=== PATIENT | male | born 1935 | race Caucasian/White ===

== ENCOUNTER 2023-03-23 09:25 | Emergency (ER) | payer MEDICARE, SELFPAY ==
[2023-03-23 09:44] VITALS: BP 161/105; PULSE 83; RESP 18; TEMP 37.2; O2SAT 97; BMI 26.6
--- NOTE | 2023-03-23 09:56 | ED_ITS ---
HPI - Dental/Oral General Chief complaint: Dental/Oral Stated complaint: R SIDE OF FACE SWOLLEN Time Seen by Provider: 03/23/23 09:56 Source: patient Mode of arrival: walk-in History of Present Illness HPI Narrative: Presents to emergency department complaining of right lower tooth #30 pain with swelling To the right jaw. He states he started this week went to see his doctor if they started him on amoxicillin for 3 days prior to his appointment with the dentist. Patient states his appointment with the dentist does not want to April 01 in the meantime he developed swelling today.He denies any sore throat, difficulty swallowing.She was started on amoxicillin for 3 days by his primary care doctor prior to his appointment because he has valve problems. Related Data Previous Rx's Medication Instructions Recorded clindamycin HCl 300 mg capsule 300 mg PO Q6H 10 days #40 caps 03/23/23 Allergies Allergy/AdvReac Type Severity Reaction Status Date / Time No Known Drug Allergies Allergy Verified 03/23/23 09:47 Review of Systems ROS Status of ROS 10 or more systems reviewed and unremarkable except as noted in history and below Exam Narrative Exam Narrative: General: The patient is comfortable, alert and oriented x3, well appearing, non toxic in no apparent distress. Head: Atraumatic and normocephalic. Eyes: Normal conjunctiva ENT: The oropharynx is normal. No pharyngeal erythema, uvular edema, tonsillar exudates, asymmetry or trismus. Uvula is midline. Mouth is normal to inspection with the exception of a pain on percussion of the tooth #30 and evidence of dental caries w erosion of dentin. mild right jaw edema, no erythema. Floor of the mouth is soft. No tenderness in the submental or submandibular space. No tongue elevation or deviation. The patient has no evidence of periapical abscess, gingivitis or other acute pathology. Airway is patent. Neck: The neck demonstrates normal range of motion. No meningeals signs are present. No stridor. No masses or lymphandenopathy noted. Respiratory: No acute distress, lungs are clear to auscultation, no wheezing, rhonchi, or rales noted. No stridor or retractions are noted. Cardiovascular: Regular rate and rhythm Skin: The skin exam shows no evidence of rashes Neuro: Alert and oriented x4, normal speech Lymphatic: No cervical lymphadenopathy Constitutional Vital Signs, click to edit/add: Last Vital Signs Temp 98.5 F 03/23/23 10:29 Pulse 79 03/23/23 10:29 Resp 14 03/23/23 10:29 BP 158/98 H 03/23/23 10:29 Pulse Ox 95 03/23/23 10:29 O2 Del Method Room Air 03/23/23 10:29 Course Vital Signs Vital signs: Vital Signs Temperature 99.0 F 03/23/23 09:44 Pulse Rate 83 03/23/23 09:44 Respiratory Rate 18 03/23/23 09:44 Blood Pressure 161/105 H 03/23/23 09:44 Pulse Oximetry 97 03/23/23 09:44 Temperature 98.5 F 03/23/23 10:29 Pulse Rate 79 03/23/23 10:29 Respiratory Rate 14 03/23/23 10:29 Blood Pressure 158/98 H 03/23/23 10:29 Pulse Oximetry 95 03/23/23 10:29 Oxygen Delivery Method Room Air 03/23/23 10:29 MDM - Dental/Oral MDM Narrative Medical decision making narrative: Patient was started on clindamycin. He is advised to take Tylenol as needed for pain. Dental anesthesia was given. Patient is stable for outpatient dentist follow-up. At this time the patient is without objective evidence of an acute process requiring hospitalization or inpatient management. The patient has remained hemodynamically stable. No additional indication for emergent studies at this time. I answered all questions. Discussed discharge instructions including s tandard anticipatory guidance and what should prompt a return to the emergency department, including if they get worse are not getting better or develops any new or concerning symptoms. I've given them specific time frame in which to follow-up, and who to follow-up with. The patient demonstrates understanding. Patient is nontoxic and stable for discharge with outpatient follow-up. This note was created with the assistance of a speech recognition program. Although the intention is to generate documents that actually reflects the content of the visit, no guarantees can be provided that every mistake has been identified and corrected by editing. Discharge Plan Discharge Chief Complaint: Dental/Oral Clinical Impression: Dental abscess Patient Disposition: Home, Self-Care Time of Disposition Decision: 10:14 Condition: Good Mode of Transportation: Private Vehicle Prescriptions / Home Meds: New clindamycin HCl 300 mg capsule 300 mg PO Q6H 10 Days Qty: 40 0RF Instructions: Dental Abscess (ED) Stand Alone Forms: Portal Instructions Referrals: Onofre Pineda DO [Primary Care Provider] - 1 week Discharge Date/Time: 03/23/23 10:54
--- NOTE | 2023-03-23 10:14 | PC.NURSE ---
pt reports right lower jaw pain and swelling. pt states took 2 tylenol this morning without relief.
[2023-03-23 10:29] VITALS: BP 158/98; PULSE 79; RESP 14; TEMP 36.9; O2SAT 95
[2023-03-23] MEDS: BENZOCAINE 20% 30 ML SOLUTION MM (10:52)
[2023-03-23] MEDS: LIDOCAINE 2% JELLY 10 ML MM (10:53)
== END 2023-03-23 10:54 | disposition home or self-care (01) ==
PROVIDERS: Emergency Provider Emergency Medicine; PCP Internal Medicine
DX: K04.7 Periapical abscess without sinus (principal)
CPT/HCPCS: 99282

== ENCOUNTER 2023-05-01 13:46 | Outpatient (OUT) | payer MEDICARE, SELFPAY ==
--- NOTE | 2023-05-01 13:50 | XR_ITS ---
[address] [address] Patient Name: JERRY GOODE MRN: [id number] date: 1935 Sex: M Assigned Patient Location: [facility] Current Patient Location: [facility] Accession/Order Number: [id number] Exam Date: 05/01/2023 14:00 Report Date: 05/01/2023 16:57 At the request of: NON-STAFF PHYSICIAN Procedure: XR abdomen 1V EXAMINATION: XR abdomen 1V HISTORY: Renal Stones N20.0 COMPARISON: 03/29/2022 FINDINGS: KIDNEY/URETER - RIGHT: No visible renal or ureteral calcifications. KIDNEY/URETER - LEFT: No visible renal or ureteral calcifications. PELVIS: No visible ureteral calcifications. Any visible calcifications favor phleboliths. BOWEL: No abnormal dilation or deviation. BONES: No acute abnormality. Moderate degenerative changes with rotatory dextrocurvature OTHER: Negative. No abnormal gaseous collections. XR/XR abdomen 1V IMPRESSION: No definite urinary tract calculi Electronically authenticated by: ARTURO DOUGHERTY Date: 05/01/2023 16:57
== END 2023-05-01 13:47 | disposition home or self-care (01) ==
LOC: RAD 13:46
PROVIDERS: PCP Internal Medicine
DX: N20.0 Calculus of kidney (principal)
CPT/HCPCS: 74018

== ENCOUNTER 2024-01-17 07:03 | Outpatient (RCR) | payer MEDICARE, SELFPAY ==
--- NOTE | 2023-10-18 13:22 | CR1_ITS ---
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
--- NOTE | 2023-11-13 10:30 | CR1_ITS ---
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
--- NOTE | 2023-12-11 | CR1_ITS ---
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
--- NOTE | 2024-01-09 14:30 | CR1_ITS ---
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
--- NOTE | 2024-02-03 13:19 | CR1_ITS ---
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
== END 2024-02-19 14:57 | disposition home or self-care (01) ==
LOC: CR 07:03
PROVIDERS: PCP Internal Medicine
DX: Z95.5 Presence of coronary angioplasty implant and graft (principal)
CPT/HCPCS: 93798

== ENCOUNTER 2024-05-06 12:43 | Emergency (ER) | payer MEDICARE, SELFPAY ==
[2024-05-06] VITALS (18 sets, daily range): BP systolic 123–162; BP diastolic 75–97; PULSE 64–82; TEMP 36.4; O2SAT 94–98; BMI 26.6
--- NOTE | 2024-05-06 13:00 | XR_ITS ---
[place] [id number] Patient Name: JERRY GOODE MRN: [id number] date: 1935 Sex: M Assigned Patient Location: ER Current Patient Location: ED.MAIN Accession/Order Number: [id number] Exam Date: 05/06/2024 13:10 Report Date: 05/06/2024 13:36 At the request of: TIFFANI MALDONADO Procedure: XR chest 1V EXAM: CHEST 1 VIEW HISTORY: sob TECHNIQUE: Chest, one view. COMPARISON: None. FINDINGS: Lungs are clear. No focal consolidation, pleural effusion, or pneumothorax. Pulmonary vasculature is within normal limits. Coronary artery bypass grafting changes. Heart size within normal limits. XR/XR chest 1V IMPRESSION: 1. No acute cardiopulmonary disease. Electronically authenticated by: VINOD CAPPS Date: 05/06/2024 13:36
--- NOTE | 2024-05-06 13:00 | ECG_ITS ---
[facility] Test Date: 2024-05-06 Pat Name: JERRY GOODE Department: Room: - Gender: Male [employer] In[employer]: : 1935 Requested By: DEREK COONEY Order Number: [id number] Reading MD: DEREK COONEY Measurements Intervals [place] Rate: 85 P: 25 IA: 132 QRS: -71 QRSD: 96 T: 90 QT: 334 QTc: 376 Interpretive Statements 1100 Sinus rhythm 1474 with frequent supraventricular premature complexes 2630 Left anterior fascicular block 8102 Low QRS voltage in chest leads 9150 abnormal ECG Electronically Signed On 05-07-2024 6:46:06 EDT by DEREK COONEY
--- NOTE | 2024-05-06 13:01 | ED.GENADUL1 ---
HPI HPI - General Adult General Chief complaint: Shortness of Breath/Dyspnea Stated complaint: SHORTNESS OF BREATH/ GENERAL WEAKNESS Time Seen by Provider: 05/06/24 12:44 Source: patient Mode of arrival: walk-in Limitations: no limitations History of Present Illness HPI narrative: Patient presents to ED complaining of shortness of breath. He states he has shortness of breath on and off but this is was much worse this morning. He denies any chronic lung issues such as COPD or emphysema. He does have an extensive cardiac history with 2 open heart surgeries and a stent that was placed within the last 6 months per family. He denies any chest pain. No nausea or vomiting. He just reports shortness of breath and feeling generally ill. He also reports a mild sore throat. He denies history of A-fib but he states he is on a blood thinner but he is not sure which one. He denies cough or sick contacts. Related Data Home Medications ?Medication ?Instructions ?Recorded ?Confirmed aspirin 81 mg capsule 81 mg PO DAILY 05/06/24 05/06/24 atorvastatin 80 mg tablet (Lipitor) 80 mg PO QPM 05/06/24 05/06/24 carvedilol 6.25 mg tablet (Coreg) 6.25 mg PO Q12H 05/06/24 05/06/24 clopidogrel 75 mg tablet (Plavix) 75 mg PO DAILY 05/06/24 05/06/24 escitalopram oxalate 20 mg tablet 20 mg PO DAILY 05/06/24 05/06/24 ezetimibe 10 mg tablet 10 mg PO DAILY 05/06/24 05/06/24 finasteride 5 mg tablet (Proscar) 5 mg PO DAILY 05/06/24 05/06/24 losartan 50 mg tablet (Cozaar) 50 mg PO DAILY 05/06/24 05/06/24 multivitamin (Daily Multi-Vitamin 1 tab PO DAILY 05/06/24 05/06/24 tablet) pantoprazole 40 mg tablet,delayed 40 mg PO QAM 05/06/24 05/06/24 release tramadol 50 mg tablet mg 05/06/24 Allergies Allergy/AdvReac Type Severity Reaction Status Date / Time No Known Drug Allergies Allergy Verified 03/23/23 09:47 Opioid HPI Opioid Management Most Recent Opioid Data: No Data to Display Review of Systems ROS Status of ROS 10 or more systems reviewed and unremarkable except as noted in history and below PFSH PFSH Social History Little interest or pleasure in doing things: not at all Feeling down, depressed, or hopeless: not at all Exam Narrative Exam Narrative: Time Seen: [] Vital Signs: [Per nurse's notes.] General: [Alert] Skin: [Warm, dry, no rash.] Head: [Normocephalic, atraumatic.] Neck: [Supple, trachea midline.] Eye: [Pupils are equal, round and reactive to light, extraocular movements are intact, normal conjunctiva.] Ears, nose, mouth and throat: oral mucosa moist. Cardiovascular: [Regular rate and rhythm, no murmur.] Respiratory: Diminished breath sounds bilateral bases mild crackles, respirations are non-labored, breath sounds are equal.] Chest wall: [No tenderness, no deformity.] Gastrointestinal: [Soft, nontender, non distended, normal bowel sounds.] MSK: 5 out of 5 muscle strength x 4 extremities no calf pain Very mild trace edema bilateral lower extremities Lymphatics: [No lymphadenopathy.] Psychiatric: [Cooperative, appropriate mood & affect.] Neurological: [Alert and oriented to person, place, time, and situation, no focal neurological deficit observed.] Constitutional Vital Signs, click to edit/add: Last Vital Signs Temp 97.6 F 05/06/24 12:48 Pulse 72 05/06/24 15:10 Resp 18 05/06/24 15:10 BP 162/97 H 05/06/24 15:35 Pulse Ox 98 05/06/24 15:50 O2 Del Method Room Air 05/06/24 12:48 Course Vital Signs Vital signs: Vital Signs Temperature 97.6 F 05/06/24 12:48 Pulse Rate 64 05/06/24 12:48 Respiratory Rate 18 05/06/24 12:48 Blood Pressure 140/94 H 05/06/24 12:48 Pulse Oximetry 97 05/06/24 12:48 Oxygen Delivery Method Room Air 05/06/24 12:48 Temperature 97.6 F 05/06/24 12:48 Pulse Rate 72 05/06/24 15:10 Respiratory Rate 18 05/06/24 15:10 Blood Pressure 162/97 H 05/06/24 15:35 Pulse Oximetry 98 05/06/24 15:50 Oxygen Delivery Method Room Air 05/06/24 12:48 Medical Decision Making MDM Narrative Medical decision making narrative: Patient's labs including troponin x [address] angio shows no PE or pneumonia. Patient states he is feeling better. We did talk for a long time about his alcohol use. He states that he drinks too much and he does get a little shaky when he stops drinking. I offered him resources for alcohol detox but he states he does not need that. I instructed family to bring him back if he is exhibiting severe withdrawal signs. Currently he is not. Patient is to follow-up with family doctor return to ER for worsening symptoms. Patient and family are comfortable care plan for home. Differential Diagnosis Differential Diagnosis: Pneumonia, CHF, IA, arrhythmia, COVID Medical Records Medical records reviewed: Yes I reviewed the patient's medical records Lab Data Lab results reviewed: Yes I reviewed the patient's lab results Labs: Lab Results 05/06/24 05/06/24 05/06/24 Range/Units 12:57 12:58 15:10 WBC 9.6 (4.0-11.0) 10^3/uL RBC 4.33 L (4.70-6.10) 10^6/uL Hgb 14.9 (14.0-18.0) g/dL Hct 41.7 L (42.0-54.0) % MCV 96.3 H (80.0-94.0) fL MCH 34.4 H (25.9-34.0) pg MCHC 35.7 H (29.9-35.2) g/dL RDW 13.2 (11.0-15.0) % Plt Count 247 (150-450) 10^3/uL MPV 10.3 (9.5-13.5) fL Neut % (Auto) 75.2 H (43.0-75.0) % Lymph % (Auto) 16.3 L (20.5-60.0) % [place] % (Auto) 7.4 (1.7-12.0) % Eos % (Auto) 0.6 L (0.9-7.0) % Baso % (Auto) 0.4 (0.2-2.0) % Neut # (Auto) 7.2 H (1.4-6.5) 10^3/uL Lymph # (Auto) 1.6 (1.2-3.8) 10^3/uL [place] # (Auto) 0.7 (0.3-0.8) 10^3/uL Eos # (Auto) 0.1 (0.0-0.7) 10^3/uL Baso # (Auto) 0.0 (0.0-0.1) 10^3/uL Abs Immat Gran (auto) 0.01 (0.00-0.03) 10^3/uL Imm/Tot Granulo (auto) 0.1 (0.0-0.5) % PT 11.7 H (9.0-11.6) sec INR 1.12 Sodium 137 (136-145) mmol/L Potassium 3.7 (3.5-5.1) mmol/L Chloride 102 (98-107) mmol/L Carbon Dioxide 26.3 (21.0-32.0) mmol/L Anion Gap 12.4 BUN 16.0 (7.0-18.0) mg/dL Creatinine 1.12 (0.70-1.30) mg/dL Est GFR ( Amer) >60 (>=60) Est GFR (Non-Af Amer) >60 (>=60) BUN/Creatinine Ratio 14.3 Glucose 182 H (74-106) mg/dL Calcium 8.5 (8.5-10.1) mg/dL Total Bilirubin 1.1 H (0.2-1.0) mg/dL AST 44 H (15-37) U/L ALT 43 (16-63) U/L Alkaline Phosphatase 86 (46-116) U/L Troponin I High Sens 11.5 9.8 (4.0-76.1) pg/mL NT-Pro-B Natriuret Pep 229.0 (<=1800.0) pg/mL Total Protein 7.8 (6.4-8.2) g/dL Albumin 3.3 L (3.4-5.0) g/dL Globulin 4.5 g/dL Albumin/Globulin Ratio 0.7 Influenza Type A Ag Negative Influenza Type B Ag Negative SARS-CoV-2 Ag (CV2AG) Negative (NEGATIVE) Imaging Data Chest x-ray: Radiologist's impression: ITS Impressions Chest X-Ray 05/06/24 13:00 IMPRESSION: 1. No acute cardiopulmonary disease. Electronically authenticated by: VINOD Escobedo: 05/06/2024 13:36 Chest CTA 05/06/24 14:00 IMPRESSION:No evidence of pulmonary embolus or acute intrathoracic abnormality. Electronically authenticated by: INDERJIT QUINTERO Date: 05/06/2024 14:45 ECG Data Attestation: I personally reviewed and interpreted this ECG as follows: Interpretation: EKG INTERPRETATION Time: []1253 Rate: []85 Rhythm: _ []Normal sinus rhythm with frequent PVCs ST segments: _ []No acute ST elevation or depression T waves: _ [] Ectopy: _ [] P wave/TX interval: _ [] QRS interval: _ [] QT interval: _ [] Comparison: _ [] Comparison EKG date: [] Performed by: [self] Discharge Plan Discharge Chief Complaint: Shortness of Breath/Dyspnea Clinical Impression: SOB (shortness of breath) Patient Disposition: Home, Self-Care Time of Disposition Decision: 15:40 Condition: Good Mode of Transportation: Private Vehicle Prescriptions / Home Meds: No Action carvedilol [Coreg] 6.25 mg tablet 6.25 mg PO Q12H Rx Instructions: must administer with a meal/food pantoprazole 40 mg tablet,delayed release (DR/EC) 40 mg PO QAM tramadol 50 mg tablet losartan [Cozaar] 50 mg tablet 50 mg PO DAILY aspirin 81 mg capsule 81 mg PO DAILY finasteride [Proscar] 5 mg tablet 5 mg PO DAILY escitalopram oxalate 20 mg tablet 20 mg PO DAILY clopidogrel [Plavix] 75 mg tablet 75 mg PO DAILY atorvastatin [Lipitor] 80 mg tablet 80 mg PO QPM multivitamin [Daily Multi-Vitamin] Tablet 1 tab PO DAILY ezetimibe 10 mg tablet 10 mg PO DAILY Print Language: Liberian Instructions: Shortness of Breath (ED) Referrals: Onofre Pineda DO [Primary Care Provider] - 1 week Discharge Date/Time: 05/06/24 16:03
[2024-05-06 13:09] LABS: Basophils Percent Auto 0.4 % (0.2-2.0); Eosinophils Absolute Auto 0.1 10^3/uL (0.0-0.7); Eosinophils Percent Auto 0.6 % (0.9-7.0); Hematocrit 41.7 % (42.0-54.0); Hemoglobin 14.9 g/dL (14.0-18.0); Immature Granulocytes Abs Auto 0.01 10^3/uL (0.00-0.03); Immature Granulocytes Pct Auto 0.1 % (0.0-0.5); Lymphocytes Absolute Auto 1.6 10^3/uL (1.2-3.8); Lymphocytes Percent Auto 16.3 % (20.5-60.0); Mean Corpuscular HGB Conc 35.7 g/dL (29.9-35.2); Mean Corpuscular Hemoglobin 34.4 pg (25.9-34.0); Mean Corpuscular Volume 96.3 fL (80.0-94.0); Mean Platelet Volume 10.3 fL (9.5-13.5); Monocytes Absolute Auto 0.7 10^3/uL (0.3-0.8); Monocytes Percent Auto 7.4 % (1.7-12.0); Neutrophils Absolute Auto 7.2 10^3/uL (1.4-6.5); Neutrophils Percent Auto 75.2 % (43.0-75.0); Platelet Count 247 10^3/uL (150-450); Red Blood Count 4.33 10^6/uL (4.70-6.10); Red Cell Distribution Width 13.2 % (11.0-15.0); White Blood Count 9.6 10^3/uL (4.0-11.0)
[2024-05-06 13:22] LABS: Influenza Virus A Antigen Negative; Influenza Virus B Antigen Negative; Internal Control Within Normal Limits; SARS-CoV-2 Ag NEGATIVE (NEGATIVE)
[2024-05-06 13:24] LABS: INR 1.12; Prothrombin Time 11.7 sec (9.0-11.6)
[2024-05-06 13:33] LABS: Alanine Aminotransferase 43 U/L (16-63); Albumin Globulin Ratio 0.7; Albumin Level 3.3 g/dL (3.4-5.0); Alkaline Phosphatase 86 U/L (46-116); Anion Gap 12.4; Aspartate Amino Transferase 44 U/L (15-37); BUN Creatinine Ratio 14.3; Bilirubin Total 1.1 mg/dL (0.2-1.0); Calcium 8.5 mg/dL (8.5-10.1); Carbon Dioxide 26.3 mmol/L (21.0-32.0); Chloride 102 mmol/L (98-107); Estimated GFR (African America >60 (>=60); Estimated GFR (Non-African Ame >60 (>=60); Globulin 4.5 g/dL; Glucose 182 mg/dL (74-106); Potassium 3.7 mmol/L (3.5-5.1); Sodium 137 mmol/L (136-145); Total Protein 7.8 g/dL (6.4-8.2); Troponin I High Sensitivity 11.5 pg/mL (4.0-76.1)
--- NOTE | 2024-05-06 14:00 | CT_ITS ---
[address] [address] Patient Name: JERRY GOODE MRN: [id number] date: 1935 Sex: M Assigned Patient Location: ER Current Patient Location: Accession/Order Number: [id number] Exam Date: 05/06/2024 14:15 Report Date: 05/06/2024 14:45 At the request of: TIFFANI MALDONADO Procedure: CT angio chest EXAM: CT angio chest HISTORY: r/o PE COMPARISON: None. TECHNIQUE: CT chest with intravenous contrast was performed with timing for the evaluation for pulmonary arteries. Multiplanar reformats were performed. MIP (maximum intensity projection) images or 3D post processing was performed. Dose reduction techniques were achieved by using automated exposure control and/or adjustment of mA and/or kV according to patient size and/or use of iterative reconstruction technique. FINDINGS: Lungs: No consolidation, pneumothorax, or effusion. Airways: Normal. Mediastinum: No adenopathy. Aorta: No aneurysm. Cardiac: Normal size. No pericardial effusion. Status post CABG. Pulmonary vasculature: Diagnostic opacification of pulmonary arteries without evidence of pulmonary embolus. Normal morphology. Bones: No acute bony abnormality. Axilla: No adenopathy. Thyroid gland: No abnormality demonstrated on provided imaging. Soft tissues: Unremarkable. Upper abdomen: Unremarkable. Additional findings: None. CT/CT angio chest IMPRESSION:No evidence of pulmonary embolus or acute intrathoracic abnormality. Electronically authenticated by: INDERJIT QUINTERO Date: 05/06/2024 14:45
[2024-05-06 15:36] LABS: Troponin I High Sensitivity 9.8 pg/mL (4.0-76.1)
== END 2024-05-06 16:03 | disposition home or self-care (01) ==
PROVIDERS: Emergency Provider Emergency Medicine; PCP Internal Medicine
DX: R06.02 Shortness of breath (principal); Z95.5 Presence of coronary angioplasty implant and graft
CPT/HCPCS: 36415; 71045; 71275; 80053; 83880; 84484; 85025; 85610; 87804; 87811; 93005; 99285; Q9967

== ENCOUNTER 2024-10-16 14:58 | Outpatient (OUT) | payer MEDICARE, SELFPAY ==
--- OUTSIDE RECORDS SUMMARY | 2024-10-16 15:06 | XMS_ITS | CCD ---
Author Organization [facility] Care Team Providers Care Soda Room Operator Name Role Phone Onofre Cooney DO Primary Care Provider [phone] ONOFRE COONYE Primary Care Physician [phone] Onofre Cooney DO Primary Care Provider [phone] EROS, DR ADHIKARI Admitting Unavailable BALL, DR ADHIKARI Attending Unavailable BALL, DR ADHIKARI Consulting Unavailable BALL, DR ADHIKARI Primary Care Unavailable RICK, DR SANTIAGO Admitting Unavailable RICK, DR SANTIAGO Attending Unavailable RICK, DR SANTIAGO Consulting Unavailable BALL, DR ADHIKARI Primary Care Unavailable ROMEL, DR VINCENT Prasad Consulting Unavailable BALL, DR ADHIKARI Admitting Unavailable BALL, DR ADHIKARI Attending Unavailable BALL, DR ADHIKARI Consulting Unavailable BALL, DR ADHIKARI Primary Care Unavailable LADONNA, DR ARTURO Varma Consulting Unavailable MARTÍNEZ, BUSTER Consulting Unavailable FRANK, DR GIOVANI Prasad Attending Unavailable FRANK, DR GIOVANI Prasad Consulting Unavailable FRANK, DR GIOVANI Prasad Admitting Unavailable BALL, DR ADHIKARI Primary Care Unavailable SAID, ADITI Consulting Unavailable BALL, DR ADHIKARI Primary Care Unavailable REED, SAKSHI Consulting Unavailable BARRINGTON, RODNEY Attending Unavailable BARRINGTON, RODNEY Admitting Unavailable BARRINGTON, RODNEY Consulting Unavailable NILL, DR ESPOSITO Attending Unavailable NILL, DR ESPOSITO Consulting Unavailable NILL, DR ESPOSITO Admitting Unavailable BALL, DR ADHIKARI Primary Care Unavailable Eros, Onofre Unavailable Pamela RICK Attending Unavailable RICK, Pamela Prasad Attending Unavailable RICK, Pamela R Attending Unavailable RICK, Pamela Prasad Attending Unavailable RICK, Pamela Prasad Attending Unavailable BALL, ONOFRE Referring Unavailable RICK, Pamela Prasad Attending Unavailable Xiao, Cate T Referring Unavailable Xiao, Cate T Attending Unavailable Xiao, Cate T Admitting Unavailable Xiao, Cate T Referring Unavailable Xiao, Cate T Attending Unavailable Xiao, Cate T Admitting Unavailable Onofre Cooney DO Primary Care Provider [phone] VINCENT VILLASENOR Admitting Unavailable VINCENT VILLASENOR Attending Unavailable ONOFRE COONEY Primary Care Unavailable JERMAINE ESTRADA Referring Unavailable BALL, ONOFRE Primary Care Unavailable BRUVINCENT DENT Referring Unavailable BALL, ONOFRE Primary Care Unavailable VINCENT VILLASENOR Attending Unavailable VINCENT VILLASENOR Referring Unavailable BALL, ONOFRE Primary Care Unavailable VINCENT VILLASENOR Attending Unavailable VINCENT VILLASENOR Attending Unavailable BALL, ONOFRE Primary Care Unavailable VINCENT VILLASENOR Referring Unavailable CHLOE GUTHRIE Referring Unavailable BALL, ONOFRE Primary Care Unavailable VINCENT VILLASENOR Referring Unavailable ELLSINORE, ONOFRE Primary Care Unavailable VINCENT VILLASENOR Attending Unavailable TALRUPAL CURRIEAMMED Admitting Unavailable TALDENIZ CURRIEED Attending Unavailable ELLSINORE, ONOFRE Primary Care Unavailable Allergies Allergy Classification Reported Allergen(s) Allergy Type Date of Onset Reaction(s) Facility (6 sources) Ciprofloxacin; Translations: [ciprofloxacin] Drug Allergy 09-19-19 10 Eruption of skin (disorder) [facility] (6 sources) Codeine; Translations: [codeine] Drug Allergy 07-27-20 04 Vomiting [facility] (6 sources) diphenhydrAMINE; Translations: [diphenhydramine] Drug Allergy 08-29-19 17 Eruption of skin (disorder) [facility] (20 sources) Lisinopril; Translations: [lisinopril] Drug Allergy 04-17-20 13 Unknown (qualifier value) [facility] (20 sources) Simvastatin; Translations: [simvastatin] Drug Allergy 05-07-20 24 Unknown (qualifier value) [facility] (1 source) Amino Acids Drug Allergy [facility] (1 source) Ciprofloxacin Drug Allergy [facility] (1 source) Codeine Drug Allergy [facility] (1 source) diphenhydrAMINE Drug Allergy [facility] (1 source) Simvastatin Drug Allergy [facility] (3 sources) patient allergy list reviewed by nurse or physicia Propensity to adverse reactions 01-18-20 18 Comment:Done ItsGoinOn Other Medications Current Medications Medication Drug Class(es) Dates Sig (Normalized) Sig (Original) acetaminophen 325 mg oral tablet (1 source) Start: 09-05-2023 acetaminophen (TYLENOL) tablet 650 mg amoxicillin 875 mg oral tablet (8 sources) Penicillin-class Antibacterial Start: 03-22-2023 take 1 tablet by mouth every twelve hours Amoxicillin 875 MG 1 tablet Orally Twice a day for 3 days Feb, Active aspirin 81 mg oral capsule (20 sources) Platelet Aggregation Inhibitor, Nonsteroidal Anti-inflammatory Drug Start: 10-17-2022 take 1 capsule by mouth once daily aspirin 81 mg oral capsule 81 mg = 1 cap(s), Oral, Daily, Blood Thinner Start Date: 10/17/22 Status: Ordered Start: 03-07-2020 take 1 tablet by edgardo th once daily aspirin 81 mg oral tablet 1 tab, Oral, Daily, Refills(s) 0, Blood Thinner Start Date: 03/07/20 Status: Ordered Start: 09-13-2017 take 81 mg by mouth once daily Aspirin Active 81 MG PO Daily September 13, 2017 1:00am take 1 tablet by edgardo th every twenty-four hours Aspirin 81 81 MG 1 tablet Orally Once a day Active atorvastatin 80 mg oral tablet (20 sources) HMG-CoA Reductase Inhibitor Start: 09-13-2017 take 80 mg by mouth once daily at bedtime Atorvastatin Active 80 MG PO Daily at bedtime September 13, 2017 1:00am carvedilol 12.5 mg oral tablet (20 sources) alpha-Adrenergic Arash, beta-Adrenergic Arash Start: 03-07-2020 take 6.25 mg by mouth twice daily Coreg 12.5 mg Tab 6.25 mg = 0.5 tab(s), Oral, BID, Refills(s) 0, High blood pressure Start Date: 03/07/20 Status: Ordered Start: 09-13-2017 End: 10-29-2023 take 12.5 mg by mouth twice daily Carvedilol Active 12.5 MG PO Twice daily October 29, 2023 1:08pm take 4 tablets by mo uth twice daily, then take 0.5 tablet by mouth in the morning, then take 0.5 tablet by mouth in the evening carvedilol (COREG) 3.125 MG tablet Take 4 tablets by mouth 2 times daily 1/2 tablet AM 1/2 tablet PM 0 Active take 1 tablet by edgardo th twice daily carvedilol (COREG) 3.125 MG tablet Take 3.125 mg by mouth 2 times daily 0 Active clopidogrel 75 mg oral tablet (20 sources) [id number] Platelet Inhibitor Start: 09-13-2017 take 1 tablet by mouth once daily Clopidogrel (Plavix) 75 mg Tablet Active 75 MG PO Daily September 13, 2017 1:00am ezetimibe 10 mg oral tablet (6 sources) Dietary Cholesterol Absorption Inhibitor Start: 10-30-2023 take 1 tablet by mouth once daily Ezetimibe (Zetia) 10 mg tablet Active 10 MG PO Daily October 30, 2023 1:00am Start: 07-06-2021 take 1 tablet by edgardo th once daily ezetimibe 10 mg Tab 10 mg = 1 tab(s), Oral, Daily, Refills(s) 0, High cholesterol Start Date: 10/17/22 Status: Ordered finasteride 5 mg oral tablet (20 sources) 5-alpha Reductase Inhibitor Start: 09-13-2017 take 5 mg by mouth once daily Finasteride Active 5 MG PO Daily September 13, 2017 1:00am Lactobacillus (4 sources) LACTOBACILLUS PO Take by mouth 0 Active losartan potassium 50 mg oral tablet (14 sources) Angiotensin 2 Receptor Arash Start: 09-13-2017 End: 10-29-2023 take 50 mg by mouth once daily Losartan Active 50 MG PO Daily October 30, 2023 1:00am methylPREDNISolone 4 mg oral tablet (17 sources) Corticosteroid Start: 09-02-2022 methylPREDNISolone 4 MG as directed Orally Aug, Active 24 hr mirabegron 50 mg extended release oral tablet (4 sources) beta3-Adrenergic Agonist Start: 06-27-2022 take 1 tablet by mouth once daily Myrbetriq 50 mg oral tablet, extended release 50 mg = 1 tab(s), Oral, Daily, # 30 tab(s), Refills(s) 11, 165, cm, 06/27/22 15:46:00 EDT, Height/Length Dosing, 73, kg, 06/27/22 15:46:00 EDT, Weight Dosing Start Date: 06/27/22 Status: Ordered Multi Vitamin+ (5 sources) Start: 03-07-2020 take 1 tablet by mouth once daily Multi Vitamin+ 1 tab, Oral, Daily, Refill(s) 0, Prophylaxis Start Date: 03/07/20 Status: Ordered Multiple Vitamin (MULTI VITAMIN DAILY PO) (1 source) Start: 03-07-2020 Multiple Vitamin (MULTI VITAMIN DAILY PO) Take by mouth 0 03/07/2020 Active pantoprazole 40 mg delayed release oral tablet (20 sources) Proton Pump Inhibitor Start: 10-29-2023 take 40 mg by mouth once daily Pantoprazole Active 40 MG PO Daily October 29, 2023 1:00am Start: 10-30-2021 Pantoprazole [address] Tab 80 mg = 2 tab(s), Oral, Daily, Refills(s) 0, Control of stomach acid Start Date: 10/30/21 Status: Ordered Start: 10-30-2021 take 1 tablet by edgardo th once daily Pantoprazole [address] Tab 40 mg = 1 tab(s), Oral, Daily, Refills(s) 0 Start Date: 10/30/21 Status: Ordered Start: 09-13-2017 End: 10-29-2023 take 1 tablet by mouth twice daily at bedtime Pantoprazole (Protonix) 20 mg Tablet,Delayed Release (Dr/Ec) Discontinued 20 MG PO Twice daily morning & bedtime September 13, 2017 1:00am October 29, 2023 1:10pm take 1 tablet by edgardo th once daily pantoprazole (PROTONIX) 20 MG tablet Take 20 mg by mouth daily 0 Active 5 ml sodium chloride 9 mg/ml injection (7 sources) Start: 09-05-2023 0.9 % sodium c hloride infusion Start: 09-05-2023 sodium chlorid e flush 0.9 % injection 5-40 mL traMADol hydrochloride 50 mg oral tablet (20 sources) Opioid Agonist Start: 08-12-2023 take 1 tablet by mouth twice daily as needed for pain traMADol HCl 50 MG 1 tablet Orally Twice daily as needed for pain for 30 days Jul, Active Start: 06-24-2023 take 1 tablet by edgardo th twice daily as needed for pain traMADol HCl 50 MG 1 tablet Orally Twice daily as needed for pain for 30 days p/u 06/24, start 06/26May, Active Start: 05-27-2023 take 1 tablet by edgardo th twice daily as needed for pain traMADol HCl 50 MG 1 tablet Orally Twice daily as needed for pain for 30 days start 05/27May, Active Start: 04-23-2023 take 1 tablet by edgardo th twice daily as needed for pain traMADol HCl 50 MG 1 tablet Orally Twice daily as needed for pain for 30 days p/u 04/23, start 04/24Mar, Active Start: 03-24-2023 take 1 tablet by edgardo th twice daily as needed for pain traMADol HCl 50 MG 1 tablet Orally Twice daily as needed for pain for 30 days start 03/25Feb, Active Start: 10-25-2022 take 1 tablet by edgardo th every four hours as needed for pain Ultram 50 mg Tab See Instructions, 1 tabs po q4hr PRN pain Duration 7 days, # 12 tab(s), Refills(s) 2, Pharmacy: [facility]/pharmacy #[id number], 165, cm, 10/18/22 7:33:00 EST, Height/Length Dosing, 78.5, kg, 10/18/22 7:33:00 EST, Weight Dosing Start Date: 10/25/22 Status: Ordered Start: 10-04-2022 take 1 tablet by edgardo th twice daily as needed for pain traMADol HCl 50 MG 1 tablet Orally Twice daily as needed for pain for 30 days started 02/23Feb, Active Start: 03-07-2020 take 1 tablet by edgardo th every six hours Ultram 50 mg Tab 50 mg = 1 tab(s), Oral, q6hr, Refills(s) 0, Pain Start Date: 03/07/20 Status: Ordered Start: 09-13-2017 End: 05-07-2024 take 50 mg by mouth every twelve hours Tramadol Discontinued 50 MG PO Every 12 hours September 13, 2017 1:00am May 07, 2024 10:54am take 1 tablet by edgardo th every six hours as needed for pain traMADol (ULTRAM) 50 MG tablet Take 50 mg by mouth every 6 hours as needed for Pain. 0 Active 24 hr venlafaxine 75 mg extended release oral capsule (20 sources) Serotonin and Norepinephrine Reuptake Inhibitor Start: 06-19-2024 take 75 mg by mouth once daily in the morning Venlafaxine Active 75 MG PO Every morning June 19, 2024 12:00am Start: 10-29-2023 End: 05-07-2024 take 150 mg by mouth once daily Venlafaxine Discontinu ed 150 MG PO Daily October 29, 2023 1:00am May 07, 2024 10:47am Start: 03-07-2020 take 1 capsule by [facility] once daily Effexor XR 150 mg Cap-ER 150 mg = 1 cap(s), Oral, Daily, # 30 cap(s), Refills(s) 0, Anxiety Start Date: 03/07/20 Status: Ordered Start: 09-13-2017 End: 10-29-2023 take 75 mg by mouth once daily Venlafaxine Discontinue d 75 MG PO Daily September 13, 2017 1:00am October 29, 2023 1:10pm take 1 capsule by [facility] every twenty-four hours Venlafaxine HCl ER 150 MG 1 capsule with food Orally Once a day Active take 1 tablet by edgardo three times daily venlafaxine (EFFEXOR) 75 MG tablet Take 75 mg by mouth 3 times daily 0 Active Completed/Discontinued Medications Medication Drug Class(es) Dates Sig (Normalized) Sig (Original) escitalopram 20 mg oral tablet (20 sources) Serotonin Reuptake Inhibitor Start: 10-29-2023 End: 06-19-2024 take 20 mg by mouth once daily Escitalopram Oxalate Discontinued 20 MG PO Daily October 29, 2023 1:00am June 19, 2024 11:50am Start: 03-30-2022 take 1 tablet by [facility] at bedtime escitalopram 10 mg Tab 10 mg = 1 tab(s), Oral, Bedtime, Refills(s) 0, Anxiety Start Date: 03/30/22 Status: Ordered take 1 tablet by [facility] every twenty-four hours Escitalopram Oxalate 20 MG 1 tablet Orally Once a day Active fluticasone propionate 0.05 mg/actuat metered dose nasal spray (20 sources) Corticosteroid Start: 10-29-2023 End: 06-19-2024 Fluticasone Propionate Discontinued 1 SPRAY INTRANASAL Daily October 29, 2023 1:00am June 19, 2024 11:12am Start: 05-06-2020 take 2 spray(s) nasa l route once daily fluticasone (FLONASE) 50 MCG/ACT nasal spray USE 2 SPRAYS IN EACH NOSTRIL EVERY DAY 0 05/06/2020 Active take 1 spray(s) nasa l route once daily Fluticasone Propionate 50 MCG/ACT 1 spray in each nostril Nasally Once a day Active take 1 spray(s) nasa l route once daily Fluticasone Propionate 50 MCG/ACT 1 spray in each nostril Nasally Once a day Active 24 hr isosorbide mononitrate 30 mg extended release oral tablet (2 sources) Nitrate Vasodilator Start: 09-13-2017 End: 10-29-2023 take 30 mg by mouth once daily in the morning Isosorbide Mononitrate Discontinued 30 MG PO Every morning September 13, 2017 1:00am October 29, 2023 1:09pm lactobacillus acidophilus [id number] unt oral capsule (2 sources) Start: 09-13-2017 End: 10-29-2023 take 1 tablet by mouth once daily Lactobacillus Acidophilus (Acidophilus) Capsule Discontinued 1 TAB PO Daily September 13, 2017 1:00am October 29, 2023 1:09pm nitroglycerin 0.4 mg sublingual tablet (7 sources) Nitrate Vasodilator Start: 09-13-2017 End: 10-29-2023 Nitroglycerin Discontinued 0.4 MG SUBLINGUAL every 5 to 15 minutes September 13, 2017 1:00am October 29, 2023 1:09pm omeprazole 40 mg delayed release oral capsule (20 sources) Proton Pump Inhibitor Start: 10-29-2023 End: 06-19-2024 take 40 mg by mouth once daily Omeprazole Discontinued 40 MG PO Daily October 29, 2023 1:00am June 19, 2024 11:12am take 1 capsule by mouth once brigida ly Omeprazole 40 MG 1 capsule 30 minutes before morning meal Orally Once a day Active Pediatric Slgjraei-Wrvr-Mlh (Multi-Vitamins With Iron) Tablet,Chewable (2 sources) Start: 09-13-2017 End: 10-29-2023 take 1 tablet by mouth once daily Pediatric Wxgjxiye-Xcbh-Vdn (Multi-Vitamins With Iron) Tablet,Chewable Discontinued 1 TAB PO Daily September 13, 2017 1:00am October 29, 2023 1:10pm sucralfate 1000 mg oral tablet (7 sources) Aluminum Complex Start: 09-13-2017 End: 10-29-2023 take 1 tablet by mouth once daily Sucralfate Discontinued 1 TAB PO Daily September 13, 2017 1:00am October 29, 2023 1:10pm sucralfate (HEATH FATE) 1 GM tablet Take 1 tablet by mouth as needed 0 Active technetium sestamibi (CARDIOLITE) injection 30 millicurie (2 sources) Start: 09-01-2019 End: 09-01-2019 technetium sestamibi (CARDIOLITE) injection 30 millicurie Start: 08-31-2019 End: 08-31-2019 technetium sestamibi (CARDIO LITE) injection 30 millicurie Problems Active Problems Problem Classification Problem Date Documented Date Episodic/Chronic Abdominal pain (9 sources) Lower abdominal pain, unspecified; Translations: [Right upper quadrant pain] Onset: 10-05-2014 Episodic Acute myocardial infarction (5 sources) Acute myocardial infarction 03-07-2020 Chronic Anxiety disorders (20 sources) Generalized anxiety disorder; Translations: [Generalized anxiety disorder] 10-29-2023 Chronic Calculus of urinary tract (20 sources) History of calculus of kidney; Translations: [Urinary bladder stone] Onset: 01-15-2022 03-07-2020 Episodic Chronic kidney disease (3 sources) Chronic kidney disease stage 3; Translations: [Chronic kidney disease, stage 3 (moderate)] Onset: 08-31-2014 Chronic Chronic obstructive pulmonary disease and bronchiectasis (11 sources) Chronic bronchitis; Translations: [Simple chronic bronchitis] Onset: 08-12-2017 09-13-2020 Chronic Complication of device; implant or graft (4 sources) Arteriosclerosis of coronary artery bypass graft; Translations: [Atherosclerosis of coronary artery bypass graft(s) without angina pectoris] Onset: 11-11-2019 Chronic Coronary atherosclerosis and other heart disease (20 sources) 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; Translations: [Angina pectoris] Onset: 08-14-2017 Chronic Deficiency and other anemia (2 sources) Anemia, unspecified; Translations: [ANEMIA UNSPECIFIED] Onset: 07-18-2022 Episodic Deficiency and other anemia (20 sources) Anemia; Translations: [Anemia, unspecified] 10-29-2023 Episodic Diseases of white blood cells (3 sources) Leukocytosis; Translations: [Leukocytosis, unspecified] Onset: 08-31-2014 Chronic Disorders of lipid metabolism (20 sources) Familial hypercholesterolemia; Translations: [Hyperlipidemia] Onset: 08-26-1957 10-30-2021 Chronic Disorders of teeth and jaw (1 source) Dental caries, unspecified Episodic Esophageal disorders (20 sources) Esophageal reflux finding; Translations: [Gastro-esophageal reflux disease with esophagitis] Onset: 09-03-2022 03-07-2020 Chronic Essential hypertension (20 sources) Essential hypertension; Translations: [Hypertensive disorder] Onset: 07-01-2014 Chronic Genitourinary symptoms and ill-defined conditions (20 sources) Nocturia; Translations: [Poor stream of urine] Onset: 09-29-2014 03-07-2020 Episodic Heart valve disorders (5 sources) Irregular heart beat 03-07-2020 Episodic Hyperplasia of prostate (20 sources) Benign prostatic hyperplasia; Translations: [Benign prostatic hypertrophy without outflow obstruction] Onset: 12-11-2021 10-30-2021 Chronic Hypertension with complications and secondary hypertension (3 sources) Benign hypertensive renal disease; Translations: [Hypertensive chronic kidney disease, benign, with chronic kidney disease stage I through stage IV, or unspecified] Onset: 09-20-2017 Chronic Immunizations and screening for infectious disease (6 sources) Contact with and (suspected) exposure to other viral communicable diseases; Translations: [Vaccination given] Episodic Malaise and fatigue (4 sources) Malaise and fatigue; Translations: [Other malaise and fatigue] Onset: 08-27-2014 Episodic Melanomas of skin (5 sources) Malignant melanoma 03-07-2020 Chronic Mood disorders (20 sources) Depressive disorder; Translations: [Major depressive disorder] Onset: 07-01-2014 09-13-2020 Chronic Nausea and vomiting (3 sources) Nausea; Translations: [Nausea] Episodic Open wounds of extremities (3 sources) Laceration without foreign body of left little finger without damage to nail, subsequent encounter; Translations: [Laceration without foreign body of left little finger without damage to nail, subsequent encounter] Episodic Osteoarthritis (20 sources) Arthritis; Translations: [Osteoarthritis] Onset: 02-23-2019 03-07-2020 Chronic Other aftercare (1 source) [facility] (current) use of aspirin; Translations: [[facility] CURRENT USE OF ASPIRIN] Onset: 09-03-2022 Episodic Other aftercare (1 source) Other intermediate card tender (current) drug therapy; Translations: [OTH [facility] CURRENT DRUG THERAPY] Onset: 09-03-2022 Episodic Other aftercare (3 sources) High risk drug monitoring status; Translations: [[facility] (current) use of opiate analgesic] Episodic Other aftercare (3 sources) Long-term current use of drug therapy; Translations: [Other shelter (current) drug therapy] Episodic Other aftercare (2 sources) Drug therapy finding; Translations: [intermediate manager (current) use of opiate analgesic] 05-05-2024 Episodic Other circulatory disease (2 sources) History of angioplasty; Translations: [Peripheral vascular angioplasty status with implants and grafts] Onset: 11-11-2019 11-11-2019 Chronic Other circulatory disease (2 sources) Peripheral vascular angioplasty status with implants and grafts; Translations: [Peripheral vascular angioplasty status with implants and grafts] Onset: 11-11-2019 Chronic Other connective tissue disease (4 sources) Other specified soft tissue disorders; Translations: [OTHER SPEC SOFT TISSUE DISORDERS] Onset: 09-02-2022 Episodic Other connective tissue disease (19 sources) Dupuytren's contracture; Translations: [Palmar fascial fibromatosis [Dupuytren]] 10-29-2023 Episodic Other connective tissue disease (1 source) Palmar fascial fibromatosis [Dupuytren] Episodic Other connective tissue disease (1 source) Ganglion of hand; Translations: [Ganglion, unspecified hand] Onset: 10-25-2022 Episodic Other connective tissue disease (1 source) Ganglion, right hand Episodic Other diseases of bladder and urethra (2 sources) Detrusor overactivity; Translations: [Overactive bladder] Onset: 06-27-2022 Chronic Other diseases of bladder and urethra (4 sources) Overactive bladder 06-27-2022 Chronic Other injuries and conditions due to external causes (3 sources) History of fall; Translations: [History of falling] Episodic Other liver diseases (2 sources) Elevated liver enzymes level; Translations: [Abnormal levels of other serum enzymes] 05-07-2024 Episodic Other liver diseases (2 sources) Abnormal levels of other serum enzymes; Translations: [Other nonspecific abnormal serum enzyme levels] 05-07-2024 Episodic Other lower respiratory disease (8 sources) Dyspnea; Translations: [Shortness of breath] Episodic Other lower respiratory disease (1 source) Shortness of breath; Translations: [Shortness of breath] Onset: 08-12-2023 Episodic Other nutritional; endocrine; and metabolic disorders (3 sources) Morbid obesity; Translations: [Morbid (severe) obesity due to excess calories] Onset: 09-19-2015 Chronic Other nutritional; endocrine; and metabolic disorders (3 sources) Obese class II; Translations: [Body mass index (BMI) 39.0-39.9, adult] Onset: 09-19-2015 Chronic Other screening for suspected conditions (not mental disorders or infectious disease) (4 sources) Cardiovascular stress test abnormal; Translations: [Abnormal result of other cardiovascular function study] Onset: 11-11-2019 11-11-2019 Episodic Other skin disorders (1 source) Sebaceous cyst of skin; Translations: [Sebaceous cyst] Onset: 12-20-2021 Episodic Other skin disorders (5 sources) Epidermoid cyst of skin of neck 09-20-2020 Episodic Other skin disorders (5 sources) Infection of sebaceous cyst 10-31-2021 Episodic Other skin disorders (1 source) Follicular cyst of the skin and subcutaneous tissue, unspecified; Translations: [FOLLICULAR CYST SKIN SUBQ TISS UNS] Onset: 09-03-2022 Episodic Other skin disorders (20 sources) Sebaceous cyst; Translations: [Sebaceous cyst] Onset: 12-06-2021 Episodic Other upper respiratory infections (19 sources) Chronic maxillary sinusitis; Translations: [Chronic maxillary sinusitis] 10-29-2023 Chronic Other upper respiratory infections (12 sources) Acute pharyngitis; Translations: [Acute pharyngitis due to other specified organisms] Onset: 11-04-2017 Episodic Prolapse of female genital organs (5 sources) 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 Residual codes; unclassified (20 sources) Obstructive sleep apnea syndrome; Translations: [Obstructive sleep apnea (adult) (pediatric)] 09-13-2020 Chronic Residual codes; unclassified (6 sources) Obstructive sleep apnea (adult) (pediatric); Translations: [Obstructive sleep apnea (adult)(pediatric)] Onset: 12-11-2021 Chronic Residual codes; unclassified (5 sources) Other amnesia; Translations: [OTHER AMNESIA] Onset: 07-13-2022 Episodic Residual codes; unclassified (18 sources) Memory impairment; Translations: [Other amnesia] 10-29-2023 Episodic Residual codes; unclassified (3 sources) Requires influenza virus vaccination; Translations: [Need for prophylactic vaccination and inoculation, Influenza] Episodic Residual codes; unclassified (3 sources) Amnesia; Translations: [Other amnesia] Episodic Spondylosis; intervertebral disc disorders; other back problems (20 sources) Cervical spondylosis; Translations: [Spondylosis without myelopathy or radiculopathy, cervical region] Chronic Substance-related disorders (8 sources) Nicotine dependence; Translations: [Tobacco user] 09-13-2020 Chronic Unclassified (5 sources) Patient encounter status 09-20-2020 Unclassified (5 sources) Sebaceous cyst of skin 10-30-2021 Unclassified (2 sources) CONTACT W/AND (SUSP) EXPOS COVID-19; Translations: [CONTACT W/AND (SUSP) EXPOS COVID-19] Onset: 05-17-2022 Unclassified (1 source) 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; Translations: [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] Onset: 12-11-2021 Viral infection (1 source) COVID-19; Translations: [COVID-19] Onset: 05-17-2022 Past or Other Problems Problem Classification Problem Date Documented Da te Episodic/Chronic Acute bronchitis (3 sources) Acute bronchitis; Translations: [Acute bronchitis, unspecified] Onset: 08-20-2014 Episodic Bacterial infection; unspecified site (3 sources) Bacterial infectious disease; Translations: [Bacterial infection, unspecified, in conditions classified elsewhere and of unspecified site] Onset: 04-01-2019 Episodic Conditions associated with dizziness or vertigo (3 sources) Dizziness and giddiness; Translations: [Dizziness and giddiness] Onset: 08-31-2014 Episodic Coronary atherosclerosis and other heart disease (1 source) Presence of aortocoronary bypass graft; Translations: [PRESENCE AORTOCORONARY BYPASS GRAFT] Onset: 12-11-2021 Episodic Esophageal disorders (4 sources) Esophageal disorders; Translations: [Gastro-esophageal reflux disease with esophagitis, without bleeding] Mycoses (6 sources) Tinea pedis; Translations: [Tinea pedis] Onset: 01-31-2015 Resolved: 07-03-2021 Episodic Nonspecific chest pain (6 sources) Chest pain; Translations: [Chest pain, unspecified] Onset: 10-05-2014 Episodic Other aftercare (1 source) 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; Translations: [SUPERVISOR BLASTING ANTITHROMBOT/ANTIPL ATLETS] Onset: 01-16-2022 Episodic Other diseases of kidney and ureters (1 source) Other obstructive and reflux uropathy; Translations: [Other obstructive and reflux uropathy] Onset: 03-19-2023 Episodic Other gastrointestinal disorders (6 sources) Flatulence, eructation and gas pain; Translations: [Flatulence, eructation, and gas pain] Onset: 10-18-2014 Episodic Other nutritional; endocrine; and metabolic disorders (11 sources) Body mass index 25-29 - overweight; Translations: [Body mass index 29.0-29.9, adult] Onset: 09-19-2015 10-31-2021 Episodic Other nutritional; endocrine; and metabolic disorders (3 sources) Overweight; Translations: [Overweight] Onset: 04-23-2022 Resolved: 06-15-2022 Episodic Other skin disorders (3 sources) Sebaceous cyst; Translations: [Sebaceous cyst] Onset: 04-01-2019 Episodic Other skin disorders (3 sources) Swelling of head; Translations: [Localized swelling, mass and lump, head] Onset: 11-04-2017 Episodic Otitis media and related conditions (3 sources) Eustachian tube disorder; Translations: [Other specified disorders of Eustachian tube, unspecified ear] Onset: 04-16-2013 Episodic Screening and history of mental health and substance abuse codes (4 sources) Personal history of nicotine dependence; Translations: [History of tobacco use] Onset: 09-20-2017 Episodic Skin and subcutaneous tissue infections (5 sources) Infection of skin and/or subcutaneous tissue; Translations: [Local infection of the skin and subcutaneous tissue, unspecified] Onset: 10-18-2014 Episodic Unclassified (5 sources) Transfusion of red blood cells 03-07-2020 Unclassified (1 source) CONTACT W/AND (SUSP) EXPOS COVID-19; Translations: [CONTACT W/AND (SUSP) EXPOS COVID-19] Onset: 05-16-2022 Urinary tract infections (1 source) Urinary tract infection, site not specified; Translations: [UTI SITE NOT SPECIFIED] Onset: 01-16-2022 Episodic Results Test Name Value Interpretation Reference Range Facil ity Basophils Auto (Bld) [#/Vol] on 05-06-2024 Basophils (Bld) [#/Vol] 0.0 10 3/uL 0.0-0.1 [facility] Basophils/100 WBC Auto (Bld) on 05-06-2024 Basophils/100 WBC (Bld) 0.4 % 0.2-2.0 [facility] Eosinophils/100 WBC Auto (Bl d)on 05-06-2024 Eosinophils/100 WBC (Bld) 0.6 % Low 0.9-7.0 [facility] Erythrocyte distribution wid th Auto (RBC) [Ratio]on 05-06-2024 Erythrocyte distribution width (RBC) [Ratio] 13.2 % 11.0-15.0 [facility] Estimated glomerular filtrat ion rate (GFR) non- Americanon 05-06-2024 GFR/1.73 sq M.predicted among non-blacks MDRD (S/P/Bld) [Vol rate/Area] mL/min/{1.73_m2} >=60 [facility] Globulin Calc (S) [Mass/Vol] on 05-06-2024 Globulin (S) [Mass/Vol] 4.5 g/dL [facility] Hematocrit Auto (Bld) [Volum e fraction]on 05-06-2024 Hematocrit (Bld) [Volume fraction] 41.7 % Low 42.0-54.0 [facility] Hemoglobin [Mass/volume] in Bloodon 05-06-2024 Hemoglobin (Bld) [Mass/Vol] 14.9 g/dL 14.0-18.0 [facility] INR in Platelet poor plasma by Coagulation assayon 05-06-2024 INR Coag (PPP) [Relative time] 1.12 {INR} [facility] Comment on above: DESIRED INR:2.0-3.0 CONDITIONS NOT LISTED BELOW2.5-3.5 FOR PROSTHETIC HEART VALVE REPLACEMENT2.5-3.5 RECURRENT THROMBOSIS Laboratory - Chemistry and C hemistry - challengeon 05-06-2024 Albumin [Mass/Vol] 3.3 g/dL Low 3.4-5.0 [facility] ALP [Catalytic activity/Vol] 86 U/L 46-116 [facility] ALT [Catalytic activity/Vol] 43 U/L 16-63 [facility] AST [Catalytic activity/Vol] 44 U/L High 15-37 [facility] Bilirubin [Mass/Vol] 1.1 mg/dL High 0.2-1.0 [facility] Calcium [Mass/Vol] 8.5 mg/dL 8.5-10.1 [facility] Chloride [Moles/Vol] 102 mmol/L 98-107 [facility] CO2 [Moles/Vol] 26.3 mmol/L 21.0-32.0 [facility] Creatinine [Mass/Vol] 1.12 mg/dL 0.70-1.30 [facility] GFR/1.73 sq M.predicted MDRD (S/P/Bld) [Vol rate/Area] mL/min/{1.73_m2} >=60 [facility] Glucose [Mass/Vol] 182 mg/dL High 74-106 [facility] Natriuretic peptide B (Bld) [Mass/Vol] 229.0 pg/mL <=1800.0 [facility] Potassium [Moles/Vol] 3.7 mmol/L 3.5-5.1 [facility] Protein [Mass/Vol] 7.8 g/dL 6.4-8.2 [facility] Sodium [Moles/Vol] 137 mmol/L 136-145 [facility] Urea nitrogen [Mass/Vol] 16.0 mg/dL 7.0-18.0 [facility] Urea nitrogen/Creatinin e [Mass ratio] 14.3 mg/mg [facility] Laboratory - Hematology and Cell countson 05-06-2024 Immature granulocytes/100 WBC (Bld) 0.1 % 0.0-0.5 [facility] Laboratory - Microbiology an d Antimicrobial susceptibilityon 05-06-2024 SARS-CoV-2 (COVID-19) RNA JERRI+probe Ql (Unsp spec) Negative NEGATIVE [facility] Comment on above: This test has not be en FDA cleared or approved, but has beenauthorized by the FDA under an Emergency Use Authorization(EUA) for use by authorized laboratories certified underCLIA that meet the requirements to perform moderate or highcomplexity testing. This test has been authorized only forthe detection of proteins from SARS-CoV-2, not for any otherviruses or pathogens. The emergency use of this test isauthorized for the duration of the declaration thatcircumstances exist justifying the authorization ofemergency use of in vitro diagnostic tests for detectionand/or diagnosis of Covid-19 under section 564(b)(1) of theAct, 21 U.S.C. 360bbb-3(b)(1), unless the declaration isterminated or authorization is revoked sooner. Leukocytes [#/volume] correc mary for nucleated erythrocytes in Blood by Automated counon 05-06-2024 WBC corrected for nucl RBC Auto (Bld) [#/Vol] 9.6 10 3/uL 4.0-11.0 [facility] Lymphocytes Auto (Bld) [#/Vo l]on 05-06-2024 Lymphocytes (Bld) [#/Vol] 1.6 10 3/uL 1.2-3.8 [facility] Lymphocytes/100 WBC Auto (Bl d)on 05-06-2024 Lymphocytes/100 WBC (Bld) 16.3 % Low 20.5-60.0 [facility] MCH Auto (RBC) [Entitic mass ]on 05-06-2024 MCH (RBC) [Entitic mass] 34.4 pg High 25.9-34.0 [facility] MCHC Auto (RBC) [Mass/Vol]on 05-06-2024 MCHC (RBC) [Mass/Vol] 35.7 g/dL High 29.9-35.2 [facility] MCV Auto (RBC) [Entitic vol] on 05-06-2024 MCV (RBC) [Entitic vol] 96.3 fL High 80.0-94.0 [facility] Monocytes Auto (Bld) [#/Vol] on 05-06-2024 Monocytes (Bld) [#/Vol] 0.7 10 3/uL 0.3-0.8 [facility] Monocytes/100 WBC Auto (Bld) on 05-06-2024 Monocytes/100 WBC (Bld) 7.4 % 1.7-12.0 [facility] Neutrophils Auto (Bld) [#/Vo l]on 05-06-2024 Neutrophils (Bld) [#/Vol] 7.2 10 3/uL High 1.4-6.5 [facility] Neutrophils/100 WBC Auto (Bl d)on 05-06-2024 Neutrophils/100 WBC (Bld) 75.2 % High 43.0-75.0 [facility] No Panel Informationon 05-06 Troponin I High Sensitivity 9.8 pg/mL 4.0-76.1 [facility] Comment on above: CUT-OFF POINTS HAVE BEEN ESTABLISHED BASED ON THE FOURTHUNIVERSAL DEFINITION OF MYOCARDIAL INFARCTION. THE UPPERREFERENCE LIMIT (URL) OF TROPONIN, DEFINED THE 99THPERCENTILE OF cTnI DISTRIBUTION IN A REFERENCE POPULATION,HAS BEEN CONFIRMED THE DECISION THRESHOLD FOR MIDIAGNOSIS.99TH PERCENTILE = 76.2 PG/MLNOTE: HIGH-SENSITIVITY TROPONIN ASSAY IS NOT INTENDED TO BEUSED IN ISOLATION BUT SHOULD BE INTERPRETED IN CONJUNCTIONWITH OTHER DIAGNOSTIC AND CLINICAL INFORMATION. Bedside Influenza Type A Antigen Negative [facility] Comment on above: Negative for Flu A p rotein antigen. Infection due to Flu Acannot be ruled out. Flu A antigen in the sample may bebelow the detection limit of the test. Bedside Influenza Type B Antigen Negative [facility] Comment on above: Negative for Flu B p rotein antigen. Infection due to Flu Bcannot be ruled out. Flu B antigen in the sample may bebelow the detection limit of the test. Eosinophils # (Auto) 0.1 10 3/uL 0.0-0.7 [facility] Immature Granulocyte # (Auto) 0.01 10 3/uL 0.00-0.03 [facility] Platelet mean volume Auto (B ld) [Entitic vol]on 05-06-2024 Platelet mean volume (Bld) [Entitic vol] 10.3 fL 9.5-13.5 [facility] Platelets Auto (Bld) [#/Vol] on 05-06-2024 Platelets (Bld) [#/Vol] 247 10 3/uL 150-450 [facility] Prothrombin time (PT)on 04-26 PT Coag (PPP) [Time] 11.7 s High 9.0-11.6 [facility] RBC Auto (Bld) [#/Vol]on RBC (Bld) [#/Vol] 4.33 10 6/uL Low 4.70-6.10 [facility] Serum or plasma albumin/glob ulin mass ratioon 05-06-2024 Albumin/Globulin [Mass ratio] 0.7 {ratio} [facility] Serum or plasma anion gap de terminationon 05-06-2024 Anion gap [Moles/Vol] 12.4 mmol/L [facility] Lipid Profileon 08-28-2023 Cholesterol [Mass/Vol] 131 mg/dL Normal <200 [facility] Comment on above: Result Comment: Cholesterol Guidelines: <200 Desirable 200-240 Borderline >240 Undesirable Performed By: #### L IPR #### [employer] [address] [place] [id number] Aerodynamics Teacher: Luis Alfredo Kurtz MD Cholesterol in HDL [Mass/Vol] 36 mg/dL Low >40 [facility] Comment on above: Result Comment: HDL Guidelines: <40 Undesirable 40-59 Borderline >59 Desirable Performed By: #### L IPR #### [employer] [address] [place] [address] Aerodynamics Teacher: Luis Alfredo Kurtz MD Cholesterol in LDL [Mass/Vol] 60 mg/dL Normal 0-130 [facility] Comment on above: Result Comment: LDL Guidelines: <100 Desirable 100-129 Near to/above Desirable 130-159 Borderline >159 Undesirable Direct (measured) LDL and calculated LDL are not interchangeable tests. Performed By: #### L IPR #### [employer] [address] [place] [address] Aerodynamics Teacher: Luis Alfredo Kurtz MD Cholesterol.total/ Cholesterol in HDL [Mass ratio] 3.6 {ratio} Normal <5 [facility] Comment on above: Performed By: #### L IPR #### [employer] [address] [place] [address] [id number] Aerodynamics Teacher: Luis Alfredo Kurtz MD Triglyceride [Mass/Vol] 176 mg/dL High <150 [facility] Comment on above: Result Comment: Triglyceride Guidelines: <150 Desirable 150-199 Borderline 200-499 High >499 Very high Based on AHA Guidelines for fasting triglyceride, May 2012. Performed By: #### L IPR #### [facility] [address] [place], [place] [id number] Aerodynamics Teacher: Luis Alfredo Kurtz MD Basic Metabolic Profon 08-27 Anion gap [Moles/Vol] 9 mmol/L Normal 9-17 [facility] Comment on above: Performed By: #### C BC, BMP #### [facility] [address] [place], [place] [id number] Aerodynamics Teacher: Arturo iCd MD BUN/CRE Ratio 20 Normal 9-20 [facility] Comment on above: Performed By: #### C BC, BMP #### [facility] [address] [place], [place] [id number] Aerodynamics Teacher: Arturo Cid MD Calcium [Mass/Vol] 9.1 mg/dL Normal 8.6-10.4 [facility] Comment on above: Performed By: #### C BC, BMP #### [facility] [address] [place], [place] [phone] Aerodynamics Teacher: Arturo Cid MD Chloride [Moles/Vol] 102 mmol/L Normal 98-107 [facility] Comment on above: Performed By: #### C BC, BMP #### [facility] [address] [place], [place] [phone] Aerodynamics Teacher: Arturo Cid MD CO2 [Moles/Vol] 26 mmol/L Normal 20-31 [facility] Comment on above: Performed By: #### C BC, BMP #### [facility] [address] [place], [place] [phone] Aerodynamics Teacher: Arturo Cid MD Creatinine [Mass/Vol] 1.1 mg/dL Normal 0.7-1.2 [facility] Comment on above: Performed By: #### C BC, BMP #### [facility] [address] [place], [place] [phone] Aerodynamics Teacher: Arturo Cid MD GFR/1.73 sq M.predicted among non-blacks MDRD (S/P/Bld) [Vol rate/Area] mL/min/{1.73_m2} Normal >60 [facility] Comment on above: Result Comment: These results are not intended for use in patients <18 years of age. eGFR results are calculated without a race factor using the 2020 CKD-EPI equation. Careful clinical correlation is recommended, particularly when comparing to results calculated using previous equations. The CKD-EPI equation is less accurate in patients with extremes of muscle mass, extra-renal metabolism of creatine, excessive creatine ingestion, or following therapy that affects renal tubular secretion. Performed By: #### C ANI, BMP #### [facility] [address] [place] [address] [place] [address] Aerodynamics Teacher: Arturo Cid MD Glucose [Mass/Vol] 99 mg/dL Normal 70-99 [facility] Comment on above: Performed By: #### C ANI, BMP #### [facility] [address] [place] [address] [place] [address] Aerodynamics Teacher: Arturo Cid MD Potassium [Moles/Vol] 4.2 mmol/L Normal 3.7-5.3 [facility] Comment on above: Performed By: #### C ANI, BMP #### [address] [place], [place] [phone] Aerodynamics Teacher: Arturo Cid MD Sodium [Moles/Vol] 137 mmol/L Normal 135-144 [facility] Comment on above: Performed By: #### C ANI, BMP #### [facility] [address] [place] [address] [place] [address] Aerodynamics Teacher: Arturo Cid MD Urea nitrogen [Mass/Vol] 22 mg/dL Normal 8-23 [facility] Comment on above: Performed By: #### C ANI, BMP #### [facility] [address] [place] [address] [place] [address] Aerodynamics Teacher: Arturo Cid MD CBCon 08-27-2023 Erythrocyte distribution width (RBC) [Ratio] 13.2 % Normal 11.8-14.4 [facility] Comment on above: Performed By: #### C BC, BMP #### [address] [place], [place] [id number] Aerodynamics Teacher: Arturo Cid MD Hematocrit (Bld) [Volume fraction] 40.9 % Normal 40.7-50.3 [facility] Comment on above: Performed By: #### C BC, BMP #### [address] [place], [place] [id number] Aerodynamics Teacher: Arturo Cid MD Hemoglobin (Bld) [Mass/Vol] 13.8 g/dL Normal 13.0-17.0 [facility] Comment on above: Performed By: #### C ANI, BMP #### [address] [place], [place] [phone] Aerodynamics Teacher: Arturo Cid MD MCH (RBC) [Entitic mass] 33.7 pg High 25.2-33.5 [facility] Comment on above: Performed By: #### C ANI, BMP #### [address] [place], [place] [phone] Aerodynamics Teacher: Arturo Cid MD MCHC (RBC) [Mass/Vol] 33.7 g/dL Normal 28.4-34.8 [facility] Comment on above: Performed By: #### C BC, BMP #### [address] [place], [place] [phone] Aerodynamics Teacher: Arturo Cid MD MCV (RBC) [Entitic vol] 99.8 fL Normal 82.6-102.9 [facility] Comment on above: Performed By: #### C ANI, BMP #### [address] [place] [address] Aerodynamics Teacher: Arturo Cid MD NRBC Automated 0.0 per 100 WBC Normal 0.0 [facility] Comment on above: Performed By: #### C BC, BMP #### [facility] [address] [place] [address] [address] [place], [place] [phone] Aerodynamics Teacher: Arturo Cid MD Platelet mean volume (Bld) [Entitic vol] 11.8 fL Normal 8.1-13.5 [facility] Comment on above: Performed By: #### C BC, BMP #### [address] [place], [place] [phone] Aerodynamics Teacher: Arturo Cid MD Platelets (Bld) [#/Vol] 242 10*3/uL Normal 138-453 [facility] Comment on above: Performed By: #### C BC, BMP #### [address] [place], [place] [phone] Aerodynamics Teacher: Arturo Cid MD RBC (Bld) [#/Vol] 4.10 10*6/uL Low 4.21-5.77 [facility] Comment on above: Performed By: #### C BC, BMP #### [address] [place], [place] [phone] Aerodynamics Teacher: Arturo Cid MD WBC (Bld) [#/Vol] 13.0 10*3/uL High 3.5-11.3 [facility] Comment on above: Performed By: #### C BC, BMP #### [address] [place], [place] [phone] Aerodynamics Teacher: Arturo Cid MD Cult,Urineon 03-20-2023 Cult,Urine Specimen Description .CLEAN CATCH URINE Culture NO SIGNIFICANT GROWTH Report Status FINAL 03/20/2023 Normal [facility] Comment on above: Performed By: #### U RC #### [address] [id number] Aerodynamics Teacher: Luis Alfredo Kurtz MD [address] [place], [place] 8[address]83 Aerodynamics Teacher: Arturo Cid MD Urinalysis w/ Microon 2022 Bacteria 1+ Abnormal NONE [facility] Comment on above: Performed By: #### U AMIC #### [facility] [address] [place], [place] [phone] Aerodynamics Teacher: Arturo Cid MD Bilirubin, SemiQt,Ur Negative Normal NEG [facility] Comment on above: Performed By: #### U AMIC #### [facility] [address] [place], [place] [phone] Aerodynamics Teacher: Arturo Cid MD Blood, Urine Negative Normal NEG [facility] Comment on above: Performed By: #### U AMIC #### [facility] [address] [place], [place] [phone] Aerodynamics Teacher: Arturo Cid MD Clarity (U) Clear Normal CLEAR [facility] Comment on above: Performed By: #### U AMIC #### [facility] [address] [place], [place] [phone] Aerodynamics Teacher: Arturo Cid MD Color (U) Yellow Normal YEL [facility] Comment on above: Performed By: #### U AMIC #### [facility] [address] [place], [place] [phone] Aerodynamics Teacher: Arturo Cid MD Epithelial cells LM Ql (Urine sed) 0 TO 2 Normal 0-5 [facility] Comment on above: Performed By: #### U AMIC #### [facility] [address] [place], [place] [phone] Aerodynamics Teacher: Arturo Cid MD Glucose Ql (U) Negative Normal NEG [facility] Comment on above: Performed By: #### U AMIC #### [facility] [address] [place] [address] Aerodynamics Teacher: Arturo Cid MD Ketones Ql (U) Negative Normal NEG [facility] Comment on above: Performed By: #### U AMIC #### [facility] [address] [place], [place] [phone] Aerodynamics Teacher: Arturo Cid MD Leukocyte esterase Test strip Ql (U) Negative Normal NEG [facility] Comment on above: Performed By: #### U AMIC #### [facility] [address] [place], [place] 2379183 Aerodynamics Teacher: Arturo Cid MD Mucus Strands 2+ Abnormal NONE [facility] Comment on above: Performed By: #### U AMIC #### [facility] [address] [place], [place] 8958383 Aerodynamics Teacher: Arturo Cid MD Nitrite,Ur Negative Normal NEG [facility] Comment on above: Performed By: #### U AMIC #### [facility] [address] [place], [place] [phone] Aerodynamics Teacher: Arturo Cid MD PH,Ur 5.5 Normal 5.0-9.0 [facility] Comment on above: Performed By: #### U AMIC #### [facility] [address] [place] [address] [place] [place], [place] [phone] Aerodynamics Teacher: Arturo Cid MD Protein Ql (U) Negative Normal NEG [facility] Comment on above: Performed By: #### U AMIC #### [facility] [address] [place], [place] 5047583 Aerodynamics Teacher: Arturo Cid MD Spec. [place],Ur >1.030 High 1.010-1.020 [facility] Comment on above: Performed By: #### U AMIC #### [facility] [address] [place], [place] 8019283 Aerodynamics Teacher: Arturo Cid MD Urine RBC's 0 TO 2 Normal 0-2 [facility] Comment on above: Performed By: #### U AMIC #### [facility] [address] [place], [place] 442[address]83 Aerodynamics Teacher: Arturo Cid MD Urine WBC's 2 TO 5 Normal 0-5 [facility] Comment on above: Performed By: #### U AMIC #### [facility] [address] [place] [address] Aerodynamics Teacher: Arturo Cid MD Urobilinogen,Ur Normal Normal 0.0-1.0 [facility] Comment on above: Performed By: #### U AMIC #### [facility] [address] [place] [address] Aerodynamics Teacher: Arturo Cid MD Living Will/POAon 03-11-2023 Living Will/POA [id number]:12 7 [facility] Auth for Release of Medical Recordson 03-08-2023 Auth for Release of Medical Records [id number]#1.00CD:12 7 [facility] Living Will/POAon 03-08-2023 Living Will/POA [id number]:12 7 [facility] IntraOperative Documentson 0 11-07-2022 IntraOperative Documents [id number]:1 27 [facility] Coding Summary.on 11-05-2022 Coding Summary. CD:[id number] Gh0bW w+PGhlYWQ+UT6HRXExM57wtYU rsS2eI6SZBTlMHkjgKCOENJjU PpOhivRmOI4xyGPoGUBf IC8+TP9nVCGvSbzudRMcc1P9u RY2F76vfq4sIPqhrYS3GCHqHu Btbbmrg4rtrPy2LHjhJmwdHmV t TQIywX26ETE9fO10Jw97aRJur WVqz6dmbUa3PlTbEFTwUSF7wR diWRvss9NdUCBxR44sbWYvq1W 6 ZDJksCzpkKMkZhFvaFM9fF0jJ Rfwtoylu1aauprdXmr9wh64nO Wik7J5zSP1G7EoahD9OZUxbAH g YtivwRBVuY1mjnxrd7piwixsC mBeWSBjSYc1JBz0GEQxeWsjWh AfLH06FVS9EZSvftHdU3IgPGE s qMtkPbE3z3H5Rd8QY8BRJuulY 1VNTUFSWTwvdGQ+XG79vk88T3 SnAtkhAxj0WSTpFST6zPG2xA7 n MDQjDZndp4H8uKC5F9VmjfWey p6qf6pxQXSlNJjzL63crMIfz3 P2MHIuhZX4HBGbfUrlEpTetT3 3 Oyc+ICWedYpsv7RlAlbkq4cbw 0qhlWb1OtpeNQFzvxQeySvnNG F6m3CcMt6mLPBmwAA6nGR0vA4 i XhKmQjJ2ODiiA152OkBveCJvL nlaB43oM1FweAA+HUQuYhp4KQ EeuNgaWG7vK6RxRSStvgudaWL m nJvqLN9gKWOirlmtLNSwuS5eZ FAnA1n9OhPlOnY8XLefH2RhHY KjzdikNh86dW0nCzNnZjA3YVs u Q2KoawJ0SVDwbHBtXXxeCLK2R 42xe5C4OKWtIWYqNCS9aZB1rL 1hbGlnbjogbGVmdDsgdmVydGl j NOiiIBgpT398EXYhaRkuEuAxM GluZyBEYXRlOiAgMDMvMTMvMj AyMzwvdGQ+EMUnNRR8dKkeCLU n mGOhSWflSa7qsQovyGseVH9hJ MOjljngDWHjyS4sUXBxlOZlvZ jzOQ3zMAAmegpvx940MgRiNBK 0 NROihHJaZ8PkoG7cMcMlBCZiW XNpB1LukQZxYDnaY917KNznZi D9HHZyhhNvC1IzEBPkhNbrIgG 0 d9P7Cg7Vi8SnrfkjV2XerRDuI eLjWjelKJa6M6CaBmdrkKQ+PC 89PFZqNP61BCu6UAI1bIuqQJb i BNTdS3RamU7fZdArMGNtXQKvU yc+PHRhYmxlIHdpZHRoPScxMD MiVnChqUdnFI1uHm6dEYYgBFE v bTfkpCBqDdJzs3kjAVNiWTnbI N1qbCmyK3KftUK4YCQye0e3Pu 88L90jG0OnrDT+LYZkdIS9lSG 0 dN5oDpWcKpC0BDvpK278MzRhq IGzTtbhk9vcv6dyiEl0UrJ1FA VjmyZfmNsmFRE9l1WxRf40L47 s IHdpZHRoPSIxNSUiIHZhbGlnb q2ggK0wGz1+QCDamHG2hDM6mJ 0kBgWhDfW8TWzmA155EzOfuGN v Ktnng0fpy7xivEw0ZfFuEDPxu wJkgBkeKXG6b4EhAb01K5AmeX pfl2FjBfy4rr10tEGkf6C2oBU 9 J8FfGQIscbrjiVTopNruXX5cK ZUjldhuQHPvyS7rLVUdH0h5Vi UnGdY7MVhuC8CfqmV3DXZctLJ g BLYrgZXHtZ0odbfsi3pcxmtiP yLnCFDbNRo1AIz1SHRfqNcvTb QfLIE3BkC8HDH4wLHapR5asUx n omknmS0ySba+ISK4hFIyiMCSL R8xIlkyaSG+EEMgDIK4uQbsQT yxYBEztF3eJOLpF9s4WoBnGcP 1 SJvoD5FvlrU8IAFbjFDzTITpd CSVrE5snbzlr6zxqqalEjDuVJ GfMPb4IHo8NZZciOqfVmArLKP 0 DjB7BRM5nAKqxJ3itWdofnwqy G9wOyc+HwybhZpoKFA4CEt3Y6 AcZyw1XXAhdZxuSR6enLJaUNy u Lp2iqTdybUghXO8pSHNvgxeqd 939LlTjg9kaTMFcxYEnNKfrBX P7L42bm3X6ORNlIZVqRAP0kHA 4 tM8ueLozzrnijTPawYbsjzPtk HqfILbtBYimG452WJFugUhuWa ZoIAt5Y5TjMfs6YAIkzDwuJO2 n mPFoPBcoQv8adIawpZovOX4pG EXoflcoa536NcVda5fiAKUsqX UjHQaxLCM6M65nf7F4UADoUHE w GQA2bBP3lW3plMpeokmslUXkl ZlumkUtoXunKMwsONouU355UE ElzRbuEfEciCx6K1EnUnh7INJ z yNhbVQ3seBYjTDbsDc2djBfpq EhaMV0cILOkipisq725NcZkb1 klNTXsxBBmFAmwRWP6Z04cr8O 6 UZClCDHtDQS1iRC5lE8voYwyk jogbGVmdDsgdmVydGljYWwtYW adU757UETcsShkYnMuxVxotwT g ROogVUe2A6SrJkaaeJK+PC90Y WYxLH64jWOweBOaz7doqVb3Oi CcNYEfSCX0bFehPRfje0IrHIV t H94qiHAwe7O7ASCncTwgpKWeQ jYpkVP4zU4iFRinsugmd6bnzz yvVxnda9yasn62lZ75S08sRZh p PWRqXZPrZZNeWRFroOelaz4ld G9wIi8+YNFmqQC1hCM5aO8cET AuJgQ4WHydM578ByEibWNzZys j x5bab3yrzFq2YjA4PIEllyKgi MiyKHT8p3DwHk16I40lTFzhQE FxWIGuJCVvNKVycCpatx1clR5 w Ii8+IHUyhPG0zDH1wV8cDtDwV iK6TVvrR338BcUjmGHzCzaeS7 7uW4YjaYR+YRQkSke3XBPhxCn s NJ5elZWuMSsrUj6sPQK0WtHaN lPcCSftI7TvYBAznwbxlkpgzU N9CDAxPTUuxD97Sf5xbBghJHL w uVAQyU7lyzmna2mpixzjAfDkO CJrUJf4VQq4QWFahWauUrRqAI X5LgM5OOG0bIUxyT5ueFmnixy g vK5lA6DvIFXxklhxGj54cZ1fA vLjDsQ5SUbxWhk+Z7KERl6OLE ONXVTQSVC6L2AnHwc3RAWshLm s QP1ctLCsYIfjEw3nkDsacKkgO R1bTTWslfcwPVBebR1wDNKfzY HevEvbUY2mNZBuebvtk134OqO x OFS2GOBcpPZdJ2QsqX2aUpXxR RGmXRJxR5PyzPAyOSpkB655BY tlMpI1UEEmwuRkL8QmCHCazCa u DdE4r7M8Hr0hMA1cTR1lCHR7U A94GH88vVFwl7R6rGF3K7IyMS UbeujvrkxxzUS9ONEgTUYhvR8 7 nFAmUAtkNz9kb7F8q261RPIuR PRxrL72Zc1baVzaGPNhzIVFwF 3gdkjry0jyktpaRnNgIXQbLHd 0 BDc2WGPtwGmnFcTwPMD9ClT1B SA6fNXtbM7gzIixveuhmX6oUl c+MIJxSWPucqG8W3XiXvd3MYA z eBfhTX1rlPIuWAxrMp8rzWrgx GogWX1cJHGwpqviDXQrfV6pMS YupDLgnAprTT6mQHQbjzjvq15 0 UvKjYJU9IVPnuEIsU7BzrK4oD vTjRWNiDAFrR4IcoXEcKBdvL6 80VReoInP0OHQvukKsU5YxZOI s qXtiYhM1j6F2Jj2TYDafVZ55V R04qZBae4J1xAQ9M8VzANStac zfauncaTE0LQFmXTCeaA12bGE k AGgkDe4ik0G0a644FBEhAPBiv Y25Wd6jrXtuYLMxkRJGoO8dgm yrb8splrnuRuDoXXVkDPz3RHi 0 YQQszIdjLgJoYTV4EeN9XIG4l PZzjC0uuOduzndcfI5rCid+QW 2asDjmyH7hgH2HFB8bHHHlzWW T vYTpGON6TQ42OJ07C2AbZevfb GFibGU+PHRhYmxlIHdpZHRoPS xsVYFiEzCnxHnmBX3cOh6pAWI y ELVslQejoWPxVoUcd8inQTTbI DeqXX8bhNnzZ1WplJY3MRAdn5 o0Ol37J41qE4PawHL+PGNvbCB 3 yFF8qH3aEeSyJhX6EJsmE921V jRwgRVcDghvu2nvx1pmzPs6Iv JgLVYfzyLhgKjaVPM7v3ZwEx5 8 P54zJWkwBTQmFXRoCMJfTZEmw Mmgso9aqF5mOx4+UVFqaAM1dG F1sN2xReOqMyD6DVaeY929MtQ v pGNwZezrT89lG5GgwSG+PHRyP fo0TYPhpIfmBS0cdZDjBMfwJq 8bLPW0UzCjHbJuGUqbW0MiNSU p xvrtyifsyNW8DULxCRRqjY92X i6caXtfYz9qRHIxOER6IOHqnK WrZ1OqnE5lWiNyKDVvPFNrA4G l oAEiTMgfO791GOzyIlP6VJHms hCwZ2InSVJfvPjhMiM3p3C5Jo 1PaTsvmANdYD6bHkBkZKq9T2N k Pde9XAGbdXklAS4hpNRdSDwtX x8xjAxktQyoIW7fTXHucnyyx4 12EeQot8myUCOeoCTwDPgeEGM 7 Y59ex5C5IDOuXTAjFGT7hWT2r I4pjQyecdpjxJKcqBbmmeIsaS fdXXoaYMrpP240RNJawNjgViL J Txn2P2UyAim6CGNbpWmhSI9qb ZCjCAilAb3qmQqbwKjpFG3iDV Chxkijs648OfGuy4kvFMAycLW g RHrgIQL0Q07dc9K8CEKxRZYfJ SP5bIK3vS2lfUvedamkuEKrcS oeacLaaIwoMWvfXAxgB899DHI v hZktZo0YMeb3Q5TyYko7UUNiq ZdeKT5hvHKcLRgqAa8etXvjzD apPD1cEGGlcikjo787QnYbo2x k NVUfhDJzMCvwLAV6O90jk4I7B MAvCNFxCSZ3jVS4dR3qgVhsvi ogbGVmdDsgdmVydGljYWwtYWx p R681ZENczIjqIsZpyEHpQxpzy GQ+LU08sk70L0BfCvveBth0TT OsMSJ3cES7mJ5sURFrDSqus6A 5 bGU9 (more content not included)... Normal [facility] Main OR Intraoperative Recor don 11-02-2022 Main OR Intraoperative Record IntraOp Document Type FT Summary Primary Physician: Cate Xiao DO Finalized Date/Time: 11/02/22 13:35:58 Pt. Name: HARDIK GOODE /Sex: 1935 Male Med Rec #: [id number] Physician: Cate Xiao DO Financial #: [id number] Pt. Type: A Room/Bed: [facility] Admit/Disch: 10/29/22 10:48:46 - 10/29/22 16:10:00 Institution: Case Times FT Entry 1 Patient Times In Room 10/29/22 13:33:00 Out Room 10/29/22 14:07:00 Procedure Times Start 10/29/22 13:49:00 Stop 10/29/22 14:03:00 Anesthesia Times Start 10/29/22 13:33:00 Stop 10/29/22 14:07:00 Last Modified By: Tam LOWRY, Simona Soto 10/29/22 14:07:33 General Comments: 11/02/22 chart opened for charge review per Madeline Winslow RN. [place] Case Attendance FT Entry 1 Entry 2 Entry 3 Case Attendee Dejuan Eduardo DO, DO, Michael T Crosby RN, Simona Soto Role Performed Anesthesiologist of Surgeon - Primary Foundation Coordinator - Primary Record Time In 10/29/22 13:33:00 10/29/22 13:45:00 10/29/22 13:33:00 Time Out 10/29/22 14:07:00 10/29/22 13:55:00 10/29/22 14:07:00 Procedure HAND CYST/LESION HAND CYST/LESION HAND CYST/LESION REMOVAL(Right) REMOVAL(Right) REMOVAL(Right) Comments Last Modified By: Simona Turcios RN, RN, Simona Turcios RN, Simona Soto 10/29/22 14:19:07 10/29/22 14:19:07 10/29/22 14:19:07 Entry 4 Entry 5 Case Attendee Bryce Bonilla CST, Benjamin Role Performed Scrub - Primary COUNSELING DEPARTMENT CHAIR/SA Time In 10/29/22 13:33:00 10/29/22 13:33:00 Time Out 10/29/22 14:07:00 10/29/22 14:07:00 Procedure HAND CYST/LESION HAND CYST/LESION REMOVAL(Right) REMOVAL(Right) Comments DEEPTHI LI [facility] 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, 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 IN AT 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 Last Modified By: Simona Turcios RN, RN, Amy J 10/29/22 14:19:07 10/29/22 14:19:07 Perioperative Protocols FT Pre-Care Text: Implements protective measures prior to operative or invasive procedure, confirms identity before the operative or invasive procedure, verifies operative procedure, surgical site, and laterality Entry 1 Procedure(s) HAND CYST/LESION Patient Identity Birthday, ID Band Check REMOVAL(Right) Verified (select at least 2): Consents / H and P Anesthesia Consent, Operative Site Present Verified HandP, Surgery/Procedure Marking Verified Consent Surgical Site Yes Laterality Verified Yes Verified Procedure Verified Yes Correct Patient Yes Position Verified Availability Equipment, Medication Prep Dry Yes Verified (If Applicable) PreOp Antibiotic No Time Out Alesha Dejuan LÓPEZ, Given Participants Cate Xiao DO, Wilhelm CST, Tam Adhikari RN, Irene Montilla Kendall R Time Out Complete 10/29/22 13:46:00 Outcomes Met? Yes Last Modified By: Simona Turcios RN 10/29/22 13:51:35 Post-Care Text: The patient is free from signs and symptoms of injury caused by extraneous objects Allergy Information FT Pre-Care Text: Verifies allergies Entry 1 Allergies Reviewed? Yes Allergies Reviewed Self/Patient With Outcomes Met? Yes Last Modified By: Simona Turcios RN 10/29/22 13:41:13 Post-Care Text: The patient received appropriate medication(s) safely administered during the perioperative period Surgical Procedures FT Entry 1 Procedure Description Procedure HAND CYST/LESION REMOVAL Modifiers Right Surgeon Description RIGHT LITTLE FINGER EXCISION OF MASS Primary Procedure Yes Primary Surgeon Cate Xiao DO Start 10/29/22 13:49:00 Stop 10/29/22 14:03:00 Anesthesia Type General Surgical Service Orthopedics Wound Class 1 - Clean Last Modified By: Simona Turcios RN 10/29/22 14:19:21 General Case Data FT Pre-Care Text: Classifies surgical wound, implements aseptic technique, initiates traffic control Entry 1 Case Information OR OR 4 FT Case Level Level 2 Wound Class 1 - Clean Specialty Orthopedics ASA Class 3 Preop Diagnosis RIGHT LITTLE FINGER MASS Postop Same As Preop Yes Postop Diagnosis RIGHT LITTLE FINGER MASS Outcomes Met? Yes Last Modified By: Simona Turcios RN 10/29/22 14:19:27 Post-Care Text: The patient is free from signs and symptoms of infection Skin Assessment (Pre Procedure) FT Pre-Care Text: Implements protective measures to prevent skin/ tissue injury due to thermal or mechanical sources Evaluates for signs and symptoms of physical injury to skin and tissue Entry 1 Skin Integrity Intact, [place], Warm, and Skin Abnormality No Dry Outcomes Met? Yes Last Modified By: Simona Turcios RN 10/29/22 13:52:12 Post-Care Text: The patient is free from signs and symptoms of injury caused by extraneous objects Patient Positioning FT Pre-Care Text: Identifies physical alterations that require additional precautions for procedure-specific positioning, verifies presence of prosthetics or corrective devices, positions the patient, evaluates the patient for signs and symptoms of injury as a result of positioning Entry 1 Procedure HAND CYST/LESION Body Position Supine (more content not included)... Normal [facility] Operative Reporton Operative Report SURGERY DATE: 2022 [facility] CASE MANAGER: Onofre Lara CST PREOPERATIVE DIAGNOSIS: Right little finger volar soft tissue mass P1 based off the tendon sheath POSTOPERATIVE DIAGNOSIS: Right little finger volar soft tissue mass P1 based off the tendon sheath with probable ganglion cyst OPERATION: Right little finger excision of ganglion cyst of the tendon sheath ANESTHESIA: General ANESTHESIOLOGIST: Dejuan Eduardo II, D.OCristian ESTIMATED BLOOD LOSS: Zero SPECIMEN: Ganglion capsule TOURNIQUET TIME: See nurse's record HISTORY AND INDICATIONS: Hardik is an 87-year-old male with a progressive enlarging painful mass to the volar P1 area to his right little finger. It has gotten larger over the last six months to the point where he is having restriction of motion impeding his flexion as well as pain. The pros, cons, risks, benefits, reasonable expectations of above procedure were discussed. Consent form signed and charted. The site is marked preoperatively. All questions were answered preoperatively. PROCEDURE: The patient is taken to the Operating Room and placed in supine position. Anesthesia provided. A well-padded tourniquet was placed on the right upper brachium. The arm was prepped and draped in sterile fashion. A time-out procedure occurred consistent with the consent form, History and Physical, preoperative marked site. Landmarks were identified. The arm was exsanguinated. Tourniquet was inflated to 250 mmHg. Once the time-out was confirmed, longitudinal incision was made of approximately 3 1/4 inch over the P1. Gelatinous contents were present consistent with a ganglion cyst with benign characteristics. The digital nerves were protected on their respective direction. This came off the volar flexor tendon sheath. This was dissected free and the capsule was sent as specimen. After complete removal, irrigation was performed in a copious fashion followed by closure of the wound with 3-0 suture in horizontal mattress fashion. 5 cc of 0.25% plain Marcaine was injected. Bacitracin, Adaptic, well-padded sterile soft dressing was applied. Tourniquet was deflated. He was awaken from anesthesia and transferred to the Recovery Room in stable and satisfactory condition. CASE: Clean and elective COUNTS: Sponge and needle count correct SPECIMEN: Ganglion capsule CONDITION: The patient's condition satisfactory Cate Xiao D.O. Dictated: 10/29/2022 [id number] Transcribed: 10/30/2022 cc:Onofre Cooney D.O. [facility] Comment on above: Result Comment: Elec tronically Signed By: Cate Xiao DO\.br\Date and Time Signed: 10/31/22 14:41 EST Consent for Anesthesiaon Consent for Anesthesia [id number]#1.00CD:1 27 [facility] Discharge Instructionson Discharge Instructions [id number]#1.00CD:1 27 [facility] IntraOperative Documentson 0 10-30-2022 IntraOperative Documents [id number]#1.00CD:1 27 [facility] Preoperative Documentson Preoperative Documents [id number]#1.00CD:1 27 [facility] Preoperative Documents [id number]#1.00CD:1 27 [facility] Consent for Treatmenton Consent for Treatment [id number]#1.00CD:12 7 [facility] H&P Updateon 10-29-2022 H&P Update [id number]#1.00CD:1 27 [facility] Main OR PACU I Recordon Main OR PACU I Record PACU Phase I Document Type FT Summary Primary Physician: Cate Xiao DO Finalized Date/Time: 10/29/22 14:51:34 Pt. Name: HARDIK GOODE/Sex: 1935 Male Med Rec #: [id number] Physician: Cate Xiao DO Financial #: [id number] Pt. Type: A Room/Bed: [place] [address] Admit/Disch: 10/29/22 10:48:46 - Institution: Case Times PACU I FT Pre-Care Text: Identifies barriers to communication and implements measures to provide psychological support Develops individualized plan of care, and ensures continuity of care Maintains patient's dignity and privacy, and maintains patient confidentiality Identifies and reports philosophical, cultural, and spiritual beliefs and values Identifies individual values and wishes concerning care Implements aseptic technique, and administers prescribed antibiotic therapy and immunizing agents as ordered Evaluates postoperative tissue perfusion Implements thermoregulation measures, and monitors body temperature Evaluates postoperative respiratory status Evaluates postoperative cardiac status Evaluates postoperative neurological status Assesses pain control, collaborated in initiating patient-controlled analgesia and implements alternative methods of pain control Verifies allergies, administers prescribed medications and solutions, evaluates response to medications Entry 1 In PACU I 10/29/22 14:08:00 Discharge from PACU 10/29/22 14:38:00 I Outcomes Met? Yes Last Modified By: aKcie Werner RN 10/29/22 14:51:17 Post-Care Text: The patient demonstrates knowledge of the expected response to the operative or invasive procedure The patient's care is consistent with the individualized perioperative plan of care The patient's right to privacy is maintained The patient's value system, lifestyle, ethnicity, and culture are considered, respected, and incorporated into the perioperative plan of care The patient participates in decisions affecting his or her perioperative plan of care The patient is free from signs and symptoms of infection The patient has wound/tissue perfusion consistent with or improved from baseline levels established preoperatively The patient is at or returning to normothermia at the conclusion of the immediate postoperative period The patient's respiratory function is consistent with or improved from baseline levels established preoperatively The patient's cardiovascular status is consistent with or improved from baseline levels established preoperatively The patient's cardiovascular status is consistent with or improved from baseline levels established preoperatively The patient demonstrates and/or reports adequate pain control throughout the perioperative period The patient received appropriate medication(s), safely administered during the perioperative period Acuity Level PACU I FT Entry 1 Start Time 10/29/22 14:08:00 Stop Time 10/29/22 14:38:00 Acuity Level Acuity Level I Last Modified By: Kacie Werner RN 10/29/22 14:51:29 Finalized By: Kacie Werner RN Document Signatures Signed By: Kacie Werner RN 10/29/22 14:51 Normal [facility] Main OR PACU II Recordon Main OR PACU II Record PACU Phase II Document Type FT Summary Primary Physician: Cate Xiao DO Finalized Date/Time: 10/29/22 16:17:39 Pt. Name: HARDIK GOODE/Sex: 1935 Male Med Rec #: [id number] Physician: Cate Xiao DO Financial #: [id number] Pt. Type: A Room/Bed: [facility]/ Admit/Disch: 10/29/22 10:48:46 - Institution: Case Times PACU II FT Pre-Care Text: Identifies barriers to communication and implements measures to provide psychological support and determines knowledge level Develops individualized plan of care, and ensures continuity of care Maintains patient's dignity and privacy, and maintains patient confidentiality Identifies and reports philosophical, cultural, and spiritual beliefs and values Identifies individual values and wishes concerning care administers prescribed antibiotic therapy and immunizing agents as ordered, Evaluates postoperative tissue perfusion Implements thermoregulation measures, and monitors body temperature Evaluates postoperative respiratory status Evaluates postoperative cardiac status Evaluates postoperative neurological status Assesses pain control, collaborated in initiating patient-controlled analgesia and implements alternative methods of pain control Verifies allergies, administers prescribed medications and solutions, evaluates response to medications Entry 1 In PACU II 10/29/22 14:40:00 Discharge from PACU 10/29/22 16:10:00 II Outcomes Met? Yes Last Modified By: Shauna Porter RN 10/29/22 16:17:30 Post-Care Text: The patient demonstrates knowledge of the expected response to the operative or invasive procedure The patient's care is consistent with the individualized perioperative plan of care The patient's right to privacy is maintained The patient's value system, lifestyle, ethnicity, and culture are considered, respected, and incorporated into the perioperative plan of care The patient participates in decisions affecting his or her perioperative plan of care. The patient is free from signs and symptoms of infection The patient has wound/tissue perfusion consistent with or improved from baseline levels established preoperatively The patient is at or returning to normothermia at the conclusion of the immediate postoperative period The patient's respiratory function is consistent with or improved from baseline levels established preoperatively The patient's cardiovascular status is consistent with or improved from baseline levels established preoperatively The patient's neurological status is consistent with or improved from baseline levels established preoperatively The patient demonstrates and/or reports adequate pain control throughout the perioperative period The patient received appropriate medication(s), safely administered during the perioperative period Finalized By: Shauna Porter RN Document Signatures Signed By: Shauna Porter RN 10/29/22 16:17 Normal [facility] Main OR Preoperative Recordo n 10-29-2022 Main OR Preoperative Record PreOp Document Type FT Summary Primary Physician: Cate Xiao DO Finalized Date/Time: 10/29/22 13:47:46 Pt. Name: HARDIK GOODE/Sex: 1935 Male Med Rec #: [id number] Physician: Cate Xiao DO Financial #: [id number] Pt. Type: A Room/Bed: [facility]/ Admit/Disch: 10/29/22 10:48:46 - Institution: Case Times PreOp FT Pre-Care Text: Verifies consent for planned procedure, identifies individual values and wishes concerning care, includes family members in perioperative teaching Entry 1 Patient Times. In Pre Surgery 10/29/22 11:00:00 Out Pre Surgery 10/29/22 13:31:00 Outcomes Met? Yes Last Modified By: Simona Turcios RN 10/29/22 13:47:44 Post-Care Text: The patient participates in decisions affecting his or her perioperative plan of care Finalized By: Simona Turcios RN Document Signatures Signed By: Simona Turcios RN 10/29/22 13:47 Normal [facility] Monitor Recordon 10-29-2022 Monitor Record [id number]#1.00CD:1 27 Normal [facility] Monitor Record [id number]#1.00CD:1 27 Normal [facility] Progress Note-Physicianon Progress Note-Physician Patient: HARDIK GOODE MRN: [id number] Age: 87 years Sex: Male : 1935 Associated Diagnoses: None Author: Dejuan Eduardo DO Postoperative Information Post Operative Note: Post Anesthesia Care Unit, [employer]: [phone]. Anesthetic utilized: General. Physical Examination Vital Signs (last 24 hrs) Last Charted Temp Axillary 36.7 DegC (OCT 29 14:08) Resp Rate 11 br/min (OCT 29 14:35) SBP 116 mmHg (OCT 29 14:43) DBP 63 mmHg (OCT 29 14:43) SpO2 95 % (OCT 29 14:44) Pain assessment: Pain Assessment 10/29/2022 14:35 EST Numeric Pain Scale 0 = No pain 10/29/2022 14:20 EST Numeric Pain Scale 0 = No pain 10/29/2022 14:15 EST Numeric Pain Scale 0 = No pain 10/29/2022 11:08 EST Preliminary Pain Scale 0 . General: No acute distress. HENT: dentition at preop baseline.. Respiratory: Respirations are non-labored. Cardiovascular: stable hemodynamics. Neurologic: interactive. Assessment Anesthetic outcome No anesthetic complications noted. Adequate pain relief. adequate hydration. PONV controlled. Plan Transfer/ Discharge: Patient can be discharged from PACU when criteria met. Condition good. Normal [facility] Comment on above: Result Comment: Elec tronically Signed By: Dejuan Eduardo DO\.br\Date and Time Signed: 10/29/22 14:55 EST Progress Note-Physician Patient: HARDIK GOODE Age: 87 years Sex: Male : 1935 Associated Diagnoses: None Author: Dejuan Eduardo DO Preoperative Information Patient and/or family denies any personal or family hx of difficulty/ problems with anesthesia. NPO guidelines met. [place] - interview with hearing aids in. 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 Daughter Alec at bedside. CAD/CABG/PCI. Denies any cardiac changes. Clearence by Dr. Cooney 10/24/22. FAZAL with noncompliance to CPAP. GERD - WELL CONTROLLED. HTN/HLD. DENIES: ANGINA, SOA, EDEMA, URI, OXYGEN, CVA. Re-eval prior to induction: Inital eval reviewed: No significant interval change. Anesthesia results Review of Systems Constitutional: Negative except as documented in history of present illness. Cardiovascular: cardiovascular risk assessment performed.. Respiratory: breathing feels at baseline. Immunologic: denies current respiratory illness. Neurologic: A&O. Health Status Allergies: Allergic Reactions (Selected) Severity Not Documented Ciprofloxacin- Eruption. DiphenhydrAMINE- Eruption. Lisinopril- Cough and unknown. Simvastatin- Unknown. Nonallergic Reactions (Selected) Severity Not Documented Codeine- Vomiting., Allergies (5) Active Reaction ciprofloxacin Eruption codeine Vomiting diphenhydrAMINE Eruption lisinopril Unknown simvastatin Unknown Current medications: (Selected) Inpatient Medications Ordered Lactated Ringers IV [place] 1000 mL 1,000 mL: 1,000 mL, IV, 150 mL/hr, Routine, Start date 10/29/22 10:45:00 EST, 6.7 hour(s), Total volume (mL): 1,000, 78.5 kg, 1.9, m2 Lactated Ringers IV [place] 1000 mL 1,000 mL: 1,000 mL, IV, 80 mL/hr, Routine, Start date 10/29/22 14:30:00 EST, 12.5 hour(s), Total volume (mL): 1,000, 78.5 kg, 1.9, m2 [place] 5/325 Tab: 1 tab(s), Tab, Oral, q4hr PRN Pain 4-7 for 5 day(s), Stop date 11/03/22 14:29:00 EST, Routine, Start date 10/29/22 14:30:00 EST morphine 2 mg/mL Inj: 2 mg = 1 mL, Injection, IV Push, q4hr PRN Pain 8-10 for 5 day(s), Stop date 11/03/22 14:29:00 EST, Routine, Start date 10/29/22 14:30:00 EST, 10/29/22 14:30:00 EST Prescriptions Prescribed Myrbetriq 50 mg oral tablet, extended release: 50 mg = 1 tab(s), Oral, Daily, # 30 tab(s), Refills(s) 11, 165, cm, 06/27/22 15:46:00 EDT, Height/Length Dosing, 73, kg, 06/27/22 15:46:00 EDT, Weight Dosing Ultram 50 mg Tab: See Instructions, 1 tabs po q4hr PRN pain Duration 7 days, # 12 tab(s), Refills(s) 2, Pharmacy: [facility]/pharmacy #[id number], 165, cm, 10/18/22 7:33:00 EST, Height/Length Dosing, 78.5, kg, 10/18/22 7:33:00 EST, Weight Dosing Documented Medications Documented Coreg 12.5 mg Tab: 6.25 mg = 0.5 tab(s), Oral, BID, Refills(s) 0, High blood pressure Multi Vitamin+: 1 tab, Oral, Daily, Refill(s) 0, Prophylaxis Pantoprazole [address] Tab: 80 mg = 2 tab(s), Oral, Daily, Refills(s) 0, Control of stomach acid Plavix 75 mg Tab: 75 mg = 1 tab(s), Oral, Daily, Refills(s) 0, Blood Thinner Ultram 50 mg Tab: 50 mg = 1 tab(s), Oral, q12hr, Refills(s) 0, Pain aspirin 81 mg oral capsule: 81 mg = 1 cap(s), Oral, Daily, Blood Thinner atorvastatin 80 mg Tab: 80 mg = 1 tab(s), Oral, Bedtime, Refills(s) 0, High cholesterol escitalopram 10 mg Tab: 10 mg = 1 tab(s), Oral, Bedtime, Refills(s) 0, Anxiety ezetimibe 10 mg Tab: 10 mg = 1 tab(s), Oral, Daily, Refills(s) 0, High cholesterol finasteride 5 mg Tab: 5 mg = 1 tab(s), Oral, Daily, Refills(s) 0, Bladder problems losartan 50 mg Tab: 50 mg = 1 tab(s), Oral, Daily, Refills(s) 0, High blood pressure, Medications (4) Active Scheduled: (0) Continuous: (2) Lactated Ringers 1,000 mL 1,000 mL, IV, 150 mL/hr Lactated Ringers 1,000 mL 1,000 mL, IV, 80 mL/hr PRN: (2) acetaminophen-HYDROcodone 325 mg-5 mg Tab [F] 1 tab(s), Oral, q4hr morphine 2 mg/mL preservative-free SOLN [F] 2 mg 1 mL, IV Push, q4hr Problem list: All Problems BPH (benign prostatic hyperplasia) / SNOMED CT 642683073 / Confirmed BMI 27.0-27.9,adult / SNOMED CT 1566495105 / Confirmed Chronic bronchitis / SNOMED CT 744091098 / Confirmed Depression / SNOMED CT 15134105 / Confirmed Epidermal cyst of neck / SNOMED CT 7842332638 / Confirmed Hyperlipidemia type II / SNOMED CT 8172052015 / Confirmed GERD with esophagitis / SNOMED CT 844861289 / Confirmed Infected sebaceous cyst of skin / SNOMED CT 2600558498 / Confirmed Kidney stone / SNOMED CT 887191415 / Confirmed Nicotine dependence / SNOMED CT 58426325 / Confirmed Nocturia / SNOMED CT 957022054 / Confirmed Obstructive sleep apnea / SNOMED CT 398984441 / Confirmed Osteoarthritis / SNOMED CT 5943255105 / Confirmed OAB (overactive bladder) / SNOMED CT 9798879704 / Confirmed Antiplatelet or antithrombotic long-term use / SNOMED CT 148850531 / Confirmed Weak urinary stream / SNOMED CT 517618404 / Confirmed Sebaceous cyst / SNOMED CT 3694166161 / Confirmed Urgency of urination / SNOMED CT 875579445 / Confirmed Resolved: Acute myocardial infarction / (more content not included)... Normal [facility] Comment on above: Result Comment: Elec tronically Signed By: Dejuan Eduardo DO\Cristianbr\Date and Time Signed: 10/29/22 14:54 EST Outside Recordson 10-26-2022 Outside Records [id number]#[id number]:1 27 [facility] Consent for Procedure/Surger yon 10-25-2022 Consent for Procedure/Surgery [id number]#1.00CD:1 27 [facility] Immunization Recordson 10-25 Immunization Records [id number]#1.00CD:1 27 [facility] Inpatient Patient Summaryon 10-25-2022 Inpatient Patient Summary [facility] [address] [id number] [facility] Clinical Discharge Instructions PERSON INFORMATION Name: HARDIK GOODE PHYSICIANS Admitting Physician: Cate Xiao DO Attending Physician: Cate Xiao DO PCP: ONOFRE COONEY DO Discharge Diagnosis: Ganglion cyst of flexor tendon sheath of finger Comment: PATIENT EDUCATION INFORMATION Instructions: Medication Leaflets: Follow up: With: Address: When: Cate Xiao [address] [id number] [facility] () Comments: Keep scheduled appointment Type Location Start [facility] Surgery [facility] Surgical Services 10/29/2022 1:45 PM 10/29/2022 2:15 PM Confirmed URO Office Visit [facility] 01/14/2023 10:30 AM 01/14/2023 10:45 AM Confirmed URO Office Visit [facility] 04/01/2023 11:30 AM 04/01/2023 11:45 AM Confirmed MEDICATION LIST Medications to Continue Taking That Have Changed Other Medications START: aspirin (aspirin 81 mg oral capsule) 1 Capsules By Mouth every day. START: atorvastatin (atorvastatin 80 mg Tab) 1 Tablets By Mouth at bedtime. START: carvedilol (Coreg 12.5 mg Tab) 0.5 Tablets By Mouth 2 times a day. START: escitalopram (escitalopram 10 mg Tab) 1 Tablets By Mouth at bedtime. START: pantoprazole (Pantoprazole [address] Tab) 2 Tablets By Mouth every day. START: tramadol (Ultram 50 mg Tab) 1 Tablets By Mouth every 12 hours. Medications to Continue with No Changes Other Medications clopidogrel (Plavix 75 mg Tab) 1 Tablets By Mouth every day. ezetimibe (ezetimibe 10 mg Tab) 1 Tablets By Mouth every day. finasteride (finasteride 5 mg Tab) 1 Tablets By Mouth every day., BPH losartan (losartan 50 mg Tab) 1 Tablets By Mouth every day. mirabegron (Myrbetriq 50 mg oral tablet, extended release) 1 Tablets By Mouth every day. Refills: 11. multivitamin (Multi Vitamin+) 1 tab By Mouth every day. Comment: Normal [facility] Outpatient Surgery Discharge Instructionon 10-25-2022 Outpatient Surgery Discharge Instruction [address] [place] [address] Patient Discharge Instructions PERSON INFORMATION Name: HARDIK GOODE Date of : 1935 Current Date: 10/25/2022 17:17:27 PHYSICIANS Admitting Physician: Cate Xiao DO Discharge Diagnosis: Ganglion cyst of flexor tendon sheath of finger HARDIK GOODE has been given the following list of follow-up instructions, prescriptions, and patient education materials: PATIENT FOLLOW-UP INFORMATION Diet: Regular, Drink liquids and eat a light meal Discharge Activity: Ambulate as tolerated, Arrange for a responsible adult supervision for 24 hours, Expect mild pain, Expect minimal amount of drainage and/or bleeding, Do not lift more than 5 lbs Discharge Restrictions: No driving for 24 hrs, Do not operate machinery or tools, Do not make important decisions for 24 hours, Do not drink alcoholic beverages for 24 hours Call Your Doctor For: Persistent or heavy bleeding, Temperature above 101.5 degrees, Redness, swelling, or pus at operative site, Severe pain at the operative site, Persistent vomiting Wound Care Instructions: Keep incision dry, Remove dressing as instructed Remove Your Dressing In 2 Days Additional Instructions: OK to start Plavix blood thinner the day after surgery IF UNABLE TO CONTACT YOUR PHYSICIAN AND YOU FEEL IT IS AN EMERGENCY, GO TO THE NEAREST EMERGENCY ROOM OR CALL 911 RUPA Christian CARL P, have received the attached patient education materials/instructions and have verbalized understanding: May we do a follow up call? Yes No I was present when discharge instructions were given Patient Signature ___ Date Clinican/Nurse Signature Date Follow up: With: Address: When: Cate Xiao [address] [place], [place] [id number] [facility] (1) Comments: Keep scheduled appointment Type Location Start [facility] Surgery [facility] Surgical Services 10/29/2022 1:45 PM 10/29/2022 2:15 PM Confirmed URO Office Visit [facility] 01/14/2023 10:30 AM 01/14/2023 10:45 AM Confirmed URO Office Visit [facility] 04/01/2023 11:30 AM 04/01/2023 11:45 AM Confirmed Pharmacy Information: You may receive a survey from [employer] asking you to rate your care experience. Your feedback is important and will help us understand what we do well and how we can improve the quality of care we provide to you, your loved ones and our community. It?s an honor to serve you. Thank you for choosing [facility] HERE ARE THE MEDICATION CHANGES THAT OCCURRED DURING YOUR HOSPITAL STAY Medications to Continue Taking That Have Changed Other Medications START: aspirin (aspirin 81 mg oral capsule) 1 Capsules By Mouth every day. START: atorvastatin (atorvastatin 80 mg Tab) 1 Tablets By Mouth at bedtime. START: carvedilol (Coreg 12.5 mg Tab) 0.5 Tablets By Mouth 2 times a day. START: escitalopram (escitalopram 10 mg Tab) 1 Tablets By Mouth at bedtime. START: pantoprazole (Pantoprazole [address] Tab) 2 Tablets By Mouth every day. START: tramadol (Ultram 50 mg Tab) 1 Tablets By Mouth every 12 hours. Medications to Continue with No Changes Other Medications clopidogrel (Plavix 75 mg Tab) 1 Tablets By Mouth every day. ezetimibe (ezetimibe 10 mg Tab) 1 Tablets By Mouth every day. finasteride (finasteride 5 mg Tab) 1 Tablets By Mouth every day., BPH losartan (losartan 50 mg Tab) 1 Tablets By Mouth every day. mirabegron (Myrbetriq 50 mg oral tablet, extended release) 1 Tablets By Mouth every day. Refills: 11. multivitamin (Multi Vitamin+) 1 tab By Mouth every day. PATIENT EDUCATION INFORMATION Instructions: Medication Leaflets: [facility] Outside Recordson 10-25-2022 Outside Records [id number]#[id number]:1 27 [facility] Patient Education - Texton 0 10-25-2022 Patient Education - Text [facility] Coding Summary.on 10-23-2022 Coding Summary. CD:[id number] Gh0bW w+PGhlYWQ+CW3ZPFBdW86boXH ybA8JI6cYXB7SZAIIUAYZKD0V OB9lhYC4ANcmJ2YnioDb DjvvvSUzHJ18FOm2BKH0jUalF QodqN7huSGdP2q2KeBkFU56qJ 95BCfqZMXfTuN5KjHsuxtylMZ y H1weKzDlqJHpPtj+PHRhYmxlI HdpZHRoPScxMDAlJyBzdHlsZT 4fVu2xWQHkDDQvaMzumPHoNtS j k8bkHIZgEMgaKW1mjYbuS9Avw HV2YOQpo7h6Wo56pLO+PHRkIH N8uNkcCYvts356KsSqf5xfQPW 3 dLTzCZqdUQF4B36kz5X3FXKzV VQgJEG2fWS6sX6foSpwyvvvW9 JseXTgFcW4RZM1mZTosT2ymSt n bbikzB0eRes+W11SWX2SQSPTZ U8TMyt4M6YxQpsfnGJ+PC90YW ArCS98dFAwkGNns5nfaYs8GpM w FTUtIMS1cRasJAbmn2ZaHIZdF 42fiSHpt1W3TYEauErwaXGmSc KctHS2rP7vJCqrecmbc8rrhkg n Sagkb1wofg59eR42Q45jJQibF STpHUC7WDLlZDOjjHmywv6qtV 9wIi8+IRucj6mkp2frmJf5BaP w VTPlhxOxoLgzFUI2h0OlLf35S 9MktObfu1QqBgs3bf21qNAtx6 W7nUJ0PXgkAMRbxZ2gHGmgQzD 6 UAIcTpRliU53cMSgLAptWo6yz GinpXfrAY2tQPWaurggNQXsiA 1xGIAzaNCgmZdjIW2sGQMxmgm m g549LdKtJPM1GKOihFQlR3Iow J9eDyUdTUAfWZVyK4ZwvEOkML inX158YMdjUuC4ZFAecmJyF6F s DHZidIecBiA0f3Z9Cc5Ci0Vfl lehILQ8NFhrOJDsAzN6BuLmCm M7S0QdVai8JLZkgYioXD3qF4A h SUUppwfxzazluYB9BFOcXUSfg P15eFOsKBnkFk0cs1R5z625FA AvWLPmdP21Ei2ihZleOYHiqZQ U xI1wpycbq0dfuauvQvYlPEIoW Qd4MNb9QLQcxNjsNqGrYRS2Wc A5ZQQ6pUIiqM8idOogzplnoA0 w Oyc+Y20byU5jZRT1GOM3wqvvR NPrjyJvLC06IW72X8TfKyunvD FibGU+IQPgzbUahPvkXB2gLiZ j f5wml8HwXVqaW7WnOHTaYTxlF fk3FWDdUQS8tYU9pR7sCNWtLR qln7X0mRE5L9RiriAvdu0jx8i s SGZaGQrkV68jsSHsf0W7CZMyv GB6HEBzvTarKmCafY15Fxg+PG QenBofn8XbTxhct7oto1njuOk 9 DlYcNYPtjzIigZexMPN6f1YxN u61S15yKDglGGLsDLNkZDHzDU VrfXuxvm4knT1kBf9+PGNvbCB 3 zVP3qZ5sRBCfXxL7YEcgL664B dGbpEZmFdxvi8ylr3ccaJh8Xu FlXHYabmYofZeiYIH1j8VuPx0 8 M78qVZlcQFTcUTXkSOCvNQHvh Selss5gjL2tYh4+YK1tf0fnhm 51pS18jFX+VSLrWBJ0oTnhJUc w BGCnzJ4hKNraXeB9SUYoXqSqf E16fZPkFShvQe0ukLyygAazVP 6oDKQhxuowj631UmXtv7irBFT w dTKcTTekMUX8Y28ye7Z5QVJaG FMzBTR3nMM2yM3xaPuponzdlE SkyDeucmHuiKlhSVuzNStfO31 6 IHRvcDsnPlBhdGllbnQgTmFtZ Cw4X6ZtAef7XFJolGvzGL3lkC ZzYCclEh7cwWvxhAdhIX1sYIN p jidbg972NaAvn4ggOVWlrXLzQ OqeBPG8E67ho8Q7MMStMSJwSM I0sWP8wJ4vqMelfpgzkRMlpZe g tpAuyUflEOuoDUvvG992ZIKmn UltHoYiaiOsRRJjaND6XD32AZ 39xUUxl0F7qRS7C0GgVLQcmxg t gmgbgKT3UBUkDHGsnL00Bx2il HukPx5dQHFpIHF6GWNtkHDkO6 UuaH1fMpTjTEXiKWBpB5AjlRN t UAkyO864EShlHoQ4FWCvszTdG 7VcGSOleRuxHdT6t5Y0Pq3DG5 Z3QY30JI67fDEcy4B6xIW3S8Z h RSOhcegcmanewMC6AKRhANIli I45Dq7ubGoaLb5yCZQgEFC3UT KlsHNgC2NcvL9wNlVoGALkZSN w E2SjzLArBNdiM529TUkgVuZ8K FCzxeXnT8RhGGAuzTfaKtJ4k2 W8Dj8MPCw9QI41TV12iVIkb6M 5 wVA1D1DcEUHqmpyudbvwdUH6W GRjNKJjiI89Jm6mlYxmJl3wVI UsDDY6ZKWduTLvM5VowE7vZtM j FDZuYJJvE3ZfrQKeUGyvK568M UicNdN1GOJdqmJoL9QuMQLikK zwJbK0c1E5My4RVXSdKZ57JOQ 5 rCE9FP21UM68E6EzSkztiQCww +PHRhYmxlIHdpZHRoPScxMD CxHaXbqVqmQG7kKz0bEPGaWMY v dCermKItIiExy5ixPSAcJWspG G9esEzoN5UctZI6MDXmq3q1Ap 96A47aR5JmxIP+EOQvkFM6bJS 0 gX8jLzEzUvP9XKleB755OjQrn SMpJgfmp7ppg6zniYn0LvO0UH HsrrStxJbxVYL5h7JjJd99H41 s IHdpZHRoPSIxNSUiIHZhbGlnb a8coU2qFi1+EQOsrUN7yDQ0qY 8kIsNjKxB0TYjlS994QfSuaQA v Gxoxv9pwr9axaXb9VfXrPVVzq vIpwWspWPH5s2IaKl02P2CweZ cqv6MyAiy8ad35kOKkj1G7gHR 9 N2VeMEWqwufxjUZzhRldYR3hB DTyxvxnNKQbaK7sCRSqE7i6Mk QmYfR7IMllX7ZjvuU1DQLeqOV g VKifMWJ3Y36uh8U2WJOpMQBrG IK7wGQ8sF3rgNovtkbaaDHoyP ravwIozIkgBZczMQgxP585HXJ v rJydSUHgjN8mEHOvvPMwtYxnL T8jFXMoyxahXqCLFTGMHJarQ0 EUEMECDC90WJ97fWFzz7W9uKO 9 U0EfHZXphuikmwqdiJQ9CLAgA KZukJ99tYPoBNfxMa8bk7I4z1 93DWIeJCIliQ12Sh1shUzgXFX w oURPrL2oyyrlt5tylybvRlOxM KSrZCk0OWz8VHKlhZodJkGyNE H3MxX9UMF3sMKctZ0ymSeomue g oS4gMie+MDgvMDQvMTkzNzwvd GQ+KEPdDRG9yGahYWxtELVobP 5lNVQjQ9c6LqQjPaS9SMcvX1X h HTSquhwvLa27xG0qPyAoPiB4E RxhQ5EwdnG3ZYPomUSeTNkwME A8T37at2B1OQMdOYQnGVY6mVA 4 xW6crXlaxdeynMBojCkglmShz LnwEXogDYedK904XMEieDeuBm w7UXxqCCIiXQ01IV18cUXhd1V 5 zRR9L6ZuVQYwyslqtpjpgVE3O VToKQTsoB72xDZnDGmqOr9bs7 Z8f551UELiTYBinA55Wm2idAb g OFLwkJEMlJ8qmjmws2qzqdyeZ sEyCQCdAQy5FJc8ISXihKibIj RuQZC0XwN1GNR8gFVnbS0laFb n jalnaI0qMst+TWFsZTwvdGQ+P HFjJLN5pAcbCJupZALxdU3yJG FqJ0c8EhEeMzW5IOmjZ2YiIAK p cvcsNl40cR3kLsLlSbX3MHkdI 2ZhzcH2KACgrNWhMNdhIEB5I3 4ol1W5XGOkPSBmAWW9qFT5iF2 h bGlnbjogbGVmdDsgdmVydGljY XqzBUvdE092VEJybPmpBt31rT NkfRgbkkO6Q3BgCetbrQJ+PC9 0 YEVyIP96zPWvcQLif6qpuRu4C rKhRDFuLKY8kSofAYwik0ZkTW TvR96smHZjd0E2ZUOvtQzeyNX l NoVlbGY0aH7gVLcmlwasu3szu ffoUnocy8oqzb92bW18Q24pGP dpZHRoPSIzMCUiIHZhbGlnbj0 i wD3fIh2+XRRysHE9kUU8xB6lA yVcYbB8VGdyD595XoUkpNMeIj uip9fpe1ezuYg3HrCrIBSwguR s hTwhVFT2v7LaYx45C18qZSbtZ UNoKYGbWJLfAJFylKwdvr8yzJ 9wIi8+XA1qt2ubik58hB15mLZ + SHIxIGO5sNaxZOwnGJRdhE7aM OgkXlA0NZZlXpOdyC67hCSbNL ixBa3cvQmekRsxUV0iIAWxxiu m v722AeUmy7nfHENhzJMpIMqsC YH4G50vc1O0MQVlOLJuWLV7eU D8gS2hoFoiawxrqXYpfWycezV y fVlyQPwjDJclP621WXTxsZcfC oIseFKcC4ekemRXXP9qEzcghO Q+NZSeKKH5yFuvZMfpOYDsqF2 n RBXyS6o8IcNrWxL4LUimX1Pgz aX0WMWjrIBjFEIqwLNUlO6ehl emx2kauyczBhQzUAXpVIb7JUy 0 LJAzxFlhDuGzTKI8QcL4HLD0p WLtsH2ijTzeopiylT5kOph+Rk lOOjwvdGQ+NDLiWMX0tSgxLXj w GSZgmH4xVQTvZ3g7GkGcEoU7R NtgJ6JbneD1YRCwbTOmFWKfqX WXkR4impnii0czokpcQvXsRDZ w ZKk9PFo9SJCijAvsPyZoUQW9Y fN5XFT3nALlwI3zoBgblgepfR 9wOyc+TVJOOjwvdGQ+PHRkIHN 0 kBhyEZzpKDChxJ6rMGNwB3c9G kTlIuR1ADqxR3IlynL3FNNnuR AzSDHjfBLNuX0btmran7osccu g PeBvWHUnYSm1GCm3RTSuaVjiS hFmZUX3IsY8LIP5wXJegK8nsS ozlzuymY9zLmn+CBR8FNP3MA9 0 ZZ41E9BrCayjlUHbaDU+PHRhY mxlIHdpZHRoPScxMDAlJyBzdH niVT4pHs6kLOVoGLJdqJvjxTG l OiBj (more content not included)... Normal [facility] BUNOrdered By: SYSTEM SYSTEM on 10-17-2022 Urea nitrogen [Mass/Vol] 23 mg/dL High 5-21 [facility] Remisol Comment on above: Performed By: #### 2 596924, 9396028, 1050401, 2877808, 0803911 ####[facility] [address] [place] [address] CBC w/IndicesOrdered By: Rosalva Short on 10-17-2022 Erythrocyte distribution width (RBC) [Ratio] 13.0 % Normal 10.9-14.2 FT HemeAutoSS Comment on above: Performed By: #### 2 731911, 4913331, 3077177, 5280228, 9714870 ####[facility] [address] [place] [address] Hematocrit (Bld) [Volume fraction] 39.7 % Normal 37.7-49.0 FT [facility]eAutoSS Comment on above: Performed By: #### 2 382820, 8952237, 3610225, 1908769, 9552845 ####[facility] [address] [place] [address] Hemoglobin (Bld) [Mass/Vol] 13.3 g/dL Low 13.5-17.5 [facility]eAutoSS Comment on above: Performed By: #### 2 200416, 8230649, 8716785, 5426246, 3711068 ####[address] [place] [address] MCH (RBC) [Entitic mass] 33.3 pg Normal 27.0-34.0 FT [facility]eAutoSS Comment on above: Performed By: #### 2 918675, 7946011, 8897357, 3177867, 4960002 ####[facility] [address] [place] [address] MCHC (RBC) [Mass/Vol] 33.4 g/dL Normal 31.4-36.0 FT [facility]eAutoSS Comment on above: Performed By: #### 2 163466, 0000963, 7117150, 8448455, 2142539 ####[facility] [address] [place] [address] MCV (RBC) [Entitic vol] 99.6 fL Normal 80.0-100.0 [facility] HemeAutoSS Comment on above: Performed By: #### 2 315648, 7290132, 4443010, 5530269, 0706607 ####[address] [address] Platelet mean volume (Bld) [Entitic vol] 9.4 fL Normal 6.4-10.8 FT HemeAutoSS Comment on above: Performed By: #### 2 712196, 3903218, 3012587, 3179609, 7790293 ####[address] [address] Platelets (Bld) [#/Vol] 226.0 E9/L Normal 150.0-500.0 FT [facility]eAutoSS Comment on above: Performed By: #### 2 856760, 0932896, 9575666, 2331838, 7010243 ####[address] [address] RBC (Bld) [#/Vol] 4.0 E12/L Low 4.3-5.9 FT [facility]eAutoSS Comment on above: Performed By: #### 2 064187, 3090356, 0061640, 2573821, 1858688 ####[address] [address] WBC corrected for nucl RBC Auto (Bld) [#/Vol] 8.8 E9/L Normal 4.0-11.0 FT [facility]eAutoSS Comment on above: Performed By: #### 2 932225, 3415765, 7403358, 9710588, 4582495 ####[address] [address] Consent for Treatmenton 09-27 Consent for Treatment [id number]#[id number]:12 7 Normal [facility] CreatinineOrdered By: SYSTEM SYSTEM on 10-17-2022 Creatinine [Mass/Vol] 1.2 mg/dL Normal 0.5-1.3 [facility] Remisol Comment on above: Performed By: #### 2 987489, 3980731, 9891502, 0765118, 8706231 ####[facility] [address] [place] [address] GlucoseOrdered By: SYSTEM SY STEM on 10-17-2022 Glucose [Mass/Vol] 116 mg/dL Normal 55-199 [facility] Remisol Comment on above: Performed By: #### 2 141057, 8316117, 7020367, 3005977, 7255835 ####[address] [address] LytesOrdered By: SYSTEM SYST EM on 10-17-2022 Anion gap [Moles/Vol] 12 mmol/L Normal 6-16 [facility] Remisol Comment on above: Performed By: #### 2 963932, 9658554, 3292871, 7931322, 4581616 ####[address] [address] Chloride [Moles/Vol] 102 mmol/L Normal 101-111 [facility] Remisol Comment on above: Performed By: #### 2 512690, 1038496, 1848693, 2871295, 0158041 ####[address] [address] CO2 [Moles/Vol] 23 mmol/L Normal 21-31 [facility] Remisol Comment on above: Performed By: #### 2 330855, 7090965, 6036227, 8649701, 3324837 ####[address] [place] [address] Potassium [Moles/Vol] 4.3 mmol/L Normal 3.5-5.3 [facility] Remisol Comment on above: Performed By: #### 2 716857, 7331744, 2295000, 8082786, 8320333 ####[address] [address] Sodium [Moles/Vol] 133 mmol/L Low 135-145 [facility] Remisol Comment on above: Performed By: #### 2 699017, 0490183, 1986711, 0803439, 3864523 ####[facility] [address] [place] [address] Physician Orderon 10-17-2022 Physician Order [id number]#[id number]:1 27 Normal [facility] XR Chest 2 Viewson 3 XR Chest 2 Views Exam Date/Time: 10/17/2022 14:12 EST Reason for Exam: PRE OP Report IMPRESSION: NO RADIOGRAPHIC EVIDENCE OF ACTIVE DISEASE IN THE CHEST. CLINICAL INFORMATION: PRE OP COMPARISON: None available. FINDINGS: Joint space narrowing right acromioclavicular joint with hyperostosis. Median sternotomy. Cardiopericardial silhouette normal. Vasculature normal. Lungs clear. Ordering Provider: Jericho Coats FINAL REPORT Dictated: 10/17/2022 2:32 pm Onofre Fortune MD Signed (Electronic Signature): 10/17/2022 2:32 pm Signed by: Onofre Fortune MD Transcribed by: VIKTOR Technologist: JOSI Kamara [facility] Patient Educationon 10-01-19 Patient Education Urology Kidney Stones Kidney stones are rock-like masses that form inside of the kidneys. Kidneys are organs that make pee (urine). A kidney stone may move into other parts of the urinary tract, including: ? The tubes that connect the kidneys to the bladder (ureters). ? The bladder. ? The tube that carries urine out of the body (urethra). Kidney stones can cause very bad pain and can block the flow of pee. The stone usually leaves your body (passes) through your pee. You may need to have a doctor take out the stone. What are the causes? Kidney stones may be caused by: ? A condition in which certain glands make too much parathyroid hormone (primary hyperparathyroidism). ? A buildup of a type of crystals in the bladder made of a chemical called uric acid. The body makes uric acid when you eat certain foods. ? Narrowing (stricture) of one or both of the ureters. ? A kidney blockage that you were born with. ? Past surgery on the kidney or the ureters, such as gastric bypass surgery. What increases the risk? You are more likely to develop this condition if: ? You have had a kidney stone in the past. ? You have a family history of kidney stones. ? You do not drink enough water. ? You eat a diet that is high in protein, salt (sodium), or sugar. ? You are overweight or very overweight (obese). What are the signs or symptoms? Symptoms of a kidney stone may include: ? Pain in the side of the belly, right below the ribs (flank pain). Pain usually spreads (radiates) to the groin. ? Needing to pee often or right away (urgently). ? Pain when going pee (urinating). ? Blood in your pee (hematuria). ? Feeling like you may vomit (nauseous). ? Vomiting. ? Fever and chills. How is this treated? Treatment depends on the size, location, and makeup of the kidney stones. The stones will often pass out of the body through peeing. You may need to: ? Drink more fluid to help pass the stone. In some cases, you may be given fluids through an IV tube put into one of your veins at the hospital. ? Take medicine for pain. ? Make changes in your diet to help keep kidney stones from coming back. Sometimes, medical procedures are needed to remove a kidney stone. This may involve: ? A procedure to break up kidney stones using a beam of light (laser) or shock waves. ? Surgery to remove the kidney stones. Follow these instructions at home: Medicines ? Take tcso-mke-vjcsaeh and prescription medicines only as told by your doctor. ? Ask your doctor if the medicine prescribed to you requires you to avoid driving or using heavy machinery. Eating and drinking ? Drink enough fluid to keep your pee pale yellow. You may be told to drink at least 8?10 glasses of water each day. This will help you pass the stone. ? If told by your doctor, change your diet. This may include: ? Limiting how much salt you eat. ? Eating more fruits and vegetables. ? Limiting how much meat, poultry, fish, and eggs you eat. ? Follow instructions from your doctor about eating or drinking restrictions. General instructions ? Collect pee samples as told by your doctor. You may need to collect a pee sample: ? 24 hours after a stone comes out. ? 8?12 weeks after a stone comes out, and every 6?12 months after that. ? Strain your pee every time you pee (urinate), for as long as told. Use the strainer that your doctor recommends. ? Do not throw out the stone. Keep it so that it can be tested by your doctor. ? Keep all follow-up visits as told by your doctor. This is important. You may need follow-up tests. How is this prevented? To prevent another kidney stone: ? Drink enough fluid to keep your pee pale yellow. This is the best way to prevent kidney stones. ? Eat healthy foods. ? Avoid certain foods as told by your doctor. You may be told to eat less protein. ? Stay at a healthy weight. Where to find more information ? [employer] (NKF): www.kidney.org ? [facility] ([facility]): www.urologyhealth.org Contact a doctor if: ? You have pain that gets worse or does not get better with medicine. Get help right away if: ? You have a fever or chills. ? You get very bad pain. ? You get new pain in your belly (abdomen). ? You pass out (faint). ? You cannot pee. Summary ? Kidney stones are rock-like masses that form inside of the kidneys. ? Kidney stones can cause very bad pain and can block the flow of pee. ? The stones will often pass out of the body through peeing. ? Drink enough fluid to keep your pee pale yellow. This information is not intended to replace advice given to you by your health care provider. Make sure you discuss any questions you have with your health care provider. Document Released: 01/28/2009 Document Revised: 12/29/2019 Document Reviewed: 12/29/2019 [employer] Patient Education ? 2019 [employer] Normal [facility] Urology Office/Clinic Noteon 10-01-2022 Urology Office/Clinic Note HPI Staff 3m to starting Myrbetriq 50mg therapy. DX: BPH, Kidney Stone, Bladder Stone, Nocturia & Overactive Bladder. *Also taking Finasteride 5mg QD therapy. Has not noticed any changes since staring Myrbetriq therapy. Still waking up a couple times through the night. Frequency during the day depends on activity. Occasional Urgency. Denies leaking. But did have some leaking prior to getting to the restroom a few days ago. History of Present Illness I have reviewed and verified the staff HPI to be accurate for this encounter. Review of Systems ROS - Provider Constitutional: denies weight loss, denies hot flashes. Eyes: denies eye problems. Gastrointestinal: denies nausea, denies vomiting. Cardiovascular: denies chest pain or angina. Integumentary: no dryness Musculoskeletal: denies musculoskeletal symptoms. ENMT: denies otolaryngeal symptoms. Respiratory: no shortness of breath. Heme/Lymph: denies easy bleeding tendency, denies easy bruising tendency. Psychiatric: no confusion, no anxiety. Genitourinary: denies dysuria, denies hematuria, denies discharge, denies urinary frequency, denies urinary hesitancy, denies nocturia, denies incontinence, denies genital sores, denies decreased libido, and denies erectile dysfunction. Physical Exam General Appearance: alert, no distress, well nourished, well developed male. Genitourinary: normal scrotum, normal testes, normal urethra, normal epididymis, normal vas deferens/spermatic cord. Flank Pain: none. Bladder: nonpalpable. Assessment/Plan 1. OAB (overactive bladder) (N32.81: Overactive bladder) Myrbetriq 50mg qd. Pt does not notice a change in his urination since starting Myrbetriq. Pt states it takes a while for him to feel like his bladder is empty. Discussed raising pt's dose to 100mg qd. Will send a new script of Myrbetriq 50mg 2 tabs once a day. If pt has difficulty voiding he will take 2 tabs one day and the next day 1 tab and alternate back and forth between 1 tab and 2 tabs daily. 2. BPH (benign prostatic hyperplasia) (N40.0: Benign prostatic hyperplasia without lower urinary tract symptoms) UA today is clear/neg for any blood or infection Finasteride 5mg qd therapy Overall pt states that he has occasional urgency and frequency. 3. Nocturia (R35.1: Nocturia) moderate Pt denies drinking large amounts of fluid at night. 4. Bladder stone (N21.0: Calculus in bladder) 3 mm bladder calculus suggesting recently passed stone found on CT scan 5. Kidney stone (N20.0: Calculus of kidney) Current KUB 03/28/21 shows no visible urinary tract calculi. CT AP wo con 01/14/22 shows mild left sided hydro and hydroureter with left perinephric fat stranding Follow-up With When Contact Information PRABHJOT CARMEN, Pamela Prasad, URL In 3 months 12/29/2022 EDT [facility] [address], [place] [address] [phone] Additional Instructions: Patient Education Kidney Stones, [id number] I, Ana Garcia, personally scribed for Dr. Rick on 10/01/2022 15:52:51. . Documentation recorded by the scribe, Ana Garcia, accurately reflects the services(s) I performed and decisions made by me. Problem List/Past Medical History Ongoing Antiplatelet or antithrombotic long-term use Bladder stone BMI 27.0-27.9,adult BPH (benign prostatic hyperplasia) Chronic bronchitis Depression Epidermal cyst of neck GERD with esophagitis Hyperlipidemia type II Infected sebaceous cyst of skin Kidney stone Nicotine dependence Nocturia OAB (overactive bladder) Obstructive sleep apnea Osteoarthritis Sebaceous cyst Urgency of urination Weak urinary stream Historical Acute myocardial infarction Angina Arthritis BPH - benign prostatic hyperplasia Esophageal reflux History of nephrolithiasis Hyperlipidemia Hypertension Irregular heart beat Malignant melanoma Rectocele SOB - Shortness of breath Transfusion of red blood cells Procedure/Surgical History Excision of sebaceous cyst (12/06/2021), Excision of cyst (10/06/2020), Colonoscopy (2014), EGD - Esophagogastroduodenoscop y (2014), Appendectomy, 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 Medications aspirin 81 mg oral tablet, 1 tab, Oral, Daily atorvastatin 80 mg Tab, 80 mg= 1 tab(s), Oral, Daily Coreg 12.5 mg Tab, 12.5 mg= 1 tab(s), Oral, BID escitalopram 10 mg Tab finasteride 5 mg Tab, 5 mg= 1 tab(s), Oral, Daily losartan 50 mg Tab, 50 mg= 1 tab(s), Oral, Daily Multi Vitamin+, 1 tab, Oral, Daily Myrbetriq 50 mg oral tablet, extended release, 50 mg= 1 tab(s), Oral, Daily, 11 refills Pantoprazole [address] Tab, 40 mg= 1 tab(s), Oral, Daily Plavix 75 mg Tab, 75 mg= 1 tab(s), Oral, Daily Ultram 50 mg Tab, 50 mg= 1 tab(s), Oral, q6hr Allergies ciprofloxacin (Eruption) codeine (Vo (more content not included)... Normal [facility] Comment on above: Result Comment: Elec tronically Signed By: Pamela RICK MD\.br\Date and Time Signed: 10/01/22 15:54 EST\.br\Electronically Co-Signed By: Ana Garcia MA\.br\Date and Time Co-Signed: 10/01/22 15:53 EST XR HAND RT MIN 3Von 09-02-19 23 XR HAND RT MIN 3V EXAM: XR HAND RT MIN 3V HISTORY: C/O: a pain COMPARISON: None radiographs from 12-02-2015 TECHNIQUE: PA lateral and oblique radiographs of the hand labeled right FINDINGS: No acute fracture or dislocation. Soft tissue swelling at the fifth (small) finger proximally. No periosteal reaction. No erosion. Surgical clips over the distal radius. Calcification adjacent to the distal radius. New osseous body noted at the ulnar aspect of the wrist. Radiocarpal and ulnar carpal joint space loss. Radial ulnar joint space narrowing. First carpometacarpal joint space loss and osseous productive change. Increased osseous bodies about the wrist dorsally. IMPRESSION: 1. Soft tissue swelling of the fifth digit without associated osseous abnormality. 2. Progressive degenerative changes at the wrist with increase in articular bodies. Radiocarpal and first carpometacarpal joint space loss. Electronically authenticated by: NIA BENÍTEZ Date: 2022-09-02 16:13 Normal [facility] MRI BRAIN WO CONon 2 MRI BRAIN WO CON MRI BRAIN WITHOUT CONTRAST. INDICATION: Amnesia COMPARISON: None available. TECHNIQUE: MR imaging of the brain using the following unenhanced sequences: Axial diffusion, axial FLAIR, axial T2 weighted, coronal and sagittal T1, coronal gradient-echo T2. FINDINGS: EXTRA-AXIAL SPACE:Age appropriate ventricles. No extra-axial collection. CEREBRUM: There are mild T2/FLAIR hyperintense signal changes in the periventricular and deep white matter, which is nonspecific but likely reflective of chronic microvascular ischemic disease. No areas of restricted diffusion. No acute infarct, hemorrhage or mass. CEREBELLUM: No signal abnormality. No areas of restricted diffusion. No acute infarct, hemorrhage or mass. BRAINSTEM: There are T2/FLAIR hyperintense signal changes, which is nonspecific but likely reflective of chronic microvascular ischemic disease. No areas of restricted diffusion. No acute infarct, hemorrhage or mass. EXTRACRANIAL STRUCTURES:There is mucosal thickening of the right maxillary sinus with fluid in the right maxillary sinus. Mastoid air cells are clear. Globes and orbits are normal. Normal pituitary gland. Normal calvarium. IMPRESSION: 1. No acute intracranial abnormality. No acute infarct, hemorrhage or discrete intraparenchymal mass. 2. Mild chronic microvascular ischemic changes. 3. Right paranasal sinus disease. Electronically authenticated by: BUSTER MARTÍNEZ Date: 2022-07-14 15:46 Normal [facility] CBC AUTO DIFFon 07-13-2022 BASO # 0.0 103/ul Normal 0.0-0.1 [facility] Comment on above: Performed By: #### C BC #### [facility] [address] [address] [address] Feroz Cade Basophils/100 WBC (Bld) 0.3 % Normal 0.2-2.0 [facility] Comment on above: Performed By: #### C BC #### [facility] [address] [address] [address] Feroz Cade EO # 0.0 103/ul Normal 0.0-0.7 [facility] Comment on above: Performed By: #### C BC #### [facility] [address] [address] [address] eFroz Cade Eosinophils/100 WBC (Bld) 0.6 % Critically low 0.9-7.0 [facility] Comment on above: Performed By: #### C BC #### [facility] [address] [address] [address] Feroz Cade Erythrocyte distribution width (RBC) [Ratio] 12.5 % Normal 11.0-15.0 [facility] Comment on above: Performed By: #### C BC #### [facility] [address] [place] [address] Dr. Feroz Cade Hematocrit (Bld) [Volume fraction] 39.1 % Critically low 42.0-54.0 [facility] Comment on above: Performed By: #### C BC #### [facility] [address] [place] [address] Dr. Feroz Cade Hemoglobin (Bld) [Mass/Vol] 13.8 g/dL Critically low 14.0-18.0 [facility] Comment on above: Performed By: #### C BC #### [facility] [address] [place] [address] Dr. Feroz Cade IG # 0.01 10e3/ul Normal 0.00-0.03 [facility] Comment on above: Performed By: #### C BC #### [facility] [address] [place] [address] Dr. Feroz Cade IG % 0.1 % Normal 0.0-0.5 [facility] Comment on above: Performed By: #### C BC #### [facility] [address] [place] [address] Dr. Feroz Cade LYMPH # 1.2 103/ul Normal 1.2-3.8 [facility] Comment on above: Performed By: #### C BC #### [facility] [address] [place] [address] Dr. Feroz Cade Lymphocytes/100 WBC (Bld) 17.0 % Critically low 20.5-60.0 [facility] Comment on above: Performed By: #### C BC #### [facility] [address] [place] [address] Dr. Feroz Cade MANUAL DIFF REQ NO Normal [facility] Comment on above: Performed By: #### C BC #### [facility] [address] [place] [address] Dr. Feroz Cade MCH (RBC) [Entitic mass] 33.9 pg Normal 25.9-34.0 [facility] Comment on above: Performed By: #### C BC #### [facility] [address] [address] [address] Feroz Cade MCHC (RBC) [Mass/Vol] 35.3 g/dL Critically high 29.9-35.2 [facility] Comment on above: Performed By: #### C BC #### [facility] [address] [address] [address] Feroz Cade MCV (RBC) [Entitic vol] 96.1 fL Critically high 80.0-94.0 [facility] Comment on above: Performed By: #### C BC #### [facility] [address] [place] [address] Dr. Feroz Cade MONO # 0.6 103/ul Normal 0.3-0.8 [facility] Comment on above: Performed By: #### C BC #### [facility] [address] [place] [address] Dr. Feroz Cade Monocytes/100 WBC (Bld) 8.0 % Normal 1.7-12.0 [facility] Comment on above: Performed By: #### C BC #### [facility] [address] [place] [address] Dr. Feroz Cade NEUT # 5.4 103/ul Normal 1.4-6.5 [facility] Comment on above: Performed By: #### C BC #### [facility] [address] [place] [address] Dr. Feroz Cade Neutrophils/100 WBC (Bld) 74.0 % Normal 43.0-75.0 [facility] Comment on above: Performed By: #### C BC #### [facility] [address] [place] [address] Dr. Feroz Cade Platelet mean volume (Bld) [Entitic vol] 10.7 fL Normal 9.5-13.5 [facility] Comment on above: Performed By: #### C BC #### [facility] [address] [place] [address] Dr. Feroz Cade PLT 231 103/ul Normal 150-450 [facility] Comment on above: Performed By: #### C BC #### [facility] [address] [place] [address] Dr. Feroz Cade RBC 4.07 106/ul Critically low 4.70-6.10 [facility] Comment on above: Performed By: #### C BC #### [facility] [address] [place] [address] Dr. Feroz Cade WBC 7.3 103/ul Normal 4.0-11.0 [facility] Comment on above: Performed By: #### C BC #### [facility] [address] [place] [address] Dr. Feroz Cade PROF 14(COMP METB)on 022 Albumin [Mass/Vol] 3.6 g/dL Normal 3.4-5.0 [facility] Comment on above: Performed By: #### C MP #### [facility] [address] [place] [address] Dr. Feroz Cade Albumin/Globulin [Mass ratio] 0.8 {ratio} Normal [facility] Comment on above: Performed By: #### C MP #### [facility] [address] [place] [address] Dr. Feroz Cade ALP [Catalytic activity/Vol] 67 U/L Normal 46-116 [facility] Comment on above: Performed By: #### C MP #### [facility] [address] [place] [address] Dr. Feroz Cade ALT [Catalytic activity/Vol] 21 U/L Normal 16-63 [facility] Comment on above: Performed By: #### C MP #### [facility] [address] [place] [address] Dr. Feroz Cade Anion gap [Moles/Vol] 13.6 mmol/L Normal [facility] Comment on above: Performed By: #### C MP #### [facility] [address] [place] [address] Dr. Feroz Cade AST [Catalytic activity/Vol] 27 U/L Normal 15-37 [facility] Comment on above: Performed By: #### C MP #### [facility] [address] [place] [address] Dr. Feroz Cade Bilirubin [Mass/Vol] 0.6 mg/dL Normal 0.2-1.0 [facility] Comment on above: Performed By: #### C MP #### [facility] [address] [address] [address] Feroz Cade Calcium [Mass/Vol] 8.7 mg/dL Normal 8.5-10.1 [facility] Comment on above: Performed By: #### C MP #### [facility] [address] [address] [address] Feroz Cade Chloride [Moles/Vol] 104 mmol/L Normal 98-107 [facility] Comment on above: Performed By: #### C MP #### [facility] [address] [address] [address] Feroz Cade CO2 [Moles/Vol] 22.9 mmol/L Normal 21.0-32.0 [facility] Comment on above: Performed By: #### C MP #### [facility] [address] [place] [address] Dr. Feroz Cade Creatinine [Mass/Vol] 1.11 mg/dL Normal 0.70-1.30 [facility] Comment on above: Performed By: #### C MP #### [facility] [address] [place] [address] Dr. Feroz Cade EGFR-AF MICRONESIAN >60 Normal >=60 [facility] Comment on above: Performed By: #### C MP #### [facility] [address] [address] [address] Feroz Cade EGFR-NON AF MICRONESIAN >60 Normal >=60 [facility] Comment on above: Performed By: #### C MP #### [facility] [address] [address] [address] Feroz Cade Globulin (S) [Mass/Vol] 4.3 g/dL Normal [facility] Comment on above: Performed By: #### C MP #### [facility] [address] [address] [address] Feroz Cade Glucose [Mass/Vol] 112 mg/dL Critically high 74-106 [facility] Comment on above: Performed By: #### C MP #### [facility] [address] [address] [address] Feroz Cade Potassium [Moles/Vol] 4.5 mmol/L Normal 3.5-5.1 [facility] Comment on above: Performed By: #### C MP #### [facility] [address] [address] [address] Feroz Cade Protein [Mass/Vol] 7.9 g/dL Normal 6.4-8.2 [facility] Comment on above: Performed By: #### C MP #### [facility] [address] [address] [address] Feroz Cade Sodium [Moles/Vol] 136 mmol/L Normal 136-145 [facility] Comment on above: Performed By: #### C MP #### [facility] [address] [address] [address] Feroz Cade Urea nitrogen [Mass/Vol] 22.0 mg/dL Critically high 7.0-18.0 [facility] Comment on above: Performed By: #### C MP #### [facility] [address] [address] [address] Feroz Cade Urea nitrogen/Creatinin e [Mass ratio] 19.8 mg/mg Normal [facility] Comment on above: Performed By: #### C MP #### [facility] [address] [address] [address] Feroz Cade TSHon 07-13-2022 TSH 2.720 uIU/mL Normal 0.358-3.740 [facility] Comment on above: Performed By: #### T SH #### [facility] [address] [address] [address] Feroz Cade VITAMIN B12on 07-13-2022 Cobalamin (Vitamin B12) [Mass/Vol] 834.0 pg/mL Normal 193.0-986.0 [facility] Comment on above: Performed By: #### V ITB12 #### [facility] [address] [place] [address] Dr. Feroz Cade XR FOREIGN BODY EYEon 2021 XR FOREIGN BODY EYE EXAMINATION: XR FOREIGN BODY EYE HISTORY: Foreign body in eye COMPARISON: No relevant comparison available. FINDINGS: ORBITS: Negative for a metallic foreign body. OTHER: Complete opacification of the left maxillary sinus. Suspected opacification frontal sinuses IMPRESSION: No metallic foreign body in the orbits Electronically authenticated by: ARTURO DOUGHERTY Date: 2022-07-13 13:07 Normal [facility] Ambulatory Visit Summaryon 1 08-27-2021 Ambulatory Visit Summary HARDIK GOODE :1935 Visit Date:06/27/2022 Ambulatory Visit Instructions Your Diagnosis BPH (benign prostatic hyperplasia) Kidney stone Bladder stone Nocturia OAB (overactive bladder) Tests Performed Urnls Dip Stick Auto w/o Microscopy POC 42860 Your Care Team Attending Physician - Pamela RICK MD Primary Care Physician - ONOFRE COONEY DO This Is Your Medications List mirabegron (Myrbetriq 50 mg oral tablet, extended release) Contact prescribing physician if questions or concerns aspirin (aspirin 81 mg oral tablet) atorvastatin (atorvastatin 80 mg Tab) carvedilol (Coreg 12.5 mg Tab) clopidogrel (Plavix 75 mg Tab) escitalopram (escitalopram 10 mg Tab) finasteride (finasteride 5 mg Tab) losartan (losartan 50 mg Tab) multivitamin (Multi Vitamin+) pantoprazole (Pantoprazole [address] Tab) tramadol (Ultram 50 mg Tab) Procedures Performed Excision of sebaceous cyst (12/06/2021), Excision of cyst (10/06/2020), Colonoscopy (2014), EGD - Esophagogastroduodenoscop y (2014), Appendectomy, 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 Discharge Vitals Heart Rate (Peripheral) 71 Blood Pressure 124/91 Height 165 cm Height 65 in Weight 73.0 kg Weight 160.6 lb BMI 26.81 What to do next Scheduled Follow-Up Appointments Saturday 2:15 PM EST With: PRABHJOT CARMEN, Pamela Prasad Where: [facility] Normal [address] [place] [address] [place] [address]- \.br\ You Need to Schedule the Following Appointments\.br \ Follow Up with PRABHJOT CARMEN, JOZEF Isaac When: Within 3 months\.br\ Comments:\.br\ Myrbetriq f/u\.br\ Where:\.br\ [facility] [address]\.br\ [place] [address]-\.br\ Medications\.br\ What How Much When Instructions\.br \ New mirabegron (Myrbetriq 50 mg oral tablet, extended release) 1 Tablets By Mouth Every day Refills: 11 Pickup at [facility]/pharmacy #[id number]\.br\ Unchanged aspirin (aspirin 81 mg oral tablet) 1 tab By Mouth Every day Contact prescribing physician if questions or concerns \.br\ Unchanged atorvastatin (atorvastatin 80 mg Tab) 1 Tablets By Mouth Every day Contact prescribing physician if questions or concerns \.br\ Unchanged carvedilol (Coreg 12.5 mg Tab) 1 Tablets By Mouth 2 times a day Contact prescribing physician if questions or concerns \.br\ Unchanged clopidogrel (Plavix 75 mg Tab) 1 Tablets By Mouth Every day Contact prescribing physician if questions or concerns \.br\ Unchanged escitalopram (escitalopram 10 mg Tab) Contact prescribing physician if questions or concerns \.br\ Unchanged finasteride (finasteride 5 mg Tab) 1 Tablets By Mouth Every day Contact prescribing physician if questions or concerns \.br\ Unchanged losartan (losartan 50 mg Tab) 1 Tablets By Mouth Every day Contact prescribing physician if questions or concerns \.br\ Unchanged multivitamin (Multi Vitamin+) 1 tab By Mouth Every day Contact prescribing physician if questions or concerns \.br\ Unchanged pantoprazole (Pantoprazole [address] Tab) 1 Tablets By Mouth Every day Contact prescribing physician if questions or concerns \.br\ Unchanged tramadol (Ultram 50 mg Tab) 1 Tablets By Mouth Every 6 hours Contact prescribing physician if questions or concerns \.br\ Pharmacy Information\.br\ [facility]/pharmacy #[id number]: [address], [place] [id number] [phone]\.br\ Test Results\.br\ Urnls Dip Stick Auto w/o Microscopy POC 62841 (06/27/2022)\.br \ Bilirubin Urine Dipstick - Negative\.br\ Blood Urine Dipstick - Negative\.br\ Glucose Urine Dipstick - Negative\.br\ Leukocytes Urine Dipstick - Negative\.br\ Nitrite Urine Dipstick - Negative\.br\ Protein Urine Dipstick - Negative\.br\ Specific [place] Urine Dipstick - 1.025\.br\ Urine Appearance Urine Dipstick - Clear\.br\ Urine Color Urine Dipstick - Yellow\.br\ Urobilinogen Urine Dipstick - Normal 0.2-1 EU/dl\.br\ pH Urine Dipstick - 5.5\.br\ Allergies\.br\ ciprofloxacin (Eruption)\.br\ codeine (Vomiting)\.br\ diphenhydrAMINE (Eruption)\.br\ lisinopril (Unknown)\.br\ simvastatin (Unknown)\.br\ Problems\.br\ Ongoing - Any problem that you are currently receiving treatment for.\.br\ Antiplatelet or antithrombotic long-term use\.br\ Bladder stone\.br\ BMI 27.0-27.9,adult\ .br\ BPH (benign prostatic hyperplasia)\.br \ Chronic bronchitis\.br\ Depression\.br\ Epidermal cyst of neck\.br\ GERD with esophagitis\.br\ Hyperlipidemia type II\.br\ Infected sebaceous cyst of skin\.br\ Kidney stone\.br\ Nicotine dependence\.br\ Nocturia\.br\ OAB (overactive bladder)\.br\ Obstructive sleep apnea\.br\ Osteoarthritis\. br\ Sebaceous cyst\.br\ Urgency of urination\.br\ Weak urinary stream\.br\ Historical - Any problem that you are no longer receiving treatment for.\.br\ Acute myocardial infarction\.br\ Angina\.br\ Arthritis\.br\ BPH - benign prostatic hyperplasia\.br\ Esophageal reflux\.br\ History of nephrolithiasis\ .br\ Hyperlipidemia\. br\ Hypertension\.br \ Irregular heart beat\.br\ Malignant melanoma\.br\ Rectocele\.br\ SOB - Shortness of breath\.br\ Transfusion of red blood cells\.br\ Education Materials\.br\ Overactive Bladder, Adult\.br\ \.br\ Overactive bladder refers to a condition in which a person has a sudden need to pass urine. The person may leak urine if he or she cannot get to the bathroom fast enough (urinary incontinence). A person with this condition may also wake up several times in the night to go to the bathroom.\.br\ Overactive bladder is associated with poor nerve signals between your bladder and your brain. Your bladder may get the signal to empty before it is full. You may also have very sensitive muscles that make your bladder squeeze too soon. These symptoms might interfere with daily work or social activities.\.br\ What are the causes?\.br\ This condition may be associated with or caused by:\.br\ ? \.br\ Urinary tract infection.\.br\ ? \.br\ Infection of nearby tissues, such as the prostate.\.br\ ? \.br\ Prostate enlargement.\.br \ ? \.br\ Surgery on the uterus or urethra.\.br\ ? \.br\ Bladder stones, inflammation, or tumors.\.br\ ? \.br\ Drinking too much caffeine or alcohol.\.br\ ? \.br\ Certain medicines, especially medicines that get rid of extra fluid in the body (diuretics).\.br \ ? \.br\ Muscle or nerve weakness, especially from:\.br\ ? \.br\ A spinal cord injury.\.br\ ? \.br\ Stroke.\.br\ ? \.br\ Multiple sclerosis.\.br\ ? \.br\ Parkinson's disease.\.br\ ? \.br\ Diabetes.\.br\ ? \.br\ Constipation.\.b r\ What increases the risk?\.br\ You may be at greater risk for overactive bladder if you:\.br\ ? \.br\ Are an older adult.\.br\ ? \.br\ Smoke.\.br\ ? \.br\ Are going through menopause.\.br\ ? \.br\ Have prostate problems.\.br\ ? \.br\ Have a neurological disease, such as stroke, dementia, Parkinson's disease, or multiple sclerosis (MS).\.br\ ? \.br\ Eat or drink things that irritate the bladder. These include alcohol, spicy food, and caffeine.\.br\ ? \.br\ Are overweight or obese.\.br\ What are the signs or symptoms?\.br\ Symptoms of this condition include:\.br\ ? \.br\ Sudden, strong urge to urinate.\.br\ ? \.br\ Leaking urine.\.br\ ? \.br\ Urinating 8 or more times a day.\.br\ ? \.br\ Waking up to urinate 2 or more times a night.\.br\ How is this diagnosed?\.br\ Your health care provider may suspect overactive bladder based on your symptoms. He or she will diagnose this condition by:\.br\ ? \.br\ A physical exam and medical history.\.br\ ? \.br\ Blood or urine tests. You might need bladder or urine tests to help determine what is causing your overactive bladder.\.br\ You might also need to see a health care provider who specializes in urinary tract problems (urologist).\.br \ How is this treated?\.br\ Treatment for overactive bladder depends on the cause of your condition and whether it is mild or severe. You can also make lifestyle changes at home. Options include:\.br\ ? \.br\ Bladder training. This may include:\.br\ ? \.br\ Learning to control the urge to urinate by following a schedule that directs you to urinate at regular intervals (timed voiding).\.br\ ? \.br\ Doing Kegel exercises to strengthen your pelvic floor muscles, which support your bladder. Toning these muscles can help you control urination, even if your bladder muscles are overactive.\.br\ ? \.br\ Special devices. This may include:\.br\ ? \.br\ Biofeedback, which uses sensors to help you become aware of your body's signals.\.br\ ? \.br\ Electrical stimulation, which uses electrodes placed inside the body (implanted) or outside the body. These electrodes send gentle pulses of electricity to strengthen the nerves or muscles that control the bladder.\.br\ ? \.br\ Women may us [facility] Patient Educationon 06-27-20 Patient Education Obstetrics and Gynec ology Overactive Bladder, Adult Overactive bladder refers to a condition in which a person has a sudden need to pass urine. The person may leak urine if he or she cannot get to the bathroom fast enough (urinary incontinence). A person with this condition may also wake up several times in the night to go to the bathroom. Overactive bladder is associated with poor nerve signals between your bladder and your brain. Your bladder may get the signal to empty before it is full. You may also have very sensitive muscles that make your bladder squeeze too soon. These symptoms might interfere with daily work or social activities. What are the causes? This condition may be associated with or caused by: ? Urinary tract infection. ? Infection of nearby tissues, such as the prostate. ? Prostate enlargement. ? Surgery on the uterus or urethra. ? Bladder stones, inflammation, or tumors. ? Drinking too much caffeine or alcohol. ? Certain medicines, especially medicines that get rid of extra fluid in the body (diuretics). ? Muscle or nerve weakness, especially from: ? A spinal cord injury. ? Stroke. ? Multiple sclerosis. ? Parkinson's disease. ? Diabetes. ? Constipation. What increases the risk? You may be at greater risk for overactive bladder if you: ? Are an older adult. ? Smoke. ? Are going through menopause. ? Have prostate problems. ? Have a neurological disease, such as stroke, dementia, Parkinson's disease, or multiple sclerosis (MS). ? Eat or drink things that irritate the bladder. These include alcohol, spicy food, and caffeine. ? Are overweight or obese. What are the signs or symptoms? Symptoms of this condition include: ? Sudden, strong urge to urinate. ? Leaking urine. ? Urinating 8 or more times a day. ? Waking up to urinate 2 or more times a night. How is this diagnosed? Your health care provider may suspect overactive bladder based on your symptoms. He or she will diagnose this condition by: ? A physical exam and medical history. ? Blood or urine tests. You might need bladder or urine tests to help determine what is causing your overactive bladder. You might also need to see a health care provider who specializes in urinary tract problems (urologist). How is this treated? Treatment for overactive bladder depends on the cause of your condition and whether it is mild or severe. You can also make lifestyle changes at home. Options include: ? Bladder training. This may include: ? Learning to control the urge to urinate by following a schedule that directs you to urinate at regular intervals (timed voiding). ? Doing Kegel exercises to strengthen your pelvic floor muscles, which support your bladder. Toning these muscles can help you control urination, even if your bladder muscles are overactive. ? Special devices. This may include: ? Biofeedback, which uses sensors to help you become aware of your body's signals. ? Electrical stimulation, which uses electrodes placed inside the body (implanted) or outside the body. These electrodes send gentle pulses of electricity to strengthen the nerves or muscles that control the bladder. ? Women may use a plastic device that fits into the vagina and supports the bladder (pessary). ? Medicines. ? Antibiotics to treat bladder infection. ? Antispasmodics to stop the bladder from releasing urine at the wrong time. ? Tricyclic antidepressants to relax bladder muscles. ? Injections of botulinum toxin type A directly into the bladder tissue to relax bladder muscles. ? Lifestyle changes. This may include: ? Weight loss. Talk to your health care provider about weight loss methods that would work best for you. ? Diet changes. This may include reducing how much alcohol and caffeine you consume, or drinking fluids at different times of the day. ? Not smoking. Do not use any products that contain nicotine or tobacco, such as cigarettes and e-cigarettes. If you need help quitting, ask your health care provider. ? Surgery. ? A device may be implanted to help manage the nerve signals that control urination. ? An electrode may be implanted to stimulate electrical signals in the bladder. ? A procedure may be done to change the shape of the bladder. This is done only in very severe cases. Follow these instructions at home: Lifestyle ? Make any diet or lifestyle changes that are recommended by your health care provider. These may include: ? Drinking less fluid or drinking fluids at different times of the day. ? Cutting down on caffeine or alcohol. ? Doing Kegel exercises. ? Losing weight if needed. ? Eating a healthy and balanced diet to prevent constipation. This may include: ? Eating foods that are high in fiber, such as fresh fruits and vegetables, whole grains, and beans. ? Limiting foods that are high in fat and processed sugars, such as fried and sweet foods. General instructions ? Take ove (more content not included)... Normal [facility] Urology Office/Clinic Noteon 06-27-2022 Urology Office/Clinic Note Chief Complaint Office visit HPI Staff Office visit. Pt is here today due to overactive bladder. Previous DX: bladder stone, BPH, kidney stone, nocturia, urgency of urination, weak urinary stream. Pt is currently taking Finasteride 5mg qd. Dysuria: denies pain or burning Incomplete bladder emptying: sometimes Hematuria: denies visible blood Frequency: denies Urgency: yes Nocturia: moderate intermittent 3x a night Stream: denies hesitancy, strong stream but it varies Leaking: yes Post void dripping: denies Wearing pads/ Depends: denies Urge incontinence: yes Stress incontinence: denies Incontinence without Sensory Awareness: denies Abdominal pain: denies Flank pain: denies Sexual complaints: denies History of Present Illness Tests Reviewed: Reviewed UA. I have reviewed and verified the staff HPI to be accurate for this encounter. I have reviewed the previous health record information and history for this patient from Dr. Rick There have been no associated fever, chills, flank pain, or blood in the urine. Denies any urinary infections since last encounter. Review of Systems PHQ Score Initial Depression Screen Score: 0 ROS - Provider Constitutional: denies weight loss, denies hot flashes. Eyes: denies eye problems. Gastrointestinal: denies nausea, denies vomiting. Cardiovascular: denies chest pain or angina. Integumentary: no dryness Musculoskeletal: denies musculoskeletal symptoms. ENMT: denies otolaryngeal symptoms. Respiratory: no shortness of breath. Heme/Lymph: denies easy bleeding tendency, denies easy bruising tendency. Psychiatric: no confusion, no anxiety. Genitourinary: denies dysuria, denies hematuria, denies discharge, denies urinary frequency, denies urinary hesitancy, denies nocturia, denies incontinence, denies genital sores, denies decreased libido, and denies erectile dysfunction. Physical Exam Vitals & Measurements HR: 71(Peripheral) BP: 124/91 HT: 65 in HT: 165 cm WT: 73.0 kg WT: 160.6 lb BMI: 26.81 General Appearance: alert, no distress, well nourished, well developed male. Genitourinary: normal scrotum, normal testes, normal urethra, normal epididymis, normal vas deferens/spermatic cord. Flank Pain: none. Bladder: nonpalpable. Assessment/Plan 1. BPH (benign prostatic hyperplasia) (N40.0: Benign prostatic hyperplasia without lower urinary tract symptoms) - UA today is clear/neg for any blood or infections - Currently taking Finasteride 5mg qd therapy 2. Kidney stone (N20.0: Calculus of kidney) - Current KUB 03/28/21 shows no visible urinary tract calculi. CT AP wo con 01/14/22 shows mild left sided hydro and hydroureter with left perinephric fat stranding - pt has a f/u appt 04/01/23 with repeat KUB 3. Bladder stone (N21.0: Calculus in bladder) - 3 mm bladder calculus suggesting recently passed stone found on CT scan 4. Nocturia (R35.1: Nocturia) - moderate intermittent 3x a night 5. OAB (overactive bladder) (N32.81: Overactive bladder) - pt stated sometimes he feels like he does not empty his bladder - no delay to start stream - discussed starting a bladder control medication therapy. - will be started on Myrbetriq 50mg qd. Discussed the medication side effects, and the patient will monitor closely for these, as well as for symptom improvement. If severe side effects occur the medication should be stopped and the office notified. - he is aware that it does take a few months to notice improvement with this therapy. - will f/u in 3 months pt agrees with this plan. Follow-up With When Contact Information PRABHJOT CARMEN, JOZEF Isaac Within 3 months [facility] [address], [place] [address]- Additional Instructions: Myrbetriq f/u Patient Education Overactive Bladder, Adult I, Bonnie Valdez, personally scribed for Dr. Rick on 06/27/2022 16:04:26. . Documentation recorded by the scribeBonnie, accurately reflects the services(s) I performed and decisions made by me. Authenticated by Dr. Rick on 06/27/2022 16:07:25. Problem List/Past Medical History Ongoing Antiplatelet or antithrombotic long-term use Bladder stone BMI 27.0-27.9,adult BPH (benign prostatic hyperplasia) Chronic bronchitis Depression Epidermal cyst of neck GERD with esophagitis Hyperlipidemia type II Infected sebaceous cyst of skin Kidney stone Nicotine dependence Nocturia OAB (overactive bladder) Obstructive sleep apnea Osteoarthritis Sebaceous cyst Urgency of urination Weak urinary stream Historical Acute myocardial infarction Angina Arthritis BPH - benign prostatic hyperplasia Esophageal reflux History of nephrolithiasis Hyperlipidemia Hypertension Irregular heart beat Malignant melanoma Rectocele SOB - Shortness of breath Transfusion of red blood cells Procedure/Surgical History Excision of sebaceous cyst (12/06/2021), (more content not included)... Normal [facility] Comment on above: Result Comment: Elec tronically Signed By: Pamela RICK MD\.br\Date and Time Signed: 06/27/22 16:07 EDT\.br\Electronically Co-Signed By: Bonnie Valdez\.br\Date and Time Co-Signed: 06/27/22 16:04 EDT Covid-19 PCR ([facility])on 04-27 SARS-CoV-2 (COVID-19) RNA JERRI+probe Ql (Unsp spec) Detected Critically abnormal NOT DETECTED [facility] Comment on above: Result Comment: This test is not yet approved or cleared by the [place] FDA. When there are no FDA-approved or cleared tests available, and other criteria are met, FDA can make tests available under an emergency access mechanism called an Emergency Use Authorization (EUA). The EUA for this test is supported by the [employer] of Health and Human Service's (HHS's) declaration that circumstances exist to justify the emergency use of in vitro diagnostics for the detection and/or diagnosis of the virus that causes COVID-19. This EUA will remain in effect (meaning this test can be used) for the duration of the COVID-19 declaration justifying emergency of IVDs, unless it is terminated or revoked by FDA (after which the test may no longer be used). Performed By: #### C VDTB #### [facility] [address] [address] [address] Feroz Cade RAD - MISCon 04-04-2022 RAD - MISC [id number]#1.00CD:12 7 Normal [facility] Screenson 04-03-2022 Screens [id number]:12 7 Normal [facility] RAD - MISCon 04-02-2022 [facility] [id number]:12 7 [facility] Ambulatory Visit Summaryon 0 03-30-2022 Ambulatory Visit Summary HARDIK GOODE :1935 Visit Date:03/30/2022 Ambulatory Visit Instructions Your Diagnosis BPH (benign prostatic hyperplasia) Kidney stone Bladder stone Nocturia Tests Performed Urnls Dip Stick Auto w/o Microscopy POC 52795 XR Abdomen 1 View -- Results Pending -- Please visit your patient portal for your results or contact your primary care physician. Your Care Team Attending Physician - PRABHJOT CARMEN, Pamela Prasad Primary Care Physician - ONOFRE COONEY DO This Is Your Medications List Contact prescribing physician if questions or concerns aspirin (aspirin 81 mg oral tablet) atorvastatin (atorvastatin 80 mg Tab) carvedilol (Coreg 12.5 mg Tab) clopidogrel (Plavix 75 mg Tab) escitalopram (escitalopram 10 mg Tab) finasteride (finasteride 5 mg Tab) losartan (losartan 50 mg Tab) multivitamin (Multi Vitamin+) pantoprazole (Pantoprazole [address] Tab) tramadol (Ultram 50 mg Tab) Procedures Performed Excision of sebaceous cyst (12/06/2021), Excision of cyst (10/06/2020), Colonoscopy (2014), EGD - Esophagogastroduodenoscop y (2014), Appendectomy, 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 Discharge Vitals Heart Rate (Peripheral) 75 Respiratory Rate 16 Blood Pressure 135/84 Height 165 cm Height 165.0 cm Weight 73 kg Weight 73.0 kg BMI 26.81 What to do next Scheduled Follow-Up Appointments Saturday 11:30 AM EDT With: Pamela RICK MD Where: [facility] Patient Educationon 03-30-20 22 Patient Education Urology Benign Prostatic Hyperplasia Benign prostatic hyperplasia (BPH) is an enlarged prostate gland that is caused by the normal aging process and not by cancer. The prostate is a walnut-sized gland that is involved in the production of semen. It is located in front of the rectum and below the bladder. The bladder stores urine and the urethra is the tube that carries the urine out of the body. The prostate may get bigger as a man gets older. An enlarged prostate can press on the urethra. This can make it harder to pass urine. The build-up of urine in the bladder can cause infection. Back pressure and infection may progress to bladder damage and kidney (renal) failure. What are the causes? This condition is part of a normal aging process. However, not all men develop problems from this condition. If the prostate enlarges away from the urethra, urine flow will not be blocked. If it enlarges toward the urethra and compresses it, there will be problems passing urine. What increases the risk? This condition is more likely to develop in men over the age of 50 years. What are the signs or symptoms? Symptoms of this condition include: ? Getting up often during the night to urinate. ? Needing to urinate frequently during the day. ? Difficulty starting urine flow. ? Decrease in size and strength of your urine stream. ? Leaking (dribbling) after urinating. ? Inability to pass urine. This needs immediate treatment. ? Inability to completely empty your bladder. ? Pain when you pass urine. This is more common if there is also an infection. ? Urinary tract infection (UTI). How is this diagnosed? This condition is diagnosed based on your medical history, a physical exam, and your symptoms. Tests will also be done, such as: ? A post-void bladder scan. This measures any amount of urine that may remain in your bladder after you finish urinating. ? A digital rectal exam. In a rectal exam, your health care provider checks your prostate by putting a lubricated, gloved finger into your rectum to feel the back of your prostate gland. This exam detects the size of your gland and any abnormal lumps or growths. ? An exam of your urine (urinalysis). ? A prostate specific antigen (PSA) screening. This is a blood test used to screen for prostate cancer. ? An ultrasound. This test uses sound waves to electronically produce a picture of your prostate gland. Your health care provider may refer you to a specialist in kidney and prostate diseases (urologist). How is this treated? Once symptoms begin, your health care provider will monitor your condition (active surveillance or watchful waiting). Treatment for this condition will depend on the severity of your condition. Treatment may include: ? Observation and yearly exams. This may be the only treatment needed if your condition and symptoms are mild. ? Medicines to relieve your symptoms, including: ? Medicines to shrink the prostate. ? Medicines to relax the muscle of the prostate. ? Surgery in severe cases. Surgery may include: ? Prostatectomy. In this procedure, the prostate tissue is removed completely through an open incision or with a laparoscope or robotics. ? Transurethral resection of the prostate (TURP). In this procedure, a tool is inserted through the opening at the tip of the penis (urethra). It is used to cut away tissue of the inner core of the prostate. The pieces are removed through the same opening of the penis. This removes the blockage. ? Transurethral incision (TUIP). In this procedure, small cuts are made in the prostate. This lessens the prostate's pressure on the urethra. ? Transurethral microwave thermotherapy (TUMT). This procedure uses microwaves to create heat. The heat destroys and removes a small amount of prostate tissue. ? Transurethral needle ablation (TUNA). This procedure uses radio frequencies to destroy and remove a small amount of prostate tissue. ? Interstitial laser coagulation (ILC). This procedure uses a laser to destroy and remove a small amount of prostate tissue. ? Transurethral electrovaporization (TUVP). This procedure uses electrodes to destroy and remove a small amount of prostate tissue. ? Prostatic urethral lift. This procedure inserts an implant to push the lobes of the prostate away from the urethra. Follow these instructions at home: ? Take [id number] and prescription medicines only as told by your health care provider. ? Monitor your symptoms for any changes. Contact your health care provider with any changes. ? Avoid drinking large amounts of liquid before going to bed or out in public. ? Avoid or reduce how much caffeine or alcohol you drink. ? Give yourself time when you urinate. ? Keep all follow-up visits as told by your health care provider. This is important. Contact a health care provider if: ? You have unexplained back pain. ? Your symptoms do not get better with treatment. ? You d (more content not included)... Normal [facility] Urology Office/Clinic Noteon 03-30-2022 Urology Office/Clinic Note Chief Complaint 1 year with KUB HPI Staff Pt is here for 1 year f/u with KUB. Previous dx of BPH with urinary obstruction, urgency of urination, weak stream, nocturia and kidney stone. Current KUB done 03/29/22 shows no visible urinary tract calculi. Pt states that he has passed a couple of stones since he was here last. Pt continues taking Finasteride 5mg qd. Dysuria: no Incomplete bladder emptying: no Hematuria: no Frequency: per IPSS about half of the time Urgency: no Nocturia: 2x Stream: weak about half of the time, no straining Leaking: no Post void dripping: no Wearing pads/ Depends: no Urge incontinence: no Stress incontinence: no Incontinence without Sensory Awareness: no Abdominal pain: no Flank pain: no Sexual complaints: no History of Present Illness Tests reviewed: reviewed UA, CT scan and KUB. I have reviewed the previous health record information and history for this patient from Dr. Rick. I have reviewed and verified the staff HPI to be accurate for this encounter. There have been no associated fever, chills, flank pain, or blood in the urine. Denies any urinary infections since last encounter. Review of Systems PHQ Score Initial Depression Screen Score: 0 ROS - Provider Constitutional: denies weight loss, denies hot flashes. Eyes: denies eye problems. Gastrointestinal: denies nausea, denies vomiting. Cardiovascular: denies chest pain or angina. Integumentary: no dryness Musculoskeletal: denies musculoskeletal symptoms. ENMT: denies otopharyngeal symptoms. Respiratory: no shortness of breath. Heme/Lymph: denies easy bleeding tendency, denies easy bruising tendency. Psychiatric: no confusion, no anxiety. Genitourinary: denies dysuria, denies hematuria, denies discharge, denies urinary frequency, denies urinary hesitancy, denies nocturia, denies incontinence, denies genital sores, denies decreased libido, and denies erectile dysfunction. Physical Exam Vitals & Measurements HR: 75(Peripheral) RR: 16 BP: 135/84 HT: 165 cm HT: 165.0 cm WT: 73 kg WT: 73.0 kg BMI: 26.81 General Appearance: alert, no distress, well nourished, well developed male. Genitourinary: normal scrotum, normal testes, normal urethra, normal epididymis, normal vas deferens/spermatic cord. Flank Pain: none. Bladder: nonpalpable. Assessment/Plan 1. BPH (benign prostatic hyperplasia) (N40.0: Benign prostatic hyperplasia without lower urinary tract symptoms) IPSS today; 8. Pt continues Finasteride 5mg qd therapy. [facility] Intermittent weak stream, denies straining w/ urination. UA clear today. All questions/concerns were discussed. Pt. to call the office if he encounters any issues prior. Pt. acknowledges understanding. 2. Kidney stone (N20.0: Calculus of kidney) Current KUB 03/28/21 shows no visible urinary tract calculi. CT AP wo con 01/14/22 shows mild left sided hydro and hydroureter with left perinephric fat stranding. Pt states that he has passed a couple of stones since previous encounter. Recommended pt. to increase fluid intake to ten to twelve 16oz bottles a day; preferably water, clear pop, and sugar free lemonade. 3. Bladder stone (N21.0: Calculus in bladder) 3 mm bladder calculus suggesting recently passed stone found on CT scan. 4. Nocturia (R35.1: Nocturia) Ongoing, 2x/night. Follow-up With When Contact Information PRABHJOT CARMEN, Pamela Prasad, JOZEF In [address] [place] [address]- Additional Instructions: w/ KUB Patient Education Benign Prostatic Hyperplasia Kelli Christian, personally scribed for Dr. Rick on 03/30/2022 11:09:07. . Documentation recorded by the scribe, Kelli Decker, accurately reflects the services(s) I performed and decisions made by me. Authenticated by Dr. Rick on 03/30/2022 11:12:09. Problem List/Past Medical History Ongoing Antiplatelet or antithrombotic long-term use Bladder stone BMI 27.0-27.9,adult BPH (benign prostatic hyperplasia) Chronic bronchitis Depression Epidermal cyst of neck GERD with esophagitis Hyperlipidemia type II Infected sebaceous cyst of skin Kidney stone Nicotine dependence Nocturia Obstructive sleep apnea Osteoarthritis Sebaceous cyst Urgency of urination Weak urinary stream Historical Acute myocardial infarction Angina Arthritis BPH - benign prostatic hyperplasia Esophageal reflux History of nephrolithiasis Hyperlipidemia Hypertension Irregular heart beat Malignant melanoma Rectocele SOB - Shortness of breath Transfusion of red blood cells Procedure/Surgical History Excision of sebaceous cyst (12/06/2021), Excision of cyst (10/06/2020), Colonoscopy (2014), EGD - Esophagogastroduodenoscop y (2014), Appendectomy, 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 Normal [facility] Comment on above: Result Comment: Elec tronically Signed By: Pamela RICK MD\.br\Date and Time Signed: 03/30/22 11:12 EDT\.br\Electronically Co-Signed By: Kelli Decker.br\Date and Time Co-Signed: 03/30/22 11:10 EDT XR KUB 1 VIEWon 03-30-2022 XR KUB 1 VIEW EXAMINATION: XR KUB 1 VIEW HISTORY: Kidney stone COMPARISON: XR KUB 03/28/2021, CT abdomen pelvis 01/14/2022 FINDINGS: KIDNEY/URETER - RIGHT: No convincing renal stones. A calcification projecting over kidney is much larger than would be expected to develop since 01/14/2022, and likely corresponds to calcification within the anterior costochondral cartilage seen on the recent CT study. KIDNEY/URETER - LEFT: No visible renal or ureteral calcifications. PELVIS: No visible ureteral or bladder calcifications. BOWEL: No abnormal dilation or deviation. Large amount of bowel content. BONES: Levoscoliosis of lumbar spine. No appreciable acute abnormality. OTHER: Negative. No abnormal gaseous collections. IMPRESSION: 1. No visible urinary tract calculi. Electronically authenticated by: VINCENT URENA Date: 2022-03-30 07:54 Normal [facility] CBC AUTO DIFFon 01-15-2022 BASO # 0.0 103/ul Normal 0.0-0.1 [facility] Comment on above: Performed By: #### C BC ####[facility] [address] [place] [address]DrCristian Feroz Cade Basophils/100 WBC (Bld) 0.3 % Normal 0.2-2.0 [facility] Comment on above: Performed By: #### C BC ####[facility] [address] [place] [address]Dr. Feroz Cade EO # 0.2 103/ul Normal 0.0-0.7 [facility] Comment on above: Performed By: #### C BC ####[facility] [address] [place], [place] [address]Dr. Feroz Cade Eosinophils/100 WBC (Bld) 1.3 % Normal 0.9-7.0 [facility] Comment on above: Performed By: #### C BC ####[facility] [address] [place], [place] [address]Dr. Feroz Cade Erythrocyte distribution width (RBC) [Ratio] 12.5 % Normal 11.0-15.0 [facility] Comment on above: Performed By: #### C BC ####[facility] [address] [place], [place] [address]Dr. Tyrakirk Cade Hematocrit (Bld) [Volume fraction] 42.5 % Normal 42.0-54.0 [facility] Comment on above: Performed By: #### C BC ####[facility] [address] [place], [place] [address]Dr. Feroz Cade Hemoglobin (Bld) [Mass/Vol] 14.4 g/dL Normal 14.0-18.0 [facility] Comment on above: Performed By: #### C BC ####[facility] [address] [place], [place] [address]Dr. Tyrakirk Cade IG # 0.03 10e3/ul Normal 0.00-0.03 [facility] Comment on above: Performed By: #### C BC ####[facility] [address] [place], [place] [address]Dr. Tyrakirk Cade IG % 0.3 % Normal 0.0-0.5 [facility] Comment on above: Performed By: #### C BC ####[facility] [address] [place], [place] [address]Dr. Feroz Cade LYMPH # 1.6 103/ul Normal 1.2-3.8 [facility] Comment on above: Performed By: #### C BC ####[facility] [address] [place] [address]DrCristian Tyrakirk Cade Lymphocytes/100 WBC (Bld) 13.1 % Critically low 20.5-60.0 [facility] Comment on above: Performed By: #### C BC ####[facility] [address] [place] [address]DrCristian Cade MANUAL DIFF REQ NO Normal [facility] Comment on above: Performed By: #### C BC ####[facility] [address] [place] [address]Dr. Feroz Cade MCH (RBC) [Entitic mass] 33.4 pg Normal 25.9-34.0 [facility] Comment on above: Performed By: #### C BC ####[facility] [address] [place] [address]Dr. Feroz Cade MCHC (RBC) [Mass/Vol] 33.9 g/dL Normal 29.9-35.2 [facility] Comment on above: Performed By: #### C BC ####[facility] [address] [place] [address]DrCristian Cade MCV (RBC) [Entitic vol] 98.6 fL Critically high 80.0-94.0 [facility] Comment on above: Performed By: #### C BC ####[facility] [address] [place] [address]DrCristian Cade MONO # 0.9 103/ul Critically high 0.3-0.8 [facility] Comment on above: Performed By: #### C BC ####[facility] [address] [place] [address]DrCristian Cade Monocytes/100 WBC (Bld) 7.5 % Normal 1.7-12.0 [facility] Comment on above: Performed By: #### C BC ####[facility] [address] [place] [address]DrCristian Cade NEUT # 9.3 103/ul Critically high 1.4-6.5 [facility] Comment on above: Performed By: #### C BC ####[facility] [address] [place], [place] [address]Ux. Feroz Cade Neutrophils/100 WBC (Bld) 77.5 % Critically high 43.0-75.0 [facility] Comment on above: Performed By: #### C BC ####[facility] [address] [place], [place] [address]Zo. Feroz Cade Platelet mean volume (Bld) [Entitic vol] 10.7 fL Normal 9.5-13.5 [facility] Comment on above: Performed By: #### C BC ####[facility] [address] [place] [address]Dr. Feroz Cade PLT 217 103/ul Normal 150-450 [facility] Comment on above: Performed By: #### C BC ####[facility] [address] [place] [address]Dr. Feroz Cade RBC 4.31 106/ul Critically low 4.70-6.10 [facility] Comment on above: Performed By: #### C BC ####[facility] [address] [place], [place] [address]Ez. Feroz aCde WBC 12.0 103/ul Critically high 4.0-11.0 [facility] Comment on above: Performed By: #### C BC ####[facility] [address] [place], [place] [address]Bw. F[address] Cade CT ABD/PELVIS WO CONon 01-15 CT ABD/PELVIS WO CON EXAM: CT ABD/PELVIS WO CON 01/14/2022 10:47 PM EDT OH001 CLINICAL STATEMENT: CALCULUS OF KIDNEY COMPARISON: 02/10/2021 TECHNIQUE: Helically acquired images were obtained of the abdomen and pelvis without IV contrast. No oral contrast was administered. AEC is utilized. 2-D reconstructed images are provided. FINDINGS: There is mild left-sided hydronephrosis and hydroureter with left perinephric fat stranding. 3 mm bladder calculus suggesting recently passed stone. There are no radiopaque renal or ureteric calculi. The gallbladder is unremarkable. The remaining upper abdominal solid organs are unremarkable. There is no bowel obstruction or free air. There is no ascites. There is no evidence of aortic aneurysm. Atherosclerotic aortoiliac calcifications. There is no retroperitoneal adenopathy. There is no appendicitis. Persistent irregular bladder mucosal thickening most evident in the right trigone. Small 1.4 cm Right-sided bladder diverticulum. Descending colon and sigmoid diverticulosis without acute diverticulitis. Copious amount of fecal material in the rectosigmoid. There are no pelvic masses or loculated fluid collections. The lung bases are clear. There are no destructive bone lesions identified. IMPRESSION: Mild left-sided hydronephrosis and hydroureter with left perinephric fat stranding. 3 mm bladder calculus suggesting recently passed stone. Persistent irregular bladder mucosal thickening most evident in the right trigone. Small 1.4 cm Right-sided bladder diverticulum. Descending colon and sigmoid diverticulosis without acute diverticulitis. Copious amount of fecal material in the rectosigmoid. FOLLOW-UP: Follow-up as clinically indicated. Electronically authenticated by: ADITI BROOKE Date: 2022-01-15 00:06 Normal [facility] ER URINE PROFILEon 2 Bilirubin Ql (U) Negative Normal NEGATIVE [facility] Comment on above: Performed By: #### U MICRO, ERUR ####[facility] [address] [place], [place] [address]Dr. Feroz Cade Clarity (U) CLEAR Normal CLEAR [facility] Comment on above: Performed By: #### U MICRO, ERUR ####[facility] [address] [place] [address]Dr. Feroz Cade Color (U) LT. YELLOW Normal YELLOW [facility] Comment on above: Performed By: #### U MICRO, ERUR ####[facility] [address] [place] [address]Dr. Feroz WILDERAHD A micrscopic examina tion will be performed if indicated. Normal [facility] Comment on above: Performed By: #### U MICRO, ERUR ####[facility] [address] [place] [address]Dr. Feroz Cade Glucose Ql (U) Negative Normal NEGATIVE [facility] Comment on above: Performed By: #### U MICRO, ERUR ####[facility] [address] [place] [address]Dr. Feroz Cade Hemoglobin Ql (U) MODERATE Abnormal NEGATIVE [facility] Comment on above: Performed By: #### U MICRO, ERUR ####[facility] [address] [place] [address]Dr. Tyrakirk Cade Ketones Ql (U) Negative Normal NEGATIVE [facility] Comment on above: Performed By: #### U MICRO, ERUR ####[facility] [address] [place], [place] [address]Dr. Feroz Cade LEUKOCYTES Negative Normal NEGATIVE [facility] Comment on above: Performed By: #### U MICRO, ERUR ####[facility] [address] [place], [place] [address]Dr. Feroz Cade Nitrite Ql (U) Negative Normal NEGATIVE [facility] Comment on above: Performed By: #### U MICRO, ERUR ####[facility] [address] [place], [place] [address]Dr. Feroz Cade pH (U) 5.0 [pH] Normal 5-9 [facility] Comment on above: Performed By: #### U MICRO, ERUR ####[facility] [address] [place], [place] [address]Dr. Feroz Cade SPEC GRAVITY 1.015 Normal 1.005-<=1.025 [facility] Comment on above: Performed By: #### U MICRO, ERUR ####[facility] [address] [place], [place] [address]Dr. Feroz Cade UA PROTEIN Negative Normal NEGATIVE/ TRACE [facility] Comment on above: Performed By: #### U MICRO, ERUR ####[facility] [address] [place], [place] [address]Dr. Feroz Cade UR MICRO IND INDICATED Normal [facility] Comment on above: Performed By: #### U MICRO, ERUR ####[facility] [address] [place], [place] [address]Dr. Feroz Cade Urobilinogen Qn (U) 0.2 {Indu'U}/dL Normal 0.2 - 1.0 [facility] Comment on above: Performed By: #### U MICRO, ERUR ####[facility] [address] [place] [address]Dr. Feroz Cade MAGNESIUMon 01-15-2022 Magnesium [Mass/Vol] 2.2 mg/dL Normal 1.8-2.4 [facility] Comment on above: Performed By: #### M G #### [facility] [address] [place] [address] [address] Feroz Cade PROF 14(COMP METB)on 022 Albumin [Mass/Vol] 3.8 g/dL Normal 3.4-5.0 [facility] Comment on above: Performed By: #### C MP #### [facility] [address] [place] [address] [address] Feroz Cade Albumin/Globulin [Mass ratio] 0.9 {ratio} Normal [facility] Comment on above: Performed By: #### C MP #### [facility] [address] [place] [address] [address] Feroz Cade ALP [Catalytic activity/Vol] 71 U/L Normal 46-116 [facility] Comment on above: Performed By: #### C MP #### [facility] [address] [place] [address] Dr. Feroz Cade ALT [Catalytic activity/Vol] 29 U/L Normal 16-63 [facility] Comment on above: Performed By: #### C MP #### [facility] [address] [place] [address] [address] Feroz Cade Anion gap [Moles/Vol] 14.8 mmol/L Normal [facility] Comment on above: Performed By: #### C MP #### [facility] [address] [place] [address] Dr. Feroz Cade AST [Catalytic activity/Vol] 29 U/L Normal 15-37 [facility] Comment on above: Performed By: #### C MP #### [facility] [address] [place] [address] Dr. Feroz Cade Bilirubin [Mass/Vol] 0.5 mg/dL Normal 0.2-1.0 [facility] Comment on above: Performed By: #### C MP #### [facility] [address] [place] [address] Dr. Feroz Cade Calcium [Mass/Vol] 9.0 mg/dL Normal 8.5-10.1 [facility] Comment on above: Performed By: #### C MP #### [facility] [address] [place] [address] Dr. Feroz Cade Chloride [Moles/Vol] 107 mmol/L Normal 98-107 [facility] Comment on above: Performed By: #### C MP #### [facility] [address] [place] [address] Dr. Feroz Cade CO2 [Moles/Vol] 23.1 mmol/L Normal 21.0-32.0 [facility] Comment on above: Performed By: #### C MP #### [facility] [address] [place] [address] Dr. Feroz Cade Creatinine [Mass/Vol] 1.27 mg/dL Normal 0.70-1.30 [facility] Comment on above: Performed By: #### C MP #### [facility] [address] [place] [address] Dr. Feroz Cade EGFR-AF MICRONESIAN >60 Normal >=60 [facility] Comment on above: Performed By: #### C MP #### [facility] [address] [place] [address] Dr. Feroz Cade EGFR-NON AF MICRONESIAN 54 mL/min/1.73m2 Critically low >=60 [facility] Comment on above: Performed By: #### C MP #### [facility] [address] [place] [address] Dr. Feroz Cade Globulin (S) [Mass/Vol] 4.1 g/dL Normal [facility] Comment on above: Performed By: #### C MP #### [facility] [address] [place] [address] Dr. Feroz Cade Glucose [Mass/Vol] 125 mg/dL Critically high 74-106 [facility] Comment on above: Performed By: #### C MP #### [facility] [address] [address] [address] Feroz Cade Potassium [Moles/Vol] 3.9 mmol/L Normal 3.5-5.1 [facility] Comment on above: Performed By: #### C MP #### [facility] [address] [place] [address] [address] Feroz Cade Protein [Mass/Vol] 7.9 g/dL Normal 6.4-8.2 [facility] Comment on above: Performed By: #### C MP #### [facility] [address] [place] [address] [address] Feroz Cade Sodium [Moles/Vol] 141 mmol/L Normal 136-145 [facility] Comment on above: Performed By: #### C MP #### [facility] [address] [place] [address] [address] Feroz Cade Urea nitrogen [Mass/Vol] 23.0 mg/dL Critically high 7.0-18.0 [facility] Comment on above: Performed By: #### C MP #### [facility] [address] [address] [address] Feroz Cade Urea nitrogen/Creatinin e [Mass ratio] 18.1 mg/mg Normal [facility] Comment on above: Performed By: #### C MP #### [facility] [address] [address] [address] Feroz Cade TROPONIN, HIGH SENSITIVITYon 01-15-2022 HSTROP 9.8 pg/mL Normal 4.0-76.1 [facility] Comment on above: Result Comment: CUT- OFF POINTS HAVE BEEN ESTABLISHED BASED ON THE FOURTH UNIVERSAL DEFINITIONS OF MYOCARDIAL INFARCTION. THE UPPER REFERENCE LIMIT (URL) OF TROPONIN, DEFINED THE 99TH PERCENTILE OF cTnI DISTRIBUTION IN A REFERENCE POPULATION, HAS BEEN CONFIRMED THE DECISION THRESHOLD FOR SC DIAGNOSIS. Performed By: #### H STROPN #### [facility] [address] [address] [address] Feroz Cade URINE MICROSCOPIC ONLYon BACTERIA TRACE Abnormal NONE SEEN [facility] Comment on above: Performed By: #### U MICRO, ERUR ####[facility] [address] [place] [address]Dr. Feroz Cade Bacteria identified Cx Nom (U) NOT INDICATED Normal [facility] Comment on above: Performed By: #### U MICRO, ERUR ####[facility] [address] [place] [address]Dr. Feroz Cade CAST NONE SEEN Normal NONE SEEN [facility] Comment on above: Performed By: #### U MICRO, ERUR ####[facility] [address] [place] [address]Dr. Feroz Cade Crystals LM Nom (Urine sed) NONE SEEN Normal NONE SEEN [facility] Comment on above: Performed By: #### U MICRO, ERUR ####[facility] [address] [place] [address]Dr. Feroz Cade Epithelial cells LM Ql (Urine sed) FEW Abnormal NONE SEEN /RARE [facility] Comment on above: Performed By: #### U MICRO, ERUR ####[facility] [address] [place] [address]Dr. Feroz Cade MUCOUS SMALL Abnormal NONE SEEN [facility] Comment on above: Performed By: #### U MICRO, ERUR ####[facility] [address] [place] [address]Dr. Feroz Cade RBC 50-75 Abnormal 0-2 [facility] Comment on above: Performed By: #### U MICRO, ERUR ####[facility] [address] [place] [address]Dr. Feroz Cade WBC 0-2 Abnormal NONE SEEN [facility] Comment on above: Performed By: #### U MICRO, ERUR ####[facility] [address] [place] [address]Dr. 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 Procedure Date Date: 08/31/2019 Start: 08:11 AM Study Location: [facility] Indications:Coronary artery disease. History / Tech. Comments: CAD, HTN PMHX: CABG, HTN, CAD Patient Status: Outpatient Height: 65 inches Weight: 164 pounds BSA: 1.82 m^2 BMI: 27.29 kg/m^2 BP: 148/96 mmHg CONCLUSIONS Summary Global left ventricular systolic function appears mildly reduced with an estimated ejection fraction of 50%. The left ventricular cavity size is within normal limits and the left ventricular wall thickness is mildly increased. The inferoseptal wall is abnormal in its motion which is not unusual status post open heart surgery. No significant valvular abnormalities. Evidence of mild (grade I) diastolic dysfunction is seen. The aortic root is mildly dilated when corrected for body surface area. No prior studies were available for comparison. Signature - - - - FINDINGS Left Atrium Left atrium is normal in size. Left Ventricle Global left ventricular systolic function appears mildly reduced with an estimated ejection fraction of 50%. The left ventricular cavity size is within normal limits and the left ventricular wall thickness is mildly increased. The inferoseptal wall is abnormal in its motion which is not unusual status post open heart surgery. Right Atrium Right atrium is normal in size. Right Ventricle Right ventricular dilatation with normal systolic function. Mitral Valve Normal mitral valve structure with no mitral regurgitation. Aortic Valve Aortic valve leaflets are mildly thickened. No aortic stenosis. Trivial aortic insufficiency. Tricuspid Valve Normal tricuspid valve structure with trivial tricuspid regurgitation. Pulmonic Valve Normal pulmonic valve structure with mild pulmonic regurgitation. Pericardial Effusion No significant pericardial effusion is seen. Miscellaneous Evidence of mild (grade I) diastolic dysfunction is seen. The aortic root is mildly dilated when corrected for body surface area. M-mode / 2D Measurements & Calculations: LVIDd:4.35 cm(3.7 - 5.6 cm) Diastolic Volume:82.29 ml LVIDs:3.41 cm(2.2 - 4.0 cm) Systolic Volume:39.68 ml IVSd:1.19 cm(0.6 - 1.1 cm) Aortic Root:4.02 cm(2.0 - 3.7 cm) LVPWd:1.16 cm(0.6 - 1.1 cm) LA Dimension: 4.02 cm(1.9 - 4.0 cm) Fractional Shortenin.61 % LA volume/Index: 32 ml /18m^2 Calculated LVEF (%): 51.78 % AV Cusp Separation: 1.28 cm Mitral: Aortic Valve Area (P1/2-Time): 1.69 cm^2 Peak Velocity: 0.93 m/s Peak E-Wave: 0.37 m/s Mean Velocity: 0.66 m/s Peak A-Wave: 0.65 m/s Peak Gradient: 3.45 mmHg E/A Ratio: 0.58 Mean Gradient: 1.89 mmHg Peak Gradient: 0.55 mmHg Acceleration Time: 71.83 msec P1/2t: 130.43 msec AV VTI: 17.39 cm Tricuspid: Pulmonic: Estimated RVSP: 14.55 mmHg Peak TR Velocity: 1.70 m/s Peak TR Gradient: 11.74327 mmHg Estimated RA Pressure: 3 mmHg Estimated PASP: 14.55 mmHg Diastology / Tissue Doppler Lateral Wall E' velocity:0.10 m/s Lateral Wall E/E':3.66 [facility] [employer] Work Phone: Caden, Mhpn Incoming C ardio Results From Cpacs/Ge - 08/31/2019 3:38 PM EST [facility] Transthoracic Echocardiography Report (TTE) Patient Name RUPA EDWARDS Date of Study 08/31/2019 P Date of 1935 Gender Male Age 84 year(s) Race Room Number Height: 65 inch, 165.1 cm Corporate ID [id number] Weight: 164 pounds, 74.4 kg # Patient Acct [id number] BSA: 1.82 m^2 BMI: 27.29 # kg/m^2 MR # [id number] 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 Procedure Date Date: 08/31/2019 Start: 08:11 AM Study Location: [facility] Indications:Coronary artery disease. History / Tech. Comments: CAD, HTN PMHX: CABG, HTN, CAD Patient Status: Outpatient Height: 65 inches Weight: 164 pounds BSA: 1.82 m^2 BMI: 27.29 kg/m^2 BP: 148/96 mmHg CONCLUSIONS Summary Global left ventricular systolic function appears mildly reduced with an estimated ejection fraction of 50%. The left ventricular cavity size is within normal limits and the left ventricular wall thickness is mildly increased. The inferoseptal wall is abnormal in its motion which is not unusual status post open heart surgery. No significant valvular abnormalities. Evidence of mild (grade I) diastolic dysfunction is seen. The aortic root is mildly dilated when corrected for body surface area. No prior studies were available for comparison. Signature - - - - FINDINGS Left Atrium Left atrium is normal in size. Left Ventricle Global left ventricular systolic function appears mildly reduced with an estimated ejection fraction of 50%. The left ventricular cavity size is within normal limits and the left ventricular wall thickness is mildly increased. The inferoseptal wall is abnormal in its motion which is not unusual status post open heart surgery. Right Atrium Right atrium is normal in size. Right Ventricle Right ventricular dilatation with normal systolic function. Mitral Valve Normal mitral valve structure with no mitral regurgitation. Aortic Valve Aortic valve leaflets are mildly thickened. No aortic stenosis. Trivial aortic insufficiency. Tricuspid Valve Normal tricuspid valve structure with trivial tricuspid regurgitation. Pulmonic Valve Normal pulmonic valve structure with mild pulmonic regurgitation. Pericardial Effusion No significant pericardial effusion is seen. Miscellaneous Evidence of mild (grade I) diastolic dysfunction is seen. The aortic root is mildly dilated when corrected for body surface area. M-mode / 2D Measurements & Calculations: LVIDd:4.35 cm(3.7 - 5.6 cm) Diastolic Volume:82.29 ml LVIDs:3.41 cm(2.2 - 4.0 cm) Systolic Volume:39.68 ml IVSd:1.19 cm(0.6 - 1.1 cm) Aortic Root:4.02 cm(2.0 - 3.7 cm) LVPWd:1.16 cm(0.6 - 1.1 cm) LA Dimension: 4.02 cm(1.9 - 4.0 cm) Fractional Shortenin.61 % LA volume/Index: 32 ml /18m^2 Calculated LVEF (%): 51.78 % AV Cusp Separation: 1.28 cm Mitral: Aortic Valve Area (P1/2-Time): 1.69 cm^2 Peak Velocity: 0.93 m/s Peak E-Wave: 0.37 m/s Mean Velocity: 0.66 m/s Peak A-Wave: 0.65 m/s Peak Gradient: 3.45 mmHg E/A Ratio: 0.58 Mean Gradient: 1.89 mmHg Peak Gradient: 0.55 mmHg Acceleration Time: 71.83 msec P1/2t: 130.43 msec AV VTI: 17.39 cm Tricuspid: Pulmonic: Estimated RVSP: 14.55 mmHg Peak TR Velocity: 1.70 m/s Peak TR Gradient: 11.82898 mmHg Estimated RA Pressure: 3 mmHg Estimated PASP: 14.55 mmHg Diastology / Tissue Doppler Lateral Wall E' velocity:0.10 m/s Lateral Wall E/E':3.66 [employer] Work Phone: Vital Signs Date Time Vital Sign Value Performing Clinician Facility 06-19-2024 11:14-0400 Body mass index (BMI) [Ratio] 28.2 kg/m2 [facility] 06-19-2024 11:14-0400 Diastolic blood pressure 96 mm[Hg] [facility] 06-19-2024 11:14-0400 Heart rate 52 /min [facility] 06-19-2024 11:14-0400 SaO2% (BldA) [Mass fraction] 97 % [facility] 06-19-2024 11:14-0400 Systolic blood pressure 148 mm[Hg] [facility] 06-19-2024 11:01-0400 Body height 165.1 cm [facility] 06-19-2024 11:01-0400 Body weight 76.88 kg [facility] 05-07-2024 10:10-0400 Body height 165.1 cm [facility] 05-07-2024 10:10-0400 Body mass index (BMI) [Ratio] 28.5 kg/m2 [facility] 05-07-2024 10:10-0400 Body weight 77.67 kg [facility] 05-07-2024 10:10-0400 Diastolic blood pressure 82 mm[Hg] [facility] 05-07-2024 10:10-0400 Heart rate 81 /min [facility] 05-07-2024 10:10-0400 Respiratory rate 12 /min [facility] 05-07-2024 10:10-0400 Systolic blood pressure 138 mm[Hg] [facility] 09-05-2023 12:04-0500 Diastolic blood pressure 60 mm[Hg] Vincent Villasenor MD Work Phone: [facility] 09-05-2023 12:04-0500 Heart rate 72 /min Vincent Villasenor MD Work Phone: [facility] 09-05-2023 12:04-0500 Respiratory rate 20 /min Vincent Villasenor MD Work Phone: [facility] 09-05-2023 12:04-0500 SaO2% (BldA) [Mass fraction] 96 % Vincent Villasenor MD Work Phone: [employer] 09-05-2023 12:04-0500 Systolic blood pressure 115 mm[Hg] Vincent Villasenor MD Work Phone: [employer] 09-05-2023 10:08-0500 Body temperature 97.11 [degF] Vincent Villasenor MD Work Phone: [employer] 06-10-2023 14:30-0400 Body height 165.1 cm Onofre Ball Other [employer] Other 06-10-2023 14:30-0400 Body mass index (BMI) [Ratio] 27.25 kg/m2 Onofre Ball Other [employer] Other 06-10-2023 14:30-0400 Body weight 74.3 kg Onofre Ball Other [employer] Other 06-10-2023 14:30-0400 Diastolic blood pressure 90 mm[Hg] Onofre Ball Other [employer] Other 06-10-2023 14:30-0400 Respiratory rate 12 /min Onofre Ball Other [employer] Other 06-10-2023 14:30-0400 Systolic blood pressure 146 mm[Hg] Onofre Ball Other [employer] Other 10-29-2022 15:56-0500 Heart rate 75 /min Cate Dameon [facility] 10-29-2022 15:56-0500 SaO2% (BldA) [Mass fraction] 97 % Cate Xiao [facility] 10-29-2022 15:56-0500 Diastolic blood pressure 89 mm[Hg] Cate Xiao [facility] 10-29-2022 15:56-0500 Mean blood pressure 106 mm[Hg] Cate Dameon [facility] 10-29-2022 15:56-0500 Systolic blood pressure 140 mm[Hg] Cate Xiao [facility] 10-29-2022 15:55-0500 Respiratory rate 18 /min Cate Dameon [facility] 10-29-2022 14:44-0500 Heart rate 65 /min Cate Dameon [facility] 10-29-2022 14:44-0500 SaO2% (BldA) [Mass fraction] 95 % Cate Dameon [facility] 10-29-2022 14:44-0500 Respiratory rate 16 /min Cate Dameon [facility] 10-29-2022 14:43-0500 Diastolic blood pressure 63 mm[Hg] Cate Xiao [facility] 10-29-2022 14:43-0500 Mean blood pressure 81 mm[Hg] Cate Xiao [facility] 10-29-2022 14:43-0500 Systolic blood pressure 116 mm[Hg] Cate Xiao [facility] 10-29-2022 14:35-0500 Blood Pressure Location Cate Dameon [facility] 10-29-2022 14:35-0500 Diastolic blood pressure 66 mm[Hg] Cate Xiao [facility] 10-29-2022 14:35-0500 Heart rate 71 /min Cate Xiao [facility] 10-29-2022 14:35-0500 Mean blood pressure 79 mm[Hg] Cate Xiao [facility] 10-29-2022 14:35-0500 Respiratory rate 11 /min Cate Xiao [facility] 10-29-2022 14:35-0500 SaO2% (BldA) [Mass fraction] 94 % Cate Dameon [facility] 10-29-2022 14:35-0500 Systolic blood pressure 105 mm[Hg] Cate Dameon [facility] 10-29-2022 14:20-0500 Blood Pressure Location Cate Xiao [facility] 10-29-2022 14:20-0500 Mean blood pressure 71 mm[Hg] Cate Dameon [facility] 10-29-2022 14:20-0500 Respiratory rate 13 /min Cate Xiao [facility] 10-29-2022 14:15-0500 Blood Pressure Location Cate Xiao [facility] 10-29-2022 14:15-0500 Mean blood pressure 64 mm[Hg] Cate Dameon [facility] 10-29-2022 14:15-0500 Respiratory rate 15 /min Cate Dameon [facility] 10-29-2022 14:08-0500 Body temperature 98.06 [degF] Cate Xiao [facility] 10-29-2022 14:05-0500 FIO2 100 % Cate Xiao [facility] 10-29-2022 14:05-0500 Respiratory rate 17 /min Cate Xiao [facility] 10-29-2022 13:55-0500 FIO2 100 % Cate Xiao [facility] 10-29-2022 11:10-0500 Mean blood pressure 109 mm[Hg] Cate Xiao [facility] 10-29-2022 11:08-0500 Body temperature 97.7 [degF] Cate Xiao [facility] 10-24-2022 15:30-0500 Body height 165.1 cm Onofre Ball Other [employer] Other 10-24-2022 15:30-0500 Body mass index (BMI) [Ratio] 28.45 kg/m2 Onofre Ball Other [employer] Other 10-24-2022 15:30-0500 Body weight 77.57 kg Onofre Ball Other [employer] Other 10-24-2022 15:30-0500 Diastolic blood pressure 78 mm[Hg] Onofre Ball Other [employer] Other 10-24-2022 15:30-0500 Respiratory rate 12 /min Onofre Ball Other [employer] Other 10-24-2022 15:30-0500 Systolic blood pressure 118 mm[Hg] Onofre Ball Other [employer] Other 10-17-2022 13:17-0500 Body temperature 97.7 [degF] Cate Xiao [facility] 10-17-2022 13:16-0500 Diastolic blood pressure 69 mm[Hg] Cate Xiao [facility] 10-17-2022 13:16-0500 Heart rate 84 /min Cate Xiao [facility] 10-17-2022 13:16-0500 Mean blood pressure 85 mm[Hg] Cate Xiao [facility] 10-17-2022 13:16-0500 Systolic blood pressure 118 mm[Hg] Cate Xiao [facility] 10-17-2022 13:16-0500 Blood Pressure Location Cate Dameon [facility] 10-17-2022 13:16-0500 Body temperature 97.7 [degF] Cate Xiao [facility] 10-17-2022 13:15-0500 Heart rate 76 /min Cate Xiao [facility] 10-17-2022 13:15-0500 SaO2% (BldA) [Mass fraction] 97 % Cate Xiao [facility] 10-17-2022 13:15-0500 Diastolic blood pressure 77 mm[Hg] Cate Xiao [facility] 10-17-2022 13:15-0500 Mean blood pressure 96 mm[Hg] Cate Xiao [facility] 10-17-2022 13:15-0500 Systolic blood pressure 132 mm[Hg] Cate Xiao [facility] 10-17-2022 13:15-0500 Blood Pressure Location Cate Xiao [facility] 10-17-2022 13:14-0500 Respiratory rate 16 /min Cate Xiao [facility] 09-06-2022 12:30-0500 Body height 165.1 cm Onofre [employer] Other [facility] [employer] Other 09-06-2022 12:30-0500 Body mass index (BMI) [Ratio] 27.75 kg/m2 Onofre Ball Other [facility] [employer] Other 09-06-2022 12:30-0500 Body weight 75.66 kg Onofre Ball Other [facility] [employer] Other 09-06-2022 12:30-0500 Diastolic blood pressure 70 mm[Hg] Onofre Ball Other [place] [employer] Other 09-06-2022 12:30-0500 Respiratory rate 12 /min Onofre Cooney Other [facility] [employer] Other 09-06-2022 12:30-0500 Systolic blood pressure 122 mm[Hg] Onofre Cooney Other [facility] [employer] Other 06-27-2022 15:42-0400 Blood Pressure Location Pamela RICK [facility] 06-27-2022 15:42-0400 Diastolic blood pressure 91 mm[Hg] Pamela RICK [facility] 06-27-2022 15:42-0400 Heart rate 71 /min Pamela RICK [facility] 06-27-2022 15:42-0400 Systolic blood pressure 124 mm[Hg] Pamela RICK [facility] Encounters Encounter Date Encounter Type Care Provider Facility Start: 06-19-2024 End: 06-19-2024 ambulatory [facility] Work Phone: Start: 06-19-2024 End: 06-19-2024 Patient encounter procedure [facility] Physician [facility] Work Phone: Start: 06-18-2024 Non-patient / Non-visit [facility] Physician [facility] Work Phone: Start: 06-16-2024 Patient encounter procedure [facility] Start: 05-07-2024 End: 05-07-2024 ambulatory [facility] Work Phone: Start: 05-07-2024 End: 05-07-2024 Patient encounter procedure [facility] Physician [facility] Work Phone: Start: 05-07-2024 Non-patient / Non-visit [facility] Physician [facility] Work Phone: Start: 05-06-2024 Non-patient / Non-visit [facility]ician [facility] [employer] Work Phone: Start: 09-18-2023 Telephone encounter Onofre Bustamante [facility] Start: 09-18-2023 End: 09-18-2023 ambulatory HAMILTON PA [facility] [employer] Other Start: 09-05-2023 Telephone encounter [facility] Start: 09-05-2023 End: 09-05-2023 ambulatory [facility] Start: 09-05-2023 End: 09-05-2023 Subsequent hospital visit by physician Vincent Villasenor MD [facility] Phone: [facility] Comment on above: Abnormal cardiovascu lar stress test Start: 08-27-2023 End: 08-28-2023 ambulatory CHLOE [facility] Start: 08-13-2023 End: 08-16-2023 ambulatory VINCENT [facility] Start: 08-12-2023 Telephone encounter Onofre Bustamante [facility] Start: 08-12-2023 End: 08-15-2023 ambulatory VINCENT DVS [employer] [facility] [employer] Other Start: 06-20-2023 End: 06-20-2023 ambulatory Onofre Cooney Other [place] [employer] Other Start: 06-20-2023 Telephone encounter [facility] Start: 06-10-2023 End: 06-10-2023 ambulatory Onofre Cooney Other [place] [employer] Other Start: 06-10-2023 Patient encounter procedure [facility] Start: 04-19-2023 End: 04-19-2023 ambulatory Onofre Cooney Other [place] [employer] Other Start: 04-19-2023 Telephone encounter Onofre Ball [facility] Start: 03-24-2023 End: 03-24-2023 ambulatory Onofre Ball Other [employer] Other Start: 03-24-2023 Telephone encounter Onofre Ball [facility] Start: 03-22-2023 End: 03-22-2023 ambulatory Onofre Ball Other [employer] Other Start: 03-22-2023 Telephone encounter Onofre Ball [facility] Start: 03-19-2023 End: 03-20-2023 ambulatory [facility] Start: 02-23-2023 End: 02-23-2023 ambulatory Onofre Ball Other [employer] Other Start: 02-23-2023 Telephone encounter Onofre Ball [facility] Start: 01-22-2023 End: 01-22-2023 ambulatory Onofre Ball Other [employer] Other Start: 01-22-2023 Telephone encounter Onofre Ball [facility] Start: 01-14-2023 End: 01-15-2023 ambulatory Pamela R PRABHJOT [facility] Start: 12-23-2022 End: 12-23-2022 ambulatory Onofre Ball Other [employer] Other Start: 12-23-2022 Telephone encounter Onofre Ball [facility] Start: 11-21-2022 End: 11-21-2022 ambulatory Onofre Ball Other [employer] Other Start: 11-21-2022 Telephone encounter Onofre Ball [facility] Start: 11-20-2022 End: 11-20-2022 ambulatory Onofre Ball Other [employer] Other Start: 11-20-2022 Telephone encounter Onofre Ball [facility] Start: 10-31-2022 End: 10-31-2022 ambulatory Onofre Ball Other [employer] Other Start: 10-31-2022 Telephone encounter Onofre Cooney [facility] Start: 10-29-2022 End: 10-29-2022 ambulatory Cate Xiao Facility:[facility] Start: 10-29-2022 End: 10-29-2022 Admission to same day surgery center Cate Xiao [facility] Start: 10-24-2022 End: 10-24-2022 ambulatory Onofre Cooney Other [employer] Other Start: 10-24-2022 Encounter for other preprocedural examination Onofre Cooney [facility] Start: 10-24-2022 Office outpatient vi sit 25 minutes Onofre Cooney [facility] Start: 10-17-2022 End: 10-18-2022 ambulatory Cate Xiao Facility:[facility] Start: 10-17-2022 End: 10-17-2022 Patient encounter procedure Cate Xiao [facility] Start: 10-01-2022 End: 10-02-2022 ambulatory Pamela RICK [facility] Start: 10-01-2022 End: 10-01-2022 Patient encounter procedure Pamela RICK [facility] Start: 09-06-2022 End: 09-06-2022 ambulatory Onofre Cooney Other [employer] Other Start: 09-06-2022 Office outpatient vi sit 15 minutes Onofre Cooney [facility] Start: 09-03-2022 End: 09-03-2022 Subsequent hospital visit by physician 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; Essential hypertension; Mixed hyperlipidemia Start: 09-03-2022 End: 09-03-2022 ambulatory Onofre Cooney Other [employer] Other Start: 09-03-2022 Telephone encounter Onofre Cooney [facility] Start: 09-02-2022 End: 09-02-[address] ONOFRE COONEY Facility:[facility] Start: 07-13-2022 End: 07-14-[address] ONOFRE COONEY Facility:[facility] Start: 06-27-2022 End: 06-28-2022 ambulatory Pamela RICK Facility:[facility] [place] Start: 06-27-2022 End: 06-27-2022 Patient encounter procedure Pamela RICK [facility] Start: 05-16-2022 End: 05-16-[address] ONOFRE COONEY Facility:[facility] Start: 04-23-2022 Adult health examination Benny Cooney Other [employer] Other Start: 03-30-2022 ambulatory Pamela RICK Facility : [facility] Start: 03-30-2022 End: 03-31-2022 ambulatory Pamela RICK Facility:[facility] Start: 2022 End: 03-30-[address] PAMLEA RICK Facility:[facility] Start: 03-12-2022 ambulatory ONOFRE COONEY Facility: [facility] Start: 01-15-2022 End: 01-15-[address] GIOVANI MARIE Facility:[facility] Start: 12-20-2021 End: 12-20-2021 Patient encounter procedure Cate PATTON General Surgery Nill/Said Gabe Start: 12-06-2021 End: 12-06-[address] CATE PATTON Facility:[facility] Start: 09-01-2019 End: 09-01-2019 Subsequent hospital visit by physician [facility] Room [facility] Stress Lab Comment on above: Arrived Start: 08-31-2019 End: 08-31-2019 Subsequent hospital visit by physician [facility] Room [facility] Echocardiography Comment on above: Essential hypertensi on; 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; SOB (shortness of breath) Procedures Date Procedure Procedure Detail Performing Clinician Start: 10-29-2022 Excision of mass Cate Xiao Start: 12-06-2021 Excision of sebaceous cyst Cate PATTON Comment on above: mid upper back Start: 03-27-2021 End: 06-15-2022 Depression screening Onofre Cooney Other Start: 10-06-2020 Excision of cyst Cate PATTON Start: 08-31-2019 Echo tthrc r-t 2d w/wom-mode compl spec&colr d Vincent Villasenor MD Work Phone: Start: 08-26-2014 Colonoscopy Cate PATTON Start: 08-26-2014 Esophagogastroduodenoscopy Cate PATTON Appendectomy Cate PATTON Catheterization of right heart Cate PATTON Coronary artery bypass grafts x 5 Cate PATTON Excision of spermatocele Kai hanate PATTON Placement of stent i n cardiac conduit Cate PATTON Repair of right inguinal hernia Cate PATTON Repair of right inguinal hernia Cate Xiao Plan of Treatment Date Care Activity Detail Author Start: 11-30-2030 DTaP/Tdap/Td vaccine (2 - Tdap) DTaP/Tdap/Td vaccine (2 - Tdap) [facility] Start: 11-30-2030 DTaP/Tdap/Td vaccine (5 - Tdap) DTaP/Tdap/Td vaccine (5 - Tdap) [facility] Start: 08-27-2024 Lipid panel Lipids [facility] Start: 06-04-2024 End: 06-04-2024 Patient encounter procedure 06/04/2024 2:00 PM EDT Office Visit [facility] Part of [address] [place] [address] Dejuan Maya MD [address] [facility], [address] [place], [place] [id number] F/U PVR KUB [facility] Comment on above: F/U PVR KUB Start: 09-25-2023 End: 09-25-2023 Patient encounter procedure 09/25/2023 1:30 PM EST Office Visit [facility] [address] [place] [id number] Chloe Guthrie PA-C [address] [place] [address] 2-3 week [facility] Comment on above: 2-3 week Start: 08-12-2023 End: 08-12-2023 Patient encounter procedure 08/12/2023 Office Visit Cardiology Vincent Villasenor MD [address] [place] [id number] [facility] Start: 07-22-2023 Annual Wellness Visi t (Medicare) Annual Wellness Visit (Medicare) [facility] Start: 04-26-2023 COVID-19 Vaccine ( season) COVID-19 Vaccine ( season) [facility] Start: 04-01-2023 ambulatory Ambulatory Facility:[facility] Start: 03-26-2023 Influenza vaccination Flu vaccine (# 1) [facility] Start: 07-28-2021 COVID-19 Vaccine (4 - Booster for Pfizer series) COVID-19 Vaccine (4 - Booster for Pfizer series) [facility] Start: 11-11-2019 End: 11-11-2019 Patient encounter procedure 11/11/2019 Office Visit Cardiology Vincent Villasenor MD [address] [place] [id number] [facility] Start: 09-01-2019 End: 09-01-2019 Patient encounter procedure 09/01/2019 Appointment [facility] Start: 08-12-2019 Annual Wellness Visi t (AWV) Annual Wellness Visit (AWV) [facility] [employer] Start: 04-26-2019 Influenza vaccination [facility] (# 1[facility] Start: 07-12-2018 Pneumococcal 65+ yea rs Vaccine (2 - PCV) Pneumococcal 65+ years Vaccine (2 - PCV) [facility] Start: 2002 Pneumococcal 65+ yea rs Vaccine (1 of 1 - PPSV23) Pneumococcal 65+ years Vaccine (1 of 1 - PPSV23) [employer] Phone: Start: 1997 Respiratory Syncytia l Virus (RSV) or age 60 yrs+ (1 - 1-dose 60+ series) Respiratory Syncytial Virus (RSV) or age 60 yrs+ (1 - 1-dose 60+ series) [facility] Start: 1987 Shingles Vaccine (1 of 2) Card gles Vaccine (1 of 2) [facility] Start: 1949 Depression Screen Depression Screen [facility] Start: 1948 DTaP/Tdap/Td vaccine (1 - Tdap) DTaP/Tdap/Td vaccine (1 - Tdap) [facility] [employer] Phone: Start: 1947 Lipid panel Lipids [facility] [place] Start: 1947 Lipid screen Lipid screen [facility] Work Phone: Start: 1937 Creatinine monitoring Creatinine mon itoring RV [employer] Phone: Start: 1937 Potassium [facility] [employer] [employer] Phone: End: 08-30-2023 [facility] Comment on above: One Time for 1 Occur rences starting 08/30/2023 until 08/30/2023 End: 01-11-2024 Intermittent pulse oximetry Pulse Oximetry Spot Check Respiratory Care Routine One Time for 1 Occurrences starting 09/05/2023 until 09/05/2023 [facility] [employer] Comment on above: One Time for 1 Occur rences starting 09/05/2023 until 09/05/2023 L hrt cath w/njx l ventriculography img s&i LEFT HEART CATH Abnormal stress test [facility] MD [employer] [facility] Oxygen therapy [Mini mum Data Set] Initiate Oxygen Therapy Protocol Respiratory Care Routine As Needed until discontinued starting 09/05/2023 [facility] Comment on above: As Needed until disc ontinued starting 09/05/2023 Oxygen therapy [Mini mum Data Set] Initiate Oxygen Therapy Protocol Respiratory Care Routine As Needed until discontinued starting 09/05/2023 [facility] [employer] Comment on above: As Needed until disc ontinued starting 09/05/2023 Immunizations Immunization Date Immunization Notes Care Provider Fidencio whipple 05-07-2024 influenza, high dose seasonal, preservative-free [facility] 06-12-2022 influenza virus vaccine, unspecified formulation Pamela RICK [facility] 06-26-2021 influenza virus vaccine, unspecified formulation Cate PATTON [facility] 06-14-2021 influenza virus vaccine, split virus (incl. purified surface antigen) Onofre Cooney Other [employer] Other 06-14-2021 influenza virus vaccine, unspecified formulation Pamela RICK [facility] 06-02-2021 SARS-CoV-2 (COVID-19 ) mRNA BNT-162b2 vax Pamela RICK [facility] Comment on above: Result Comment: 2021: [id number] 11-30-2020 diphtheria, tetanus toxoids and acellular pertussis vaccine, unspecified formulation Onofre Cooney Other [facility] 10-05-2020 COVID-19, mRNA, LNP- S, PF, 30 mcg/0.3 mL dose; Translations: [Pfizer-BioNTech COVID-19 Vaccine] Cate PATTON [facility] Comment on above: Reason for Medicatio n: Other (see comment) 09-14-2020 COVID-19, mRNA, LNP- S, PF, 30 mcg/0.3 mL dose; Translations: [Pfizer-BioNTech COVID-19 Vaccine] Cate PATTON [facility] Comment on above: Reason for Medicatio n: Other (see comment) 05-06-2020 influenza virus vaccine, split virus (incl. purified surface antigen) Onofre Cooney Other [employer] Other 05-06-2020 influenza virus vaccine, unspecified formulation [facility] 05-27-2019 influenza virus vaccine, split virus (incl. purified surface antigen) Onofre Cooney Other [employer] Other 05-27-2019 influenza virus vaccine, unspecified formulation [facility] 05-30-2018 influenza virus vaccine, split virus (incl. purified surface antigen) Onofre Cooney Other [employer] Other 05-30-2018 influenza virus vaccine, unspecified formulation Pamela RICK [facility] 07-12-2017 influenza virus vaccine, unspecified formulation Pamela RICK [facility] 07-12-2017 pneumococcal polysaccharide vaccine, 23 valent Pamela RICK [facility] 06-22-2017 influenza virus vaccine, unspecified formulation Pamela RICK [facility] 06-12-2017 influenza virus vaccine, split virus (incl. purified surface antigen) Onofre Cooney Other [facility] [employer] Other 06-12-2017 influenza virus vaccine, unspecified formulation [facility] 06-27-2015 influenza virus vaccine, unspecified formulation Pamela RICK [facility] 06-29-2014 influenza virus vaccine, split virus (incl. purified surface antigen) Onofre Cooney Other [facility] [employer] Other 06-29-2014 influenza virus vaccine, unspecified formulation [facility] 06-22-2013 tetanus and diphther ia toxoids, adsorbed, preservative free, for adult use (5 Lf of tetanus toxoid and 2 Lf of diphtheria toxoid) Onofre Cooney Other [facility] 05-08-2012 tetanus and diphther ia toxoids, adsorbed, preservative free, for adult use (5 Lf of tetanus toxoid and 2 Lf of diphtheria toxoid) Onofre Cooney Other [facility] 04-06-2010 diphtheria, tetanus toxoids and acellular pertussis vaccine, unspecified formulation Onofre Cooney Other [facility] 04-11-2006 pneumococcal polysaccharide vaccine, 23 valent Onofre Cooney Other [facility] Payers Date Payer Category Payer Medicare [id number] 1957 Medicare [id number] 1957 Private Health Insurance [id number] 1937 Unknown [id number] 2.16.84 0.1.158606.3.579.2.593 1937 Unknown [id number] 2.16.84 0.1.724182.3.579.2.593 1937 Unknown [id number] 2.16.84 0.1.238089.3.579.2.593 1937 Unknown [id number] 2.16.84 0.1.366817.3.579.2.593 1937 Unknown [id number] 2.16.84 0.1.295544.3.579.2.593 1937 Unknown [id number] 2.16.84 0.1.267658.3.579.2.593 1937 Unknown [id number] 2.16. 840.1.077306.3.579.2.356 1937 Unknown [id number] 2.16.8 40.1.359217.3.579.2.727 1937 Unknown [id number] 2.16.8 40.1.569357.3.579.2.727 1937 Unknown [id number] 2.16.8 40.1.404248.3.579.2.727 1937 Unknown [id number] 2.16.8 40.1.553549.3.579.2.727 1937 Unknown [id number] 2.16.8 40.1.825424.3.579.2.727 1937 Unknown [id number] 2.16.8 40.1.168753.3.579.2.727 1937 Unknown [id number] 2.16.8 40.1.368686.3.579.2.727 1937 Unknown [id number] 2.16.8 40.1.040657.3.579.2.727 1937 Unknown [id number] 2.16.8 40.1.014271.3.579.2.727 1937 Unknown [id number] 2.16.8 40.1.470565.3.579.2.727 1937 Unknown [id number] 2.16.8 40.1.353344.3.579.2.173 1937 Unknown [id number] 2.16.8 40.1.370756.3.579.2.173 1937 Unknown [id number] 2.16.8 40.1.141450.3.579.2.173 1937 Unknown [id number] 2.16.8 40.1.352085.3.579.2.173 1937 Unknown [id number] 2.16.8 40.1.180481.3.579.2.173 1937 Unknown [id number] 2.16.8 40.1.660206.3.579.2.173 1937 Unknown [id number] 2.16.8 40.1.125836.3.579.2.173 1937 Unknown [id number] 2.16. 840.1.307909.3.579.2.175 Medicare Medicare [id number] Self-pay Self Pay [id number] Unknown Social History Date Type Detail Facility Start: 08-12-2019 End: 08-27-2023 Tobacco smoking status [facility] Former smoker [employer] Phone: Start: 08-26-1966 End: 08-26-2006 History of tobacco use Current smoker [employer] End: 08-26-2006 History of tobacco use Cigar Smoker [employer] Start: 08-12-2019 End: 09-05-2023 Cigarettes smoked current (pack per day) - Reported [employer] Phone: History of tobacco use Chews Tobacco [employer] Start: 08-12-2019 End: 09-05-2023 Alcohol intake Ex-drinker (finding) [employer] Phone: Start: 1935 Sex Assigned At Not on file M [employer] Phone: Start: 08-12-2019 End: 09-05-2023 Sex Assigned At Male General Surgery [facility] Tobacco smoking status Never [facility] Start: 08-26-1966 End: 08-26-2006 History of tobacco use Cigarette Smoker [employer] Phone: Start: 08-08-2022 End: 08-27-2023 Tobacco use and exposure Former smokeless tobacco user [employer] Phone: Start: 1935 Sex Assigned At Male F [facility] Medical Equipment Procedure Code Equipment Code Equipment Origin al Text Equipment Identifier Dates CL CLOSURE DEVIC E EXOSEAL 6F FDA Start: 09-13-2017 CL STENT XIENCE ALP 2.5 X 23 FDA Start: 09-13-2017 CL CLOSURE DEVIC E EXOSEAL 6F FDA Start: 09-13-2017 CL STENT XIENCE ALP 2.5 X 23 FDA Start: 09-13-2017 Functional Status Date Assessment Result Facility 10-17-2022 Functional Status No [facility] 06-27-2022 Functional Status N/A [facility] Clinical Notes 08-31-2019 to 09-05-2023 Kacie Tierney RN - 09/05/2023 11:25 AM Kacie Rodriguez RN - 09/05/2023 10:53 AM ESTDischarge Instructions Note Date & Type Note Facility 09-05-2023 History of Presen t illness Narrative Ambulates to and from restroom, gait steady. Dressing loosened to left wrist. After care instructions reviewed with patient and daughter, voice understanding. Call placed to [facility]. Information left regarding patient an need to schedule for PCI. General Manager from office will schedule tomorrow and contact patient with appointment information. documented in this encounter [facility] 09-05-2023 Hospital Discharg e instructions Kacie Tierney RN - 09/05/2023 8:21 AM EST Discharge Instructions for Cardiac Catheterization A cardiac catheterization is a diagnostic test used to evaluate the health of the heart and its blood vessels. The test is done with a thin catheter carefully threaded into your heart from a leg or arm artery. Most likely, you will be allowed to go home the same day as the procedure. Steps to Take at Home: Pain- apply ice to site 15-20 minutes every hour for the first 2 days. Showering is okay 24 hours after procedure. No soaking in a pool, hot tub, bath tub, or standing water for one week. Bleeding (outward or under the skin-hematoma)- apply firm pressure for 10-15 minutes or until the bleeding stops, then call your doctor. If unable to get bleeding stopped, call 911. Kidney damage- Call if you urinate less than normal, have swelling or feel puffy, and/or gain 2 or more pounds over night in the first week. If procedure was in ARM: You were instructed to keep wrist straight and still for two hours after the procedure. The arm and hand may now be used for normal daily activities except, avoid using the heal of hand while getting up and down from furniture for the first few days. Keep affected arm elevated, hand higher than elbow, while pressure dressing in place to decrease swelling. 1) Gauze and Elastoplast Remove in 4 hours as follows: TIME_4:15pm Remove 1 piece of tape at a time, waiting 15 -20 minutes between layers to monitor for bleeding. If dressing sticks, place wrist under cool running water to help loosen gauze from site then pat site dry. If hand feels numb, tingly, and/or cold- loosen first 1-2 layers of tape if dressing still in place. If no relief noticed, remove pressure dressing as per above instructions. Seek medical help if no relief or if dressing already off. Wash area with soap and water daily while leaving it open to air, no bandaids or ointment. Diet Drink plenty of fluids after the test to flush the x-ray dye from your system. Return to your normal diet. No alcoholic beverages for 24 hours after the procedure. Physical Activity The sedative will make you sleepy. Rest until the effects have worn off. Nausea and vomiting from the sedative is normal and usually does not last long. Ask your doctor when you will be able to return to work. Do not drive, operate machinery, do anything that requires attention to detail, or sign important papers for at least 24 hours or until your doctor says it is safe. Avoid heavy lifting, physically demanding activities, and sexual activity for 2-3 days. Lift nothing over 10 pounds (a gallon of milk is 8 pounds). Do not sit for long periods of time. Try to change positions frequently. Medications Resume taking your normal medicines as advised. Use acetaminophen (Tylenol) for pain relief. (Avoid anti-inflammatory drugs such as- ibuprofen (Advil, Motrin), naproxen sodium (Aleve), Excedrin for a few days) If you had to stop taking these medications before the procedure, ask your doctor when you can resume taking them: Anti-inflammatory drugs Blood thinners, such as warfarin (Coumadin) If you are taking medicines, follow these general guidelines: Take your medicine as directed. Do not change the amount or the schedule. Do not stop taking them without talking to your doctor. Do not share them. Know the side effects and report any to your doctor. Some drugs can be dangerous when mixed. Talk to a doctor or pharmacist if you are taking more than one drug. This includes jpoq-uqo-dphmqyr medicine and herb or dietary supplements. Plan ahead for refills so you don't run out. Follow-up The test results are available right after the procedure. At that point, the doctor will discuss the findings and suggest appropriate treatment options. In some cases, the results can indicate an immediate need for surgery. Schedule a follow-up appointment as directed by your doctor. Call Your Doctor If Any of the Following Occurs Signs of infection- including fever and chills Redness, swelling, increasing pain, feels warm to touch, red streak forming from site, or any discharge from the procedure site. Call 911 If Any of the Following Occurs Drooping facial muscles Changes in vision or speech Difficulty walking or using your limbs Change in sensation, including numbness, feeling cold, or change in color Extreme sweating, nausea or vomiting Dizziness or lightheadedness Chest pain Rapid, irregular heartbeat Palpitations Cough, shortness of breath, or difficulty breathing Weakness or fainting If you think you have an emergency, CALL 911 documented in this encounter [facility] 08-12-2023 Evaluation note Encounter Date Diagnosis Assessment Notes Jul, Lumbar spondylosis (ICD-10 - M47.816) [employer] Other 10-26-2023 Evaluation note* Encounter Date Diagnosis Assessment Notes Treatment Notes Treatment Clinical Notes May, Lumbar spondylosis (ICD-10 - M47.816) [employer] Other 10-16-2023 Evaluation note* Encounter Date Diagnosis Assessment Notes Treatment Notes Treatment Clinical Notes May, Medicare annual wellness visit, subsequent (ICD-10 - Z00.00) Personalized health advice was given to the beneficiary including a written plan for screenings discussed and provided. Advanced care planning reviewed and/or information given as requested. Additional counseling was provided here today in regards to, [ ]. The above visit was performed by [ ], under direct supervision of [ ]. Document reviewed and amended by provider signed below. 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 They are instructed to continue exercise and AHA diet plan. Continue secondary prevention measures. May, Elevated cholesterol (ICD-10 - E78.00) Instructed on diet and exercise with continued statin therapy.Discussed the beneficial effects of lowering cholesterol in reducing the risk for cerebrovascular and cardiovascular disease. May, Lumbar spondylosis (ICD-10 - M47.816) The patient is instructed to avoid bending, twisting or lifting. They are to use intermittent heat and ice as needed. They may schedule a massage or gentle manipulation. They may safely use Tylenol as needed. May, Primary hypertension (ICD-10 - I10) This patient is instructed to consume a healthy, low-fat, low-salt diet. They are also encouraged to continue exercise to achieve/maintain a normal BMI. May, Mild episode of recurrent major depressive disorder (ICD-10 - F33.0) Symptoms mild. Recently lost his to a chronic illness. 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) [employer] Other 08-25-2023 Evaluation note* Encounter Date Diagnosis Assessment Notes Treatment Notes Treatment Clinical Notes Mar, Lumbar spondylosis (ICD-10 - M47.816) [facility] Other 07-30-2023 Evaluation note* Encounter Date Diagnosis Assessment Notes Treatment Notes Treatment Clinical Notes Feb, Lumbar spondylosis (ICD-10 - M47.816) [employer] Other 07-28-2023 Evaluation note* Encounter Date Diagnosis Assessment Notes Treatment Notes Treatment Clinical Notes Feb, Tooth decay (ICD-10 - K02.9) [employer] Other 07-01-2023 Evaluation note* Encounter Date Diagnosis Assessment Notes Treatment Notes Treatment Clinical Notes Feb, Lumbar spondylosis (ICD-10 - M47.816) [employer] Other 05-30-2023 Evaluation note* Encounter Date Diagnosis Assessment Notes Treatment Notes Treatment Clinical Notes December, Lumbar spondylosis (ICD-10 - M47.816) [employer] Other 04-30-2023 Evaluation note* Encounter Date Diagnosis Assessment Notes Treatment Notes Treatment Clinical Notes Nov, Lumbar spondylosis (ICD-10 - M47.816) [facility] [employer] Other 2023 Evaluation note* Encounter Date Diagnosis Assessment Notes Treatment Notes Treatment Clinical Notes Oct, Lumbar spondylosis (ICD-10 - M47.816) [facility] [employer] Other 03-28-2023 Evaluation note* Encounter Date Diagnosis Assessment Notes Treatment Notes Treatment Clinical Notes Oct, Lumbar spondylosis (ICD-10 - M47.816) [facility] [employer] Other 03-06-2023 Hospital Discharge instructions Patient Education 10/29/2022 14:48:10 Post Op Patient Instructions - (CUSTOM) Follow Up Care 09/28/2022 11:58:11 With:Cate Xiao Address: [address] [place] [address] [facility] (1) When:11/13/2022 08:00:00 Comments:Keep scheduled appointmentCall for any problems. [facility]03-06-2023 Evaluation + Plan noteExtracted from: Title:ROSIO POSTOP Author:Dejuan Eduardo DO Date: 10/29/22 Plan Transfer/ Discharge: Patient can be discharged from PACU when criteria met. Condition good. Extracted from: Title:ROSIO PREOP Author:Dejuan Eduardo DO Date: Plan [employer] Society of Anesthesiologists (ASA) physical status classification: Class III. Anesthetic Preoperative Plan Anesthesia: General. . Anesthetic plan, risks, benefits, and alternatives discussed with the patient and/or family. Patient verbalized understanding. Anesthesia risks, benefits, alternatives discussed with patient and/or family/guardians. Risks discussed including but not limited to risks of nerve damage, injury, bleeding requiring transfusion, postop pulmonary complications, nausea, vomiting, sore throat, dental/oral injury, increase/decrease in HR or blood pressure, hoarseness, muscle or joint pain, heart complications discussed. Pt aware and desires to proceed. Future Appointments Appointment Date:01/14/2023 10:30:00 AM Scheduled Provider:Pamela RICK MD Location:[facility] Appointment Type:URO Office Visit Appointment Date:04/01/2023 11:30:00 AM Scheduled Provider:Pamela RICK MD Location:[facility] Appointment Type:URO Office Visit [facility]03-02-2023 Note [id number]:[email or web address] 10-24-2022 Evaluation note* Encounter Date Diagnosis Assessment Notes Treatment Notes Treatment Clinical Notes Oct, Preop exam for internal medicine (ICD-10 - Z01.818) Patient evaluated for upcoming surgery. He has been instructed to hold his Plavix and ASA 5-7 days prior to the procedure. 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 Hold ASA and Plavix for 5-7 days and resume following surgery. Oct, Hypertension (ICD-10 - I10) Stable, continue medication uninterrupted Oct, Hyperlipemia (ICD-10 - E78.5) Stable, continue medication uninterrupted Oct, Ganglion, right hand (ICD-10 - M67.441) Excision planned by Orthopedics. [facility] Other 02-06-2023 Hospital Discharge instructions Patient Education 10/01/2022 08:48:46 Kidney Stones, Lzne-tp-Lpnu Kidney Stones Kidney stones are rock-like masses that form inside of the kidneys. Kidneys are organs that make pee (urine). A kidney stone may move into other parts of the urinary tract, including: The tubes that connect the kidneys to the bladder (ureters). The bladder. The tube that carries urine out of the body (urethra). Kidney stones can cause very bad pain and can block the flow of pee. The stone usually leaves your body (passes) through your pee. You may need to have a doctor take out the stone. What are the causes? Kidney stones may be caused by: A condition in which certain glands make too much parathyroid hormone (primary hyperparathyroidism). A buildup of a type of crystals in the bladder made of a chemical called uric acid. The body makes uric acid when you eat certain foods. Narrowing (stricture) of one or both of the ureters. A kidney blockage that you were born with. Past surgery on the kidney or the ureters, such as gastric bypass surgery. What increases the risk? You are more likely to develop this condition if: You have had a kidney stone in the past. You have a family history of kidney stones. You do not drink enough water. You eat a diet that is high in protein, salt (sodium), or sugar. You are overweight or very overweight (obese). What are the signs or symptoms? Symptoms of a kidney stone may include: Pain in the side of the belly, right below the ribs (flank pain). Pain usually spreads (radiates) to the groin. Needing to pee often or right away (urgently). Pain when going pee (urinating). Blood in your pee (hematuria). Feeling like you may vomit (nauseous). Vomiting. Fever and chills. How is this treated? Treatment depends on the size, location, and makeup of the kidney stones. The stones will often pass out of the body through peeing. You may need to: Drink more fluid to help pass the stone. In some cases, you may be given fluids through an IV tube put into one of your veins at the hospital. Take medicine for pain. Make changes in your diet to help keep kidney stones from coming back. Sometimes, medical procedures are needed to remove a kidney stone. This may involve: A procedure to break up kidney stones using a beam of light (laser) or shock waves. Surgery to remove the kidney stones. Follow these instructions at home: Medicines Take wsqd-dxz-xtbcvfk and prescription medicines only as told by your doctor. Ask your doctor if the medicine prescribed to you requires you to avoid driving or using heavy machinery. Eating and drinking Drink enough fluid to keep your pee pale yellow. You may be told to drink at least 8 10 glasses of water each day. This will help you pass the stone. If told by your doctor, change your diet. This may include: ?Limiting how much salt you eat. ?Eating more fruits and vegetables. ?Limiting how much meat, poultry, fish, and eggs you eat. Follow instructions from your doctor about eating or drinking restrictions. General instructions Collect pee samples as told by your doctor. You may need to collect a pee sample: ?24 hours after a stone comes out. ?8 12 weeks after a stone comes out, and every 6 12 months after that. Strain your pee every time you pee (urinate), for as long as told. Use the strainer that your doctor recommends. Do not throw out the stone. Keep it so that it can be tested by your doctor. Keep all follow-up visits as told by your doctor. This is important. You may need follow-up tests. How is this prevented? To prevent another kidney stone: Drink enough fluid to keep your pee pale yellow. This is the best way to prevent kidney stones. Eat healthy foods. Avoid certain foods as told by your doctor. You may be told to eat less protein. Stay at a healthy weight. Where to find more information National Kidney Foundation (NKF): www.kidney.org [employer] (UCF): www.urologyhealth.org Contact a doctor if: You have pain that gets worse or does not get better with medicine. Get help right away if: You have a fever or chills. You get very bad pain. You get new pain in your belly (abdomen). You pass out (faint). You cannot pee. Summary Kidney stones are rock-like masses that form inside of the kidneys. Kidney stones can cause very bad pain and can block the flow of pee. The stones will often pass out of the body through peeing. Drink enough fluid to keep your pee pale yellow. This information is not intended to replace advice given to you by your health care provider. Make sure you discuss any questions you have with your health care provider. Document Released: 01/28/2009 Document Revised: 12/29/2019 Document Reviewed: 12/29/2019 [employer] Patient Education 2019 [employer]. Follow Up Care 06/27/2022 16:06:47 With:PRABHJOT CARMEN, Pamela Prasad, URL Address: [facility] [address] [place] [address]- [phone] When:12/29/2022 [facility] 01-12-2023 Evaluation note* Encounter Date Diagnosis Assessment Notes Treatment Notes Treatment Clinical Notes Aug, Swelling of right little finger (ICD-10 - M79.89) Since asymptomatic w/o s/s infection or trauma, would treat conservatively. Swelling located in proximal portion of the right 5th finger. Referral if develops pain, increased swelling or locking w/ flexion of the finger. Aug, Dupuytren contracture (ICD-10 - M72.0) Reassured, instructed to stretch daily by placing palm on hard surface. Notify office w/ increased contracture or pain [employer] Other 01-09-2023 History of Present illness Narrative* Linda Villegas - 09/03/2022 3:00 PM EST Explained policies and procedure of an echocardiogram/Doppler study. documented in this [facility] Phone: [phone] 394-864211-02-2022 Hospital Discharge instructions Patient Education 06/27/2022 16:03:15 Overactive Bladder, Adult Overactive Bladder, Adult Overactive bladder refers to a condition in which a person has a sudden need to pass urine. The person may leak urine if he or she cannot get to the bathroom fast enough (urinary incontinence). A person with this condition may also wake up several times in the night to go to the bathroom. Overactive bladder is associated with poor nerve signals between your bladder and your brain. Your bladder may get the signal to empty before it is full. You may also have very sensitive muscles thatmake your bladder squeeze too soon. These symptoms might interfere with daily work or social activities. What are the causes? This condition may be associated with or caused by: Urinary tract infection. Infection of nearby tissues, such as the prostate. Prostate enlargement. Surgery on the uterus or urethra. Bladder stones, inflammation, or tumors. Drinking too much caffeine or alcohol. Certain medicines, especially medicines that get rid of extra fluid in the body (diuretics). Muscle or nerve weakness, especially from: ?A spinal cord injury. ?Stroke. ?Multiple sclerosis. ?Parkinson's disease. Diabetes. Constipation. What increases the risk? You may be at greater risk for overactive bladder if you: Are an older adult. Smoke. Are going through menopause. Have prostate problems. Have a neurological disease, such as stroke, dementia, Parkinson's disease, or multiple sclerosis (MS). Eat or drink things that irritate the bladder. These include alcohol, spicy food, and caffeine. Are overweight or obese. What are the signs or symptoms? Symptoms of this condition include: Sudden, strong urge to urinate. Leaking urine. Urinating 8 or more times a day. Waking up to urinate 2 or more times a night. How is this diagnosed? Your health care provider may suspect overactive bladder based on your symptoms. He or she will diagnose this condition by: A physical exam and medical history. Blood or urine tests. You might need bladder or urine tests to help determine what is causing your overactive bladder. You might also need to see a health care provider who specializes in urinary tract problems (urologist). How is this treated? Treatment for overactive bladder depends on the cause of your condition and whether it is mild or severe. You can also make lifestyle changes at home. Options include: Bladder training. This may include: ?Learning to control the urge to urinate by following a schedule that directs you to urinate at regular intervals (timed voiding). ?Doing Kegel exercises to strengthen your pelvic floor muscles, which support your bladder. Toning these muscles can help you control urination, even if your bladder muscles are overactive. Special devices. This may include: ?Biofeedback, which uses sensors to help you become aware of your body's signals. ?Electrical stimulation, which uses electrodes placed inside the body (implanted) or outside the body. These electrodes send gentle pulses of electricity to strengthen the nerves or muscles that control the bladder. ?Women may use a plastic device that fits into the vagina and supports the bladder (pessary). Medicines. ?Antibiotics to treat bladder infection. ?Antispasmodics to stop the bladder from releasing urine at the wrong time. ?Tricyclic antidepressants to relax bladder muscles. ?Injections of botulinum toxin type A directly into the bladder tissue to relax bladder muscles. Lifestyle changes. This may include: ?Weight loss. Talk to your health care provider about weight loss methods that would work best for you. ?Diet changes. This may include reducing how much alcohol and caffeine you consume, or drinking fluids at different times of the day. ?Not smoking. Do not use any products that contain nicotine or tobacco, such as cigarettes and e-cigarettes. If you need help quitting, ask your health care provider. Surgery. ?A device may be implanted to help manage the nerve signals that control urination. ?An electrode may be implanted to stimulate electrical signals in the bladder. ?A procedure may be done to change the shape of the bladder. This is done only in very severe cases. Follow these instructions at home: Lifestyle Make any diet or lifestyle changes that are recommended by your health care provider. These may include: ?Drinking less fluid or drinking fluids at different times of the day. ?Cutting down on caffeine or alcohol. ?Doing Kegel exercises. ?Losing weight if needed. ?Eating a healthy and balanced diet to prevent constipation. This may include: ?Eating foods that are high in fiber, such as fresh fruits and vegetables, whole grains, and beans. ?Limiting foods that are high in fat and processed sugars, such as fried and sweet foods. General instructions Take oglv-qjw-nerifco and prescription medicines only as told by your health care provider. If you were prescribed an antibiotic medicine, take it as told by your health care provider. Do notstop taking the antibiotic even if you start to feel better. Use any implants or pessary as told by your health care provider. If needed, wear pads to absorb urine leakage. Keep a journal or log to track how much and when you drink and when you feel the need to urinate. This will help your health care provider monitor your condition. Keep all follow-up visits as told by your health care provider. This is important. Contact a health care provider if: You have a fever. Your symptoms do not get better with treatment. Your pain and discomfort get worse. You have more frequent urges to urinate. Get help right away if: You are not able to control your bladder. Summary Overactive bladder refers to a condition in which a person has a sudden need to pass urine. Several conditions may lead to an overactive bladder. Treatment for overactive bladder depends on the cause and severity of your condition. Follow your health care provider's instructions about lifestyle changes, doing Kegel exercises, keeping a journal, and taking medicines. This information is not intended to replace advice given to you by your health care provider. Make sure you discuss any questions you have with your health care provider. Document Released: 06/08/2010 Document Revised: 12/03/2019 Document Reviewed: 08/28/2018 [employer] Patient Education 2020 [employer]. Follow Up Care 06/04/2022 14:57:23 With:PRABHJOT CARMEN, Pamela Prasad, URL Address: [facility] [address], [place] [address]- When:3 months Comments:Myrbetriq f/u [facility] Brenda 04-13-2022 NoteOPERATIVE NOTE PREOPERATIVE DIAGNOSIS: Previously infected sebaceous cyst of the upper mid back. POSTOPERATIVE DIAGNOSIS: Previously infected sebaceous cyst of the upper mid back. PROCEDURE: Excisional biopsy of sebaceous cyst upper mid back. SURGEON: Cate Patton M.D. ANESTHESIA: Local with 0.5% Marcaine plain. ESTIMATED BLOOD LOSS: Less than 3 mL. INDICATIONS AND CONSENT: Patient is an 86-year-old male with long history of sebaceous cyst. Recently had an infected sebaceous cyst in the upper mid back that did have some spontaneous drainage, was treated with antibiotics. Now presents for excisional biopsy, now that the infection has resolved. Indications, risks, benefits, alternatives of proceeding were explained extensively to the patient, including risks of bleeding, infection, scarring, pain, recurrence and need for further surgery. All of his questions were answered. Informed consent was obtained. PROCEDURE: Patient brought to the procedure room, placed in the left lateral decubitus position. The area was prepped and draped in the usual sterile fashion. He was anesthetized with 0.5% Marcaine plain. The area as well as the scarred portion were excised in elliptical fashion down to subcutaneous fat. Total length of the incision was 1.5 cm. The scarred sebaceous cyst was excised and sent off to Pathology. The deep subcutaneous tissue was re-approximated with interrupted 3-0 Vicryl sutures. The skin was then closed with 4-0 nylon mattress and simple sutures. There was good hemostasis. A large Band-Aid was applied. Patient tolerated procedure well. Was discharged home in good condition, is to follow up in 10-14 days for wound check and suture removal, is to call sooner with any problems or questions. CC: Family doctor [facility] Signed and Approved by: DR CATE PATTON . 12/07/2021 13:24:00[facility]01-06-2020 History of Present illness Narrative* Helene Rasheed - 08/31/2019 8:30 AM EST Explained policies and procedures of an echocardiogram/doppler study. documented in this [facility] [employer] Work Phone: evaluation + Plan note Future Appointments Appointment Date:03/12/2022 10:45:00 AM Scheduled Provider:Pamela RICK MD [facility] App[facility] Type:URO Office Visit [facility] Evaluation + Plan note Future Appointments Appointment Date:10/01/2022 02:15:00 PM Scheduled Provider:Pamela RICK MD Location:[facility] Appointment Type:URO Office Visit Appointment Date:04/01/2023 11:30:00 AM Scheduled Provider:Pamela RICK MD Location:[facility] Appointment Type:URO Office Visit [facility] Evaluation + Plan note Future Appointments Appointment Date:10/17/2022 01:30:00 PM Scheduled Provider: Location:[facility] Appointment Type:Surgical PAT FT Appointment Date:10/29/2022 03:00:00 PM Scheduled Provider: Location:[facility] Appointment Type:Surgery FT Appointment Date:01/14/2023 10:30:00 AM Scheduled Provider:Pamela RICK MD [facility] Appointment Type:URO Office Visit Appointment Date:04/01/2023 11:30:00 AM Scheduled Provider:Pamela RICK MD [facility] Appointment Type:URO Office Visit [facility] evaluation + Plan note Future Appointments Appointment Date:10/29/2022 03:00:00 PM Scheduled Provider: Location:[facility] Appointment Type:Surgery FT Appointment Date:01/14/2023 10:30:00 AM Scheduled Provider:Pamela RICK MD [facility] Appointment Type:URO Office Visit Appointment Date:04/01/2023 11:30:00 AM Scheduled Provider:Pamela RICK MD [facility] Appoint[facility] Type:URO Office Visit [facility] note* Diagnosis Essential hypertension Unspecified essential hypertension 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 SOB (shortness of breath) Shortness of breath documented in this encounter [facility] Work Phone: evaluation note* Diagnosis SOB (shortness of breath) Shortness of breath 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 Essential hypertension Unspecified essential hypertension Mixed hyperlipidemia documented in this encounter [employer] Phone: evaluation noteNo [employer] Other Evaluation note* Diagnosis Abnormal cardiovascular stress test- Primary Other nonspecific abnormal cardiovascular system function study documented in this encounter [employer] note* Diagnosis Onset Date Resolution Status ASHD (arteriosclerotic heart disease) acute Elevated liver enzymes acute GERD (gastroesophageal reflux disease) acute Hypercholesterolemia acute Hypertension acute Lumbar spondylosis acute Major depression acute FAZAL (obstructive sleep apnea) acute [facility] Work Phone: Evaluation note* Diagnosis Onset Date Resolution Status ASHD (arteriosclerotic heart disease) acute Elevated liver enzymes acute GERD (gastroesophageal reflux disease) acute Hypercholesterolemia acute Hypertension acute Lumbar spondylosis acute Major depression acute FAZAL (obstructive sleep apnea) acute ASHD (arteriosclerotic heart disease) acute GERD (gastroesophageal reflux disease) acute Hypercholesterolemia acute Hypertension acute Lumbar spondylosis acute Major depression acute Medicare annual wellness visit, subsequent acute FAZAL (obstructive sleep apnea) acute [facility] Work Phone: [employer] general Narrative - Reported* Type Description Date Medical History Nephrolithiasis Medical History Hyperlipemia Medical History Hypertension Medical History Major depressive disorder Medical History Memory impairment Medical History GERD (gastroesophageal reflux di sease) Medical History Obstructive sleep apnea Medical History Arteriosclerotic heart disease ( ASHD) Medical History Anemia Medical History SHAUN (generalized anxiety disorde r) Medical History Gross hematuria Medical History Sebaceous cyst Medical History Benign prostatic hyperplasia Medical History Primary osteoarthritis of right shoulder Medical History Primary osteoarthritis of left s [place] Medical History Lumbar spondylosis Medical History Cervical spondylosis Medical History Chronic maxillary sinusitis Medical History Primary osteoarthritis of both h ips Surgical History appendectomy Surgical History right inguinal hernia Surgical History cystocelectomy/spermacelectomy Surgical History CABG x5 Surgical History PTCA/stent LAD Hospitalization History see surgical history [employer] Other [employer] general Narrative - Reported* Type Description Date Medical History Nephrolithiasis Medical History Hyperlipemia Medical History Hypertension Medical History Major depressive disorder Medical History Memory impairment Medical History GERD (gastroesophageal reflux di sease) Medical History Obstructive sleep apnea Medical History Arteriosclerotic heart disease ( ASHD) Medical History Anemia Medical History SHAUN (generalized anxiety disorde r) Medical History Gross hematuria Medical History Sebaceous cyst Medical History Benign prostatic hyperplasia Medical History Primary osteoarthritis of right shoulder Medical History Primary osteoarthritis of left s [place] Medical History Lumbar spondylosis Medical History Cervical spondylosis Medical History Chronic maxillary sinusitis Medical History Primary osteoarthritis of both h ips Surgical History appendectomy Surgical History right inguinal hernia Surgical History cystocelectomy/spermacelectomy Surgical History CABG x5 Surgical History PTCA/stent LAD Surgical History Excision ganglion cyst right 5t h finger 10/2022 Hospitalization History see surgical history [employer] Other [employer] general Narrative - Reported* Type Description Date Medical History Nephrolithiasis Medical History Hyperlipemia Medical History Hypertension Medical History Major depressive disorder Medical History Memory impairment Medical History GERD (gastroesophageal reflux di sease) Medical History Obstructive sleep apnea Medical History Arteriosclerotic heart disease ( ASHD) Medical History Anemia Medical History SHAUN (generalized anxiety disorde r) Medical History Gross hematuria Medical History Sebaceous cyst Medical History Benign prostatic hyperplasia Medical History Primary osteoarthritis of right shoulder Medical History Primary osteoarthritis of left s [place] Medical History Lumbar spondylosis Medical History Cervical spondylosis Medical History Chronic maxillary sinusitis Medical History Primary osteoarthritis of both h ips Surgical History appendectomy Surgical History right inguinal hernia Surgical History cystocelectomy/spermacelectomy Surgical History CABG x5 Surgical History PTCA/stent LAD Surgical History Excision ganglion cyst right 5t h finger 10/2022 Surgical History LHC w/ 90% stenosis or diagonal br LAD 08/2022 Hospitalization History see surgical history [employer] Other history general Narrative - Reported* Type Description Date Medical History Nephrolithiasis Medical History Hyperlipemia Medical History Hypertension Medical History Major depressive disorder Medical History Memory impairment Medical History GERD (gastroesophageal reflux di sease) Medical History Obstructive sleep apnea Medical History Arteriosclerotic heart disease ( ASHD) Medical History Anemia Medical History SHAUN (generalized anxiety disorde r) Medical History Gross hematuria Medical History Sebaceous cyst Medical History Benign prostatic hyperplasia Medical History Primary osteoarthritis of right shoulder Medical History Primary osteoarthritis of left s [place] Medical History Lumbar spondylosis Medical History Cervical spondylosis Medical History Chronic maxillary sinusitis Medical History Primary osteoarthritis of both h ips Surgical History appendectomy Surgical History right inguinal hernia Surgical History cystocelectomy/spermacelectomy Surgical History CABG x5 Surgical History PTCA/stent LAD Surgical History Excision ganglion cyst right 5t h finger 10/2022 Surgical History LHC w/ 90% stenosis or diagonal br LAD 08/2022 Surgical History PCI/stent OM 08/2023 Hospitalization History see surgical history [employer] Other Hospital course Narrative No data available for this section [facility] Discharge instructions No data available for this section [facility] note No data available for this section [facility] Reason for Referral Status Reason Specialty Diagnoses / Procedures Referre d By Contact Referred To Contact Closed Cardiology Diagnoses Essential hypertension 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 Essential hypertension Mixed hyperlipidemia Procedures Echo 2D w doppler w color complete Vincent Villasenor MD [address] [place] [id number] Referral ID Status Reason Start Date Expiration Date Visits Re quested Visits Authorized [id number] Closed 08/22/2022 08/22/2023 1 1 Advance Directives Documents on File Type Date Recorded Patient Assistant Operator Expl anation Advance Directives and Living Will Power of Pe Electrical Engineer Latest Code Status on File Code Status Date Activated Date Inactivated Comments Full Code 09/05/2023 10:09 AM Code Status History Code Status Date Activated Date Inactivated Comments Full Code 09/05/2023 8:39 AM 09/05/2023 10:09 AM Advance Directive Response Recorded Date/ Time Advance Directives No September 10, 2017 12:08pm Summary Purpose Family History No Family History Records FoundNo Family History Records FoundNo Family History Records FoundNo Family History Records FoundNo Family History Records Found Chief Complaint and Reason for Visit Chief Complaint Dizziness/low bp/fat ique Reason for Visit ASHD (arteriosclerot ic heart disease) Elevated liver enzymes GERD (gastroesophageal reflux disease) Hypercholesterolemia Hypertension Lumbar spondylosis Major depression FAZAL (obstructive sleep apnea) Chief Complaint Dizziness/low bp/fat ique CC Adult Risk Stratification Wellness-HIGH RISK Reason for Visit ASHD (arteriosclerot ic heart disease) Elevated liver enzymes GERD (gastroesophageal reflux disease) Hypercholesterolemia Hypertension Lumbar spondylosis Major depression FAZAL (obstructive sleep apnea) ASHD (arteriosclerotic heart disease) GERD (gastroesophageal reflux disease) Hypercholesterolemia Hypertension Lumbar spondylosis Major depression Medicare annual wellness visit, subsequent FAZAL (obstructive sleep apnea) Additional Source Comments Reason for Visit (unrecogniz ed section and content) Status Reason Specialty Diagnoses / Procedures Referre d By Contact Referred To Contact Closed Cardiology Diagnoses Essential hypertension 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 Essential hypertension Mixed hyperlipidemia Procedures Echo 2D w doppler w color complete Vincent Villasenor MD [address] [place], [place] [id number] Referral ID Status Reason Start Date Expiration Date Visits Re quested Visits Authorized [id number] Closed 08/22/2022 08/22/2023 1 1 Specialty Diagnoses / Procedures Referred By Leslie carreon Referred To Contact Diagnoses Abnormal cardiovascular stress test Abnormal cardiovascular stress test [R94.39] Procedures TN CATH PLMT L HRT & ARTS W/NJX & ANGIO IMG S&I TN CATH PLMT L HRT & ARTS W/NJX & ANGIO IMG S&I TN CATH PLMT L HRT/ARTS/GRFTS WNJX & ANGIO IMG S&I Left heart cath / coronary angiography Vincent Villasenor MD [address] [place] [id number] [facility] [address] [place] [address] Referral ID Status Reason Start Date Expiration Date Visits Re quested Visits Authorized [id number] 1 1 Patient Care team informatio n (unrecognized section and content) Soda Room Operator Relationship Specialty Start Date End Date Onofre Cooney DO PCP - General Internal Medicine 08/12/19 Soda Room Operator Relationship Specialty Start Date End Date Onofre Cooney DO PCP - General Internal Medicine 08/12/19 Team Status: Active Member Role Status Dates Onofre Cooney DO Primary Care Provider Active Team Status: Active Member Role Status Dates Onofre Cooney DO Primary Care Provider Active Start: May 06, 2024 Adrianne Barrett DO Attending Provider Active Sta rt: May 06, 2024 Team Status: Inactive Member Role Status Dates Onofre Cooney DO Primary Care Provide r, Attending Provider Active Start: May 07, 2024 End: May 07, 2024 Team Status: Active Member Role Status Dates Onofre Cooney DO Primary Care Provide r, Attending Provider Active Start: May 07, 2024 Team Status: Active Member Role Status Dates Onofre Cooney DO Primary Care Provide r, Attending Provider Active Start: June 18, 2024 Team Status: Inactive Member Role Status Dates Onofre Cooney DO Primary Care Provide r, Attending Provider Active Start: June 19, 2024 End: June 19, 2024 (unrecognized sect ion and content) No Status Records FoundNo Status Records FoundNo Status Records FoundNo Status Records FoundNo Status Records Found INFORMATION SOURCE (unrecogn ized section and content) DATE CREATED AUTHOR 10/10/2022 [facility] DATE CREATED AUTHOR AUTHOR'S ORGANIZ ATION 12/15/2022 [facility] DATE CREATED AUTHOR AUTHOR'S ORGANIZ ATION 03/11/2023 [facility] DATE CREATED AUTHOR AUTHOR'S ORGANIZ ATION 09/06/2023 [facility] DATE CREATED AUTHOR AUTHOR'S ORGANIZ ATION 05/31/2024 [facility] Scheduled Active and Recently Administ ered Medications (unrecognized section and content) Medication Order 09/03/2023 09/04/2023 09/05/2023 diphenhydrAMINE (BENADRYL) capsule 50 mg 50 mg, Oral, ONCE, 1 dose, On Estefany 09/05/23 at 0900, One hour prior to procedure if allergic to dye., Pre-Procedure(Cath) 1011 (Not Given - Pr ovider: Kacie Tierney RN - Reason: Order parameters not met) sodium chloride flush 0.9 % injection 5-40 mL 5-40 mL, IntraVENous, EVERY 12 HOURS SCHEDULED (2 times per day), First dose on Estefany 09/05/23 at 0900, Until Discontinued, For Line Patency: Peripheral IV = 5 mL; Midline or Central Line = 10 mL/lumen. If following IV push medication, administer flush at same rate as the IV push. Flush volume is determined by type of infusion therapy being given. For non-viscous solutions use: Peripheral IV = 5 mL Midline or Central Line = 10 mL/lumen For viscous solutions (i.e. blood components, parenteral nutrition, contrast media, or after obtaining blood sample) use: Peripheral IV = 10 mL Midline or Central Line = 20 mL/lumen, Pre-Procedure(Cath) 0900 (Due)2099 (Due) sodium chloride flush 0.9 % injection 5-40 mL 5-40 mL, IntraVENous, EVERY 12 HOURS SCHEDULED (2 times per day), First dose on Estefany 09/05/23 at 1030, Until Discontinued, For Line Patency: Peripheral IV = 5 mL; Midline or Central Line = 10 mL/lumen. If following IV push medication, administer flush at same rate as the IV push. Flush volume is determined by type of infusion therapy being given. For non-viscous solutions use: Peripheral IV = 5 mL Midline or Central Line = 10 mL/lumen For viscous solutions (i.e. blood components, parenteral nutrition, contrast media, or after obtaining blood sample) use: Peripheral IV = 10 mL Midline or Central Line = 20 mL/lumen, Recovery(Cath) 1012 (Not Given - Pr ovider: Kacie Tierney RN - Reason: IV Fluid Infusing)2099 (Due) Continuous Medication Order 09/03/2023 09/04/2023 09/05/2023 0.9 % sodium chloride infusion IntraVENous, CONTINUOUS, Starting on Estefany 09/05/23 at 1030, -Rate of IV fluid administration during recovery will be based on the patient's LVEDP obtained during the procedure using the following formula: 1. LVEDP <13 = 5cc/kg/hr 2. LVEDP 13-18 = 3cc/kg/hr 3. LVEDP >18 = 1.5cc/kg/hr If no LVEDP obtained, ask endless track vehicle mechanic for fluid rate and volume to be given in recovery. -Fluids will be infused over a minimum of 2 hours. Rate shall not exceed 500 cc/hr. Ask endless track vehicle mechanic for fluid volume total to be infused. -If GFR is less than 30, fluids will be infused over a minimum of 3 hours. -In case of reduced EF, CHF, etc., consult endless track vehicle mechanic for rate and volume to be administered., Recovery(Cath) 1030 (Due) PRN Medication Order 09/03/2023 09/04/2023 09/05/2023 0.9 % sodium chloride infusion IntraVENous, at 5-250 mL/hr, PRN, if patient receiving piggyback infusions and maintenance fluids are not ordered OR KVO fluids to protect IV site / prevent frequent line interruptions/ long duration, Starting on Estefany 09/05/23 at 0839, For piggyback infusion, administer at same rate as piggyback for a total of 25 mL. Enter 25 mL into dose field and piggyback rate into rate field of order. If piggyback is infusing at a rate less than 100 mL/hr, enter 25 mL into dose field and 100 mL/hr into rate field of order. For KVO fluids, enter rate of 20 mL/hr or less into rate field of order., Pre-Procedure(Cath) 0.9 % sodium chloride infusion IntraVENous, at 5-250 mL/hr, PRN, if patient receiving piggyback infusions and maintenance fluids are not ordered OR KVO fluids to protect IV site / prevent frequent line interruptions/ long duration, Starting on Estefany 09/05/23 at 1009, For piggyback infusion, administer at same rate as piggyback for a total of 25 mL. Enter 25 mL into dose field and piggyback rate into rate field of order. If piggyback is infusing at a rate less than 100 mL/hr, enter 25 mL into dose field and 100 mL/hr into rate field of order. For KVO fluids, enter rate of 20 mL/hr or less into rate field of order., Recovery(Cath) 0.9 % sodium chloride infusion (COMPLETED) IntraVENous, CONTINUOUS PRN, Starting on Estefany 09/05/23 at 0939, Intra-op 0939 (New Bag - Prov ider: Kerrie Lezama RN) acetaminophen (TYLENOL) tablet 650 mg 650 mg, Oral, EVERY 4 HOURS PRN, Starting on Estefany 09/05/23 at 1009, Until Discontinued, Pain Mild (1-3), Fever, Fever >100.5 F (38 C), Maximum dose of acetaminophen is 4000 mg from all sources in 24 hours., Recovery(Cath) fentaNYL (SUBLIMAZE) injection (CANCELED) PRN, Starting on Estefany 09/05/23 at 0929, Until Estefany 09/05/23 at 1005, Intra-procedure(Cath) 0929 (Given - Provid er: Kerrie Lezama RN) heparin (porcine) injection (CANCELED) PRN, Starting on Estefany 09/05/23 at 0947, Until Estefany 09/05/23 at 1005, Intra-procedure(Cath) 0947 (Given - Provid er: Kerrie Lezama RN) iopamidol (ISOVUE-370) 76 % injection (CANCELED) PRN, Starting on Estefany 09/05/23 at 1004, Until Estefany 09/05/23 at 1005, Intra-procedure(Cath) 1004 (Given - Provid er: Vincent Villasenor MD) lidocaine 1 % injection (CANCELED) PRN, Starting on Estefany 09/05/23 at 0932, Until Estefany 09/05/23 at 1005, Intra-procedure(Cath) 0932 (Given - Provid er: Vincent Villasenor MD) midazolam (VERSED) injection (CANCELED) PRN, Starting on Estefany 09/05/23 at 0930, Until Estefany 09/05/23 at 1005, Intra-procedure(Cath) 0930 (Given - Provid er: Kerrie Lezama RN) nitroGLYCERIN (NITROSTAT) SL tablet 0.4 mg 0.4 mg, SubLINGual, EVERY 5 MIN PRN, 3 doses, Starting on Estefany 09/05/23 at 0839, Until Discontinued, Chest pain, Place 1 tablet under tongue upon chest pain, wait 5 minutes and may repeat up to 3 doses in 15 minutes. Do not crush or break., Pre-Procedure(Cath) nitroGLYCERIN injection (CANCELED) PRN, Starting on Estefany 09/05/23 at 0932, Until Estefany 09/05/23 at 1005, Intra-procedure(Cath) 0932 (Given - Provid er: Vincent Villasenor MD) sodium chloride flush 0.9 % injection 5-40 mL 5-40 mL, IntraVENous, PRN, Starting on Estefany 09/05/23 at 0839, Until Discontinued, Line Care, After every IV line use, For Line Patency: Peripheral IV = 5 mL; Midline or Central Line = 10 mL/lumen. If following IV push medication, administer flush at same rate as the IV push. Flush volume is determined by type of infusion therapy being given. For non-viscous solutions use: Peripheral IV = 5 mL Midline or Central Line = 10 mL/lumen For viscous solutions (i.e. blood components, parenteral nutrition, contrast media, or after obtaining blood sample) use: Peripheral IV = 10 mL Midline or Central Line = 20 mL/lumen, Pre-Procedure(Cath) sodium chloride flush 0.9 % injection 5-40 mL 5-40 mL, IntraVENous, PRN, Starting on Estefany 09/05/23 at 1009, Until Discontinued, Line Care, After every IV line use, For Line Patency: Peripheral IV = 5 mL; Midline or Central Line = 10 mL/lumen. If following IV push medication, administer flush at same rate as the IV push. Flush volume is determined by type of infusion therapy being given. For non-viscous solutions use: Peripheral IV = 5 mL Midline or Central Line = 10 mL/lumen For viscous solutions (i.e. blood components, parenteral nutrition, contrast media, or after obtaining blood sample) use: Peripheral IV = 10 mL Midline or Central Line = 20 mL/lumen, Recovery(Cath) verapamil (ISOPTIN) injection (CANCELED) PRN, Starting on Estefany 09/05/23 at 0933, Until Estefany 09/05/23 at 1005, Intra-procedure(Cath) 0933 (Given - Provid er: Vincent Villasenor MD) Goals (unrecognized section and content) Goals may be documented in a n alternate section FOR RECORDS PERTAINING TO PATIENTS WHO ARE OR HAVE BEEN ENROLLED IN A CHEMICAL DEPENDENCY/SUBSTANCEABUSE PROGRAM, SOME INFORMATION MAY BE OMITTED. This clinical summary was aggregated from multiple sources. Caution should be exercised in using it in the provision of clinical care. This summary normalizes information from multiple sources, and as a consequence, information in this document may materially change the coding, format and clinical context of patient data. In addition, data may be omitted in some cases. CLINICAL DECISIONS SHOULD BE BASED ON THE PRIMARY CLINICAL RECORDS. [employer] provides no warranty or guarantee of the accuracy or completeness of information in this document.
[2024-10-16 15:42] LABS: Basophils Percent Auto 0.4 % (0.2-2.0); Eosinophils Absolute Auto 0.1 10^3/uL (0.0-0.7); Eosinophils Percent Auto 1.8 % (0.9-7.0); Hematocrit 38.9 % (42.0-54.0); Hemoglobin 13.5 g/dL (14.0-18.0); Immature Granulocytes Abs Auto 0.02 10^3/uL (0.00-0.03); Immature Granulocytes Pct Auto 0.3 % (0.0-0.5); Lymphocytes Absolute Auto 1.5 10^3/uL (1.2-3.8); Lymphocytes Percent Auto 19.3 % (20.5-60.0); Mean Corpuscular HGB Conc 34.7 g/dL (29.9-35.2); Mean Corpuscular Hemoglobin 35.2 pg (25.9-34.0); Mean Corpuscular Volume 101.6 fL (80.0-94.0); Mean Platelet Volume 10.8 fL (9.5-13.5); Monocytes Absolute Auto 0.8 10^3/uL (0.3-0.8); Monocytes Percent Auto 10.7 % (1.7-12.0); Neutrophils Absolute Auto 5.2 10^3/uL (1.4-6.5); Neutrophils Percent Auto 67.5 % (43.0-75.0); Platelet Count 214 10^3/uL (150-450); Red Blood Count 3.83 10^6/uL (4.70-6.10); Red Cell Distribution Width 12.5 % (11.0-15.0); White Blood Count 7.6 10^3/uL (4.0-11.0)
[2024-10-16 16:07] LABS: Alanine Aminotransferase 29 U/L (16-63); Albumin Globulin Ratio 0.9; Albumin Level 3.5 g/dL (3.4-5.0); Alkaline Phosphatase 61 U/L (46-116); Anion Gap 10.5; Aspartate Amino Transferase 30 U/L (15-37); BUN Creatinine Ratio 17.3; Bilirubin Total 0.6 mg/dL (0.2-1.0); Calcium 9.2 mg/dL (8.5-10.1); Carbon Dioxide 28.9 mmol/L (21.0-32.0); Chloride 106 mmol/L (98-107); Estimated GFR (African America >60 (>=60 mL/min/1.73m^2); Estimated GFR (Non-African Ame 54 (>=60 mL/min/1.73m^2); Globulin 4.1 g/dL; Glucose 104 mg/dL (74-106); Magnesium 1.7 mg/dL (1.8-2.4); Potassium 4.4 mmol/L (3.5-5.1); Sodium 141 mmol/L (136-145); Thyroid Stimulating Hormone 3.359 uIU/mL (0.358-3.740); Total Protein 7.6 g/dL (6.4-8.2)
== END 2024-10-16 14:59 | disposition home or self-care (01) ==
LOC: LAB 15:00
PROVIDERS: PCP Internal Medicine; Visit Provider Internal Medicine
DX: R74.8 Abnormal levels of other serum enzymes (principal); E11.65 Type 2 diabetes mellitus with hyperglycemia; I10 Essential (primary) hypertension; D64.9 Anemia, unspecified; R53.83 Other fatigue; E55.9 Vitamin D deficiency, unspecified; I25.10 Atherosclerotic heart disease of native coronary artery without angina pectoris
CPT/HCPCS: 36415; 80053; 82306; 83735; 84443; 85025

== ENCOUNTER 2024-12-24 11:38 | Outpatient (OUT) | payer MEDICARE, SELFPAY ==
[2024-12-24 12:11] LABS: Basophils Percent Auto 0.4 % (0.2-2.0); Eosinophils Absolute Auto 0.1 10^3/uL (0.0-0.7); Eosinophils Percent Auto 1.6 % (0.9-7.0); Hematocrit 38.4 % (42.0-54.0); Hemoglobin 13.6 g/dL (14.0-18.0); Immature Granulocytes Abs Auto 0.02 10^3/uL (0.00-0.03); Immature Granulocytes Pct Auto 0.3 % (0.0-0.5); Lymphocytes Absolute Auto 1.3 10^3/uL (1.2-3.8); Lymphocytes Percent Auto 19.1 % (20.5-60.0); Mean Corpuscular HGB Conc 35.4 g/dL (29.9-35.2); Mean Corpuscular Hemoglobin 36.4 pg (25.9-34.0); Mean Corpuscular Volume 102.7 fL (80.0-94.0); Mean Platelet Volume 10.4 fL (9.5-13.5); Monocytes Absolute Auto 0.8 10^3/uL (0.3-0.8); Monocytes Percent Auto 11.3 % (1.7-12.0); Neutrophils Absolute Auto 4.6 10^3/uL (1.4-6.5); Neutrophils Percent Auto 67.3 % (43.0-75.0); Platelet Count 223 10^3/uL (150-450); Red Blood Count 3.74 10^6/uL (4.70-6.10); Red Cell Distribution Width 12.1 % (11.0-15.0); White Blood Count 6.9 10^3/uL (4.0-11.0)
[2024-12-24 13:21] LABS: Percent Iron Saturation 41.7 %
[2024-12-25 10:11] LABS: Vitamin B12 498 pg/mL (232-1245)
== END 2024-12-24 11:39 | disposition home or self-care (01) ==
LOC: LAB 11:41
PROVIDERS: PCP Internal Medicine; Visit Provider Internal Medicine
DX: D64.9 Anemia, unspecified (principal)
CPT/HCPCS: 36415; 82607; 82728; 82746; 83540; 83550; 85025; 85045

== ENCOUNTER 2025-02-03 14:17 | Outpatient (OUT) | payer MEDICARE, SELFPAY ==
[2025-02-03 15:03] LABS: Alanine Aminotransferase 34 U/L (16-63); Albumin Globulin Ratio 0.8; Albumin Level 3.3 g/dL (3.4-5.0); Alkaline Phosphatase 68 U/L (46-116); Anion Gap 13.5; Aspartate Amino Transferase 34 U/L (15-37); BUN Creatinine Ratio 14.6; Bilirubin Total 0.4 mg/dL (0.2-1.0); Calcium 9.1 mg/dL (8.5-10.1); Carbon Dioxide 26.8 mmol/L (21.0-32.0); Chloride 104 mmol/L (98-107); Estimated GFR (African America >60 (>=60 mL/min/1.73m^2); Estimated GFR (Non-African Ame 56 (>=60 mL/min/1.73m^2); Globulin 4.2 g/dL; Glucose 106 mg/dL (74-106); Potassium 4.3 mmol/L (3.5-5.1); Sodium 140 mmol/L (136-145); Total Protein 7.5 g/dL (6.4-8.2)
[2025-02-03 15:10] LABS: Basophils Percent Auto 0.1 % (0.2-2.0); Eosinophils Absolute Auto 0.2 10^3/uL (0.0-0.7); Eosinophils Percent Auto 2.8 % (0.9-7.0); Hematocrit 39.3 % (42.0-54.0); Hemoglobin 13.7 g/dL (14.0-18.0); Immature Granulocytes Abs Auto 0.01 10^3/uL (0.00-0.03); Immature Granulocytes Pct Auto 0.1 % (0.0-0.5); Lymphocytes Absolute Auto 1.2 10^3/uL (1.2-3.8); Lymphocytes Percent Auto 17.7 % (20.5-60.0); Mean Corpuscular HGB Conc 34.9 g/dL (29.9-35.2); Mean Corpuscular Hemoglobin 35.6 pg (25.9-34.0); Mean Corpuscular Volume 102.1 fL (80.0-94.0); Mean Platelet Volume 10.5 fL (9.5-13.5); Monocytes Absolute Auto 0.7 10^3/uL (0.3-0.8); Monocytes Percent Auto 10.2 % (1.7-12.0); Neutrophils Absolute Auto 4.7 10^3/uL (1.4-6.5); Neutrophils Percent Auto 69.1 % (43.0-75.0); Platelet Count 237 10^3/uL (150-450); Red Blood Count 3.85 10^6/uL (4.70-6.10); Red Cell Distribution Width 11.9 % (11.0-15.0); White Blood Count 6.8 10^3/uL (4.0-11.0)
[2025-02-04 06:08] LABS: Vitamin B12 605 pg/mL (232-1245)
[2025-02-08 07:10] LABS: Methylmalonic Acid, Serum 123 nmol/L (0-378)
== END 2025-02-03 14:18 | disposition home or self-care (01) ==
LOC: LAB 14:21
PROVIDERS: PCP Internal Medicine; Visit Provider Internal Medicine
DX: D64.9 Anemia, unspecified (principal)
CPT/HCPCS: 36415; 80053; 82607; 83921; 85025

== ENCOUNTER 2025-03-18 08:46 | Emergency (ER) | payer MEDICARE, SELFPAY ==
--- OUTSIDE RECORDS SUMMARY | 2024-03-25 09:00 | XMS_ITS | Encounter Summary ---
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 This section includes the names of all active insurance providers for the patient. Insurance Provider Type of Coverage Plan Name Start of Policy Coverage End of Policy Coverage Group Number Member ID Insurance Provider's Telephone Number Policy Callahan's Name Patient's Relationship to Policy Callahan AARP MED SUPP MEDIGAP PLAN F PLAN F May 26, 2007 PLAN F [id number] [phone] SBERJESSICA COLLIER RL PATIENT MEDICARE (WNR) MEDICARE (M) PART B Mar 26, 2002 PART B [id number] [phone] SBERNACA RL PATIENT MEDICARE (WNR) MEDICARE (M) PART A Mar 26, 2002 PART A [id number] JESSICA GOODE RL PATIENT Selected Encounter This section includes the information on record at [place] for the Encounter. Date/Time Encounter Type Encounter Description Reason Provider Source Mar 25, 2024 01:00 PM OFFICE O/P EST MOD 30 MIN [facility] - IND ICD-10-CM F33.0 Major depressive disorder, recurrent, mild CORE,SIXTO Bhagat Caleb Encounter Template Text not used by [place] Assessments - Encounter Diagnoses This section includes the primary and secondary diagnoses documented for the Encounter. Date/Time Primary/Secondary Diagnosis Diagnosis Name Provider Source Apr 04, 2024 08:25 PM PRIMARY Major depressive disorder, recurrent, mild CORE,SIXTO Olayinka [facility] CARP[facility] Apr 04, 2024 08:25 PM SECONDARY Anxiety disorder, unspecified EYAD,SIXTO Olayinka [facility] Apr 04, 2024 08:25 PM SECONDARY Mild cognitive impairment of uncertain or unknown etiology EYAD,SIXTO ISLAS [facility] Plan of Treatment: Future Appointments (+ 6 months) and Future Tests (+/- 45 days) The Plan of Treatment section includes future care activities for the patient from all [place] [facility]. This section includes future appointments and future orders which are active, pending or scheduled. Future Appointments This section includes appointments that were scheduled to occur 6 months from the date of the Encounter, up to a maximum of 20 appointments. The data comes from all [place] treatment facilities. Appointment Date/Time Appointment Type Appointme nt Facility Name May 26, 2024 01:30 PM AMBULATORY - PSYCHIATRY [facility] Jun 22, 2024 01:00 PM AMBULATORY - NONE [facility] Jun 29, 2024 01:00 PM AMBULATORY - NONE JOSS Jenkins [facility] Jul 08, 2024 02:00 PM AMBULATORY - PSYCHIATRY [facility] Social History: Smoking Status (Most current) and Tobacco Use (All prior to encounter date) This section includes the most current, and the historical, smoking and tobacco- related health factors from the [place] facility where the Encounter took place. Current Smoking Status This section includes the most current smoking, or tobacco-related health factor, from the [place] facility where the Encounter took place. Date/Time Current Smoking Status Comment Rubi ity December 31, 2023 11:30 AM [place]-TOBACCO FORMER USER [facility] Tobacco Use History This section includes a history of the smoking, or tobacco-related health factors, that were collected on or before the date of the Encounter. The data comes from the [place] facility where the Encounter took place. Date/Time Smoking Status/Tobacco Use Comment F acility December 31, 2023 11:30 AM VA-TOBACCO QUIT 15 YRS OR MORE [facility] Sep 26, 2022 01:30 PM VA-TOBACCO FORMER USER [facility] Sep 26, 2022 01:30 PM VA-TOBACCO QUIT 15 YRS OR MORE [facility] Jun 21, 2021 01:30 PM VA-TOBACCO FORMER USER [facility] Jun 21, 2021 01:30 PM VA-TOBACCO QUIT 15 YRS OR MORE [facility] Aug 17, 2019 12:47 PM VA-TOBACCO FORMER USER [facility] Aug 17, 2019 12:47 PM VA-TOBACCO QUIT 5 TO < 15 YRS [facility] Feb 21, 2018 02:14 PM VA-TOBACCO FORMER USER [facility] Feb 21, 2018 02:14 PM VA-TOBACCO QUIT 5 TO < 15 YRS [facility] Nov 10, 2015 09:24 AM QUIT TOBACCO >7 YEARS AGO [facility] Aug 02, 2014 09:27 AM QUIT TOBACCO >12 MO & <7 YRS AGO [facility] Aug 05, 2013 08:15 AM QUIT TOBACCO >12 MO & <7 YRS AGO [facility] Feb 22, 2012 11:12 AM QUIT TOBACCO >12 MO & <7 YRS AGO [facility] January 23, 2011 08:02 AM QUIT TOBACCO >12 MO & <7 YRS AGO [facility] Jul 04, 2009 10:53 AM QUIT TOBACCO >12 MO & <7 YRS AGO [facility] Apr 29, 2008 11:42 AM QUIT TOBACCO >12 MO & <7 YRS AGO [facility] Jun 17, 2007 01:45 PM QUIT TOBACCO IN THE LAST 12 BLANKA HS [facility] Jul 31, 2006 10:58 AM CURRENT TOBACCO USER [facility] Jul 31, 2006 10:58 AM TOBACCO OFFERRED PT MEDS (PROVID ER) [facility] Jul 31, 2006 10:58 AM TOBACCO OFFERRED STOP SMOKING CL INIC [facility] Nov 28, 2005 12:53 PM TOBACCO CURRENT USER [facility] Encounter Notes: All associated encounter notes This section contains the clinical notes associated to the Encounter. Date/Time Encounter Note(s) Provider Source Mar 25, 2024 01:03 PM PRIMARY CARE NURSI NG NOTE: LOCAL TITLE: OUTPATIENT NURSING INTAKE NOTE (T) STANDARD TITLE: PRIMARY CARE NURSING NOTE DATE OF NOTE: MAR 25, 2024@13:03 ENTRY DATE: MAR 25, 2024@13:03:33 AUTHOR: VINCENT WILEY EXP COSIGNER: URGENCY: STATUS: COMPLETED Hemoglobin A1C Results: Collection DT Specimen Test Name Result Units Ref Range 12/23/2023 13:08 BLOOD HEMOGLOBIN A1C 5.4 % 3.6 - 5.7 Comment: Values obtained from A1C measurements can vary. For typical A1C Comment: assays, a reported value of 7.0 could actually be between 6.72 and Comment: 7.28 if measured by a reference method. A reported value of 9.0 Comment: could actually be between 8.73 and 9.27. Ref: Comment: http://www.ngsp.org/CAPdata.asp 06/14/2023 13:20 BLOOD HEMOGLOBIN A1C 5.5 % 3.6 - 5.7 Comment: Values obtained from A1C measurements can vary. For typical A1C Comment: assays, a reported value of 7.0 could actually be between 6.72 and Comment: 7.28 if measured by a reference method. A reported value of 9.0 Comment: could actually be between 8.73 and 9.27. Ref: Comment: http://www.ngsp.org/CAPdata.asp 09/07/2022 09:43 BLOOD HEMOGLOBIN A1C 5.6 % 3.6 - 5.7 Review Allergies Allergies reviewed and updated per protocol. ALLERGIES/ADVERSE REACTIONS Type: DRUG Date/Time Reactant Severity Reaction 11/18/2009 10:58 BACTRIM ABDOMINAL PAIN 11/15/2006 14:03 FLUVASTATIN UNKNOWN 11/15/2006 14:02 SIMVASTATIN UNKNOWN MEDICATION LIST REVIEW REPORT Patient states no change in documented OTC/Herbals at this visit. 1. Has the patient been feeling sad or distressed? No 2. Has the patient been having personal or family problems? No 3. Has the patient been experiencing worry and/or stress? No 4. Has the patient been having problems with drugs and/or alcohol? No 5. [place] Crisis Line pocket card was provided to patient. No/patient declined [facility] not documented this visit. /madhu/ VINCENT WILEY LICENSED PRACTICAL NURSE Signed: 03/25/2024 13:04 VINCENT WILEY [facility] Mar 25, 2024 12:58 PM PSYCHIATRY NOTE: LOCAL TITLE: CB PSYCHIATRY NOTE (T) STANDARD TITLE: PSYCHIATRY NOTE DATE OF NOTE: MAR 25, 2024@12:58 ENTRY DATE: MAR 25, 2024@12:59 AUTHOR: SIXTO CASTANO COSIGNER: URGENCY: STATUS: COMPLETED PSYCHIATRIC PROGRESS NOTE Time in: 1300 pm Time out: 1330 pm Total time: 30 minutes Therapy time: 16 minutes CC: medication follow up HPI: is a 88 year old male 10% [place] impaired hearing. He is currently being followed for depression and anxiety. 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 He reports he goes to the [place] due to having a lot of friends there. No issues sleeping. Sadness comes and goes sine passed , We were 70 years. His motivation has been fair. 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 Denies nightmares occasionally of . He is getting 6 to 8 hours of sleep a night. He denies irritability and snappiness with others . He verbalizes his family is a huge support for him . He denies suicidal and homicidal thoughts or plans. SUBSTANCE USE HX: Nicotine : denies Alcohol : drinks one to twice daily Cannabis : denies Cocaine : denied ALLERGIES: ALLERGIES/ADVERSE REACTIONS Type: DRUG Date/Time Reactant Severity Reaction 11/18/2009 10:58 BACTRIM ABDOMINAL PAIN 11/15/2006 14:03 FLUVASTATIN UNKNOWN 11/15/2006 14:02 SIMVASTATIN UNKNOWN Active Outpatient Medications (including Supplies): Active Outpatient Medications Status ===== 1) ATORVASTATIN CALCIUM 80MG TAB TAKE ONE TABLET BY ACTIVE MOUTH AT BEDTIME 2) CARVEDILOL 12.5MG TAB TAKE ONE-HALF TABLET BY MOUTH ACTIVE TWICE A DAY 3) CLOPIDOGREL BISULFATE 75MG TAB TAKE ONE TABLET BY ACTIVE (S) MOUTH EVERY DAY INDICATION(S): DRUG ELUTING STENT: DURATION INDEFINITE 4) ESCITALOPRAM OXALATE 20MG TAB TAKE ONE TABLET BY ACTIVE (S) MOUTH AT BEDTIME 5) EZETIMIBE 10MG TAB TAKE ONE TABLET BY MOUTH EVERY DAY ACTIVE 6) FINASTERIDE 5MG TAB TAKE ONE TABLET BY MOUTH EVERY ACTIVE DAY (DO NOT CRUSH) 7) LOSARTAN 50MG TAB TAKE ONE TABLET BY MOUTH EVERY DAY ACTIVE 8) PANTOPRAZOLE NA 20MG EC TAB TAKE ONE TABLET BY MOUTH ACTIVE TWICE A DAY A HALF HOUR BEFORE BREAKFAST AND SUPPER FOR STOMACH Active Non-VA Medications Status ===== 1) Non-VA ACETAMINOPHEN TAB 500 MG - 2 TABS MOUTH THREE ACTIVE TIMES A DAY 2) Non-VA ACIDOPHILUS CAP,ORAL MOUTH ACTIVE 3) Non-VA ASPIRIN 81MG EC TAB 81MG MOUTH EVERY DAY WITH ACTIVE BREAKFAST 4) Non-VA CALCIUM CARBONATE TAB,CHEWABLE BY MOUTH TWICE ACTIVE A DAY WITH MEALS 5) Non-VA MULTIVITAMINS B COMPLEX TAB MOUTH EVERY DAY ACTIVE 13 Total Medications LABS: [facility] - Chem & Hematology (max 6 months) ---- Collection DT Specimen Test Name Result Units Ref Range 12/23/2023 13:08 PLASMA GGT 20.0 U/L 0 - 72 12/23/2023 13:08 URINE URINE PH 5.5 5.0 - 8.0 URINE COLOR Light-Yellow Ref: [none] URINE CLARITY Clear Ref: Clear SPECIFIC GRAVITY 1.021 1.016 - 1.022 URINE PROTEIN 10 mg/dL Ref: Negative URINE GLUCOSE Negative mg/dL Ref: Negative URINE KETONES Negative mg/dL Ref: <=9 URINE BILIRUBIN Negative mg/dL Ref: <=0.4 UROBILINOGEN Negative mg/dL Ref: <=1 URINE BLOOD Negative mg/dL Ref: <=0.05 ESTERASE(WBC) Negative Anabel/uL Ref: Negative NITRITE, URINE Negative Ref: Negative RBC/HPF 1 /HPF Ref: <=4 WBC/HPF 1 /HPF Ref: <=4 SQ.EPTH 1 /HPF Ref: <=4 URINE MUCUS Present H Ref: Negative 12/23/2023 13:08 BLOOD HEMOGLOBIN A1C 5.4 % 3.6 - 5.7 WBC COUNT 8.6 K/cmm 3.6 - 11.0 RBC COUNT 3.89 L M/cmm 4.47 - 5.83 HGB 13.2 L g/dL 13.6 - 17.4 HCT 38.5 L % 40.0 - 51.0 MCV 99.1 H fL 80.0 - 96.0 MCH 33.9 H pg 27.0 - 31.0 MCHC 34.2 g/dL 31.5 - 36.5 RDW 13.6 % 11.2 - 15.8 PLT 237 K/cmm 150 - 400 MPV 9.4 fL 7.4 - 11.4 NEUTROPHIL % 74.9 % 54.0 - 78.0 LYMPHS % 14.9 L % 21.0 - 51.0 MONOCYTES % 9.4 H % 4.0 - 8.0 EOSINOPHIL % 0.6 % 0.0 - 3.0 BASOPHIL % 0.2 % 0.0 - 3.0 NEUTRO# 6.5 K/cmm 1.9 - 8.6 LY # 1.3 K/cmm 0.8 - 5.0 MONO # 0.8 K/cmm 0.1 - 0.9 EOSINO# 0.0 K/cmm 0.0 - 0.3 BASO # 0.0 K/cmm 0.0 - 0.3 NRBC 0.1 /100 WBC None Established - None Established Comment: Values obtained from A1C measurements can vary. For typical A1C Comment: assays, a reported value of 7.0 could actually be between 6.72 and Comment: 7.28 if measured by a reference method. A reported value of 9.0 Comment: could actually be between 8.73 and 9.27. Ref: Comment: http://www.ngsp.org/CAPdata.asp 12/23/2023 13:08 PLASMA GLUCOSE 98 mg/dL 74 - 106 SODIUM 140 mmol/L 136 - 148 POTASSIUM 4.3 mmol/L 3.5 - 5.1 CHLORIDE 107 mmol/L 98 - 107 CO2 25 mmol/L 21 - 32 BUN 23 mg/dL 9 - 23 CREATININE 1.2 mg/dL 0.70 - 1.30 CALCIUM 9.0 mg/dL 8.7 - 10.4 EGFR (CALCULATED) 59 mL/min. ANION GAP 12.3 mmol/L 10 - 20 AST/SGOT 36 H U/L 0 - 33.9 ALT/SGPT 29 U/L 10 - 45 ALKPHOS 69 U/L 46 - 116 BILIRUBIN, TOTAL 0.6 mg/dL 0.3 - 1.2 PROTEIN, TOTAL 7.5 g/dL 6.4 - 8.5 ALBUMIN 3.6 g/dL 3.2 - 4.8 CHOLESTEROL 147 mg/dL 135 - 200 LDL CHOLESTEROL 88.0 mg/dL 0 - 110 HDL CHOLESTEROL 38 L mg/dL 40 - 60 TRIGLYCERIDE 126 mg/dL 0 - 149 TSH 2.807 uIU/mL 0.55 - 4.78 Comment: TRIGLYCERIDE REF RANGE: NORMAL <150 mg/dL BORDERLINE HIGH: 150-199 Comment: TRIGLYCERIDE mg/dL HIGH: 200-499 mg/dL VERY HIGH: >=500 mg/dL Comment: CREATININE eGFR was calculated using the CKD-EPI 2020 equation. 12/23/2023 13:08 SERUM PSA 3.40 ng/mL 0.00 - 4.00 12/23/2023 13:08 URINE MICALBU 1.8 mg/dL 0 - 10 CREAT UR 141.20 mg/dL MALB/CREAT 12.7 mg/g 0.0 - 19.9 [place] - Cytopathology (max 6 months) No data available EM - Electron Microscopy (max 6 months) ------ No data available MARÍA - Microbiology (max 6 months) No data available SP - Surgical Pathology (max 6 months) ----- No data available REVIEW OF SYSTEMS: Muscle strength and Tone: : generalize weakness Gait and Station: : weakness PHYSICAL EXAM: Vitals: Measurement DT TEMP PULSE RESP BP HEIGHT F(C) IN(CM) T: 97.9 F [36.6 C] (01/21/2024 12:54) P: 83 (03/25/2024 12:55) R: 16 (03/25/2024 12:55) BP: 164/73 (03/25/2024 12:55) W: 173 lb. [78.47 kg] (03/25/2024 12:55) BMI: 24.9 MENTAL STATUS EXAMINATION: Level of Consciousness: Alert and Oriented to 4 Behavior: Uncooperative - Eye Contact: Good Grooming & Hygiene: Good - Dress: Psychomotor Activity: WNL Speech: Normal rate, volume and prosody Cognition: Grossly intact Thought Process: Coherent and goal directed Thought Content: Delusions: Absent Hallucinations: Absent Suicidal Ideation: Denied. - Intent to : Absent Homicidal Ideation: Denied Mood: Slightly irritable Affect: Appropriate Insight: Good - Judgment: Good SELF-MEDICATION ASSESSMENT: Current medication regime reviewed with Client. Client/caregiver was able to verbalize names of medications, dosage, indications, common side effects and proper administration. Client/caregiver knowledgeable regarding obtaining refills, security and proper storage. Client/caregiver assessed to be appropriate to self-medicate. Patient was educated on condition, diagnosis, treatment plan, options for treatment, side effects, tardive dyskinesia, metabolic effects, addictive potential, risk/benefit ratio and use off-label medications. RISK ASSESSMENT Does patient have firearms at home? Yes Patient assessed for other lethal means? Yes Suicidal risk assessment completed: Yes Prior suicide attempts: denies The risk for harming self is considered: Acute - Low Chronic - Low Risk factors: Access to lethal means History of mental health hospitalization(s) Medical conditions and health-related problems Psychological conditions Protective factors: Access to appropriate medical and mental health care Access to immediate and ongoing support and care Cultural and worship beliefs that discourage suicide Violence assessment completed: Yes Prior history of violence: No The risk of violence towards others is considered: Low PSYCHOTHERAPY NOTE Therapy provided: supportive Issues discussed: , children , friends Goals of therapy: active listening, support Treatment plan: continue plan of care MEDICATION MANAGEMENT TREATMENT PLAN DIAGNOSIS: PTSD GOALS OF THERAPY: continue chi METHOD OF THERAPY/INTERVENTIONS: Will continue to assess adherence and efficacy of medications PROGRESS TOWARDS GOAL: Patient is compliant with medication - patient reports symptoms continue to be adequately controlled TREATMENT PLAN UPDATED: Date: Feb Treatment Plan has been discussed with patient/caregiver. IMPRESSION/FORMULATION: continues to miss but verbalize he does get out and mingles with friends at [employer]. He denies any suicidal thoughts or plans. He feels his Lexapro helps mood and denies any side effects. Reports good support from children and grandchildren. DIAGNOSIS/PLAN: Depression and anxiety 1. Continue Lexapro 20 mg daily 2. Continue therapy Alyssa Taylor has seen in the past. Does patient have a diagnosis or history of opioid use disorder or stimulant use disorder? No RTC: 2 months Patient was provided with the [facility] H[facility]/ Crisis Line - Dial [phone], press #1 . Instructed to call 911 or to go to the nearest ER if suicidal ideation occurs. Call clinic with any questions, concerns or in crisis. Follow up with PCP for medical issues. Medication education and counseling for new medications added today was provided to the patient/caregiver based on the individual's needs. This included why the medication was prescribed, how it should be taken and for how long, what to expect from it and what happens if not taken as prescribed. The patient/caregiver was also informed about risks and potential adverse effects of this medication and agreed to medication trial. I certify that the patient/caregiver understood my education and instructions. MEDICATION RECONCILIATION MEDICATION RECONCILIATION REPORT reviewed and discussed with patient. [place] prescription medications: Patient verifies that they are in receipt of a complete and accurate list of medications. Prescription medications from another source: Patient verifies that they are in receipt of a complete and accurate list of medications. Over the counter medications, vitamins, herbals, and nutritional supplements: Patient verifies that they are in receipt of a complete and accurate list of medications. Reviewed current medications with the patient and gave them an updated list. /madhu/ SIXTO CASTANO CLINICAL NURSE SPECIALIST Signed: 03/26/2024 18:37 SIXTO CASTANO ROSS
--- OUTSIDE RECORDS SUMMARY | 2024-05-26 09:30 | XMS_ITS | Encounter Summary ---
Author Name [facility] [place] [facility] Address [address] [place] [id number] Care Team Providers Care Strategic Account Director Name Role Phone KHADIJAH LINN Primary Care [...] PLAN F May 26, 2007 PLAN F [id number] [phone] SBERJESSICA COLLIER RL PATIENT MEDICARE (WNR) MEDICARE (M) PART B Mar 26, 2002 PART B [id number] SBERNACA RL PATIENT MEDICARE (WNR) MEDICARE (M) PART A Mar 26, 2002 PART A [id number] JESSICA GOODE RL PATIENT Selected Encounter This section includes the information on record at [place] for the Encounter. Date/Time Encounter Type Encounter Description Reason Provider Source May 26, 2024 01:30 PM OFFICE O/P EST MOD 30 [facility] - IND ICD-10-CM F33.0 Major depressive disorder, recurrent, mild CORESIXTO IHCaleb Encounter Template Text not used by [place] Assessments - Encounter Diagnoses This section includes the primary and secondary diagnoses documented for the Encounter. Date/Time Primary/Secondary Diagnosis Diagnosis Name Provider Source Jun 12, 2024 08:53 AM PRIMARY Major depressive disorder, recurrent, mild CORE,SIXTO ISLAS TRAN Jun 12, 2024 08:53 AM SECONDARY Anxiety disorder, unspecified EYAD,SIXTO ISLAS OC Jun 12, 2024 08:53 AM SECONDARY Mild cognitive impairment of uncertain or unknown etiology EYAD,SIXTO ISLAS [facility] Plan of Treatment: Future Appointments (+ 6 months) and Future Tests (+/- 45 days) The Plan of Treatment section includes future care activities for the [facility] [place] [facility] This section includes future appointments and future orders which are active, pending or scheduled. Future Appointments This section includes appointments that were scheduled to occur 6 months from the date of the Encounter, up to a maximum of 20 appointments. The data comes from all [facility]. Appointment Date/Time Appointment Type Appointme nt Facility Name Jun 22, 2024 01:00 PM AMBULATORY - NONE [facility] Jun 29, 2024 01:00 PM AMBULATORY - NONE JOSS Jenkins [facility] Jul 08, 2024 02:00 PM AMBULATORY - PSYCHIATRY [facility] Oct 20, 2024 01:00 PM AMBULATORY - PSYCHIATRY [facility] Active, Pending, and Scheduled Orders This section includes a listing of several types of active, pending, and scheduled orders, including clinic medications orders, diagnostic test orders, procedure orders and consult orders; where the start date of the order is 45 days before the date of the Encounter or 45 days after the date of theEncounter. The data comes from all [facility]. Test Date/Time Test Type Test Details Facility Name Jun 19, 2024 12:00 AM Laboratory - Chemistry Order URI NALYSIS URINE SP [facility] Lab Results: +/- 30 days of the encounter This section includes the Chemistry and Hematology Lab Results [facility] with [facility]. Radiology Reports and Pathology Reports are provided separately, in subsequent sections. Lab Results This section contains the Chemistry/Hematology Results that were resulted 30 days before or 30 daysafter the date of the Encounter. Date/Time Source Result Type Result - Unit Interpretation Reference Range Specimen Type Comment Jun 22, 2024 02:03 PM [facility] HEMOGLOBIN A1C BLOOD Specimen Type: BLOOD Comment: Values obtained from A1C measurements can vary. For typical A1C assays, a reported value of 7.0 could actually be between 6.72 and 7.28 if measured by a reference method. A reported value of 9.0 could actually be between 8.73 and 9.27. Ref: http://www.ngsp. org/CAPdata.asp Ordering Provider: KHADIJAH LINN Report Released Date/Time: Jun 19, 2024 01:36 PM Reporting Lab: [address] [phone] Performing Lab: [address] [phone] HEMOGLOBIN A1C 5.3 3.6-5.7 Jun 22, 2024 02:03 PM [facility] LIPID PROFILE PLASMA Specimen Type: P LASMA Comment: DLDLREF RANGE: NEAR OR ABOVE OPTIMAL: 100-129 mg/dL BORDERLINE DLDLHIGH: 130-159 mg/dL HIGH: 160-189 mg/dL VERY HIGH: >=190 TRIG REF RANGE: BORDERLINE HIGH: 150-199 mg/dL HIGH: 200-499 mg/dL TRIG VERY HIGH: >=500 mg/dL CREA eGFR was calculated using the CKD-EPI 2020 equation. CHOL REF RANGE: BORDERLINE HIGH: 200-239 mg/dL HIGH: >=240 mg/dL Ordering Provider: KHADIJAH LINN Report Released Date/Time: Jun 19, 2024 01:36 PM Reporting Lab: [address] [phone] Performing Lab: [address] [phone] CHOLESTEROL 135 mg/dL <199 LDL CHOLESTEROL 83 mg/dL <99 HDL CHOLESTEROL 39 mg/dL L >60 TRIGLYCERIDE 215 mg/dL H <149 Jun 22, 2024 02:03 PM [facility] TSH PLASMA Specimen Type: PLASMA Comment: DLDLREF RANGE: NEAR OR ABOVE OPTIMAL: 100-129 mg/dL BORDERLINE DLDLHIGH: 130-159 mg/dL HIGH: 160-189 mg/dL VERY HIGH: >=190 TRIG REF RANGE: BORDERLINE HIGH: 150-199 mg/dL HIGH: 200-499 mg/dL TRIG VERY HIGH: >=500 mg/dL CREA eGFR was calculated using the CKD-EPI 2020 equation. CHOL REF RANGE: BORDERLINE HIGH: 200-239 mg/dL HIGH: >=240 mg/dL Ordering Provider: KHADIJAH LINN Report Released Date/Time: Jun 19, 2024 01:36 PM Reporting Lab: [place] [phone] Performing Lab: [place] [phone] TSH 2.711 u[IU]/mL 0.360-4.500 Jun 22, 2024 02:03 PM [facility] COMPREHENSIVE METABOLIC PANEL PLASMA S pecimen Type: PLASMA Comment: DLDLREF RANGE: NEAR OR ABOVE OPTIMAL: 100-129 mg/dL BORDERLINE DLDLHIGH: 130-159 mg/dL HIGH: 160-189 mg/dL VERY HIGH: >=190 TRIG REF RANGE: BORDERLINE HIGH: 150-199 mg/dL HIGH: 200-499 mg/dL TRIG VERY HIGH: >=500 mg/dL CREA eGFR was calculated using the CKD-EPI 2020 equation. CHOL REF RANGE: BORDERLINE HIGH: 200-239 mg/dL HIGH: >=240 mg/dL Ordering Provider: KHADIJAH LINN Report Released Date/Time: Jun 19, 2024 01:36 PM Reporting Lab: [address] [phone] Performing Lab: [place] [phone] ALBUMIN 3.9 g/dL 3.2-4.6 ALKALINE PHOSPHATASE 59 U/L 40-150 ALT/SGPT 28 U/L <55 AST/SGOT 36 U/L H 5-34 BUN 19 mg/dL 8.4-25.7 CALCIUM 8.9 mg/dL 8.8-10.0 CREATININE 1.2 mg/dL 0.72-1.25 CO2 22 mmol/L L 23-31 GLUCOSE 97 mg/dL 82-115 PROTEIN, TOTAL 6.9 g/dL 6.4-8.3 SODIUM 142 mmol/L 136-145 CHLORIDE 113 mmol/L H 98-107 BILIRUBIN, TOTAL 0.8 mg/dL 0.2-1.2 POTASSIUM 3.9 mmol/L 3.5-5.1 ANION GAP 10.9 mmol/L 10-20 EGFR (CALCULATED) 59.0 mL/min Jun 22, 2024 02:03 PM [facility] CBC BLOOD Specimen Type: BLOOD No comment entered. Ordering Provider: KHADIJAH LINN Report Released Date/Time: Jun 19, 2024 01:36 PM Reporting Lab: [facility] [id number] [facility] [phone] Performing Lab: [address] [phone] WBC COUNT 8.4 10*3/uL 3.6-11.0 RBC COUNT 3.96 10*6/uL L 4.47-5.83 HGB 13.8 g/dL 13.6-17.4 HCT 40.4 40.0-51.0 MCV 102.1 fL H 80.0-96.0 MCH 34.9 pg H 27.0-31.0 MCHC 34.2 g/dL 31.5-36.5 PLT 219 10*3/uL 150-400 LYMPHS % 14.9 L 21.0-51.0 MONOCYTES % 7.1 4.0-8.0 NUCLEATED RBC/100WBC 0.0 /100{WBCs} RDW 13.2 11.2-15.8 NEUTROPHIL % 76.2 54.0-78.0 EOSINOPHIL % 1.5 0.0-3.0 BASOPHIL % 0.3 0.0-3.0 ABSOLUTE LYMPHOCYTE COUNT 1.2 10*3/uL 0. 8-5.0 ABSOLUTE NEUTROPHIL COUNT 6.4 10*3/uL 1. 9-8.6 ABSOLUTE BASOPHIL COUNT 0.0 10*3/uL 0.0- 0.3 ABSOLUTE MONOCYTE COUNT 0.6 10*3/uL 0.1- 0.9 ABSOLUTE EOSINOPHIL COUNT 0.1 10*3/uL 0. 0-0.3 MPV 10.1 fL 7.4-11.4 Social History: Smoking Status (Most current) and Tobacco Use (All prior to encounter date) This section includes the most current, and the historical, smoking and tobacco- related health factors from the [place] facility where the Encounter took place. Current Smoking Status This section includes the most current smoking, or tobacco-related health factor, from the [place] facility where the Encounter took place. Date/Time Current Smoking Status Comment Facil ity December 31, 2023 11:30 AM [facility]-TOBACCO FORMER USER [facility] Tobacco Use History This section includes a history of the smoking, or tobacco-related health factors, that were collected on or before the date of the Encounter. The data comes from the [place] facility where the Encounter took place. Date/Time [...] 2005 12:53 PM TOBACCO CURRENT USER [facility] Encounter Notes: All associated encounter notes This section contains the clinical notes associated to the Encounter. Date/Time Encounter Note(s) Provider Source May 26, 2024 01:44 PM PSYCHIATRY NOTE: LOCAL TITLE: [facility] PSYCHIATRY NOTE (T) STANDARD TITLE: PSYCHIATRY NOTE DATE OF NOTE: MAY 26, 2024@13:44 ENTRY DATE: MAY 26, 2024@13:44:52 AUTHOR: SIXTO CASTANO COSIGNER: URGENCY: STATUS: COMPLETED PSYCHIATRIC PROGRESS NOTE Time in: 1330 pm Time out: 1400 pm Total time: 30 minutes Therapy time: 16 minutes CC: medication follow up HPI: [place] is a 88 year old male 10% [place] impaired hearing. He is currently being followed for depression and anxiety. 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 He reports he goes to the [employer] due to having a lot of friends there. No issues sleeping. 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 He states she drank the water from [place]. He reports his sleep has been good. His mood is ok . I'm easy to get along with. He denies suicidal and homicidal thoughts or [...] U/L 0 - 72 12/23/2023 13:08 URINE PH 5.5 5.0 - 8.0 URINE COLOR Light-Yellow Ref: [none] URINE CLARITY Clear Ref: Clear SPECIFIC GRAVITY 1.021 1.016 - 1.022 URINE PROTEIN 10 mg/dL Ref: Negative URINE GLUCOSE Negative mg/dL Ref: Negative URINE KETONES Negative mg/dL Ref: <=9 URINE BILIRUBIN Negative mg/dL Ref: <=0.4 UROBILINOGEN Negative mg/dL Ref: <=1 URINE BLOOD Negative mg/dL Ref: <=0.05 ESTERASE(WBC) Negative Anabel/ulu Ref: Negative NITRITE, URINE Negative Ref: Negative RBC/HPF 1 /HPF Ref: <=4 WBC/HPF 1 /HPF Ref: <=4 SQ.EPTH 1 /HPF Ref: <=4 URINE MUCUS Present H Ref: Negative 12/23/2023 13:08 BLOOD HEMOGLOBIN A1C 5.4 % 3.6 - 5.7 WBC COUNT 8.6 K/mm 3.6 - 11.0 RBC COUNT 3.89 L [...] PULSE RESP BP HEIGHT F(C) IN(CM) T: 97.8 F [36.6 C] (05/26/2024 13:29) P: 89 (05/26/2024 13:) R: 16 (05/26/2024 13:) BP: 135/94 (05/26/2024 13:29) W: 168 lb [76.20 kg] (05/26/2024 13:) BMI: 24.2 MENTAL STATUS EXAMINATION: Level of Consciousness: Alert [...] and ongoing support and care Cultural and nondenominational beliefs that discourage suicide Violence assessment completed: [...] get out and mingles with friends at [employer]. He denies any suicidal thoughts or plans. [...] RECONCILIATION REPORT reviewed and discussed with patient. [place] prescription medications: Patient verifies that they are [...] /madhu/ SIXTO CASTANO CLINICAL NURSE SPECIALIST Signed: 05/27/2024 11:30 SIXTO CASTANO May 26, 2024 01:31 PM PRIMARY CARE NURSI CARITO NOTE: LOCAL TITLE: OUTPATIENT NURSING INTAKE NOTE (T) STANDARD TITLE: PRIMARY CARE NURSING NOTE DATE OF NOTE: MAY 26, 2024@13:31 ENTRY DATE: MAY 26, 2024@13:31:54 AUTHOR: VINCENT WILEY EXP COSIGNER: URGENCY: STATUS: [...] be between 8.73 and 9.27. Ref: Comment: http://[email or web address] 09/07/2022 09:43 BLOOD HEMOGLOBIN A1C 5.6 % [...] problems with drugs and/or alcohol? No 5. Crisis Line pocket card was provided to patient. No/patient declined [facility] not documented this visit. /madhu/ VINCENT WILEY LICENSED PRACTICAL NURSE Signed: 05/26/2024 13:32 VINCENT WILEY [facility]
--- OUTSIDE RECORDS SUMMARY | 2024-06-29 09:00 | XMS_ITS | Encounter Summary ---
Author Name [facility] Address [address] [place] [id number] Care Team Providers Care Nursery Hand Name Role Phone KHADIJAH LINN Primary Care [...] PLAN F May 26, 2007 PLAN F [id number] [phone] SBERJESSICA COLLIER RL PATIENT MEDICARE (WNR) MEDICARE (M) PART A Mar 26, 2002 PART A [id number] [phone] SBERNACA RL PATIENT MEDICARE (WNR) MEDICARE (M) PART B Mar 26, 2002 PART B [id number] JAKYERJESSICA COLLIER RL PATIENT Selected Encounter This section includes the information on record at [place] for the Encounter. Date/Time Encounter Type Encounter Description Reason Provider Source Jun 29, 2024 01:00 PM OFFICE O/P EST MOD 30 MIN PRIMARY CARE/MEDICINE ICD-10-CM I10 Essential (primary) hypertension TRAVIS LINNShiva Joanne Rubio E Encounter Template Text not used by [place] Assessments - Encounter Diagnoses This section includes the primary and secondary diagnoses documented for the Encounter. Date/Time Primary/Secondary Diagnosis Diagnosis Name Provider Source Jun 29, 2024 01:26 PM PRIMARY Essential (primary) hypertension [facility]IJ[facility] Jun 29, 2024 01:26 PM SECONDARY Benign prostatic hyperplasia without lower urinry tract symp [facility]IJAH LINN [facility] Jun 29, 2024 01:26 PM SECONDARY Frequency of micturition [facility]IJAH LIN[facility] Jun 29, 2024 01:26 PM SECONDARY Gastro-esophageal reflux disease without esophagitis [facility]ADIJAH LINN [facility] Jun 29, 2024 01:26 PM SECONDARY Hyperlipidemia, unspecified [facility]IJAH LIN[facility] Jun 29, 2024 01:26 PM SECONDARY Sensorineural hearing loss, bilateral KHADIJAH LINN Plan of Treatment: Future Appointments (+ 6 months) and Future Tests (+/- 45 days) The Plan of Treatment section includes future care activities for the patient from all [facility]. This section includes future appointments and future orders which are active, pending or scheduled. Future Appointments This section includes appointments that were scheduled to occur 6 months from the date of the Encounter, up to a maximum of 20 appointments. The data comes from all [facility]. Appointment Date/Time Appointment Type Appointme nt Facility Name Jul 08, 2024 02:00 PM AMBULATORY - PSYCHIATRY [facility] Oct 20, 2024 01:00 PM AMBULATORY - PSYCHIATRY [facility] Dec 22, 2024 01:00 PM AMBULATORY - NONE [facility] Active, Pending, and Scheduled Orders This section includes a listing of several types of active, pending, and scheduled orders, including clinic medications orders, diagnostic test orders, procedure orders and consult orders; where the start date of the order is 45 days before the date of the Encounter or 45 days after the date of theEncounter. The data comes from all [facility]. Test Date/Time Test Type Test Details Facility Name Jun 19, 2024 12:00 AM Laboratory - Chemistry Order URI NALYSIS URINE SP [facility] Lab Results: +/- 30 days of [...] Type Comment Jun 22, 2024 02:03 PM [facility] HEMOGLOBIN A1C BLOOD Specimen Type: BLOOD [...] Jun 19, 2024 01:36 PM Reporting Lab: [place] [id number] Performing Lab: [place] [id number] HEMOGLOBIN A1C 5.3 3.6-5.7 Jun 22, 2024 02:03 PM [facility] TSH PLASMA Specimen Type: PLASMA Comment: [...] Jun 19, 2024 01:36 PM Reporting Lab: [address] [id number] Performing Lab: [place] [id number] TSH 2.711 u[IU]/mL 0.360-4.500 Jun 22, 2024 02:03 PM [facility] LIPID PROFILE PLASMA Specimen Type: P [...] Jun 19, 2024 01:36 PM Reporting Lab: [address] [id number] Performing Lab: [address] [id number] CHOLESTEROL 135 mg/dL <199 LDL CHOLESTEROL 83 mg/dL <99 HDL CHOLESTEROL 39 mg/dL L >60 TRIGLYCERIDE 215 mg/dL H <149 Jun 22, 2024 02:03 PM [facility] COMPREHENSIVE METABOLIC PANEL PLASMA S pecimen [...] Jun 19, 2024 01:36 PM Reporting Lab: [address] [id number] Performing Lab: [address] [id number] ALBUMIN 3.9 g/dL 3.2-4.6 ALKALINE PHOSPHATASE 59 [...] 59.0 mL/min Jun 22, 2024 02:03 PM [facility] CBC BLOOD Specimen Type: BLOOD No comment entered. Ordering Provider: KHADIJAH LINN Report Released Date/Time: Jun 19, 2024 01:36 PM Reporting Lab: [facility] [id number] [facility] [address] Performing Lab: [facility] [address] [facility] [address] WBC COUNT 8.4 10*3/uL 3.6-11.0 RBC COUNT [...] and tobacco- related health factors from the [place] facility where the Encounter took place. Current Smoking Status This section includes the most current smoking, or tobacco-related health factor, from the [place] facility where the Encounter took place. Date/Time Current Smoking Status Comment Rubi ity December 31, 2023 11:30 AM VA-TOBACCO FORMER USER [facility] Tobacco Use History This section includes a history of the smoking, or tobacco-related health factors, that were collected on or before the date of the Encounter. The data comes from the [place] facility where the Encounter took place. Date/Time Smoking Status/Tobacco Use Comment Coral schulz December 31, 2023 11:30 AM VA-TOBACCO QUIT [...] 2005 12:53 PM TOBACCO CURRENT USER [facility] Encounter Notes: All associated encounter notes This section contains the clinical notes associated to the Encounter. Date/Time Encounter Note(s) Provider Source Jun 29, 2024 01:11 PM INTERNAL MEDICINE OUTPATIENT NOTE: LOCAL TITLE: PRIMARY CARE OUTPATIENT NOTE (T) STANDARD TITLE: INTERNAL MEDICINE OUTPATIENT NOTE DATE OF NOTE: JUN 29, 2024@13:11 ENTRY DATE: JUN 29, 2024@13:11:05 AUTHOR: KHADIJAH LINN EXP COSIGNER: URGENCY: STATUS: COMPLETED In-person Note 89yo Reason for Visit: Here for follow up cisit. States he is feeling well.Has no complaints. 16 Active Problems PROBLEM LAST MOD PROVIDER Mild cognitive disorder 02/04/2023 KHADIJAH LINN Urinary frequency 09/14/2022 KHADIJAH LINN Exposure to potentially hazardous substance 09/14/2022 KAJAL BEASLEY GERD - Gastro-esophageal reflux disease 09/14/2022 KHADIJAH LINN COPD - Chronic obstructive pulmonary disease 08/07/2022 KHADIJAH LINN Recurrent depression 05/02/2021 SIXTO CASTANO L Anxiety 12/01/2015 NANY DELVALLE Essential Hypertension 07/30/2016 DAYNA CARDONA Esophagitis 05/03/2022 KHADIJAH LINN History of polyp of colon 05/03/2022 KHADIJAH LINN Colonoscopy March 02, 2011; repeat 5 years Benign prostatic hyperplasia (SNOMED CT 08/15/2017 DAYNA CARDONA [id number]) Obstructive sleep apnea of adult (SNOMED CT 09/19/2021 KHADIJAH LINN [id number]) Sensorineural hearing loss, bilateral (SNOMED CT 11/12/2016 ADILENE MARROQUIN [id number]) Coronary artery disease (SNOMED CT [id number]) 07/30/2016 DAYNA CARDONA 1. CABG X'S 5 11/11/06([place] [facility]) 2. REPEAT CABG X'S 4 02/01/07 3. 2/13/13 C. CATH: NO ISCHEMIA; EF 47% Hyperlipidemia (SNOMED CT [id number]) 07/30/2016 DAYNA CARDONA Intolerance to statins History of malignant melanoma of the skin 05/03/2022 KHADIJAH LINN REVIEW OF SYSTEMS: (denies the following unless indicated otherwise): mood concerns headache fatigue/weight loss dysphagia/hoarseness chest pain dyspnea abdominal pain difficult or bloody elimination PATIENT ALLERGIES DETAILED ALLERGIES/ADVERSE REACTIONS Type: DRUG Date/Time Reactant Severity Reaction 11/18/2009 10:58 BACTRIM ABDOMINAL PAIN 11/15/2006 14:03 FLUVASTATIN UNKNOWN 11/15/2006 14:02 SIMVASTATIN UNKNOWN AMRS - MEDS (REC SUCCINCT) Active and Recently Inpatient, Outpatient and Clinic Medications (including Supplies): Active Outpatient Medications Status ========= 1) ATORVASTATIN CALCIUM 80MG TAB TAKE ONE TABLET BY ACTIVE (S) MOUTH AT BEDTIME 2) CARVEDILOL 12.5MG TAB TAKE ONE-HALF TABLET BY MOUTH ACTIVE TWICE A DAY 3) CLOPIDOGREL BISULFATE 75MG TAB TAKE ONE TABLET BY ACTIVE (S) MOUTH EVERY DAY INDICATION(S): DRUG ELUTING STENT: DURATION INDEFINITE 4) ESCITALOPRAM OXALATE 20MG TAB TAKE ONE TABLET BY ACTIVE (S) MOUTH AT BEDTIME 5) FINASTERIDE 5MG TAB TAKE ONE TABLET BY MOUTH EVERY ACTIVE (S) DAY (DO NOT CRUSH) Inactive Outpatient Medications Status ========= 1) EZETIMIBE 10MG TAB TAKE ONE TABLET BY MOUTH EVERY DAY 2) LOSARTAN 50MG TAB TAKE ONE TABLET BY MOUTH EVERY DAY 3) PANTOPRAZOLE NA 20MG EC TAB TAKE ONE TABLET BY MOUTH TWICE A DAY A HALF HOUR BEFORE BREAKFAST AND SUPPER FOR STOMACH Active Non-VA Medications Status ========= 1) Non-VA ACETAMINOPHEN TAB 500 MG - 2 TABS MOUTH THREE ACTIVE TIMES A DAY 2) Non-VA ACIDOPHILUS CAP,ORAL MOUTH ACTIVE 3) Non-VA ASPIRIN 81MG EC TAB 81MG MOUTH EVERY DAY WITH ACTIVE BREAKFAST 4) Non-VA CALCIUM CARBONATE TAB,CHEWABLE BY MOUTH TWICE ACTIVE A DAY WITH MEALS 5) Non-VA MULTIVITAMINS B COMPLEX TAB MOUTH EVERY DAY ACTIVE 13 Total Medications Report Released Date/Time: Jun 22, 2024@18:28 Provider: KHADIJAH LINN Specimen: PLASMA. [facility] [id number] Specimen Collection Date: Jun 22, 2024@14:03 Test name Result units Ref. range Site Code GLUCOSE 97 mg/dL 82 - 115 [541] Eval: REFERENCE RANGE CHANGED FOR GLU ON 03.04.24 SODIUM 142 mmol/L 136 - 145 [541] Eval: REFERENCE RANGE CHANGED ON 03.04.24 POTASSIUM 3.9 mmol/L 3.5 - 5.1 [541] CHLORIDE 113 H mmol/L 98 - 107 [541] CO2 22 L mmol/L 23 - 31 [541] BUN 19 mg/dL 8.4 - 25.7 [541] CREATININE 1.2 mg/dL 0.72 - 1.25 [541] Eval: REFERENCE RANGES CHANGED FOR CREAT ON 05.24.24 CALCIUM 8.9 mg/dL 8.8 - 10.0 [541] EGFR (CALCULATED) 59.0 mL/min [541] Eval: eGFR results >60 are imprecise. Many variables affect the calculated Eval: result. Interpretation of eGFR results >60 must be monitored Eval: over time. ANION GAP 10.9 mmol/L 10 - 20 [541] AST/SGOT 36 H U/L 5 - 34 [541] Eval: REFERENCE RANGE CHANGED FOR AST ON 03.20.24 ALT/SGPT 28 U/L Ref: <=55 [541] Eval: REFERENCE RANGE CHANGED FOR ALT ON 03.20.24 ALKALINE PHOSPHATASE 59 U/L 40 - 150 [541] BILIRUBIN, TOTAL 0.8 mg/dL 0.2 - 1.2 [541] Eval: REFERENCE RANGE CHANGED FOR TBIL ON 03.04.24 PROTEIN, TOTAL 6.9 g/dL 6.4 - 8.3 [541] ALBUMIN 3.9 g/dL 3.2 - 4.6 [541] CHOLESTEROL 135 mg/dL Ref: <=199 [541] LDL CHOLESTEROL 83 mg/dL Ref: <=99 [541] HDL CHOLESTEROL 39 L mg/dL Ref: >=60 [541] TRIGLYCERIDE 215 H mg/dL Ref: <=149 [541] TSH 2.711 uIU/mL 0.360 - 4.500 [541] Comment: DLDLREF RANGE: NEAR OR ABOVE OPTIMAL: 100-129 mg/dL BORDERLINE DLDLHIGH: 130-159 mg/dL HIGH: 160-189 mg/dL VERY HIGH: >=190 TRIG REF RANGE: BORDERLINE HIGH: 150-199 mg/dL HIGH: 200-499 mg/dL TRIG VERY HIGH: >=500 mg/dL CREA eGFR was calculated using the CKD-EPI 2020 equation. CHOL REF RANGE: BORDERLINE HIGH: 200-239 mg/dL HIGH: >=240 mg/dL Report Released Date/Time: Jun 22, 2024@18:33 Provider: KHADIJAH LINN Specimen: BLOOD. [facility] [id number] Specimen Collection Date: Jun 22, 2024@14:03 Test name Result units Ref. range Site Code HEMOGLOBIN A1C 5.3 % 3.6 - 5.7 [541] Eval: Values obtained from A1C measurements can vary. For typical A1C assays, a Eval: reported value of 7.0 could actually be between 6.72 and 7.28 if measured Eval: by a reference method. A reported value of 9.0 could actually be between Eval: 8.73 and 9.27. Ref: https://ngsp.org/CAPdata.asp WBC COUNT 8.4 K/cmm 3.6 - 11.0 [541] RBC COUNT 3.96 L M/cmm 4.47 - 5.83 [541] HGB 13.8 g/dL 13.6 - 17.4 [541] HCT 40.4 % 40.0 - 51.0 [541] MCV 102.1 H fL 80.0 - 96.0 [541] MCH 34.9 H pg 27.0 - 31.0 [541] MCHC 34.2 g/dL 31.5 - 36.5 [541] RDW 13.2 % 11.2 - 15.8 [541] PLT 219 K/cmm 150 - 400 [541] MPV 10.1 fL 7.4 - 11.4 [541] NEUTROPHIL % 76.2 % 54.0 - 78.0 [541] LYMPHS % 14.9 L % 21.0 - 51.0 [541] MONOCYTES % 7.1 % 4.0 - 8.0 [541] EOSINOPHIL % 1.5 % 0.0 - 3.0 [541] BASOPHIL % 0.3 % 0.0 - 3.0 [541] ABSOLUTE NEUTROPHIL COUNT 6.4 K/cmm 1.9 - 8.6 [541] ABSOLUTE LYMPHOCYTE COUNT 1.2 K/cmm 0.8 - 5.0 [541] ABSOLUTE MONOCYTE COUNT 0.6 K/cmm 0.1 - 0.9 [541] ABSOLUTE EOSINOPHIL COUNT 0.1 K/cmm 0.0 - 0.3 [541] ABSOLUTE BASOPHIL COUNT 0.0 K/cmm 0.0 - 0.3 [541] NUCLEATED RBC/100WBC 0.0 /100 WBC None Established - None Established [541] Comment: Values obtained from A1C measurements can vary. For typical A1C assays, a reported value of 7.0 could actually be between 6.72 and 7.28 if measured by a reference method. A reported value of 9.0 could actually be between 8.73 and 9.27. Ref: http://www.ngsp.org/CAPdata.asp PHYSICAL EXAM: Vital Signs: T: 98.1 F [36.7 C] (06/29/2024:) P: 84 (06/29/2024:) R: 16 (06/29/2024:) BP: 132/82 (06/29/2024:) Pain: 0 (06/29/2024:) Height: 70 in [177.8 cm] (05/26/2024 13:29) Weight: 171 lb [77.56 kg] (06/29/2024:) Pulse Ox: 96% (05/26/2024 13:) General: appears well Head, Ears, Eyes, Nose, and Throat: Neck: no bruit Chest/Lungs: CTA Cardiovascular:RRR Gastrointestinal: Extremities: ASSESSMENT/PLAN: reviewed labs with HTN- BP at goal, continue losartan COPD- stable with inhalers HLD- lipids at goal, continue atorvastatin and ezimtbe BPH- uses finasteride, stable GERD- stable with pantoprozole use HEALTH MAINTENANCE/CLINICAL REMINDERS: MEDICATION RECONCILIATION Medication Reconciliation report reviewed and discussed with patient/caregiver. VA prescription medications, non-VA prescription medications, OTC and herbal medications reviewed: Patient/caregiver verifies that the list is complete and accurate and voices understanding. Patient/caregiver in possession of printed medication list. FOLLOW-UP: 6 months with labs I am the Staff Provider. TOTAL TIME SPENT: Spent 24 minutes in care of this patient today including review of records, exam, and placing orders. /madhu/ KHADIJAH LINN NURSE PRACTITIONER Signed: 06/29/2024 13:26 [facility] LINN [facility] Jun 29, 2024 12:57 PM PRIMARY CARE NURSI NOTE: LOCAL TITLE: OUTPATIENT NURSING INTAKE NOTE (T) STANDARD TITLE: PRIMARY CARE NURSING NOTE DATE OF NOTE: JUN 29, 2024@12:57 ENTRY DATE: JUN 29, 2024@12:57:51 AUTHOR: PRANAY NGUYEN COSIGNER: URGENCY: STATUS: COMPLETED Hemoglobin A1C Results: Collection DT Specimen Test Name Result Units Ref Range 06/22/2024 14:03 BLOOD HEMOGLOBIN A1C 5.3 % 3.6 - 5.7 Comment: Values obtained from A1C measurements can vary. For typical A1C Comment: assays, a reported value of 7.0 could actually be between 6.72 and Comment: 7.28 if measured by a reference method. A reported value of 9.0 Comment: could actually be between 8.73 and 9.27. Ref: Comment: http://www.[email or web address].[email or web address]/CAPdata.asp 12/23/2023 13:08 BLOOD HEMOGLOBIN A1C 5.4 % 3.6 - 5.7 Comment: Values obtained from A1C measurements can vary. For typical A1C Comment: assays, a reported value of 7.0 could actually be between 6.72 and Comment: 7.28 if measured by a reference method. A reported value of 9.0 Comment: could actually be between 8.73 and 9.27. Ref: Comment: http://www.i.[email or web address]/CAPdata.asp 06/14/2023 13:20 BLOOD HEMOGLOBIN A1C 5.5 % 3.6 - 5.7 Comment: Values obtained from A1C measurements can vary. For typical A1C Comment: assays, a reported value of 7.0 could actually be between 6.72 and Comment: 7.28 if measured by a reference method. A reported value of 9.0 Comment: could actually be between 8.73 and 9.27. Ref: Comment: http://www.i.[email or web address]/CAPdata.asp Review Allergies Allergies reviewed and updated per protocol. ALLERGIES/ADVERSE REACTIONS Type: DRUG Date/Time Reactant Severity Reaction 11/18/2009 10:58 BACTRIM ABDOMINAL PAIN 11/15/2006 14:03 FLUVASTATIN UNKNOWN 11/15/2006 14:02 SIMVASTATIN UNKNOWN MEDICATION LIST REVIEW REPORT Patient's Active Medications were reviewed at this visit. Patient states no change in documented OTC/Herbals [...] declined [facility] not documented this visit. Clinical Reminders Activity COVID-19 Immunization: Refused Pfizer Monovalent COVID-19 vaccine Immunization: COVID-19 (PFIZER), MRNA, LNP-S, PF, CHRISTOPHE-SUCROSE, 30 MCG/0.3 ML (AGES 12+ YEARS) Refusal Reason: PATIENT DECISION Patient refuses all immunization(s) in the COVID-19 group Date Documented: 06/29/24 13:02 Homelessness/Food Insecurity Screen: In the past 2 months, have you been living in stable housing that you own, rent, or stay in as part of a household? Yes - Living in stable housing. Are you worried or concerned that in the next 2 months you may NOT have stable housing that you own, rent, or stay in as part of a household? No - Not worried about housing near future The reports the following: Within the past 12 months, you worried whether your food would run out before you got money to buy more. Never true Within the past 12 months, the food you bought just didn't last and you didn't have money to get more. Never true Patient Education Documentation: LEARNING NEEDS ASSESSMENT: The patient/family/significant other reports no changes in learning needs. Td / Tdap Immunization: Prior Td vaccination The patient may have been vaccinated in the past but written documentation of vaccination is not available today. Patient instructed to obtain a written record of the prior vaccine and bring it to the next appointment. Depression Screening: Perform PHQ-2 A PHQ-2 screen was performed. The score was 0 which is a negative screen for depression. Over the past two weeks, how often have you been bothered by the following problems? 1. Little interest or pleasure in doing things Not at all 2. Feeling down, depressed, or hopeless Not at all /madhu/ PRANAY NGUYEN LICENSED PRACTICAL NURSE Signed: 06/29/2024 13:10 PRANAY NGUYEN OC
--- OUTSIDE RECORDS SUMMARY | 2024-07-08 10:00 | XMS_ITS ---
Author Name [facility] [place] [facility] Address [address] [place] [id number] Care Team Providers Care [facility] Recruiting Coordinator Name Role Phone KHADIJAH LINN Primary Care [...] PLAN F May 26, 2007 PLAN F [id number] [phone] SBERJESSICA COLLIER RL PATIENT MEDICARE (WNR) MEDICARE (M) PART A Mar 26, 2002 PART A [id number] SBERNACA RL PATIENT MEDICARE (WNR) MEDICARE (M) PART B Mar 26, 2002 PART B [id number] [phone] JAKYERJESSICA COLLIER RL PATIENT Selected Encounter This section includes the information on record at [place] for the Encounter. Date/Time Encounter Type Encounter Description Reason Provider Source Jul 08, 2024 02:00 PM OFFICE O/P EST MOD 30 [facility] - IND ICD-10-CM F33.0 Major depressive disorder, recurrent, mild CORESIXTO IHCaleb Encounter Template Text not used by [facility] Assessments - Encounter Diagnoses This section includes the primary and secondary diagnoses documented for the Encounter. Date/Time Primary/Secondary Diagnosis Diagnosis Name Provider Source Aug 04, 2024 07:00 PM PRIMARY Major depressive disorder, recurrent, mild CORE,[facility] Aug 04, 2024 07:00 PM SECONDARY Anxiety disorder, unspecified EYAD,[facility] Aug 04, 2024 07:00 PM SECONDARY Mild cognitive impairment of uncertain or unknown etiology EYAD,SIXTO ISLAS TRAN Plan of Treatment: Future Appointments (+ 6 months) and Future Tests (+/- 45 days) The Plan of Treatment section includes future care activities for the patient from all [place] treatmentfacilities. This section includes future appointments and future orders which are active, pending or scheduled. Future Appointments This section includes appointments that were scheduled to occur 6 months from the date of the Encounter, up to a maximum of 20 appointments. The data comes from all [place] treatment facilities. Appointment Date/Time Appointment Type Appointme nt Facility Name Oct 20, 2024 01:00 PM AMBULATORY - PSYCHIATRY [facility] Dec 22, 2024 01:00 PM AMBULATORY - NONE [facility] December 29, 2024 01:00 PM AMBULATORY - NONE [facility] Active, Pending, and Scheduled Orders This section includes a listing of several types of active, pending, and scheduled orders, including clinic medications orders, diagnostic test orders, procedure orders and consult orders; where the start date of the order is 45 days before the date of the Encounter or 45 days after the date of theEncounter. The data comes from all [place] treatment [facility]. Test Date/Time Test Type Test Details Facility Name Jun 19, 2024 12:00 AM Laboratory - Chemistry Order URI NALYSIS URINE SP [facility] Lab Results: +/- 30 days of [...] Type Comment Jun 22, 2024 02:03 PM [facility] HEMOGLOBIN A1C BLOOD Specimen Type: BLOOD [...] Jun 19, 2024 01:36 PM Reporting Lab: [place] [id number] Performing Lab: [place] [id number] HEMOGLOBIN A1C 5.3 3.6-5.7 Jun 22, 2024 02:03 PM [facility] TSH PLASMA Specimen Type: PLASMA Comment: [...] Jun 19, 2024 01:36 PM Reporting Lab: [place] [id number] Performing Lab: [place] [id number] TSH 2.711 u[IU]/mL 0.360-4.500 Jun 22, 2024 02:03 PM [facility] LIPID PROFILE PLASMA Specimen Type: P LASMA Comment: DLDLREF RANGE: NEAR OR ABOVE OPTIMAL: 100-129 mg/dL BORDERLINE DLDLHIGH: 130-159 mg/dL HIGH: 160-189 mg/dL VERY HIGH: >=190 TRIG REF RANGE: BORDERLINE HIGH: 150-199 mg/dL HIGH: 200-499 mg/dL TRIG VERY HIGH: >=500 mg/dL CREA eGFR was calculated using the CKD-EPI 2021 equation. CHOL REF RANGE: BORDERLINE HIGH: 200-239 mg/dL HIGH: >=240 mg/dL Ordering Provider: KHADIJAH LINN Report Released Date/Time: Jun 19, 2024 01:36 PM Reporting Lab: [address] [id number] Performing Lab: [address] [id number] CHOLESTEROL 135 mg/dL <199 LDL CHOLESTEROL 83 mg/dL <99 HDL CHOLESTEROL 39 mg/dL L >60 TRIGLYCERIDE 215 mg/dL H <149 Jun 22, 2024 02:03 PM [facility] COMPREHENSIVE METABOLIC PANEL PLASMA S pecimen [...] Jun 19, 2024 01:36 PM Reporting Lab: [address] [phone] Performing Lab: [address] [id number] ALBUMIN 3.9 g/dL 3.2-4.6 ALKALINE PHOSPHATASE 59 [...] 59.0 mL/min Jun 22, 2024 02:03 PM [facility] CBC BLOOD Specimen Type: BLOOD No comment entered. Ordering Provider: KHADIJAH LINN Report Released Date/Time: Jun 19, 2024 01:36 PM Reporting Lab: [facility] [id number] [facility] [phone] Performing Lab: [facility] [id number] [facility] [id number] WBC COUNT 8.4 10*3/uL 3.6-11.0 RBC COUNT [...] and tobacco- related health factors from the [place] facility where the Encounter took place. Current Smoking Status This section includes the most current smoking, or tobacco-related health factor, from the [place] facility where the Encounter took place. Date/Time Current Smoking Status Comment Rubi partida December 31, 2023 11:30 AM VA-TOBACCO FORMER USER [facility] Tobacco Use History This section includes a history of the smoking, or tobacco-related health factors, that were collected on or before the date of the Encounter. The data comes from the [place] facility where the Encounter took place. Date/Time [...] 28, 2005 12:53 PM [facility] [place] Notes: All associated encounter notes This section contains the clinical notes associated to the Encounter. Date/Time Encounter Note(s) Provider Source Jul 08, 2024 02:10 PM PSYCHIATRY NOTE: LOCAL TITLE: [facility] PSYCHIATRY NOTE (T) STANDARD TITLE: PSYCHIATRY NOTE DATE OF NOTE: JUL 08, 2024@14:10 ENTRY DATE: JUL 08, 2024@14:11:03 AUTHOR: SIXTO CASTANO COSIGNER: URGENCY: STATUS: COMPLETED PSYCHIATRIC PROGRESS NOTE Time in: 1415 pm Time out: 1445 pm Total time: 30 minutes Therapy time: 16 minutes CC: medication follow up HPI: Brandin is a 89 year old male 10% SC . Brandin reports a lady friend from [place] has been coming up to [place] to visit. He reports he is enjoying these visits. He reports he is going to this lady. He wakes up in the morning and feels sad. He reports his cheated on him. He states my father when I was 14 and I had to grow up fast. He reports his lady friend makes him happy. He states no problem sleeping . He reports not wearing C-Pap at night. Discussed importance of wearing C-Pap due to not wanting to get out of bed in the morning could be related to that. Bryan reports he hasn't noticed a difference from Lexapro to Venlafaxine . He reports he doesn't eat much but makes sure the horses are eating. Veterans daughter had called the nurse and reported she feels brandin is drinking too much alcohol. Brandin stated he drinks 3 to 4 nights a week at [facility] and will drink one to two whiskey [place] on ice. Discussed risk of drinking and driving he states they watch out for everyone there , if I was drunk they would drive me home. Continued to educate drinking and driving and risks . He [facility] and flying alone. He denies any suicidal and homicidal thoughts or plans. SUBSTANCE USE HX: Nicotine : denies Alcohol : toasted [place] with ice cubes Cannabis : denies ALLERGIES: ALLERGIES/ADVERSE REACTIONS Type: DRUG Date/Time Reactant [...] 75MG TAB TAKE ONE TABLET BY ACTIVE MOUTH EVERY DAY INDICATION(S): DRUG ELUTING STENT: DURATION INDEFINITE 4) ESCITALOPRAM OXALATE 20MG TAB TAKE ONE TABLET BY ACTIVE (S) MOUTH AT BEDTIME 5) EZETIMIBE 10MG TAB TAKE ONE TABLET BY MOUTH EVERY DAY ACTIVE 6) FINASTERIDE 5MG TAB TAKE ONE TABLET BY MOUTH EVERY ACTIVE (S) DAY (DO NOT CRUSH) 7) LOSARTAN 50MG TAB TAKE ONE TABLET BY MOUTH EVERY DAY ACTIVE 8) PANTOPRAZOLE NA 20MG EC TAB TAKE ONE TABLET BY MOUTH ACTIVE (S) TWICE A DAY A HALF HOUR BEFORE [...] Name Result Units Ref Range 06/22/2024 14:03 PLASMA GLUCOSE 97 mg/dL 82 - 115 SODIUM 142 mmol/L 136 - 145 POTASSIUM 3.9 mmol/L 3.5 - 5.1 CHLORIDE 113 H mmol/L 98 - 107 CO2 22 L mmol/L 23 - 31 BUN 19 mg/dL 8.4 - 25.7 CREATININE 1.2 mg/dL 0.72 - 1.25 CALCIUM 8.9 mg/dL 8.8 - 10.0 EGFR (CALCULATED) 59.0 mL/min ANION GAP 10.9 mmol/L 10 - 20 AST/SGOT 36 H U/L 5 - 34 ALT/SGPT 28 U/L Ref: <= 55 ALKPHOS 59 U/L 40 - 150 BILIRUBIN, TOTAL 0.8 mg/dL 0.2 - 1.2 PROTEIN, TOTAL 6.9 g/dL 6.4 - 8.3 ALBUMIN 3.9 g/dL 3.2 - 4.6 CHOLESTEROL 135 mg/dL Ref: <= 199 LDL CHOLESTEROL 83 mg/dL Ref: <= 99 HDL CHOLESTEROL 39 L mg/dL Ref: >= 60 TRIGLYCERIDE 215 H mg/dL Ref: <= 149 TSH 2.711 Ui/mL 0.360 - 4.500 Comment: DLDLREF RANGE: NEAR OR ABOVE OPTIMAL: 100-129 mg/dL BORDERLINE Comment: DLDLHIGH: 130-159 mg/dL HIGH: 160-189 mg/dL VERY HIGH: >=190 Comment: TRIG REF RANGE: BORDERLINE HIGH: 150-199 mg/dL HIGH: 200-499 mg/dL Comment: TRIG VERY HIGH: >=500 mg/dL Comment: CREA eGFR was calculated using the CKD-EPI 2020 equation. Comment: CHOL REF RANGE: BORDERLINE HIGH: 200-239 mg/dL HIGH: >=240 mg/dL 06/22/2024 14:03 BLOOD HEMOGLOBIN A1C 5.3 % 3.6 - 5.7 WBC COUNT 8.4 K/cmm 3.6 - 11.0 RBC COUNT 3.96 L M/cmm 4.47 - 5.83 HGB 13.8 g/dL 13.6 - 17.4 HCT 40.4 % 40.0 - 51.0 MCV 102.1 H fL 80.0 - 96.0 MCH 34.9 H pg 27.0 - 31.0 MCHC 34.2 g/dL 31.5 - 36.5 RDW 13.2 % 11.2 - 15.8 PLT 219 K/cmm 150 - 400 MPV 10.1 fL 7.4 - 11.4 NEUTROPHIL % 76.2 % 54.0 - 78.0 LYMPHS % 14.9 L % 21.0 - 51.0 MONOCYTES % 7.1 % 4.0 - 8.0 EOSINOPHIL % 1.5 % 0.0 - 3.0 BASOPHIL % 0.3 % 0.0 - 3.0 NEUTRO# 6.4 K/cmm 1.9 - 8.6 LY # 1.2 K/cmm 0.8 - 5.0 MONO # 0.6 K/cmm 0.1 - 0.9 EOSINO# 0.1 K/cmm 0.0 - 0.3 BASO # 0.0 K/cmm 0.0 - 0.3 NRBC 0.0 /100 WBC None Established - None Established Comment: Values obtained from A1C measurements can vary. For typical A1C Comment: assays, a reported value of 7.0 could actually be between 6.72 and Comment: 7.28 if measured by a reference method. A reported value of 9.0 Comment: could actually be between 8.73 and 9.27. Ref: Comment: http://www.ngsp.org/CAPdata.asp CY - Cytopathology (max 6 months) No data available EM - Electron Microscopy (max 6 months) ------ No data available MARÍA - Microbiology (max 6 months) No data available SP - Surgical Pathology (max 6 months) ----- No data available REVIEW OF SYSTEMS: Muscle strength and Tone: : weakness Gait and Station: : no issues PHYSICAL EXAM: Vitals: Measurement DT TEMP PULSE RESP BP HEIGHT F(C) IN(CM) 07/08/2024 13:51 97.4(36.3) 82 16 171/73 70(177.80) Measurement DT WEIGHT PAIN LB(KG)[BMI] 07/08/2024 13:51 172(78.02)[25] 0 MENTAL STATUS EXAMINATION: Level of Consciousness: Alert and Oriented to 4 Behavior: Cooperative - Eye Contact: Good Grooming & Hygiene: Good - Dress: [place] Psychomotor Activity: WNL Speech: Normal rate, volume and prosody Cognition: Grossly intact Thought Process: Coherent and goal directed Thought Content: Delusions: Absent Hallucinations: Absent Suicidal Ideation: Denied. - Intent to : Absent Homicidal Ideation:Denied Mood: Slightly depressed Affect: Flat Insight: Good - Judgment: Good SELF-MEDICATION ASSESSMENT: [...] and health-related problems Psychological conditions Protective factors: Supportive and caring family and friends Connectedness to community, school, family, friends [place] skills (such as problem-solving, conflict resolution, anger management, impulse control, etc.) Access to appropriate medical and mental health care Access to immediate and ongoing support and care Violence assessment completed: Yes Prior history of violence: No The risk of violence towards others is considered: Low PSYCHOTHERAPY NOTE Therapy provided: supportive Issues discussed: new girlfriend , alcohol intake, shared his cheated on him and he never told anyone Goals of therapy: active listening, support Treatment plan: continue plan of care MEDICATION MANAGEMENT TREATMENT PLAN DIAGNOSIS: PTSD, depression GOALS OF THERAPY: lower depression METHOD OF THERAPY/INTERVENTIONS: Will continue to assess adherence and efficacy of medications Will continue to monitor symptoms and reassess at the next apt PROGRESS TOWARDS GOAL: Patient is compliant with medication - patient reports symptoms continue to be adequately controlled TREATMENT PLAN UPDATED: Date: Jun Treatment Plan has been discussed with patient/caregiver. Impression: verbalizes his friends came to visit him and they hit it off and plan to next September . He is happy due to he said his cheated on him and he never forgave her. He isn't wearing his C- pap and reports not wanting to get out of bed in the morning. His PCP changed his medication from Lexapro to Venlafaxine 75 mg daily . Bryan has been taking for 3 weeks and he reports he doesn't feel any difference . Daughter had called and reported he was drinking a lot. Discussed daughters concerns with and he reports he has cut down. He reports he longer buys it for home. He denies suicidal and homicidal thoughts or plans. DIAGNOSIS/PLAN: depression and anxiety 1. Venlafaxine 75 mg daily [facility] 2. Continue therapy Alyssa Taylor has seen in the past. Does patient have a diagnosis or history of opioid use disorder or stimulant use disorder? No RTC:2 months Patient was provided with the 24 [...] RECONCILIATION REPORT reviewed and discussed with patient. [place] prescription medications: Patient verifies that they are [...] /madhu/ SIXTO CASTANO CLINICAL NURSE SPECIALIST Signed: 07/09/2024 07:44 [facility] ACST[facility] Jul 08, 2024 02:07 PM PRIMARY CARE NURSAnahi ARZATE NOTE: LOCAL TITLE: OUTPATIENT NURSING INTAKE NOTE (T) STANDARD TITLE: PRIMARY CARE NURSING NOTE DATE OF NOTE: JUL 08, 2024@14:07 ENTRY DATE: JUL 08, 2024@14:07:49 AUTHOR: VINCENT WILEY EXP COSIGNER: URGENCY: STATUS: [...] and 9.27. Ref: Comment: http://www.ngsp.org/CAPdata.asp 12/23/2023 13:08 BLOOD HEMOGLOBIN A1C 5.4 % [...] between 8.73 and 9.27. Ref: Comment: http://www.ngsp.org/CAPdata.asp Review Allergies Allergies reviewed and updated per protocol. ALLERGIES/ADVERSE REACTIONS Type: DRUG Date/Time Reactant Severity Reaction 11/18/2009 10:58 BACTRIM ABDOMINAL PAIN 11/15/2006 14:03 FLUVASTATIN UNKNOWN 11/15/2006 14:02 SIMVASTATIN UNKNOWN MEDICATION LIST REVIEW REPORT Patient states no change in documented OTC/Her[place] at this visit. 1. Has the patient been feeling sad or distressed? Yes. Name of PCP notified for follow-up/disposition: Sixto Castano 2. Has the patient been having personal or family problems? No 3. Has the patient been experiencing worry and/or stress? No 4. Has the patient been having problems with drugs and/or alcohol? Yes. Name of PCP notified for follow-up/disposition: Sixto Castano 5. Crisis Line pocket card was provided to patient. No/patient declined [facility] not documented this visit. Clinical Reminders Activity Patient Education Documentation: LEARNING NEEDS ASSESSMENT: The patient/family/significant other reports no changes in learning needs. /madhu/ VINCENT WILEY LICENSED PRACTICAL NURSE Signed: 07/08/2024 14:08 VINCENT WILEY [facility]
--- OUTSIDE RECORDS SUMMARY | 2024-10-20 09:00 | XMS_ITS | Encounter Summary ---
Author Name [facility] Address [address] [place] [id number] Care Team Providers Care Sql Programmer Analyst Name Role Phone KHADIJAH LINN Primary Care [...] PLAN F May 26, 2007 PLAN F [id number] [phone] SBERJESSICA COLLIER RL PATIENT MEDICARE (WNR) MEDICARE (M) PART B Mar 26, 2002 PART B [id number] SBERNACA RL PATIENT MEDICARE (WNR) MEDICARE (M) PART A Mar 26, 2002 PART A [id number] JAKYERJESSICA COLLIER RL PATIENT Selected Encounter This section includes the information on record at NH for the Encounter. Date/Time Encounter Type Encounter Description Reason Provider Source Oct 20, 2024 01:00 PM OFFICE O/P EST HI 40 [facility] - IND ICD-10-CM F33.0 Major depressive disorder, recurrent, mild CORE,SIXTO L IHE Encounter Template Text not used by NH Assessments - Encounter Diagnoses This section includes the primary and secondary diagnoses documented for the Encounter. Date/Time Primary/Secondary Diagnosis Diagnosis Name Provider Source Nov 07, 2024 12:44 AM PRIMARY Major depressive disorder, recurrent, mild EAYD,SIXTO CARPENTER Nov 07, 2024 12:44 AM SECONDARY Mild cognitive impairment of uncertain or unknown etiology EYAD,SIXTO CARPENTER Plan of Treatment: Future Appointments (+ 6 months) and Future Tests (+/- 45 days) The Plan of Treatment section includes [facility] care [facility] for the [facility] This section includes future appointments and future orders which are active, pending or scheduled. Future Appointments This section includes appointments that were scheduled to occur 6 months from the date of the Encounter, up to a maximum of 20 appointments. The data comes from all [place] treatment facilities. Appointment Date/Time Appointment Type Appointme nt Facility Name Dec 22, 2024 01:00 PM AMBULATORY - NONE [facility] December 29, 2024 01:00 PM AMBULATORY - NONE [facility] Feb 05, 2025 01:00 PM AMBULATORY - PSYCHIATRY [facility] 2025 12:30 PM AMBULATORY - MEDICINE [facility] Apr 09, 2025 02:00 PM AMBULATORY - PSYCHIATRY [facility] Social History: Smoking Status (Most current) and Tobacco Use (All prior to encounter date) This section includes the most current, and the historical, smoking and tobacco- related health factors from the NH facility where the Encounter took place. Current Smoking Status This section includes the most current smoking, or tobacco-related health factor, from the [place] facility where the Encounter took place. Date/Time Current Smoking Status Comment Facil ity December 31, 2023 11:30 AM [facility]-TOBACCO FORMER USER [facility] Tobacco Use History This section includes a history of the smoking, or tobacco-related health factors, that were collected on or before the date of the Encounter. The data comes from the [place] facility where the Encounter took place. Date/Time Smoking Status/Tobacco Use Comment F acility December 31, 2023 11:30 AM [place]-TOBACCO QUIT 15 YRS OR MORE [facility] Sep 26, 2022 01:30 PM VA-TOBACCO FORMER [...] the Encounter. Date/Time Encounter Note(s) Provider Source Oct 20, 2024 01:13 PM PRIMARY CARE NURSI NG NOTE: LOCAL TITLE: OUTPATIENT NURSING INTAKE NOTE (T) STANDARD TITLE: PRIMARY CARE NURSING NOTE DATE OF NOTE: OCT 20, 2024@13:13 ENTRY DATE: OCT 20, 2024@13:13:33 AUTHOR: VINCENT WILEY EXP COSIGNER: URGENCY: STATUS: [...] be between 8.73 and 9.27. Ref: Comment: [email or web address] Review Allergies Allergies reviewed and updated per protocol. ALLERGIES/ADVERSE REACTIONS Type: DRUG Date/Time Reactant Severity Reaction 11/18/2009 10:58 BACTRIM ABDOMINAL PAIN 11/15/2006 14:03 FLUVASTATIN UNKNOWN 11/15/2006 14:02 SIMVASTATIN UNKNOWN Have you fallen in the last 30 days? NO MEDICATION LIST REVIEW REPORT Patient states no [...] /madhu/ VINCENT WILEY LICENSED PRACTICAL NURSE Signed: 10/20/2024 13:15 [facility]INC[facility] WILEY [facility] Oct 20, 2024 01:00 PM PSYCHIATRY NOTE: LOCAL TITLE: [facility] PSYCHIATRY NOTE (T) STANDARD TITLE: PSYCHIATRY NOTE DATE OF NOTE: OCT 20, 2024@13:00 ENTRY DATE: OCT 20, 2024@13:00:50 AUTHOR: SIXTO CASTANO COSIGNER: URGENCY: STATUS: COMPLETED PSYCHIATRIC PROGRESS NOTE Time in: 1300 pm Time out: 1345 pm Total time: 45 minutes Therapy time: 16 minutes CC: medication follow up HPI: Mobile is a 89 year old male 10% TINNUITIS . shows for his appointment with his new . Mobile got to a long time time friend Mercedes. There spouses were good friends. His outside physician increased his venlafaxeine to 150 mg daily. His doctor outside [place] also started him on vitamins. reports he sleeps all of time so they had blood test and showed low magnesium and vitamin D low. He also has a family doctor in [facility]. reports he had an episode were he was white and shaking so gave him protein and orange juice. He denies irritability and snappiness . He continues to attend the [facility] anf they celebrated his marriage . is having him eat every 6 hours. He denies suicidal or homicidal thoughts or plans. SUBSTANCE USE HX: Nicotine: denies Alcohol: will have 2 drinks max Cannabis: denies ALLERGIES: ALLERGIES/ADVERSE REACTIONS Type: DRUG Date/Time [...] INDICATION(S): DRUG ELUTING STENT: DURATION INDEFINITE 4) EZETIMIBE 10MG TAB TAKE ONE TABLET BY MOUTH EVERY DAY ACTIVE 5) FINASTERIDE 5MG TAB TAKE ONE TABLET BY MOUTH EVERY ACTIVE (S) DAY (DO NOT CRUSH) 6) LOSARTAN 50MG TAB TAKE ONE TABLET BY MOUTH EVERY DAY ACTIVE 7) PANTOPRAZOLE NA 20MG EC TAB TAKE ONE TABLET BY MOUTH ACTIVE (S) TWICE A DAY A HALF HOUR BEFORE BREAKFAST AND SUPPER FOR STOMACH 8) VENLAFAXINE HCL 75MG 24HR SA CAP TAKE ONE CAPSULE BY ACTIVE MOUTH EVERY DAY FOR MAJOR DEPRESSIVE DISORDER Active Non-VA Medications Status ===== 1) Non-VA [...] 5 - 34 ALT/SGPT 28 U/L Ref: <=55 ALKPHOS 59 U/L 40 - 150 BILIRUBIN, TOTAL 0.8 mg/dL 0.2 - 1.2 PROTEIN, TOTAL 6.9 g/dL 6.4 - 8.3 ALBUMIN 3.9 g/dL 3.2 - 4.6 CHOLESTEROL 135 mg/dL Ref: <=199 LDL CHOLESTEROL 83 mg/dL Ref: <=99 HDL CHOLESTEROL 39 L mg/dL Ref: >=60 TRIGLYCERIDE 215 H mg/dL Ref: <=149 TSH 2.711 uIU/mL 0.360 - 4.500 Comment: DLDLREF RANGE: NEAR [...] REVIEW OF SYSTEMS: Muscle strength and Tone: Gait and Station: PHYSICAL EXAM: T: 97.2 F [36.2 C] (10/20/2024 13:10) P: 84 (10/20/2024 13:10) R: 16 (10/20/2024 13:10) BP: 111/76 (10/20/2024 13:10) W: 168 lb [76.20 kg] (10/20/2024 13:10) BMI: 24.2 Pain: 0 (10/20/2024 13:10) Pulse OX: 94% (10/20/2024 13:10) MENTAL STATUS EXAMINATION: Level of Consciousness: Alert and Oriented to 4 Behavior: Cooperative - Eye Contact: Good Grooming & Hygiene: Good - Dress: Kempt Psychomotor Activity: Speech: Normal rate, volume and prosody Cognition: Thought Process: Thought Content: Delusions: Absent Hallucinations: Absent Suicidal Ideation: Denied. - Intent to : Absent Homicidal Ideation:Denied Mood: Angry Affect: Appropriate Insight: Good - Judgment: Good [...] Yes Patient assessed for other lethal means? No Suicidal risk assessment completed: Yes Prior suicide attempts: The risk for harming self is considered: Acute - Low Chronic - Low Risk factors: Access to lethal means History of mental health hospitalization(s) History of suicide attempt(s) Homelessness Medical conditions and health-related problems Psychological conditions Protective factors: Supportive and caring family and friends [place] skills (such as problem-solving, conflict resolution, anger management, impulse control, etc.) Access to appropriate medical and mental health care Access to immediate and ongoing support and care Violence assessment completed: Yes Prior history of violence: Yes The risk of violence towards others is considered: High PSYCHOTHERAPY NOTE Therapy provided:supportive Issues discussed:brought new Goals of therapy:active listening, support Treatment plan:continue plan of care MEDICATION MANAGEMENT TREATMENT PLAN DIAGNOSIS: depression GOALS OF THERAPY: decrease depression METHOD OF THERAPY/INTERVENTIONS: Will continue to assess adherence and efficacy of medications Will continue to monitor symptoms and reassess at the next apt PROGRESS TOWARDS GOAL: Patient is compliant with medication - patient reports symptoms continue to be adequately controlled TREATMENT PLAN UPDATED: Date: Sep Treatment Plan has been discussed with patient/caregiver. IMPRESSION/FORMULATION:[facility] [place] venlafaxiene to 150 mg from 75 mg daily due to lack of motivation and sleeping a lot. He also placed him on magnesium due to low magnesium level. They both report they are happy that they are to each other. denies an y suicidal or homicidal thoughts or plans . DIAGNOSIS/PLAN: Depression and anxiety 1. Venlafaxine 75 mg daily from PCP outside [place] inncreased to 150 mg daily 2. Continue therapy Alyssa Taylor has seen in the past. Does patient have a diagnosis or history of opioid use disorder or stimulant use disorder? No RTC: 3 months Patient was provided with the [facility] Crisis Line - Dial [phone], press #1 [...] RECONCILIATION REPORT reviewed and discussed with patient. [facility] prescription medications: Patient verifies that they are [...] /madhu/ SIXTO CASTANO CLINICAL NURSE SPECIALIST Signed: 10/20/2024 13:53 SIXTO CASTANO OC
--- OUTSIDE RECORDS SUMMARY | 2024-12-29 09:00 | XMS_ITS | Encounter Summary ---
Author Name [facility] ([place] Organization [facility] Address [address] [place] [id number] Care Team Providers [employer] Rep Name Role Phone KHADIJAH ARREDONDO Primary Care Provider Unavailbertrand e Insurance Providers: [...] PLAN F May 26, 2007 PLAN F [id number] [phone] SBERAMIRACA RL PATIENT MEDICARE (WNR) MEDICARE (M) PART A Mar 26, 2002 PART A [id number] SBERNACA RL PATIENT MEDICARE (WNR) MEDICARE (M) PART B Mar 26, 2002 PART B [id number] JAKYERJESSICA COLLIER RL PATIENT Selected Encounter This section includes the information on record at [place] for the Encounter. Date/Time Encounter Type Encounter Description Reason Provider Source December 29, 2024 01:00 PM OFFICE O/P EST MOD 30 MIN PRIMARY CARE/MEDICINE ICD-10-CM K76.89 Other specified diseases of liver KHADIJAH ARREDONDO [facility] Encounter Template Text not used by [place] Assessments - Encounter Diagnoses This section includes the primary and secondary diagnoses documented for the Encounter. Date/Time Primary/Secondary Diagnosis Diagnosis Name Provider Source January 09, 2025 04:42 PM PRIMARY Other specified diseases of liver KHADIJAH ARREDONDO [facility] January 09, 2025 04:42 PM SECONDARY Essential (primary) hypertension KHADIJAH ARREDONDO [facility] January 09, 2025 04:42 PM SECONDARY Gastro-esophageal reflux disease without esophagitis KHADIJAH ARREDONDO [facility] January 09, 2025 04:42 PM SECONDARY Hyperlipidemia, unspecified KHADIJAH ARREDONDO [facility] January 09, 2025 04:42 PM SECONDARY Obstructive sleep apnea (adult) (pediatric) KHADIJAH ARREDONDO CB Plan of Treatment: Future Appointments (+ 6 months) and Future Tests (+/- 45 days) The Plan of Treatment section includes future care activities for the patient [facility] This section includes future appointments and future orders which are active, pending or scheduled. Future Appointments This section includes appointments that were scheduled to occur 6 months from the date of the Encounter, up to a maximum of 20 appointments. The data comes from all [facility]. Appointment Date/Time Appointment Type Appointme nt Facility Name Feb 05, 2025 01:00 PM AMBULATORY - PSYCHIATRY [facility] 2025 12:30 PM AMBULATORY - MEDICINE [facility] Apr 09, 2025 02:00 PM AMBULATORY - PSYCHIATRY [facility] Active, Pending, and Scheduled Orders This section includes a listing of several types of active, pending, and scheduled orders, including clinic medications orders, diagnostic test orders, procedure orders and consult orders; where the start date of the order is 45 days before the date of the Encounter or 45 days after the date of theEncounter. The data comes from all [facility]. Test Date/Time Test Type Test Details Facility Name December 29, 2024 02:08 PM Consult Order W SLEEP DI SORDERS OUTPT Cons [facility] Lab Results: +/- 30 days of the encounter This section includes the Chemistry and Hematology Lab Results on record with [place] for the patient. Radiology Reports and Pathology Reports are provided separately, in subsequent sections. Lab Results This section contains the Chemistry/Hematology Results that were resulted 30 days before or 30 daysafter the date of the Encounter. Date/Time Source Result Type Result - Unit Interpretation Reference Range Specimen Type Comment Dec 22, 2024 02:20 PM [facility] COMPREHENSIVE METABOLIC PANEL PLASMA Specimen Type: PLASMA No comment entered. Ordering Provider: KHADIJAH ARREDONDO Report Released Date/Time: Dec 18, 2024 04:47 PM Reporting Lab: [address] [id number] Performing Lab: [facility] Dec 22, 2024 02:20 PM [facility] CB HEMOGLOBIN A1C BLOOD Specimen Type: BLOOD Comment: Values obtained from A1C measurements can vary. For typical A1C assays, a reported value of 7.0 could actually be between 6.72 and 7.28 if measured by a reference method. A reported value of 9.0 could actually be between 8.73 and 9.27. Ref: http://www.ngsp .org/CAPdata.as p Ordering Provider: KHADIJAH ARREDONDO Report Released Date/Time: Dec 18, 2024 04:47 PM Reporting Lab: [address] [id number] Performing Lab: [address] [phone] HEMOGLOBIN A1C 5.4 3.6-5.7 Dec 22, 2024 02:20 PM [facility] LIPID PROFILE PLASMA Specimen Type: PLASMA Comment: GLUCOSE The ADA recommends a fasting glucose of 99 mg/dL as the GLUCOSE upper limit of normal. TP Per package insert reference range for recumbent is 6.0 to 7.8 TP g/dL. Plasma samples will generally have higher values (about TP 0.2 to 0.4 g/dL higher) due to presence of fibrinogen. TRIG REFERENCE RANGE: BORDERLINE HIGH: 150-199 mg/dL HIGH: 200-499 TRIG mg/dL VERY HIGH: >=500 mg/dL CHOL REF RANGE: BORDERLINE HIGH: 200-239 mg/dL HIGH: >=240 mg/dL HDLC Values >60 are a negative risk factor for heart disease. DLDL REF RANGE: NEAR OR ABOVE OPTIMAL: 100-129 mg/dL BORDERLINE DLDL HIGH: 130-159 mg/dL HIGH: 160-189 mg/dL VERY HIGH: >=190 Ordering Provider: KHADIJAH ARREDONDO Report Released Date/Time: Dec 18, 2024 04:47 PM Reporting Lab: [address] [phone] Performing Lab: [address] [phone] CHOLESTEROL 155 mg/dL 0-199 LDL CHOLESTEROL 101 mg/dL H 0-99 HDL CHOLESTEROL 36 mg/dL L >40 TRIGLYCERIDE 214 mg/dL H 0-149 Dec 22, 2024 02:20 PM [facility] TSH PLASMA Specimen Type: PLASMA Comment: GLUCOSE The ADA recommends a fasting glucose of 99 mg/dL as the GLUCOSE upper limit of normal. TP Per package insert reference range for recumbent is 6.0 to 7.8 TP g/dL. Plasma samples will generally have higher values (about TP 0.2 to 0.4 g/dL higher) due to presence of fibrinogen. TRIG REFERENCE RANGE: BORDERLINE HIGH: 150-199 mg/dL HIGH: 200-499 TRIG mg/dL VERY HIGH: >=500 mg/dL CHOL REF RANGE: BORDERLINE HIGH: 200-239 mg/dL HIGH: >=240 mg/dL HDLC Values >60 are a negative risk factor for heart disease. DLDL REF RANGE: NEAR OR ABOVE OPTIMAL: 100-129 mg/dL BORDERLINE DLDL HIGH: 130-159 mg/dL HIGH: 160-189 mg/dL VERY HIGH: >=190 Ordering Provider: KHADIJAH ARREDONDO Report Released Date/Time: Dec 18, 2024 04:47 PM Reporting Lab: [address] [phone] Performing Lab: [address] [phone] TSH 2.740 u[IU]/mL 0.350-4.940 Dec 22, 2024 02:20 PM J[facility]EL CARPENTER VITAMIN D (TOTAL) SERUM Specimen Type : SERUM Comment: VITD One expert panel recommended a target range of 30-40 ng/mL. Ordering Provider: KHADIJAH ARREDONDO Report Released Date/Time: Dec 18, 2024 04:47 PM Reporting Lab: [address] [address] Performing Lab: [address] [phone] VITAMIN D (TOTAL) 51 ng/mL 30-60 Dec 22, 2024 02:20 PM [facility] URINALYSIS URINE Specimen Type: URINE No comment entered. Ordering Provider: KHADIJAH ARREDONDO Report Released Date/Time: Dec 18, 2024 04:47 PM Reporting Lab: [place] [id number] Performing Lab: [place] [id number] SPECIFIC GRAVITY 1.017 1.016-1.022 URINE GLUCOSE Negative mg/dL Negative URINE PROTEIN Negative mg/dL Negative URINE PH 6.0 5.0-8.0 RBC/HPF 1 /[HPF] <=4 SQUAMOUS EPITHELIAL 1 /[HPF] <=4 NITRITE, URINE Negative Negative ESTERASE(WBC) Negative Negative URINE CLARITY Clear Clear URINE MUCUS Present H Negative URINE BILIRUBIN Negative mg/dL <=0.4 URINE BLOOD Negative mg/dL <0.05 UROBILINOGEN Negative mg/dL <=1 URINE KETONES Negative mg/dL <=9 URINE COLOR Light-Yellow [none] Dec 22, 2024 02:20 PM [facility] CBC BLOOD Specimen Type: BLOOD No comment entered. Ordering Provider: KHADIJAH ARREDONDO Report Released Date/Time: Dec 18, 2024 04:47 PM Reporting Lab: [place] [id number] Performing Lab: [place] [id number] WBC COUNT 6.2 10*3/uL 3.6-11.0 RBC COUNT 3.74 10*6/uL L 4.47-5.83 HGB 13.5 g/dL L 13.6-17.4 HCT 39.0 L 40.0-51.0 MCV 104.4 fL H 80.0-96.0 MCH 36.2 pg H 27.0-31.0 MCHC 34.6 g/dL 31.5-36.5 PLT 251 10*3/uL 150-400 LYMPHS % 19.6 L 21.0-51.0 MONOCYTES % 9.4 H 4.0-8.0 NUCLEATED RBC/100WBC 0.2 /100{WBCs} RDW 12.9 11.2-15.8 NEUTROPHIL % 68.6 54.0-78.0 EOSINOPHIL % 2.0 0.0-3.0 BASOPHIL % 0.4 0.0-3.0 ABSOLUTE LYMPHOCYTE COUNT 1.2 10*3/uL 0. 8-5.0 ABSOLUTE NEUTROPHIL COUNT 4.3 10*3/uL 1. 9-8.6 ABSOLUTE BASOPHIL COUNT 0.0 10*3/uL 0.0- 0.3 ABSOLUTE MONOCYTE COUNT 0.6 10*3/uL 0.1- 0.9 ABSOLUTE EOSINOPHIL COUNT 0.1 10*3/uL 0. 0-0.3 MPV 8.7 fL 7.4-11.4 Social History: Smoking Status (Most current) and Tobacco Use (All prior to encounter date) This section includes the most current, and the historical, smoking and tobacco- related health factors from the [place] facility where the Encounter took place. Current Smoking Status This section includes the most current smoking, or tobacco-related health factor, from the [place] facility where the Encounter took place. Date/Time Current Smoking Status Comment Facil ity December 29, 2024 01:00 PM VA-TOBACCO USE FORMER CIGARETTES [facility] Tobacco Use History This section includes a history of the smoking, or tobacco-related health factors, that were collected on or before the date of the Encounter. The data comes from the [place] facility where the Encounter took place. Date/Time Smoking Status/Tobacco Use Comment F acunique December 29, 2024 01:00 PM VA-TOBACCO USE FORMER OTHER TYPE [facility] December 31, 2023 11:30 AM VA-TOBACCO FORMER USER [facility] December 31, 2023 11:30 AM VA-TOBACCO QUIT [...] 28, 2005 12:53 PM [facility] Encounter Notes: All associated encounter notes This section contains the clinical notes associated to the Encounter. Date/Time Encounter Note(s) Provider Source December 29, 2024 01:35 PM INTERNAL MEDICINE OUTPATIENT NOTE: LOCAL TITLE: PRIMARY CARE OUTPATIENT NOTE (T) STANDARD TITLE: INTERNAL MEDICINE OUTPATIENT NOTE DATE OF NOTE: DECEMBER 29, 2024@13:35 ENTRY DATE: DECEMBER 29, 2024@13:35:29 AUTHOR: KHADIJAH ARREDONDO EXP COSIGNER: URGENCY: STATUS: COMPLETED In-person Note 89yo [place] Reason for Visit: Here with his for follow up. They are recently . She states he is drinking more than she would like, does admit he is now drinking less than when first in June. 16 Active Problems PROBLEM LAST MOD PROVIDER Mild cognitive disorder 02/04/2023 KHADIJAH ARREDONDO Urinary frequency 09/14/2022 KHADIJAH ARREDONDO Exposure to potentially hazardous substance 09/14/2022 KAJAL BEASLEY GERD - Gastro-esophageal reflux disease 09/14/2022 KHADIJAH ARREDONDO COPD - Chronic obstructive pulmonary disease 08/07/2022 KHADIJAH ARREDONDO Recurrent depression 05/02/2021 SIXTO CASTANO L Anxiety 12/01/2015 NANY DELVALLE Essential Hypertension 07/30/2016 DAYNA CARDONA Esophagitis 05/03/2022 KHADIJAH ARREDONDO History of polyp of colon 05/03/2022 KHADIJAH ARREDONDO Colonoscopy March 02, 2011; repeat 5 years Benign prostatic hyperplasia (SNOMED CT 08/15/2017 DAYNA CARDONA [id number]) Obstructive sleep apnea of adult (SNOMED CT 09/19/2021 KHADIJAH ARREDONDO [id number]) Sensorineural hearing loss, bilateral (SNOMED CT 11/12/2016 PRESLEY MARROQUINLL [id number]) Coronary artery disease (SNOMED CT [id number]) 07/30/2016 DAYNA CARDONA 1. CABG X'S 5 11/11/06([facility]) 2. REPEAT CABG X'S 4 02/01/07 3. 10/08/12 C. CATH: NO ISCHEMIA; EF 47% Hyperlipidemia (SNOMED CT [id number]) 07/30/2016 DAYNA CARDONA Intolerance to statins History of malignant melanoma of the skin 05/03/2022 KHADIJAH ARREDONDO REVIEW OF SYSTEMS: (denies the following unless [...] MOUTH EVERY ACTIVE DAY (DO NOT CRUSH) 6) LOSARTAN 50MG TAB TAKE ONE TABLET BY MOUTH EVERY DAY ACTIVE 7) PANTOPRAZOLE NA 20MG EC TAB TAKE ONE TABLET BY MOUTH ACTIVE TWICE A DAY A HALF HOUR BEFORE BREAKFAST AND SUPPER FOR STOMACH 8) VENLAFAXINE HCL 150MG 24HR SA CAP TAKE ONE CAPSULE BY ACTIVE MOUTH EVERY DAY FOR MAJOR DEPRESSIVE DISORDER Active Non-VA Medications Status ========= 1) Non-VA [...] ACTIVE 13 Total Medications Report Released Date/Time: Dec 22, 2024@18:00 Provider: KHADIJAH ARREDONDO Specimen: URINE. [facility] [id number] Specimen Collection Date: Dec 22, 2024@14:20 Test name Result units Ref. range Site Code URINE PH 6.0 5.0 - 8.0 [541] URINE COLOR Light-Yellow Ref: [none] [541] URINE CLARITY Clear Ref: Clear [541] SPECIFIC GRAVITY 1.017 1.016 - 1.022 [541] URINE PROTEIN Negative mg/dL Ref: Negative [541] URINE GLUCOSE Negative mg/dL Ref: Negative [541] URINE KETONES Negative mg/dL Ref: <=9 [541] URINE BILIRUBIN Negative mg/dL Ref: <=0.4 [541] UROBILINOGEN Negative mg/dL Ref: <=1 [541] URINE BLOOD Negative mg/dL Ref: <=0.05 [541] ESTERASE(WBC) Negative Anabel/uL Ref: Negative [541] NITRITE, URINE Negative Ref: Negative [541] RBC/HPF 1 /HPF Ref: <=4 [541] SQUAMOUS EPITHELIAL 1 /HPF Ref: <=4 [541] URINE MUCUS Present H Ref: Negative [541] Report Released Date/Time: Dec 22, 2024@18:57 Provider: KHADIJAH ARREDONDO Specimen: SERUM. [facility] [id number] Specimen Collection Date: Dec 22, 2024@13:34 Test name Result units Ref. range Site Code VITAMIN D (TOTAL) 51 ng/mL 30 - 60 [541] Comment: VITD One expert panel recommended a target range of 30-40 ng/mL. Report Released Date/Time: Dec 22, 2024@18:08 Provider: KHADIJAH ARREDONDO Specimen: BLOOD. [facility] [id number] Specimen Collection Date: Dec 22, 2024@13:34 Test name Result units Ref. range Site Code HEMOGLOBIN A1C 5.4 % 3.6 - 5.7 [541] Eval: Values obtained from A1C measurements can vary. For typical A1C assays, a Eval: reported value of 7.0 could actually be between 6.72 and 7.28 if measured Eval: by a reference method. A reported value of 9.0 could actually be between Eval: 8.73 and 9.27. Ref: https://ngsp.org/CAPdata.asp WBC COUNT 6.2 K/cmm 3.6 - 11.0 [541] RBC COUNT 3.74 L M/cmm 4.47 - 5.83 [541] HGB 13.5 L g/dL 13.6 - 17.4 [541] HCT 39.0 L % 40.0 - 51.0 [541] MCV 104.4 H fL 80.0 - 96.0 [541] MCH 36.2 H pg 27.0 - 31.0 [541] MCHC 34.6 g/dL 31.5 - 36.5 [541] RDW 12.9 % 11.2 - 15.8 [541] PLT 251 K/cmm 150 - 400 [541] MPV 8.7 fL 7.4 - 11.4 [541] NEUTROPHIL % 68.6 % 54.0 - 78.0 [541] LYMPHS % 19.6 L % 21.0 - 51.0 [541] MONOCYTES % 9.4 H % 4.0 - 8.0 [541] EOSINOPHIL % 2.0 % 0.0 - 3.0 [541] BASOPHIL % 0.4 % 0.0 - 3.0 [541] ABSOLUTE NEUTROPHIL COUNT 4.3 K/cmm 1.9 - 8.6 [541] ABSOLUTE LYMPHOCYTE COUNT 1.2 K/cmm 0.8 - 5.0 [541] ABSOLUTE MONOCYTE COUNT 0.6 K/cmm 0.1 - 0.9 [541] ABSOLUTE EOSINOPHIL COUNT 0.1 K/cmm 0.0 - 0.3 [541] ABSOLUTE BASOPHIL COUNT 0.0 K/cmm 0.0 - 0.3 [541] NUCLEATED RBC/100WBC 0.2 /100 WBC None Established - None Established [541] Comment: Values obtained from A1C measurements can vary. For typical A1C assays, a reported value of 7.0 could actually be between 6.72 and 7.28 if measured by a reference method. A reported value of 9.0 could actually be between 8.73 and 9.27. Ref: http://www.ngsp.org/CAPdata.asp Report Released Date/Time: Dec 22, 2024@19:12 Provider: KHADIJAH ARREDONDO Specimen: PLASMA. [facility] [id number] Specimen Collection Date: Dec 22, 2024@13:34 Test name Result units Ref. range Site Code GLUCOSE 94 mg/dL 74 - 99 [541] SODIUM 139 mmol/L 134 - 144 [541] POTASSIUM 4.9 mmol/L 3.5 - 5.1 [541] CHLORIDE 107 mmol/L 99 - 112 [541] CO2 25 mmol/L 22 - 30 [541] BUN 23.1 mg/dL 8.4 - 25.7 [541] CREATININE 1.2 mg/dL 0.7 - 1.3 [541] CALCIUM 9.2 mg/dL 8.6 - 10.3 [541] EGFR (CALCULATED) 59 mL/min/1.73m2 BSA [541] Eval: eGFR was calculated using the CKD-EPI 2020 equation. No reference range Eval: is defined. Clinical judgement based on patient condition is advised. Eval: eGFR results >60 are imprecise. Many variables affect the calculated Eval: result. Interpretation of eGFR results >60 must be monitored over time. ANION GAP 12 mmol/L 10 - 20 [541] AST/SGOT 84 H U/L 10 - 40 [541] ALT/SGPT 74 H U/L 0 - 55 [541] ALKALINE PHOSPHATASE 60 U/L 40 - 150 [541] BILIRUBIN, TOTAL 0.6 mg/dL 0.2 - 1.2 [541] PROTEIN, TOTAL 7.7 g/dL 6.4 - 8.3 [541] ALBUMIN 3.9 g/dL 3.5 - 4.8 [541] CHOLESTEROL 155 mg/dL 0 - 199 [541] LDL CHOLESTEROL 101 H mg/dL 0 - 99 [541] HDL CHOLESTEROL 36 L mg/dL Ref: >=40 [541] TRIGLYCERIDE 214 H mg/dL 0 - 149 [541] TSH 2.740 uIU/mL 0.350 - 4.940 [541] Comment: GLUCOSE The ADA recommends a fasting glucose of 99 mg/dL as the GLUCOSE upper limit of normal. TP Per package insert reference range for recumbent is 6.0 to 7.8 TP g/dL. Plasma samples will generally have higher values (about TP 0.2 to 0.4 g/dL higher) due to presence of fibrinogen. TRIG REFERENCE RANGE: BORDERLINE HIGH: 150-199 mg/dL HIGH: 200-499 TRIG mg/dL VERY HIGH: >=500 mg/dL CHOL REF RANGE: BORDERLINE HIGH: 200-239 mg/dL HIGH: >=240 mg/dL HDLC Values >60 are a negative risk factor for heart disease. DLDL REF RANGE: NEAR OR ABOVE OPTIMAL: 100-129 mg/dL BORDERLINE DLDL HIGH: 130-159 mg/dL HIGH: 160-189 mg/dL VERY HIGH: >=190 PHYSICAL EXAM: Vital Signs: T: 97.6 F [36.4 C] (12/29/2024 13:33) P: 93 (12/29/2024 13:33) R: 18 (12/29/2024 13:33) BP: 127/70 (12/29/2024 13:33) Pain: 0 (12/29/2024 13:33) Height: 70 in [177.8 cm] (10/20/2024 13:07) Weight: 169.1 lb [76.70 kg] (12/29/2024 13:33) Pulse Ox: 95% (12/29/2024 13:34) General: appears well Head, Ears, Eyes, Nose, and Throat: Neck: no bruit Chest/Lungs: CTA Cardiovascular: RRR Gastrointestinal: Extremities: no edema ASSESSMENT/PLAN: reviewed lab results, his liver enyzmes were elevated- AST 84, ALT 74 - discussed lowering alcohol consumption, will continue to monitor HTN- BP at goal,continue meds BPH- stable with medication HLD- unable to tolerate statins, using ezimbte, LDL is 101 and not at goal GERD- using pantoprozole with relief 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 HEALTH MAINTENANCE/CLINICAL REMINDERS: Clinical Reminders Activity Follow-up Pos Alcohol : Patient's AUDIT-C score was greater than or equal to 5; brief alcohol intervention is indicated. Shared concern that the patient may be drinking at unhealthy levels known to increase his/her risk of alcohol related health problems. Specifically the following were reviewed: High blood pressure, liver disease, bleeding from the stomach, stroke, dementia Patient advised/informed to drink within recommended limits, which are no more than 1 drink/day on average and no more than 3 drinks on any one day AND no more than 7 drinks per week. The patient declines referral for alcohol use assessment or treatment at this time. Plan: rescreen annually. MEDICATION RECONCILIATION Medication Reconciliation report reviewed and discussed with patient/caregiver. VA prescription medications, non-VA prescription medications, OTC and herbal medications reviewed: Patient/caregiver verifies that the list is complete and accurate and voices understanding. Patient/caregiver in possession of printed medication list. FOLLOW-UP: 6 months with labs I am the Staff Provider. TOTAL TIME SPENT: Spent 30 minutes in care of this patient today including review of records, exam, and placing orders. /madhu/ KHADIJAH ARREDONDO NURSE PRACTITIONER Signed: 12/29/2024 15:32 [facility] ARREDONDO [facility] December 29, 2024 01:20 PM PRIMARY CARE NURSI NOTE: LOCAL TITLE: OUTPATIENT NURSING INTAKE NOTE (T) STANDARD TITLE: PRIMARY CARE NURSING NOTE DATE OF NOTE: DECEMBER 29, 2024@13:20 ENTRY DATE: DECEMBER 29, 2024@13:20:29 AUTHOR: PRANAY NGUYEN COSIGNER: URGENCY: STATUS: COMPLETED Hemoglobin A1C Results: Collection DT Specimen Test Name Result Units Ref Range 12/22/2024 13:34 BLOOD HEMOGLOBIN A1C 5.4 % 3.6 - 5.7 Comment: Values obtained from A1C measurements can vary. For typical A1C Comment: assays, a reported value of 7.0 could actually be between 6.72 and Comment: 7.28 if measured by a reference method. A reported value of 9.0 Comment: could actually be between 8.73 and 9.27. Ref: Comment: http://www.ngsp.org/CAPdata.asp 06/22/2024 14:03 BLOOD HEMOGLOBIN A1C 5.3 % [...] not documented this visit. Clinical Reminders Activity Alcohol Use Screen (AUDIT-C): Alcohol Screen: SCREEN FOR ALCOHOL (AUDIT-C) An alcohol screening test (AUDIT-C) was positive (score=10). 1. How often did you have a drink containing alcohol in the past year? Consider a drink to be a 12 ounce can or bottle of regular beer, 8 ounces of malt liquor, a 5 ounce glass of table wine, or a 1.5 ounce shot of liquor (like scotch, gin, or vodka). Four or more times a week 2. How many drinks containing alcohol did you have on a typical day when you were drinking in the past year? Five or six drinks 3. How often did you have six or more drinks on one occasion in the past year? Daily or almost daily Licensed Independent Provider notified of positive screen and need for follow-up. Name of provider notified: Izabel Arredondo COVID-19 Immunization: Frail/Elderly Screen: ADL Screen - Morton Index of Reese in Activities of Daily Living Record INDEX of ADL. Score = 18 1. Bathing: either sponge bath, tub bath or shower. Receives no assistance (gets in and out of tub by self, if tub is usual means of bathing). 2. Dressing: gets clothes from closets and drawers, including under-clothes, outer garments and using fasteners (including braces if worn). Gets clothes and dresses self without assistance. 3. Toileting: going to the toilet room for bowel and urine elimination; cleaning self after elimination and arranging clothes. (May use cane, walker, or wheelchair, and manage bedpan or commode, emptying same next morning). No assistance needed. 4. Transfer: Moves in and out of bed, or chair, without assistance (may use support object like cane or walker). 5. Continence: Controls urination and bowel movement completely by self. 6. Feeding: Feeds self without assistance. IADL Screen - [place] Instrumental Activities of Daily Living Scale Ability to use telephone: (1 point) Operates Telephone on own initiative; looks up and dials numbers. Shopping: (1 point) Takes care of all shopping needs independently. Food preparation: (1 point) Plans, prepares, and serves adequate meals independently. Housekeeping: (1 point) Performs light daily tasks such as dishwashing, bed making. Laundry: (1 point) Does personal laundry completely. Mode of transportation: (1 point) Travels independently on public transportation or drives own car. Responsibility for own medications: (0 points) Takes responsibility if medication is prepared in advance in separate dosages. Ability to handle finances: (1 point) Manages day-to-day purchases, but needs help with banking, major purchases, etc. Total score: 7 points 8 = High function, independent 0 = Low function, dependent Patient Education Documentation: LEARNING NEEDS ASSESSMENT: The patient/family/significant other reports no changes in learning needs. RSV Immunization: Respiratory Syncytial Virus (RSV) Vaccine: Refused Verisim (Abrysvo, RSVpreF vaccine). Immunization: RSV, BIVALENT, PROTEIN SUBUNIT RSVPREF, DILUENT RECONSTITUTED, 0.5 ML, PF Refusal Reason: PATIENT DECISION Patient refuses all immunization(s) in the RSV group Date Documented: 12/29/24 13:26 Suicide Screen: C-SSRS Screening [place] Suicide Severity Rating Scale (C-SSRS) screener 1. Over the past month, have you wished you were or wished you could go to sleep and not wake up? No 2. Over the past month, have you had any actual thoughts of killing yourself? No 3. Over the past month, have you been thinking about how you might do this? Response not required due to responses to other questions. 4. Over the past month, have you had these thoughts and had some intention of acting on them? Response not required due to responses to other questions. 5. Over the past month, have you started to work out or worked out the details of how to kill yourself? Response not required due to responses to other questions. 6. If yes, at any time in the past month did you intend to carry out this plan? Response not required due to responses to other questions. 7. In your lifetime, have you ever done anything, started to do anything, or prepared to do anything to end your life (for example, collected pills, obtained a gun, gave away valuables, went to the roof but didn't jump)? No 8. If YES, was this within the past 3 months? Response not required due to responses to other questions. Tdap Immunization: The patient declines to receive the recommended dose of Tdap vaccine. Immunization: TDAP Refusal Reason: PATIENT DECISION Patient refuses all immunization(s) in the TDAP group Date Documented: 12/29/24 13:29 Tobacco Use Screening: The patient is a former cigarette smoker. The patient formerly used other types of tobacco. Fall Screen: Patient was asked if he/she has had any falls within the past 12 months. Patients states no falls in past 12 months. Teaching Method: Education Topic: Falls Risk COVID-19 Immunization: Refused Pfizer Monovalent COVID-19 vaccine Immunization: COVID-19 (PFIZER), MRNA, LNP-S, PF, CHRISTOPHE-SUCROSE, 30 MCG/0.3 ML (AGES 12+ YEARS) Refusal Reason: PATIENT DECISION Patient refuses all immunization(s) in the COVID-19 group Date Documented: 12/29/24 13:31 /madhu/ PRANAY NGUYEN LICENSED PRACTICAL NURSE Signed: 12/29/2024 13:40 PRANAY NGUYEN [facility]
--- OUTSIDE RECORDS SUMMARY | 2025-02-05 09:00 | XMS_ITS | Encounter Summary ---
Author Name [facility] [place] [place] [facility] Address [address] [place] [id number] Care Team Providers Care Decorating Instructor Name Role Phone KHADIJAH LINN Primary Care [...] PLAN F May 26, 2007 PLAN F [id number] [phone] SBERJESSICA COLLIER RL PATIENT MEDICARE (WNR) MEDICARE (M) PART A Mar 26, 2002 PART A [id number] [phone] SBERAMIRACA RL PATIENT MEDICARE (WNR) MEDICARE (M) PART B Mar 26, 2002 PART B [id number] JESSICA GOODE RL PATIENT Selected Encounter This section includes the information on record at [place] for the Encounter. Date/Time Encounter Type Encounter Description Reason Provider Source Feb 05, 2025 01:00 PM OFFICE O/P EST MOD 30 MIN [facility] - IND ICD-10-CM F33.0 Major depressive disorder, recurrent, mild CORESIXTO IHCaleb Encounter Template Text not used by [place] Assessments - Encounter Diagnoses This section includes the primary and secondary diagnoses documented for the Encounter. Date/Time Primary/Secondary Diagnosis Diagnosis Name Provider Source Feb 22, 2025 11:55 AM PRIMARY Major depressive disorder, recurrent, mild CORE,[facility]TO [facility] Feb 22, 2025 11:55 AM SECONDARY Anxiety disorder, unspecified EYAD,[facility] Feb 22, 2025 11:55 AM SECONDARY Mild cognitive impairment of uncertain or unknown etiology EYAD,SIXTO ISLAS [facility] Plan of Treatment: Future Appointments (+ 6 months) and Future Tests (+/- 45 days) The Plan of Treatment section includes future care activities for [facility] [place] [facility] This section includes future appointments and future orders which are active, pending or scheduled. Future Appointments This section includes appointments that were scheduled to occur 6 months from the date of the Encounter, up to a maximum of 20 appointments. The data comes from all [place] treatment facilities. Appointment Date/Time Appointment Type Appointme nt Facility Name 2025 12:30 PM AMBULATORY - MEDICINE [facility] Apr 09, 2025 02:00 PM AMBULATORY - PSYCHIATRY [facility] Active, Pending, and Scheduled Orders This section includes a listing of several types of active, pending, and scheduled orders, including clinic medications orders, diagnostic test orders, procedure orders and consult orders; where the start date of the order is 45 days before the date of the Encounter or 45 days after the date of theEncounter. The data comes from all [place] treatment facilities. Test Date/Time Test Type Test Details Facility Name December 29, 2024 02:08 PM Consult Order W SLEEP DI SORDERS OUTPT Cons Community Action Worker's Choice [facility] Social History: Smoking Status (Most current) and Tobacco Use (All prior to encounter date) This section includes the most current, and the historical, smoking and tobacco- related health factors from the [place] facility where the Encounter took place. Current Smoking Status This section includes the most current smoking, or tobacco-related health factor, from the [place] facility where the Encounter took place. Date/Time Current Smoking Status Comment Rubi partida December 29, 2024 01:00 PM VA-TOBACCO USE FORMER OTHER TYPE [facility] Tobacco Use History This section includes a history of the smoking, or tobacco-related health factors, that were collected on or before the date of the Encounter. The data comes from the [place] facility where the Encounter took place. Date/Time Smoking Status/Tobacco Use Comment F acility December 29, 2024 01:00 PM VA-TOBACCO USE [...] 2005 12:53 PM TOBACCO CURRENT USER JANEL [facility] Encounter Notes: All associated encounter notes This section contains the clinical notes associated to the Encounter. Date/Time Encounter Note(s) Provider Source Feb 05, 2025 01:18 PM PRIMARY CARE NURSI NG NOTE: LOCAL TITLE: OUTPATIENT NURSING INTAKE NOTE (T) STANDARD TITLE: PRIMARY CARE NURSING NOTE DATE OF NOTE: FEB 05, 2025@13:18 ENTRY DATE: FEB 05, 2025@13:19:01 AUTHOR: VINCENT WILEY COSIGNER: URGENCY: STATUS: COMPLETED Hemoglobin A1C Results: [...] problems with drugs and/or alcohol? No 5. [place] Crisis Line pocket card was provided to patient. No/patient declined [facility] not documented this visit. Clinical Reminders Activity Advance Directive Education Screen: Patient received information regarding Advance Directives: Yes - Patient has been given information/education regarding Advance Directives. Patient advised to follow up with Social Work Service. Level of Understanding: Good COVID-19 Immunization: Patient Education Documentation: LEARNING NEEDS ASSESSMENT: The patient/family/significant other reports no changes in learning needs. /madhu/ VINCENT WILEY LICENSED PRACTICAL NURSE Signed: 02/05/2025 13:20 VINCENT WILEY [facility] Feb 05, 2025 12:33 PM PSYCHIATRY NOTE: LOCAL TITLE: [facility] PSYCHIATRY NOTE (T) STANDARD TITLE: PSYCHIATRY NOTE DATE OF NOTE: FEB 05, 2025@12:33 ENTRY DATE: FEB 05, 2025@12:33:58 AUTHOR: SIXTO CASTANO COSIGNER: URGENCY: STATUS: COMPLETED PSYCHIATRIC PROGRESS NOTE Time in: 1300 pm Time out: 1400 pm Total time: Therapy time: Date Treatment Plan is due: Jan Treatment Plan Goal: more energy CC: medication follow up HPI: [place] is a 89 year old male 10% SC for tinnitus. They went back to [facility] for 10 days for wifes birthday. reports he has to go to heart surgeon again. He has been very SOB with excertion and fatique . and report no problems sleeping. Denies nightmares . Appeitie good. He reports he had a nice time with 's granddaughters . He denies irritablity and snapppiness . Denies hallucination and delusions. Denies suicidal and homicdal thoughts or plans. Discussed treatment for his alcohol intake and offered VARC screen and MAT treatment . then reports cheated on him and it still bothers him . Offered RTC with his therapist and he declined. SUBSTANCE USE HX: Nicotine: denies Alcohol: 2 5ths of whiskey in 4 days. Discussed cutting down his alcohol Cannabis: denies ALLERGIES: ALLERGIES/ADVERSE REACTIONS Type: DRUG [...] Test Name Result Units Ref Range 12/22/2024 14:20 URINE URINE PH 6.0 5.0 - 8.0 URINE COLOR Light-Yellow Ref: [none] URINE CLARITY Clear Ref: Clear SPECIFIC GRAVITY 1.017 1.016 - 1.022 URINE PROTEIN Negative mg/dL Ref: Negative URINE GLUCOSE Negative mg/dL Ref: Negative URINE KETONES Negative mg/dL Ref: <=9 URINE BILIRUBIN Negative mg/dL Ref: <=0.4 UROBILINOGEN Negative mg/dL Ref: <=1 URINE BLOOD Negative mg/dL Ref: <=0.05 ESTERASE(WBC) Negative Anabel/uL Ref: Negative NITRITE, URINE Negative Ref: Negative RBC/HPF 1 /HPF Ref: <=4 SQ.EPTH 1 /HPF Ref: <=4 URINE MUCUS Present H Ref: Negative 12/22/2024 13:34 SERUM VITAMIN D (TOTAL) 51 ng/mL 30 - 60 Comment: VITD One expert panel recommended a target range of 30-40 ng/mL. 12/22/2024 13:34 BLOOD HEMOGLOBIN A1C 5.4 % 3.6 - 5.7 WBC COUNT 6.2 K/cmm 3.6 - 11.0 RBC COUNT 3.74 L M/cmm 4.47 - 5.83 HGB 13.5 L g/dL 13.6 - 17.4 HCT 39.0 L % 40.0 - 51.0 MCV 104.4 H fL 80.0 - 96.0 MCH 36.2 H pg 27.0 - 31.0 MCHC 34.6 g/dL 31.5 - 36.5 RDW 12.9 % 11.2 - 15.8 PLT 251 K/cmm 150 - 400 MPV 8.7 fL 7.4 - 11.4 NEUTROPHIL % 68.6 % 54.0 - 78.0 LYMPHS % 19.6 L % 21.0 - 51.0 MONOCYTES % 9.4 H % 4.0 - 8.0 EOSINOPHIL % 2.0 % 0.0 - 3.0 BASOPHIL % 0.4 % 0.0 - 3.0 NEUTRO# 4.3 K/cmm 1.9 - 8.6 LY # 1.2 K/cmm 0.8 - 5.0 MONO # 0.6 K/cmm 0.1 - 0.9 EOSINO# 0.1 K/cmm 0.0 - 0.3 BASO # 0.0 K/cmm 0.0 - 0.3 NRBC 0.2 /100 WBC None Established - None Established Comment: Values obtained from A1C measurements can vary. For typical A1C Comment: assays, a reported value of 7.0 could actually be between 6.72 and Comment: 7.28 if measured by a reference method. A reported value of 9.0 Comment: could actually be between 8.73 and 9.27. Ref: Comment: http://[email or web address].org/CAPdata.asp 12/22/2024 13:34 PLASMA GLUCOSE 94 mg/dL 74 - 99 SODIUM 139 mmol/L 134 - 144 POTASSIUM 4.9 mmol/L 3.5 - 5.1 CHLORIDE 107 mmol/L 99 - 112 CO2 25 mmol/L 22 - 30 BUN 23.1 mg/dL 8.4 - 25.7 CREATININE 1.2 mg/dL 0.7 - 1.3 CALCIUM 9.2 mg/dL 8.6 - 10.3 EGFR (CALCULATED) 59 mL/min/1.73m2 BSA ANION GAP 12 mmol/L 10 - 20 AST/SGOT 84 H U/L 10 - 40 ALT/SGPT 74 H U/L 0 - 55 ALKPHOS 60 U/L 40 - 150 BILIRUBIN, TOTAL 0.6 mg/dL 0.2 - 1.2 PROTEIN, TOTAL 7.7 g/dL 6.4 - 8.3 ALBUMIN 3.9 g/dL 3.5 - 4.8 CHOLESTEROL 155 mg/dL 0 - 199 LDL CHOLESTEROL 101 H mg/dL 0 - 99 HDL CHOLESTEROL 36 L mg/dL Ref: >=40 TRIGLYCERIDE 214 H mg/dL 0 - 149 TSH 2.740 uIU/mL 0.350 - 4.940 Comment: GLUCOSE The ADA recommends a fasting glucose of 99 mg/dL as the Comment: GLUCOSE upper limit of normal. Comment: TP Per package insert reference range for recumbent is 6.0 to 7.8 Comment: TP g/dL. Plasma samples will generally have higher values (about Comment: TP 0.2 to 0.4 g/dL higher) due to presence of fibrinogen. Comment: TRIG REFERENCE RANGE: BORDERLINE HIGH: 150-199 mg/dL HIGH: 200-499 Comment: TRIG mg/dL VERY HIGH: >=500 mg/dL Comment: CHOL REF RANGE: BORDERLINE HIGH: 200-239 mg/dL HIGH: >=240 mg/dL Comment: HDLC Values >60 are a negative risk factor for heart disease. Comment: DLDL REF RANGE: NEAR OR ABOVE OPTIMAL: 100-129 mg/dL BORDERLINE Comment: DLDL HIGH: 130-159 mg/dL HIGH: 160-189 mg/dL VERY HIGH: >=190 CY - Cytopathology (max 6 months) No data available EM - Electron Microscopy (max 6 months) ------ No data available MARÍA - Microbiology (max 6 months) No data available SP - Surgical Pathology (max 6 months) ----- No data available REVIEW OF SYSTEMS: Muscle strength and Tone: denies Gait and Station: denies PHYSICAL EXAM: Vitals: T: 97.1 F [36.2 C] (02/05/2025 13:14) P: 84 (02/05/2025 13:14) R: 16 (02/05/2025 13:14) BP: 135/80 (02/05/2025 13:14) W: 168.65 lb. [76.50 kg] (02/05/2025 13:14) BMI: 24.2 Pain: 0 (02/05/2025 13:14) Pulse OX: 95% (02/05/2025 13:14) MENTAL STATUS EXAMINATION: Level of Consciousness: Alert and Oriented to 4 Behavior: Cooperative - Eye Contact: Good Grooming & Hygiene: Good - Dress: Kempt Psychomotor Activity: WNL Speech: Normal rate, volume and prosody Cognition: Grossly intact Thought Process: Coherent and goal directed Thought Content: Delusions: Absent Hallucinations: Absent Suicidal Ideation: Denied. - Intent to : Absent Homicidal Ideation: Denied Mood: Slightly depressed Affect: Appropriate Insight: Good - Judgment: Good [...] mental health hospitalization(s) History of suicide attempt(s) Medical conditions and health-related problems Psychological conditions Protective factors: Supportive and caring family and friends Connectedness to community, school, family, friends [place] skills (such as problem-solving, conflict resolution, anger management, impulse control, etc.) Access to appropriate medical and mental health care Access to immediate and ongoing support and care Violence assessment completed: Yes Prior history of violence: No The risk of violence towards others is considered: Low PSYCHOTHERAPY NOTE Therapy provided: supportive Issues discussed: drinking and liver enzyme elevated Goals of therapy: active listening, support, education on alcohol Treatment plan: continue plan of care MEDICATION MANAGEMENT TREATMENT PLAN DIAGNOSIS: PTSD, alcohol dependence GOALS OF THERAPY: lower alcohol intake METHOD OF THERAPY/INTERVENTIONS: Will continue to assess adherence and efficacy of medications Will continue to monitor symptoms and reassess at the next apt PROGRESS TOWARDS GOAL: Improvement with compliance noted - patient reports symptoms improved TREATMENT PLAN UPDATED: Date: Jan Treatment Plan has been discussed with patient/caregiver. IMPRESSION/FORMULATION: Discussed veterans alcohol intake . reports he went through 2 5th's of whiskey in 4 days . [place] reports he will walk by the bottle and take a sip frequently . He drink salty Jessica whiskey. Discussed with elevates liver enzymes . He stated I will start cutting down. Discussed VARC screen and treatment. He declined currently. DIAGNOSIS/PLAN: Depression and anxiety, mild cognitive diesorder 1. Venlafaxine 150 mg daily 2. Continue therapy Alyssa [...] /madhu/ SIXTO CASTANO CLINICAL NURSE SPECIALIST Signed: 02/08/2025 06:21 SIXTO CASTANO
--- OUTSIDE RECORDS SUMMARY | 2025-02-22 09:50 | XMS_ITS | Encounter Summary ---
Author Name [facility] [place] [place] Organization [facility] [place] Address [address] [place] [address] Care Team Providers Care Lens Assistant Name Role Phone KHADIJAH LINN Primary Care [...] PLAN F May 26, 2007 PLAN F [id number] [phone] SBERJESSICA COLLIER RL PATIENT MEDICARE (WNR) MEDICARE (M) PART B Mar 26, 2002 PART B [id number] [phone] SBERNACA RL PATIENT MEDICARE (WNR) MEDICARE (M) PART A Mar 26, 2002 PART A [id number] JAKYVIANCAAMIRAJESSICA RL PATIENT Selected Encounter This section includes the information on record at [place] for the Encounter. Date/Time Encounter Type Encounter Description Reason Provider Source Feb 22, 2025 01:50 PM MTMS BY PHARM ADDL 15 MIN CLINICAL PHARMACY ICD-10-CM Z51.81 Encounter for therapeutic drug level monitoring ARTURO PIKE [facility] Encounter Template Text not used by [place] Assessments - Encounter Diagnoses This section includes the primary and secondary diagnoses documented for the Encounter. Date/Time Primary/Secondary Diagnosis Diagnosis Name Provider Source Feb 22, 2025 02:01 PM PRIMARY Encounter for therapeutic drug level monitoring ARTURO PIKE [facility] Plan of Treatment: Future Appointments (+ 6 months) and Future Tests (+/- 45 days) The Plan of Treatment section includes future care activities for the patient from all [place] treatmentfacilities. This section includes future appointments and future orders which are active, pending or scheduled. Future Appointments This section includes appointments that were scheduled to occur 6 months from the date of the Encounter, up to a maximum of 20 appointments. The data comes from all [place] treatment facilities. Appointment Date/Time Appointment Type Appointme nt Facility Name 2025 12:30 PM [facility] Apr 09, 2025 02:00 PM AMBULATORY - PSYCHIATRY CL [facility] Encounter Notes: All associated encounter notes This section contains the clinical notes associated to the Encounter. Date/Time Encounter Note(s) Provider Source Feb 22, 2025 01:51 PM PHARMACY CONSULT: LOCAL TITLE: PRIOR AUTHORIZATION DRUG REQUEST CONSULT NOTE (C) STANDARD TITLE: PHARMACY CONSULT DATE OF NOTE: FEB 22, 2025@13:51 ENTRY DATE: FEB 22, 2025@13:51:25 AUTHOR: ARTURO PIKE EXP COSIGNER: URGENCY: STATUS: COMPLETED 3. Denied, specify alternative The medical record has been reviewed with regard to this prior authorization drug request. Medication requested: Apixaban Medication indication: AFib Medical history relevant to this request: Pt is not Eligible for a DOAC. Because pt would be on Triple Therapy. Pt is on aspirin (NON-VA med list) and Plavix. To receive the DOAC -> Pt would need to stop aspirin and/or Plavix. If pt cannot stop aspirin and Plavix patients other option for OAC [facility].If patient would choose to stay on the Apixaban pt will need to receive Rx from Pvt [facility] and pay for at outside Pharmacy. Please reconsult with appropriate AC. The request does not meet criteria - Contraindication(s) exist to the medication/item being requested Comment: Triple Therapy Time spent on encounter = 30 minutes /madhu/ ARTURO PIKE CLINICAL STEEPING PRESS OPERATOR Signed: 02/22/2025 14:02 ARTURO PIKE [facility]
--- OUTSIDE RECORDS SUMMARY | 2025-03-05 11:00 | XMS_ITS | Encounter Summary ---
Author Organization [facility] Address [address], [address] [place] [address] Care Team Providers Care Grain Manager Name Role Phone Onofre Pineda Primary Care Provider [phone] Reason for Referral * Eval and Treat (Routine) - Closed Specialty Diagnoses / Procedures Referred By Leslie carreon Referred To Contact Cardiac Rehabilitation Diagnoses Shortness of breath Coronary artery disease with angina pectoris, unspecified vessel or lesion type, unspecified whether osage or transplanted heart S/P angioplasty with stent Mixed hyperlipidemia Essential hypertension Marissa Jackson APRN - CNP [address] [place] [address] Phone: tel: fax: Referral ID Status Reason Start Date Expiration Date V isits Requested Visits Authorized [id number] Closed Specialty Services Required 03/05/2025 09/01/2025 1 1 Question Answer Reason For External Referral? Location Reason for referral to cardiac rehab Other (specify) Other reduced EF of 50%-shortness of breath/tiredness. My clinical question is: patient is from [place] and would like to do this at [place] Comments The patient can be scheduled with any member of the group, including the provider with the first available appointments. Reason for Visit * Reason Comments Coronary Artery Disease HX:CAD, SOB. Fol low up for echo results - CAM completed as well.He has been feeling okay. SOB/tiredness a couple nights ago, scared his . Denies: CP, Lightheaded/dizziness, Palpitations. Encounter Details Date Type Department Care Team (Late st Contact Info) Description 03/05/2025 11:00 AM EDT Office Visit [facility] CARDIOLOGY Part of [facility] [address] [place] [address] Marissa Jackson, CAMPUS WELLNESS COORDINATOR - DISTANCE LEARNING TECHNICIAN [address] [place] [address] Shortness of breath (Primary Dx); Coronary artery disease with angina pectoris, unspecified vessel or lesion type, unspecified whether osage or transplanted heart; S/P angioplasty with stent; Mixed hyperlipidemia; Essential hypertension Social History Tobacco Use Types Packs/Day Years Used Date Smoking Tobacco: Former Cigarettes 1 40 0 08/1966 - 08/2006 Cigars Smokeless Tobacco: Former Chew Tobacco Cessation:Counseling Given: No Alcohol Use Standard Drinks/Week Comments Not Currently 0 (1 standard drink = 0.6 oz pur e alcohol) Social Connection and Isolation Panel [NHANES] A nswer Date Recorded Frequency of Communication with Friends and Fami ly Patient declined 08/12/2019 Frequency of Social Gatherings with Friends and Family Patient declined 08/12/2019 Attends Yazdanism Services Patient declined 07/26 Active Member of Clubs or Organizations Patient declined 08/12/2019 Attends Club or Organization Meetings Patient de clined 08/12/2019 Marital Status Patient declined 08/12/2019 Interpersonal Safety Domain Source: IP Abuse Scr eening Answer Date Recorded Read-Only, Retired: Physical Abuse Denies 09/18/2023 Verbal abuse Not on file 09/18/2023 Read-Only, Retired: Emotional abuse Denies 09/18/2023 Read-Only, Retired: Financial Abuse Denies 09/18/2023 Read-Only, Retired: Sexual abuse Denies 09/18/2023 Sex and Gender Information Value Date Recorded Sex Assigned at Not on file Legal Sex Male 3:29 PM EST Gender Identity Not on file Sexual Orientation Not on file documented as of this encounter Last Filed Vital Signs Vital Sign Reading Time Taken Comments Blood Pressure 138/88 03/05/2025 11:16 AM EDT Pulse 85 03/05/2025 11:16 AM EDT Temperature - - Respiratory Rate 18 03/05/2025 11:16 AM EDT Oxygen Saturation 98% 03/05/2025 11:16 AM EDT Inhaled Oxygen Concentration - - Weight 74.5 kg (164 lb 3.2 oz) 03/05/2025 11:16 AM EDT Height 165.1 cm (5' 5 ) 03/05/2025 11:16 AM EDT Body Mass Index 27.32 03/05/2025 11:16 AM EDT documented in this encounter Patient Instructions * Patient Instructions* Yancy Dubon MA - 03/05/2025 11:11 AM EDT SURVEY: You may be receiving a survey from [employer] regarding your visit today. Please complete the survey to enable us to provide the highest quality of care to you and your family. If you cannot score us a very good on any question, please call the office to discuss how we could have made your experience a very good one. Thank you. documented in this encounter Progress Notes * Marissa Jackson, MISA - DISTANCE LEARNING TECHNICIAN - 03/05/2025 2:26 PM EDT Images from the original note were not included. Patient: Hardik Solis : 1935 Date of Visit: March 05, 2025 REASON FOR VISIT / CONSULTATION: Coronary Artery Disease (HX:CAD, SOB. Follow up for echo results -CAM completed as well.//He has been feeling okay. SOB/tiredness a couple nights ago, scared his . //Denies: CP, Lightheaded/dizziness, Palpitations. ) History of Present Illness: Dear Onofre Pineda DO, I had the pleasure of seeing Hardik Solis in my office today. Mr. Solis is a 89 y.o. male with a history of difficult to control hypertension. He reports have CABG in October and January in 2006 at [facility]. He also states he had a stent placed in the D1 branch of his LAD on 09/13/2017 at [facility]. He also has a history of a heart attack. He has had no chest pain at that time of his stent or bypass surgery. He had a stress test and an echo done on 08/31/2019. His stress test imaging was fairlyunremarkable but his EF was 46% with wall motion abnormalities and was low-intermediate risk for coronary artery disease. His EF on his Echo was on 50%. Stress test done on 08/12/23: intermediate risk for significant ischemia. EF is 51%. One stent placed on 09/18/[address] Mcmullen: Patent proximal Ramus(High OM) stent followed by 90% stenosis reduced to 0% using 2.25x15 mm Resolute [place] SOPHIA. EKG that was done on 02/03/2025 by Onofre Pineda, showed sinus rhythm with pac's Echocardiogram done on showed a mildly reduced EF: 50-55% compared to his previous EF of 55-60%. CAM monitor done on 02/12/2025 Baseline rhythm is sinus with an average heart rate of 82 bpm, ranging between 69 and 118 bpm. Rare isolated PACs and PVCs noted with 2 short runs of ectopic atrial tachycardia, the longest lasted for only 4 beats at an average heart rate of 121 bpm. No patient activated events recorded. Overall fairly unremarkable study. Mr. Solis is here today for follow up on his testing. Mr. Solis reports that he is doing about the same since last visit. He says his shortness of breath is about the same as of last visit, but hisdaughter reports he does not get up an exercise as much as he used to due to lack of motivation. Hecontinues to cut back on his drinking and is only drinking a shot of liquor a day as opposed to hisregular fifth of liquor daily. He says that he did have a twinge/sharp in his chest that lasted onesecond this past week, and was not associated with exertion but other than this denies any significant current or recent chest pain, tightness, or pressure. He does report intermittent palpitations that have remained unchanged since last visit. He denies any lightheadedness, dizziness. He denies any falls or near falls. H denies any blood in his urine or stool or black tarry stools. He did just have seven teeth pulled. He denies any chest pain now or in the recent past, abdominal pain, bleedingproblems, problems with his medications or any other concerns at this time. Exercise Tolerance: Mr. Solis reports that he has a fairly good exercise tolerance. His says that he could walk a mile without developing chest discomfort or significant shortness of breath. Weight is down four pounds since last visit.. Shortness of breath stable. No significant signs of fluid overload. Lungs are clear. No lower extremity edema noted. Wt Readings from Last 3 Encounters: 03/05/25 74.5 kg (164 lb 3.2 oz) 02/15/25 76.2 kg (167 lb 15.9 oz) 02/12/25 76.2 kg (168 lb) PAST MEDICAL HISTORY: Past Medical History: Diagnosis Date Bladder stone BPH (benign prostatic hyperplasia) CAD (coronary artery disease) Chronic bronchitis (HCC) Depression Epidermal cyst of neck GERD without esophagitis History of echocardiogram 08/31/2019 EF 50%. Inferoseptal wall is abnormal which is not unsual post open heart surgery. Mild grade diastolic dysfunction seen. History of stress test 08/31/2019 EF 46%. low/intermediate risk for coronary artery disease Hyperlipidemia type II Irregular heart beat Kidney stone Nocturia OAB (overactive bladder) Obstructive sleep apnea Osteoarthritis Sebaceous cyst SOB (shortness of breath) CURRENT ALLERGIES: Patient has no known allergies. REVIEW OF SYSTEMS: 14 systems were reviewed. Pertinent positives and negatives as above, all else negative. Past Surgical History: Procedure Laterality Date APPENDECTOMY CARDIAC CATHETERIZATION Left 09/05/2023 Dr Villasenor/[facility]/left radial CARDIAC PROCEDURE N/A 09/05/2023 Left heart cath / coronary angiography performed by Johan Villasenor MD at [facility] CARDIAC CATH/IR LAB CARDIAC PROCEDURE N/A 09/18/2023 garrett / Percutaneous coronary intervention performed by Kathy Mcmullen MD at [facility] CARDIAC CONCRETE BUCKET LOADER CAROTID STENT PLACEMENT 09/13/2017 CORONARY ANGIOPLASTY WITH STENT PLACEMENT 09/18/2023 Dr Mcmullen CORONARY ARTERY BYPASS GRAFT 2006 and February [facility] HERNIA REPAIR WRIST SURGERY Social History: Social History Tobacco Use Smoking status: Former Current packs/day: 0.00 Average packs/day: 1 pack/day for 40.0 years (40.0 ttl pk-yrs) Types: Cigars, Cigarettes Start date: 08/1966 Quit date: 08/2006 Years since quittin.5 Smokeless tobacco: Former Types: Chew Vaping Use Vaping status: Never Used Substance Use Topics Alcohol use: Not Currently Drug use: Not Currently CURRENT MEDICATIONS: Outpatient Medications Marked as Taking for the 03/05/25 encounter (Office Visit) with Marissa Jackson APRN - [facility] Medication Sig Dispense Refill clopidogrel (PLAVIX) 75 MG tablet Take 1 tablet by mouth daily carvedilol (COREG) 12.5 MG tablet Take 1 tablet by mouth 2 times daily 180 tablet 3 Magnesium 400 MG CAPS Take by mouth venlafaxine (EFFEXOR XR) 150 MG extended release capsule Take 1 capsule by mouth daily atorvastatin (LIPITOR) 80 MG tablet TAKE 1 TABLET BY MOUTH AT BEDTIME 90 tablet 3 Multiple Vitamin (MULTI VITAMIN DAILY PO) Take by mouth finasteride (PROSCAR) 5 MG tablet Take 1 tablet by mouth daily 90 tablet 3 ezetimibe (ZETIA) 10 MG tablet Take 1 tablet by mouth daily 90 tablet 3 aspirin 81 MG tablet Take 1 tablet by mouth daily escitalopram (LEXAPRO) 20 MG tablet Take 1 tablet by mouth daily losartan (COZAAR) 50 MG tablet Take 1 tablet by mouth daily pantoprazole (PROTONIX) 20 MG tablet Take 1 tablet by mouth 2 times daily FAMILY HISTORY: family history includes Cancer in his father; Heart Attack in his father; Heart Attack (age of onset: 96) in his brother. Physical Examination: BP 138/88 (BP Site: Left Upper Arm, Patient Position: Sitting, BP Cuff Size: Medium Adult) Pulse 85 Resp 18 Ht 1.651 m (5' 5 ) Wt 74.5 kg (164 lb 3.2 oz) SpO2 98% BMI 27.32 kg/m?? Body mass index is 27.32 kg/m??. Constitutional: He is oriented to person. He appears well-developed and well- nourished. In no acutedistress. HEENT: Normocephalic and atraumatic.No JVD present. Carotid bruit is not present. No mass and no thyromegaly present. No lymphadenopathy present. Cardiovascular: Normal rate, regular rhythm, normal heart sounds. Exam reveals no gallop and no friction rubs. 1/6 systolic murmur, 2nd intercostal space on the RIGHT just lateral to the sternum. Pulmonary/Chest: Effort normal and breath sounds normal. No respiratory distress. He has no wheezes, rhonchi or rales. Abdominal: Soft, non-tender. Bowel sounds and aorta are normal. He exhibits no organomegaly, mass or bruit. Extremities: None. No cyanosis or clubbing. 2+ radial and carotid pulses. Distal extremity pulses: 2+ bilaterally. Neurological: He is alert and oriented to person. No evidence of gross cranial nerve deficit. Coordination appeared normal. Skin: Skin is warm and dry. There is no rash or diaphoresis. Psychiatric: He has a normal mood and affect. His speech is normal and behavior is normal. MOST RECENT LABS ON RECORD: Lab Results Component Value Date WBC 13.0 (H) 08/27/2023 HGB 13.8 08/27/2023 HCT 40.9 08/27/2023 PLT 242 08/27/2023 CHOL 131 08/27/2023 TRIG 176 (H) 08/27/2023 HDL 36 (L) 08/27/2023 NA 137 08/27/2023 K 4.2 08/27/2023 CL 102 08/27/2023 CREATININE 1.1 08/27/2023 BUN 22 08/27/2023 CO2 26 08/27/2023 ASSESSMENT: 1. Shortness of breath 2. Coronary artery disease with angina pectoris, unspecified vessel or lesion type, unspecified whether osage or transplanted heart 3. S/P angioplasty with stent 4. Mixed hyperlipidemia 5. Essential hypertension PLAN: Reviewed his most recent blood work that was done by Onofre Pineda DO on 02/09/2025: Hemoglobin: 13.7 and Creatinine: 1.23 BUN: 18 Mildly Reduced Ejection Fraction seen on most recent echocardiogram: EF:50-55% with RV dysfunction compared to previous echo that showed EF: 55% Beta Arash: INCREASE to Carvedilol (Coreg) 12.5 mg twice daily to help with his heart strength aswell as intermittent palpitations. I also discussed the potential side effects of this medication including lightheadedness and dizziness and instructed them to stop the medication of this occurs andcall our office if this occurs. RICHIE Inibitor/ARB: Continue losartan (Cozaar) 50 mg daily. We discussed repeating a cardiovascular stress test, however at this time we agreed that since his symptoms are stable and not any worse than before we would hold off on this. However he did express interest in doing cardiac rehab to better strengthen his mobility and his heart, which I think is very reasonable. Therefore I did place a referral for him for this. Atherosclerotic Heart Disease: S/P CABG x2 2006 and January, S/P Stent in 2018, appears stable. S/P stent on 09/18/23. Continues to have shortness of breath with no clear etiology. An echocardiogram was scheduled at his last viist, however this was not completed. Antiplatelet Agent: Continue Xarelto 2.5 mg twice daily and continue aspirin 81 mg daily. I also reminded them to watch for signs of bloody or black tarry stools and stop the medication immediately if this develops as this could be life threatening. Beta Arash: INCREASE to Carvedilol (Coreg) 12.5 mg twice daily. I also discussed the potential side effects of this medication including lightheadedness and dizziness and instructed them to stop the medication of this occurs and call our office if this occurs. Anti-anginal medications: Continue nitroglycerin 0.4 mg tablets as needed for chest pain. Cholesterol Reduction Therapy: Continue Atorvastatin (Lipitor) 80 mg daily. And continue Zetia 10 mg daily. Additional counseling: I advised them to call our office or go to the emergency room if they developed worsening or persistent chest pain or increased shortness of breath as this could be life threatening. Essential Hypertension: Controlled Beta Arash: INCREASE to Carvedilol (Coreg) 12.5 mg twice daily. I also discussed the potential side effects of this medication including lightheadedness and dizziness and instructed them to stop the medication of this occurs and call our office if this occurs. RICHIE Inibitor/ARB: Continue losartan (Cozaar) 50 mg daily. Hyperlipidemia: Mixed. Last LDL was 101 on 12/2024 done by Onofre Pineda DO Cholesterol Reduction Therapy: Continue Atorvastatin (Lipitor) 80 mg daily. Cholesterol Reduction Therapy: Continue ezetimide (Zetia) 10 mg daily. Discussed Repatha at his last visit, he would like to continue to hold off on this, but will re-evaluate at his next visit in the office. In the meantime, I encouraged Mr. Solis to continue to take his other medications. FOLLOW UP: I told Mr. Solis to call my office if he had any problems, but otherwise I asked him to Return in about 6 months (around 09/05/2025). However, I would be happy to see him sooner should the need arise. I discussed patient's symptoms and treatment plan with Dr Villasenor, he was in agreement with the planand follow up. Sincerely, Marissa Jackson CNP [facility] Excavating Machine Operator [address] [place] [phone] , I believe that the risk of significant morbidity and mortality related to the patient's current medical conditions are: Intermediate. At least 50 minutes were spent during prep work, discussion and exam of the patient, and follow up documentation and all of their questions were answered. March 05, 2025 documented in this encounter Plan of Treatment Upcoming Encounters Date Type Department Care Team (Late st Contact Info) Description 10/11/2025 1:40 PM EST Office Visit [facility] CARDIOLOGY Part of [address] [address] Johan Villasenor MD [address] [place], [place] [id number] 6 month Scheduled Procedures Name Priority Associated Diagnoses Date/Ti me LEFT VENTRICULOGRAPHY Abnormal stress test Scheduled Referrals Name Type Priority Associated Diagnoses Orde r Schedule External Referral To Cardiac Rehab Outpatient Referral Routine Shortness of breath Coronary artery disease with angina pectoris, unspecified vessel or lesion type, unspecified whether osage or transplanted heart S/P angioplasty with stent Mixed hyperlipidemia Essential hypertension Ordered: 03/05/2025 documented as of this encounter Visit Diagnoses Diagnosis Shortness of breath- Primary Coronary artery disease with angina pectoris, unspecified vessel or lesion type, unspecified whether osage or transplanted heart S/P angioplasty with stent Postsurgical percutaneous transluminal coronary angioplasty status Mixed hyperlipidemia Essential hypertension Unspecified essential hypertension documented in this encounter Additional Health Concerns Assessment Noted Time A Body Mass Index follow-up plan has been documented for the patient 08/08/2022 4:03 PM EST documented as of this encounter Care Teams Grain Manager Relationship Specialty Start Date End Date Onofre Pineda DO PCP - General Internal Medicine 08/12/19 documented as of this encounter
--- OUTSIDE RECORDS SUMMARY | 2025-03-05 12:15 | XMS_ITS | Encounter Summary ---
Author Name [facility] [place] Organization [facility] Address [address] [place] [id number] Care Team Providers Care [employer] Manager Name Role Phone KHADIJAH LINN Primary Care Provider Unavailabl e Insurance Providers: All historical and current [...] PLAN F May 26, 2007 PLAN F [id number] [phone] JESSICA GOODE RL PATIENT MEDICARE (WNR) MEDICARE (M) PART A Mar 26, 2002 PART A [id number] JESSICA GOODE RL PATIENT MEDICARE (WNR) MEDICARE (M) PART B Mar 26, 2002 PART B [id number] JAKYVIANCAAMIRAJESSICA RL PATIENT Selected Encounter This section includes the information on record at [place] for the Encounter. Date/Time Encounter Type Encounter Description Reason Pro vider Source Mar 05, 2025 04:15 PM Outpatient Encounter CLINICAL PHARMACY [facility] Encounter Template Text not used by [facility] Plan of Treatment: Future Appointments (+ 6 months) and Future Tests (+/- 45 days) The Plan of Treatment section includes future care activities for the patient from [facility] [place] [facility]. This section includes future appointments and future orders which are active, pending or scheduled. Future Appointments This section includes appointments that were scheduled to occur 6 months from the date of the Encounter, up to a maximum of 20 appointments. The data comes from all [place] treatment facilities. Appointment Date/Time Appointment Type Appointme nt Facility Name 2025 12:30 PM AM[facility]INE [facility] Apr 09, 2025 02:00 PM AMBULATORY - PSYCHIATRY CL [facility] Encounter Notes: All associated encounter notes This section contains the clinical notes associated to the Encounter. Date/Time Encounter Note(s) Provider Source Mar 05, 2025 04:15 PM PHARMACY NOTE: LOCAL TITLE: PHARMACY OUTPATIENT NOTE (T) STANDARD TITLE: PHARMACY NOTE DATE OF NOTE: MAR 05, 2025@16:15 ENTRY DATE: MAR 05, 2025@16:16 AUTHOR: CODY TAVAREZ EXP COSIGNER: URGENCY: STATUS: COMPLETED Non-VA Care Pharmacy Note Pharmacy received the following prescriptions from an outside provider: [facility] Provider Name: Marissa Jackson Practice Name: cardiology Address: [address] [place] [address] [place], [place] Drug Name: carvedilol Strength: 12.5mg Quantity: 180 Instructions: Take one tablet po BID Refills: 3 It has been determined that this patient is not eligible for the outside prescription because he/she does not meet the criteria for an outside prescription OR does not have an approved consult. The above Non-VA prescription(s) has been discontinued and can no longer be processed by the [facility]. If the patient receives future approval for care from this community care provider, the Non-VA provider would need to electronically resend and/or refax the prescription(s). If the VA Provider agrees with the outside provider's recommendations, orders need to be entered by the VA provider in CPRS in order for patient to receive medication from the [facility] Pharmacy. /madhu/ CODY TAVAREZ SUPERVISORY PHARMACIST Signed: 03/05/2025 16:22 Receipt Acknowledged By: 03/05/2025 16:23 /es/ HARI BENTLEY NURSE PRACTITIONER for CODY CASH [facility]
--- OUTSIDE RECORDS SUMMARY | 2025-03-18 04:04 | XMS_ITS | Continuity of Care Document ---
Author Name [facility] Organization [facility] Care Team Providers Care Economic Research Analyst Name Role Phone [facility] Unavailable Unavailable Problems Combined list of problems from Department of Defense and Veterans Affairs facilities. It does not include entries that were removed or entered in error. Problem Status Onset Date Problem Type Date of Resolution Comments Source Abnormal liver function Active Condition [facility] Anxiety Active Condition [facility] Benign essential hypertension (SNOMED CT 3235505) Active Condition [facility] Benign prostatic hyperplasia (SNOMED CT 622194384) Active Condition [facility] COPD - Chronic Obstructive Pulmonary Disease (SCT 69620290) Active Condition [facility] Coronary artery disease (SNOMED CT 43122157) Active Condition Dec 02, 2006 Entered By: LEELA PICKENS Comment: CABG X'S 5 11/11/06([facility])Mar 12, 2007 Entered By: LEELA PICKENS Comment: REPEAT CABG X'S 4 02/01/07Nov 04, 2012 Entered By: LEELA PICKENS Comment: 10/08/12 C. CATH: NO ISCHEMIA; EF 47% [facility] Esophagitis Active Condition [facility] Exposure to potentially hazardous substance Active Condition [facility] GERD - Gastro-Esophageal Reflux Disease (SCT 206378578) Active Condition [facility] History of malignant melanoma of the skin Active Condition [facility] History of polyp of colon Active Condition Mar 11, 2012 Entered By: LEELA PICKENS Comment: colonoscopy March 02, 2011; repeat 5 years [facility] Hyperlipidemia (SNOMED CT 93357573) Active Condition Jun 17, 2007 Entered By: LEELA PICKENS Comment: intolerance to statins [facility] Mild cognitive disorder Active Condition [facility] Obstructive sleep apnea of adult (SNOMED CT 0782137649837) Active Condition [facility] Recurrent depression Active Condition [facility] Sensorineural hearing loss, bilateral (SNOMED CT 660475470) Active Condition [facility] Sleep apnea Active Condition [facility] Urinary frequency Active Condition KANE CHINCHILLA [facility] Diagnosis: ICD-10-CM Z51.81 Encounter for therapeutic drug level monitoring Active Diagnosis JOSS Jenkins [facility] Diagnosis: ICD-10-CM F33.0 Major depressive disorder, recurrent, mild Active Diagnosis [facility] Diagnosis: ICD-10-CM 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 Medication Details Route Status Patient Instructions Prescription Expires Prescription Number Last Dispense Date Ordering Provider Order Date Order Qty Source ACETAMINOPH EN TAB TAKE 500 MG - 2 TABS BY MOUTH THREE TIMES A DAY ORAL ACTIVE XENIA BECERRA 2015 [facility] ACIDOPHILUS CAP,ORAL TAKE BY MOUTH ORAL ACTIVE RADHA JOHN 2016 [facility] ASPIRIN 81MG TAB,EC TAKE ONE TABLET BY MOUTH EVERY DAY WITH BREAKFAS T ORAL ACTIVE LEELA PICKENS E 2007 [facility] ATORVASTATI N CA 80MG TAB TAKE ONE TABLET BY MOUTH AT BEDTIME ORAL SUSPEND ED 12/30/2025 [id number] 5 ERIC LINN HARPAL A 2024 90 [facility] ATORVASTATI N CA 80MG TAB TAKE ONE TABLET BY MOUTH AT BEDTIME ORAL DISCONT INUED 06/30/2025 [id number] 5 ERIC LINN HARPAL A 2024 90 [facility] ATORVASTATI N CA 80MG TAB TAKE ONE TABLET BY MOUTH AT BEDTIME ORAL DISCONT INUED 04/03/2025 [id number] 4 ERIC LINN HARPAL A 2023 90 [facility] ATORVASTATI N CA 80MG TAB TAKE ONE TABLET BY MOUTH AT BEDTIME ORAL DISCONT INUED 12/19/2024 [id number] 4 KAVEH,RE HARPAL A 2023 90 [facility] CALCIUM CARBONATE TAB,CHEWABL E CHEW AND SWALLOW BY MOUTH TWICE A DAY WITH MEALS ORAL ACTIVE DORARADHA BALTAZAR Shiva [address] [facility] [facility] CARVEDILOL 12.5MG TAB TAKE ONE-HALF TABLET BY MOUTH TWICE A DAY ORAL SUSPEND ED 03/06/2026 [id number] 5 Caleb BENTLEY A 2024 90 [facility] CARVEDILOL 12.5MG TAB TAKE ONE-HALF TABLET BY MOUTH TWICE A DAY ORAL DISCONT INUED 05/30/2025 [id number] 5 KAVEH,RE HARPAL A 2023 90 [facility] CARVEDILOL 12.5MG TAB TAKE ONE-HALF TABLET BY MOUTH TWICE A DAY ORAL DISCONT INUED 06/24/2024 [id number] 4 KAVEH,RE HARPAL A 2022 90 [facility] CLOPIDOGREL BISULFATE 75MG TAB TAKE ONE TABLET BY MOUTH EVERY DAY INDICATI ON(S): DRUG ELUTING STENT: DURATION INDEFINI TE ORAL ACTIVE 12/30/2025 [id number] 5 KAVEH,RE HARPAL A 2024 90 [facility] CLOPIDOGREL BISULFATE 75MG TAB TAKE ONE TABLET BY MOUTH EVERY DAY INDICATI ON(S): DRUG ELUTING STENT: DURATION INDEFINI TE ORAL DISCONT INUED 06/30/2025 [id number] 5 KAVEH,RE HARPAL A 2023 90 [facility] CLOPIDOGREL BISULFATE 75MG TAB TAKE ONE TABLET BY MOUTH EVERY DAY INDICATI ON(S): DRUG ELUTING STENT: DURATION INDEFINI TE ORAL DISCONT INUED 12/31/2024 [id number] 4 KAVEH,RE HARPAL A 2023 90 [facility] ESCITALOPRA M OXALATE 20MG TAB TAKE ONE TABLET BY MOUTH AT BEDTIME ORAL DISCONT INUED BY DANNI Prasad 05/27/2025 [id number] 4 ZAKIA CASTANO 2023 90 [facility] ESCITALOPRA M OXALATE 20MG TAB TAKE ONE TABLET BY MOUTH AT BEDTIME ORAL DISCONT INUED 09/03/2024 [id number] 4 ZAKIA CASTANO TTE L 2023 90 [facility] EZETIMIBE 10MG TAB TAKE ONE TABLET BY MOUTH EVERY DAY ORAL SUSPEND ED 06/30/2025 [id number] 5 KAVEH,RE HARPAL A 2023 90 [facility] EZETIMIBE 10MG TAB TAKE ONE TABLET BY MOUTH EVERY DAY ORAL DISCONT INUED 06/24/2024 [id number] 4 KAVEH,RE HARPAL A 2022 90 [facility] FINASTERIDE 5MG TAB TAKE ONE TABLET BY MOUTH EVERY DAY (DO NOT CRUSH) ORAL ACTIVE 06/30/2025 [id number] 5 KAVEH,RE HARPAL A 2024 90 [facility] FINASTERIDE 5MG TAB TAKE ONE TABLET BY MOUTH EVERY DAY (DO NOT CRUSH) ORAL DISCONT INUED 12/31/2024 [id number] 4 KAVEH,RE HARPAL A 2023 90 [facility] FINASTERIDE 5MG TAB TAKE ONE TABLET BY MOUTH EVERY DAY (DO NOT CRUSH) ORAL DISCONT INUED 06/24/2024 [id number] 4 KAVEH,RE HARPAL A 2022 90 [facility] LOSARTAN 50MG TAB TAKE ONE TABLET BY MOUTH EVERY DAY ORAL SUSPEND ED 06/30/2025 [id number] 5 KAVEH,RE HARPAL A 2023 90 [facility] LOSARTAN 50MG TAB TAKE ONE TABLET BY MOUTH EVERY DAY ORAL DISCONT INUED 06/24/2024 [id number] 4 KAVEH,RE HARPAL A 2022 90 [facility] MULTIVITAMI NS B COMPLEX TAB TAKE BY MOUTH EVERY DAY ORAL ACTIVE WEATHERFO DEYANIRA NEVAREZ 2006 [facility] PANTOPRAZOL E NA 20MG TAB,EC TAKE ONE TABLET BY MOUTH TWICE A DAY A HALF HOUR BEFORE BREAKFAS T AND SUPPER FOR STOMACH ORAL SUSPEND ED 06/30/2025 [id number] 5 ERIC LINN HARPAL A 2024 180 [facility] PANTOPRAZOL E NA 20MG TAB,EC TAKE ONE TABLET BY MOUTH TWICE A DAY A HALF HOUR BEFORE BREAKFAS T AND SUPPER FOR STOMACH ORAL DISCONT INUED 06/24/2024 [id number] 4 ERIC LINN HARPAL A 2023 180 [facility] VENLAFAXINE HCL 150MG 24HR CAP,SA TAKE ONE CAPSULE BY MOUTH EVERY DAY FOR MAJOR DEPRESSI VE DISORDER ORAL SUSPEND ED 02/06/2026 [id number] 5 [facility],ZAKIA TTE L 2024 90 [facility] VENLAFAXINE HCL 150MG 24HR CAP,SA TAKE ONE CAPSULE BY MOUTH EVERY DAY FOR MAJOR DEPRESSI VE DISORDER ORAL DISCONT INUED 10/21/2025 [id number] [facility],ZAKIA TTE L 2024 90 [facility] VENLAFAXINE HCL 75MG 24HR CAP,SA TAKE ONE CAPSULE BY MOUTH EVERY DAY FOR MAJOR DEPRESSI VE DISORDER ORAL DISCONT INUED (EDIT) 07/09/2025 [id number] [facility],ZAKIA TTE L 2023 90 [facility] Allergies, Adverse Reactions, Alerts Combined list of allergies from Department of Defense and Veterans Affairs facilities. It does not include entries that were removed or entered in error. Substance Category Reaction Severity Reaction type Status Date Reported Comments Source BACTRIM Propensity to adverse reactions to drug (finding) Abdominal pain active 0 [facility] FLUVASTATIN Propensity to adverse reactions to drug (finding) active 7 [facility] SIMVASTATIN Propensity to adverse reactions to drug (finding) active 7 [facility] Immunizations Combined list of available immunizations from the Department of Defense and Veterans Affairs facilities. Immunization Series Date Given Administered By Site Reaction Lot Number CVX Code Drug Real Estate Inspector Status Comments Source INFLUENZA, HIGH-DOSE, TRIVALENT, PF 6 2023 135 complet ed HISTORICA L INFORMATI ON - FROM OTHER REGISTRY, GAEL CRESPO [facility] COVID-19 (PFIZER), MRNA, LNP-S, BIVALENT BOOSTER, PF, 30 MCG/0.3 ML DOSE 4 2022 NATHAN BEASLEY RIGHT DELTO ID [id number] 300 complet ed [place], [facility] INFLUENZA VACCINE, QUADRIVALENT, ADJUVANTED 2022 NATHAN BEASLEY LEFT DELTO ID [id number] 205 complet ed [place], [facility] INFLUENZA, UNSPECIFIED FORMULATION 2022 88 complet ed HISTORICA L INFORMATI ON - FROM PATIENT'S RECALL, [facility] INFLUENZA VACCINE, QUADRIVALENT, ADJUVANTED 5 2021 205 complet ed HISTORICA L INFORMATI ON - FROM OTHER REGISTRY, [facility] INFLUENZA VACCINE, QUADRIVALENT, ADJUVANTED 4 2020 205 complet ed HISTORICA L INFORMATI ON - FROM OTHER REGISTRY, [facility] COVID-19 (PFIZER), MRNA, LNP-S, PF, 30 MCG/0.3 ML DOSE 3 2020 208 complet ed [facility] INFLUENZA, UNSPECIFIED FORMULATION 2020 88 complet ed [facility] DTP 1 2020 01 complet ed HISTORICA L INFORMATI ON - FROM OTHER REGISTRY, [facility] COVID-19 (PFIZER), MRNA, LNP-S, PF, 30 MCG/0.3 ML DOSE 2 2020 208 complet ed [facility] COVID-19 (PFIZER), MRNA, LNP-S, PF, 30 MCG/0.3 ML DOSE 1 2020 208 complet ed [facility] ZOSTER RECOMBINANT 2018 187 complet ed [facility] INFLUENZA (HISTORICAL) 2018 88 complet ed [facility] Gabe [facility] ZOSTER RECOMBINANT 2018 187 complet ed [facility] INFLUENZA (HISTORICAL) 2017 88 complet ed [facility] INFLUENZA, HIGH DOSE SEASONAL 3 2017 135 complet ed HISTORICA L INFORMATI ON - FROM OTHER REGISTRY, [facility] INFLUENZA, INJECTABLE, QUADRIVALENT, PRESERVATIVE FREE 2016 150 complet ed HISTORICA L INFORMATI ON - FROM OTHER REGISTRY, [facility] PNEUMOCOCCAL POLYSACCHARID E PPV23 1 2016 33 complet ed HISTORICA L INFORMATI ON - FROM OTHER REGISTRY, [facility] INFLUENZA (HISTORICAL) 2016 88 complet ed [facility] INFLUENZA, HIGH DOSE SEASONAL 2 2016 135 complet ed HISTORICA L INFORMATI ON - FROM OTHER REGISTRY, [facility] INFLUENZA (HISTORICAL) 2015 88 complet ed [facility] [place] [facility] PNEUMOCOCCAL CONJUGATE PCV 13 2015 133 complet ed [facility] INFLUENZA, HIGH DOSE SEASONAL 1 2014 135 complet ed HISTORICA L INFORMATI ON - FROM OTHER REGISTRY, [facility] INFLUENZA (HISTORICAL) 2014 88 complet ed PMD [facility] INFLUENZA (HISTORICAL) 2013 88 complet ed PMD [facility] INFLUENZA (HISTORICAL) 2012 88 complet ed PMD [facility] INFLUENZA (HISTORICAL) 2011 88 complet ed PMD [facility] INFLUENZA (HISTORICAL) 2008 88 complet ed [facility] INFLUENZA (HISTORICAL) 2007 88 complet ed [facility] PNEUMOCOCCAL, UNSPECIFIED FORMULATION 2005 109 complet ed [facility] Results Combined list of recent chemistry, hematology and other laboratory results from Department of Defense and Veterans Affairs, ranging from 15 months to all on record, depending upon the facility. Order Name Results Value Reference Range Date Interpretation Specimen Comments Source HEMOGLOB IN A1C HEMOGLOBIN A1C/HEMOGL OBIN.TOTAL IN BLOOD 5.4 3.6 - 5.7 12/22 Specimen Type: BLOOD Comment: Values obtained from A1C measurement s can vary. For typical A1C assays, a reported value of 7.0 could actually be between 6.72 and 7.28 if measured by a reference method. A reported value of 9.0 could actually be between 8.73 and 9.27. Ref: http://www. ngsp.org/[place] Pdata.asp Ordering Provider: MELISSA LINN CCA Report Released Date/Time: Dec 18, 2024 04:47 PM Reporting Lab: [address] [address] Performing Lab: [address] [address] [facility] LIPID PROFILE CHOLESTERO L [MASS/VOLU ME] IN SERUM OR PLASMA 155 mg/dL 0 - 199 12/22 Specimen Type: PLASMA Comment: GLUCOSE The ADA [...] 160-189 mg/dL VERY HIGH: >=190 Ordering Provider: MELISSA LINN CCA Report Released Date/Time: Dec 18, 2024 04:47 PM Reporting Lab: [address] [address] Performing Lab: [place] [phone] [facility] LIPID PROFILE CHOLESTERO L IN LDL [MASS/VOLU ME] IN SERUM OR PLASMA BY DIRECT ASSAY 101 mg/dL 0 - 99 12/22 H Specimen Type: PLASMA Comment: GLUCOSE The ADA [...] 160-189 mg/dL VERY HIGH: >=190 Ordering Provider: MELISSA LINN CCA A Report Released Date/Time: Dec 18, 2024 04:47 PM Reporting Lab: [place] [phone] Performing Lab: [place] [phone] [facility] LIPID PROFILE CHOLESTERO L IN HDL [MASS/VOLU ME] IN SERUM OR PLASMA 36 mg/dL 40 12/22 L Specimen Type: PLASMA Comment: GLUCOSE The ADA [...] 160-189 mg/dL VERY HIGH: >=190 Ordering Provider: MELISSA LINN CCA A Report Released Date/Time: Dec 18, 2024 04:47 PM Reporting Lab: [place] [phone] Performing Lab: [place] [phone] [facility] LIPID PROFILE TRIGLYCERI DE [MASS/VOLU ME] IN SERUM OR PLASMA 214 mg/dL 0 - 149 12/22 H Specimen Type: PLASMA Comment: GLUCOSE The ADA [...] 160-189 mg/dL VERY HIGH: >=190 Ordering Provider: MELISSA LINN CCA A Report Released Date/Time: Dec 18, 2024 04:47 PM Reporting Lab: [place] [phone] Performing Lab: [place] [phone] [facility] TSH THYROTROPI N [UNITS/VOL UME] IN SERUM OR PLASMA BY DETECTION LIMIT <= 0.005 MIU/L 2.740 u[IU]/mL 0.350 - 4.940 12/22 Specimen Type: PLASMA Comment: GLUCOSE The ADA [...] 160-189 mg/dL VERY HIGH: >=190 Ordering Provider: MELISSA LINN CCA A Report Released Date/Time: Dec 18, 2024 04:47 PM Reporting Lab: [place] [phone] Performing Lab: [place] [id number] [facility] VITAMIN D (TOTAL) 25-HYDROXY VITAMIN D3+25-HYDR OXYVITAMIN D2 [MASS/VOLU ME] IN SERUM OR PLASMA 51 ng/mL 30 - 60 12/22 Specimen Type: SERUM Comment: VITD One expert panel recommended a target range of 30-40 ng/mL. Ordering Provider: MELISSA LINN CCA A Report Released Date/Time: Dec 18, 2024 04:47 PM Reporting Lab: [place] [phone] Performing Lab: [place] [phone] [facility] URINALYS IS SPECIFIC GRAVITY OF URINE 1.017 1.016 - 1.022 12/22 Specimen Type: URINE No comment entered. Ordering Provider: MELISSA LINN CCA A Report Released Date/Time: Dec 18, 2024 04:47 PM Reporting Lab: [place] [phone] Performing Lab: [place] [phone] [facility] URINALYS IS GLUCOSE [MASS/VOLU ME] IN URINE BY TEST STRIP Negative mg/dL 12/22 Specimen Type: URINE No comment entered. Ordering Provider: MELISSA LINN CCA A Report Released Date/Time: Dec 18, 2024 04:47 PM Reporting Lab: [place] [phone] Performing Lab: [place] [phone] [facility] URINALYS IS PROTEIN [MASS/VOLU ME] IN URINE BY TEST STRIP Negative mg/dL 12/22 Specimen Type: URINE No comment entered. Ordering Provider: MELISSA LINN CCA A Report Released Date/Time: Dec 18, 2024 04:47 PM Reporting Lab: [place] [phone] Performing Lab: [place] [phone] [facility] URINALYS IS PH OF URINE BY TEST STRIP 6.0 5.0 - 8.0 12/22 Specimen Type: URINE No comment entered. Ordering Provider: MELISSA LINN CCA A Report Released Date/Time: Dec 18, 2024 04:47 PM Reporting Lab: [place] [phone] Performing Lab: [place] [phone] [facility] URINALYS IS ERYTHROCYT ES [#/AREA] IN URINE SEDIMENT BY MICROSCOPY HIGH POWER FIELD 1 /[HPF] - 4 12/22 Specimen Type: URINE No comment entered. Ordering Provider: MELISSA LINN CCA A Report Released Date/Time: Dec 18, 2024 04:47 PM Reporting Lab: [address] [address] Performing Lab: [address] [address] [facility] URINALYS IS EPITHELIAL CELLS.SQUA MOUS [PRESENCE] IN URINE SEDIMENT BY LIGHT MICROSCOPY 1 /[HPF] - 4 12/22 Specimen Type: URINE No comment entered. Ordering Provider: MELISSA LINN CCA A Report Released Date/Time: Dec 18, 2024 04:47 PM Reporting Lab: [address] [address] Performing Lab: [address] [address] [facility] URINALYS IS NITRITE [PRESENCE] IN URINE BY TEST STRIP Negative 12/22 Specimen Type: URINE No comment entered. Ordering Provider: MELISSA LINN CCA A Report Released Date/Time: Dec 18, 2024 04:47 PM Reporting Lab: [address] [address] Performing Lab: [address] [phone] [facility] URINALYS IS LEUKOCYTE ESTERASE [PRESENCE] IN URINE BY TEST STRIP Negative 12/22 Specimen Type: URINE No comment entered. Ordering Provider: MELISSA LINN CCA A Report Released Date/Time: Dec 18, 2024 04:47 PM Reporting Lab: [address] [address] Performing Lab: [address] [address] [facility] URINALYS IS CLARITY OF URINE Clear 12/22 Specimen Type: URINE No comment entered. Ordering Provider: MELISSA LINN CCA A Report Released Date/Time: Dec 18, 2024 04:47 PM Reporting Lab: [address] [phone] Performing Lab: [address] [address] [facility] URINALYS IS MUCUS [PRESENCE] IN URINE SEDIMENT BY LIGHT MICROSCOPY Present 12/22 H Specimen Type: URINE No comment entered. Ordering Provider: MELISSA LINN CCA A Report Released Date/Time: Dec 18, 2024 04:47 PM Reporting Lab: [address] [address] Performing Lab: [place] [phone] [facility] URINALYS IS BILIRUBIN. TOTAL [MASS/VOLU ME] IN URINE BY TEST STRIP Negative mg/dL - 0.4 12/22 Specimen Type: URINE No comment entered. Ordering Provider: MELISSA LINN CCA A Report Released Date/Time: Dec 18, 2024 04:47 PM Reporting Lab: [address] [address] Performing Lab: [place] [phone] [facility] URINALYS IS HEMOGLOBIN [PRESENCE] IN URINE BY TEST STRIP Negative mg/dL <0.05 - 0.05 12/22 Specimen Type: URINE No comment entered. Ordering Provider: MELISSA LINN CCA A Report Released Date/Time: Dec 18, 2024 04:47 PM Reporting Lab: [address] [address] Performing Lab: [place] [phone] [facility] URINALYS IS UROBILINOG EN [MASS/VOLU ME] IN URINE Negative mg/dL - 1 12/22 Specimen Type: URINE No comment entered. Ordering Provider: MELISSA LINN CCA A Report Released Date/Time: Dec 18, 2024 04:47 PM Reporting Lab: [address] [address] Performing Lab: [place] [phone] [facility] URINALYS IS KETONES [MASS/VOLU ME] IN URINE BY TEST STRIP Negative mg/dL - 9 12/22 Specimen Type: URINE No comment entered. Ordering Provider: MELISSA LINN CCA A Report Released Date/Time: Dec 18, 2024 04:47 PM Reporting Lab: [place] [phone] Performing Lab: [address] [address] [facility] URINALYS IS COLOR OF URINE Light-Ye llow [none] 12/22 Specimen Type: URINE No comment entered. Ordering Provider: MELISSA LINN CCA A Report Released Date/Time: Dec 18, 2024 04:47 PM Reporting Lab: [place] [phone] Performing Lab: [place] [phone] [facility] CBC LEUKOCYTES [#/VOLUME] IN BLOOD BY AUTOMATED COUNT 6.2 10*3/uL 3.6 - 11.0 12/22 Specimen Type: BLOOD No comment entered. Ordering Provider: MELISSA LINN CCA A Report Released Date/Time: Dec 18, 2024 04:47 PM Reporting Lab: [place] [phone] Performing Lab: [place] [phone] [facility] CBC ERYTHROCYT ES [#/VOLUME] IN BLOOD BY AUTOMATED COUNT 3.74 10*6/uL 4.47 - 5.83 12/22 L Specimen Type: BLOOD No comment entered. Ordering Provider: MELISSA LINN CCA A Report Released Date/Time: Dec 18, 2024 04:47 PM Reporting Lab: [address] [address] Performing Lab: [place] [phone] [facility] CBC HEMOGLOBIN [MASS/VOLU ME] IN BLOOD 13.5 g/dL 13.6 - 17.4 12/22 L Specimen Type: BLOOD No comment entered. Ordering Provider: MELISSA LINN CCA A Report Released Date/Time: Dec 18, 2024 04:47 PM Reporting Lab: [place] [phone] Performing Lab: [place] [phone] [facility] CBC HEMATOCRIT [VOLUME FRACTION] OF BLOOD BY AUTOMATED COUNT 39.0 40.0 - 51.0 12/22 L Specimen Type: BLOOD No comment entered. Ordering Provider: MELISSA LINN CCA A Report Released Date/Time: Dec 18, 2024 04:47 PM Reporting Lab: [place] [phone] Performing Lab: [place] [phone] [facility] CBC MCV [ENTITIC VOLUME] BY AUTOMATED COUNT 104.4 fL 80.0 - 96.0 12/22 H Specimen Type: BLOOD No comment entered. Ordering Provider: MELISSA LINN CCA A Report Released Date/Time: Dec 18, 2024 04:47 PM Reporting Lab: [address] [address] Performing Lab: [place] [phone] [facility] CBC MCH [ENTITIC MASS] BY AUTOMATED COUNT 36.2 pg 27.0 - 31.0 12/22 H Specimen Type: BLOOD No comment entered. Ordering Provider: MELISSA LINN CCA A Report Released Date/Time: Dec 18, 2024 04:47 PM Reporting Lab: [place] [phone] Performing Lab: [place] [phone] [facility] CBC MCHC [MASS/VOLU ME] BY AUTOMATED COUNT 34.6 g/dL 31.5 - 36.5 12/22 Specimen Type: BLOOD No comment entered. Ordering Provider: MELISSA LINN CCA A Report Released Date/Time: Dec 18, 2024 04:47 PM Reporting Lab: [place] [phone] Performing Lab: [place] [phone] [facility] CBC PLATELETS [#/VOLUME] IN BLOOD BY AUTOMATED COUNT 251 10*3/uL 150 - 400 12/22 Specimen Type: BLOOD No comment entered. Ordering Provider: MELISSA LINN CCA A Report Released Date/Time: Dec 18, 2024 04:47 PM Reporting Lab: [address] [address] Performing Lab: [place] [phone] [facility] CBC LYMPHOCYTE S/100 LEUKOCYTES IN BLOOD BY AUTOMATED COUNT 19.6 21.0 - 51.0 12/22 L Specimen Type: BLOOD No comment entered. Ordering Provider: MELISSA LINN CCA A Report Released Date/Time: Dec 18, 2024 04:47 PM Reporting Lab: [address] [phone] Performing Lab: [address] [phone] [facility] CBC MONOCYTES/ 100 LEUKOCYTES IN BLOOD BY AUTOMATED COUNT 9.4 4.0 - 8.0 12/22 H Specimen Type: BLOOD No comment entered. Ordering Provider: MELISSA LINN CCA A Report Released Date/Time: Dec 18, 2024 04:47 PM Reporting Lab: [address] [address] Performing Lab: [address] [address] [facility] CBC NUCLEATED ERYTHROCYT ES/100 LEUKOCYTES [RATIO] IN BLOOD BY MANUAL COUNT 0.2 /100{WBC s} 12/22 Specimen Type: BLOOD No comment entered. Ordering Provider: MELISSA LINN CCA A Report Released Date/Time: Dec 18, 2024 04:47 PM Reporting Lab: [address] [id number] Performing Lab: [address] [address] [facility] CBC ERYTHROCYT E DISTRIBUTI ON WIDTH [RATIO] BY AUTOMATED COUNT 12.9 11.2 - 15.8 12/22 Specimen Type: BLOOD No comment entered. Ordering Provider: MELISSA LINN CCA A Report Released Date/Time: Dec 18, 2024 04:47 PM Reporting Lab: [address] [address] Performing Lab: [address] [address] [facility] CBC NEUTROPHIL S/100 LEUKOCYTES IN BLOOD BY AUTOMATED COUNT 68.6 54.0 - 78.0 12/22 Specimen Type: BLOOD No comment entered. Ordering Provider: MELISSA LINN CCA A Report Released Date/Time: Dec 18, 2024 04:47 PM Reporting Lab: [address] [id number] Performing Lab: [address] [address] [facility] CBC EOSINOPHIL S/100 LEUKOCYTES IN BLOOD BY AUTOMATED COUNT 2.0 0.0 - 3.0 12/22 Specimen Type: BLOOD No comment entered. Ordering Provider: MELISSA LINN CCA A Report Released Date/Time: Dec 18, 2024 04:47 PM Reporting Lab: [address] [address] Performing Lab: [place] [id number] [facility] CBC BASOPHILS/ 100 LEUKOCYTES IN BLOOD BY AUTOMATED COUNT 0.4 0.0 - 3.0 12/22 Specimen Type: BLOOD No comment entered. Ordering Provider: MELISSA LINN CCA A Report Released Date/Time: Dec 18, 2024 04:47 PM Reporting Lab: [place] [phone] Performing Lab: [place] [phone] [facility] CBC LYMPHOCYTE S [#/VOLUME] IN BLOOD BY AUTOMATED COUNT 1.2 10*3/uL 0.8 - 5.0 12/22 Specimen Type: BLOOD No comment entered. Ordering Provider: MELISSA LINN CCA A Report Released Date/Time: Dec 18, 2024 04:47 PM Reporting Lab: [address] [phone] Performing Lab: [place] [phone] [facility] CBC NEUTROPHIL S [#/VOLUME] IN BLOOD 4.3 10*3/uL 1.9 - 8.6 12/22 Specimen Type: BLOOD No comment entered. Ordering Provider: MELISSA LINN CCA A Report Released Date/Time: Dec 18, 2024 04:47 PM Reporting Lab: [address] [phone] Performing Lab: [place] [phone] [facility] CBC BASOPHILS [#/VOLUME] IN BLOOD BY AUTOMATED COUNT 0.0 10*3/uL 0.0 - 0.3 12/22 Specimen Type: BLOOD No comment entered. Ordering Provider: MELISSA LINN CCA A Report Released Date/Time: Dec 18, 2024 04:47 PM Reporting Lab: [place] [phone] Performing Lab: [place] [phone] [facility] CBC MONOCYTES [#/VOLUME] IN BLOOD BY AUTOMATED COUNT 0.6 10*3/uL 0.1 - 0.9 12/22 Specimen Type: BLOOD No comment entered. Ordering Provider: MELISSA LINN CCA A Report Released Date/Time: Dec 18, 2024 04:47 PM Reporting Lab: [place] [phone] Performing Lab: [place] [phone] [facility] CBC EOSINOPHIL S [#/VOLUME] IN BLOOD BY AUTOMATED COUNT 0.1 10*3/uL 0.0 - 0.3 12/22 Specimen Type: BLOOD No comment entered. Ordering Provider: MELISSA LINN CCA Report Released Date/Time: Dec 18, 2024 04:47 PM Reporting Lab: [place] [phone] Performing Lab: [place] [phone] [facility] CBC PLATELET MEAN VOLUME [ENTITIC VOLUME] IN BLOOD BY AUTOMATED COUNT 8.7 fL 7.4 - 11.4 12/22 Specimen Type: BLOOD No comment entered. Ordering Provider: MELISSA LINN CCA A Report Released Date/Time: Dec 18, 2024 04:47 PM Reporting Lab: [place] [phone] Performing Lab: [place] [phone] [facility] HEMOGLOB IN A1C HEMOGLOBIN A1C/HEMOGL OBIN.TOTAL IN BLOOD 5.3 3.6 - 5.7 06/22 Specimen Type: BLOOD Comment: Values obtained from A1C measurement s can vary. For typical A1C assays, a reported value of 7.0 could actually be between 6.72 and 7.28 if measured by a reference method. A reported value of 9.0 could actually be between 8.73 and 9.27. Ref: http://www. ngsp.org/CA Pdata.asp Ordering Provider: MELISSA LINN CCA A Report Released Date/Time: Jun 19, 2024 01:36 PM Reporting Lab: [place] [phone] Performing Lab: [address] TSH THYROTROPI N [UNITS/VOL UME] IN SERUM OR PLASMA BY DETECTION LIMIT <= 0.005 MIU/L 2.711 u[IU]/mL 0.360 - 4.500 06/22 Specimen Type: PLASMA Comment: DLDLREF RANGE: NEAR OR ABOVE OPTIMAL: 100-129 mg/dL BORDERLINE DLDLHIGH: 130-159 mg/dL HIGH: 160-189 mg/dL VERY HIGH: >=190 TRIG REF RANGE: BORDERLINE HIGH: 150-199 mg/dL HIGH: 200-499 mg/dL TRIG VERY HIGH: >=500 mg/dL CREA eGFR was calculated using the CKD-EPI 2020 equation. CHOL REF RANGE: BORDERLINE HIGH: 200-239 mg/dL HIGH: >=240 mg/dL Ordering Provider: MELISSA LINN CCA A Report Released Date/Time: Jun 19, 2024 01:36 PM Reporting Lab: [place] [phone] Performing Lab: [address] LIPID PROFILE CHOLESTERO L [MASS/VOLU ME] IN SERUM OR PLASMA 135 mg/dL <199 - 199 06/22 Specimen Type: PLASMA Comment: DLDLREF RANGE: NEAR OR ABOVE OPTIMAL: 100-129 mg/dL BORDERLINE DLDLHIGH: 130-159 mg/dL HIGH: 160-189 mg/dL VERY HIGH: >=190 TRIG REF RANGE: BORDERLINE HIGH: 150-199 mg/dL HIGH: 200-499 mg/dL TRIG VERY HIGH: >=500 mg/dL CREA eGFR was calculated using the CKD-EPI 2020 equation. CHOL REF RANGE: BORDERLINE HIGH: 200-239 mg/dL HIGH: >=240 mg/dL Ordering Provider: MELISSA LINN CCA A Report Released Date/Time: Jun 19, 2024 01:36 PM Reporting Lab: [place] [phone] Performing Lab: [place] [phone] [facility] LIPID PROFILE CHOLESTERO L IN LDL [MASS/VOLU ME] IN SERUM OR PLASMA BY DIRECT ASSAY 83 mg/dL <99 - 99 06/22 Specimen Type: PLASMA Comment: DLDLREF RANGE: NEAR OR ABOVE OPTIMAL: 100-129 mg/dL BORDERLINE DLDLHIGH: 130-159 mg/dL HIGH: 160-189 mg/dL VERY HIGH: >=190 TRIG REF RANGE: BORDERLINE HIGH: 150-199 mg/dL HIGH: 200-499 mg/dL TRIG VERY HIGH: >=500 mg/dL CREA eGFR was calculated using the CKD-EPI 2020 equation. CHOL REF RANGE: BORDERLINE HIGH: 200-239 mg/dL HIGH: >=240 mg/dL Ordering Provider: MELISSA LINN CCA Report Released Date/Time: Jun 19, 2024 01:36 PM Reporting Lab: [place] [phone] Performing Lab: [place] [phone] LIPID PROFILE CHOLESTERO L IN HDL [MASS/VOLU ME] IN SERUM OR PLASMA 39 mg/dL 60 06/22 L Specimen Type: PLASMA Comment: DLDLREF RANGE: NEAR OR ABOVE OPTIMAL: 100-129 mg/dL BORDERLINE DLDLHIGH: 130-159 mg/dL HIGH: 160-189 mg/dL VERY HIGH: >=190 TRIG REF RANGE: BORDERLINE HIGH: 150-199 mg/dL HIGH: 200-499 mg/dL TRIG VERY HIGH: >=500 mg/dL CREA eGFR was calculated using the CKD-EPI 2020 equation. CHOL REF RANGE: BORDERLINE HIGH: 200-239 mg/dL HIGH: >=240 mg/dL Ordering Provider: MELISSA LINN CCA Report Released Date/Time: Jun 19, 2024 01:36 PM Reporting Lab: [place] [phone] Performing Lab: [place] [phone] [facility] LIPID PROFILE TRIGLYCERI DE [MASS/VOLU ME] IN SERUM OR PLASMA 215 mg/dL <149 - 149 06/22 H Specimen Type: PLASMA Comment: DLDLREF RANGE: NEAR OR ABOVE OPTIMAL: 100-129 mg/dL BORDERLINE DLDLHIGH: 130-159 mg/dL HIGH: 160-189 mg/dL VERY HIGH: >=190 TRIG REF RANGE: BORDERLINE HIGH: 150-199 mg/dL HIGH: 200-499 mg/dL TRIG VERY HIGH: >=500 mg/dL CREA eGFR was calculated using the CKD-EPI 2020 equation. CHOL REF RANGE: BORDERLINE HIGH: 200-239 mg/dL HIGH: >=240 mg/dL Ordering Provider: MELISSA LINN CCA Report Released Date/Time: Jun 19, 2024 01:36 PM Reporting Lab: [facility] [address] [facility] [phone] Performing Lab: [facility] [id number] [place] [phone] [facility] Vital Signs Combined list of inpatient and outpatient Vital Signs from Department of Defense and Veterans Affairs, ranging from 12 months to all on record, depending upon the facility. Vital Sign Value Date Comments Source SYSTOLIC BLOOD PRESSURE 135 02/05/2025 13:14:28 [facility] DIASTOLIC BLOOD PRESSURE 80 02/05/2025 13:14:28 [facility] PULSE OXIMETRY 95 02/05/2025 13:14:28 [facility] WEIGHT 168.65 02/05/2025 13:14:28 [facility] BMI 24 kg/m2 02/05/2025 13:14:28 [facility] PAIN 0 02/05/2025 13:14:28 [facility] HEIGHT 70 02/05/2025 13:14:28 [facility] TEMPERATURE 97.1 02/05/2025 13:14:[address] [facility] PULSE 84 02/05/2025 13:14:28 [facility] RESPIRATION 16 02/05/2025 13:14:[address] [facility] SYSTOLIC BLOOD PRESSURE 127 12/29/2024 13:33:00 [facility] DIASTOLIC BLOOD PRESSURE 70 12/29/2024 13:33:00 [facility] WEIGHT 169.1 12/29/2024 13:33:00 [facility] BMI 24 kg/m2 12/29/2024 13:33:00 [facility] PAIN 0 12/29/2024 13:33:00 [facility] TEMPERATURE 97.6 12/29/2024 13:33:[address] [facility] PULSE 93 12/29/2024 13:33:00 [place] [facility] RESPIRATION 18 12/29/2024 13:33:00 [facility] WEIGHT 168 10/20/2024 13:07:19 [place] [facility] BMI 24 kg/m2 10/20/2024 13:07:19 [place] [facility] HEIGHT 70 10/20/2024 13:07:19 [place] [facility] SYSTOLIC BLOOD PRESSURE 171 07/08/2024 13[facility]51:[facility] DIASTOL[facility] BLOOD PRESSURE 73 07/08/2024 13:51:35 [facility] PULSE OXIMETRY 95 07/08/2024 13:51:35 [facility] WEIGHT 172 07/08/2024 13:51:35 [place] [facility] BMI 25 kg/m2 07/08/2024 13:51:35 [place] [facility] PAIN 0 07/08/2024 13:51:35 [place] [facility] HEIGHT 70 07/08/2024 13:51:35 [place] [facility] TEMPERATURE 97.4 07/08/2024 13:51:35 [facility] PULSE 82 07/08/2024 13:51:35 [place] [facility] RESPIRATION 16 07/08/2024 13:51:35 [facility] SYSTOLIC BLOOD PRESSURE 132 06/29/2024 13:04:53 [facility] DIASTOLIC BLOOD PRESSURE 82 06/29/2024 13:04:53 [facility] WEIGHT 171 06/29/2024 13:04:53 [place] [facility] BMI 25 kg/m2 06/29/2024 13:04:53 [place] [facility] PAIN 0 06/29/2024 13:04:53 [place] [facility] TEMPERATURE 98.1 06/29/2024 13:04:53 [place] [facility] PULSE 84 06/29/2024 13:04:53 [place] [facility] RESPIRATION 16 06/29/2024 13:04:53 [facility] [place] [facility] Encounters Combined list of: 1) Encounters from Department of Veterans Affairs facilities going backup to the last 18 months, not all VA inpatient encounters are included; 2) Encounters from the Department of Defense facilities going backup to 280 months. 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, recurre nt, mild CORE,DANET TE L 12/10 [place] Outpatient Encounter [id number] 12/16 [facility] Outpatient Encounter [id number] 12/22 [facility] OFFICE O/[place] EST HI 40 MIN [id number] Diagnos is: ICD-10- CM K21.9 Gastro- esophag eal reflux disease without esophag itis KATHERYN LINN ECCA A 12/30 [facility] OFFICE O/P EST MOD 30 MIN [id number] Diagnos is: ICD-10- CM 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, recurre nt, mild CORE,DANET TE L 01/20 [facility] OFFICE O/P EST MOD 30 MIN [id number] Diagnos is: ICD-10- CM 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, recurre nt, mild CORE,DANET TE L 03/25 [facility] Outpatient Encounter [id number] 04/01 [facility] Outpatient Encounter [id number] 05/07 [facility] MOD 30 MIN [id number] Diagnos is: ICD-10- CM 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, recurre nt, mild CORE,DANET TE L 05/26 [facility] [facility] Outpatient Encounter [id number] 05/29 [facility] Outpatient Encounter [id number] 06/29 [facility] EST MOD 30 MIN [id number] Diagnos is: ICD-10- CM I10 Essenti al (primar y) hyperte nsion KATHERYN LINN ECCA A 06/29 [facility] [facility] OFFICE O/P EST MOD 30 MIN [id number] Diagnos is: ICD-10- CM 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, recurre nt, mild CORE,DANET TE L 07/08 [facility] [facility] Outpatient Encounter [id number] 10/20 [facility] OFFICE O/P EST HI 40 MIN [id number] Diagnos is: ICD-10- CM 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, recurre nt, mild CORE,DANET TE L 10/20 [facility] [facility] Outpatient Encounter [id number] 11/12 [facility] Outpatient Encounter [id number] 12/29 [facility] OFFICE O/P EST MOD 30 MIN [id number] Diagnos is: ICD-10- CM 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 KATHERYN LINN ECCA A 12/29 [facility] [facility] EST MOD 30 MIN [id number] Diagnos is: ICD-10- CM 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, recurre nt, mild CORE,DANET TE L 02/05 [facility] Outpatient Encounter [id number] 02/17 [facility] MTMS BY PHARM ADDL 15 MIN [id number] Diagnos is: ICD-10- CM Z51.81 Encount er for therape utic drug level monitor ing JESSICA PIKED A 02/22 [facility] Outpatient Encounter [id number] 03/05 [facility] Social History Combined list of available smoking, tobacco, and other social history from Department of Defense and Veterans Affairs facilities. Social History Type Response Date Comment Sourc e Tobacco smoking status ILIS VA-TOBACCO USE FORMER OTHER TYPE 12/29/2024 [facility] History of tobacco use VA-TOBACCO USE FO RMER CIGARETTES 12/29/2024 [facility] History of tobacco use VA-TOBACCO FORMER USER 12/31/2023 [facility] History of tobacco use VA-TOBACCO FORMER USER 09/26/2022 [facility] History of tobacco use VA-TOBACCO QUIT 1 5 YRS OR MORE 06/21/2021 [facility] History of tobacco use VA-TOBACCO FORMER USER 08/17/2019 [facility] History of tobacco use VA-TOBACCO FORMER USER 02/21/2018 [facility] History of tobacco use QUIT TOBACCO >7 YEARS AGO 6 [facility] History of tobacco use QUIT TOBACCO >12 MO and <7 YRS AGO 08/02/2014 [facility] History of tobacco use QUIT TOBACCO >12 MO and <7 YRS AGO 08/05/2013 [facility] History of tobacco use QUIT TOBACCO >12 MO and <7 YRS AGO 02/22/2012 [facility] History of tobacco use QUIT TOBACCO >12 MO and <7 YRS AGO 01/23/2011 [facility] History of tobacco use QUIT TOBACCO >12 MO and <7 YRS AGO 07/04/2009 [facility] History of tobacco use QUIT TOBACCO >12 MO and <7 YRS AGO 04/29/2008 [facility] History of tobacco use QUIT TOBACCO IN T HE LAST 12 MONTHS 06/17/2007 [facility] History of tobacco use CURRENT TOBACCO USER 07/31/2006 [facility] History of tobacco use TOBACCO CURRENT USER 11/28/2005 [facility] Plan of Care List of future care activities from Department of Veterans Affairs facilities. Additional future care activities may be listed in the Assessment and Plan section. Date/Time Care Activity Care Activity Detail Facili ty 2025 AMBULATORY - MEDICINE AMBULATORY - MEDICI [facility]
[2025-03-18 08:59] VITALS: BP 139/77; PULSE 84; TEMP 36.5; O2SAT 97; BMI 25.8
--- OUTSIDE RECORDS SUMMARY | 2025-03-18 09:07 | XMS_ITS | Clinical Summary ---
Author Organization [facility] Address [address], [address] [place] [address] Care Team Providers Care Residential Treatment Specialist Name Role Phone Onofre Pineda DO Primary Care Provider [phone] Allergies No known active allergies Medications aspirin 81 MG tablet Take 1 tablet by mouth daily Active escitalopram (LEXAPRO) 20 MG tablet Take 1 tablet by mouth daily Active losartan (COZAAR) 50 MG tablet Take 1 tablet by mouth daily Active pantoprazole (PROTONIX) 20 MG tablet Take 1 tablet by mouth 2 times daily Active ezetimibe (ZETIA) 10 MG tablet Take 1 tablet by mouth daily 90 tablet 3 07/06/20 21 Active finasteride (PROSCAR) 5 MG tablet Take 1 tablet by mouth daily 90 tablet 3 03/19/20 23 Active Multiple Vitamin (MULTI VITAMIN DAILY PO) Take by mouth 03/07/20 20 Active atorvastatin (LIPITOR) 80 MG tabletIndications: Coronary artery disease with angina pectoris, unspecified vessel or lesion type, unspecified whether little traverse or transplanted heart,S/P angioplasty with stent,Mixed hyperlipidemia TAKE 1 TABLET BY MOUTH AT BEDTIME 90 tablet 3 04/01/20 24 Active Magnesium 400 MG CAPS Take by mouth Active venlafaxine (EFFEXOR XR) 150 MG extended release capsule Take 1 capsule by mouth daily Active rivaroxaban (XARELTO) 2.5 MG TABS tabletIndications: Shortness of breath,Coronary artery disease with angina pectoris, unspecified vessel or lesion type, unspecified whether little traverse or transplanted heart,S/P angioplasty with stent,Mixed hyperlipidemia,Ess ential hypertension,Tired ness,PAC (premature atrial contraction) Take 1 tablet by mouth 2 times daily (with meals) 180 tablet 3 02/16/20 Active Additional Information Patient not taking.Reported on 03/05/2025 clopidogrel (PLAVIX) 75 MG tablet Take 1 tablet by mouth daily Active carvedilol (COREG) 12.5 MG tablet Take 1 tablet by mouth 2 times daily 180 tablet 3 03/05/20 25 Active carvedilol (COREG) 12.5 MG tablet Take 0.5 tablets by mouth 2 times daily 45 tablet 7 05/29/20 24 025 Discontin ued([facility]) Active Problems Problem Noted Date Diagnosed Date Abnormal cardiovascular stress test 11/11/2019 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 11/11/2019 S/P angioplasty with stent 11/11/2019 Essential hypertension 11/11/2019 Mixed hyperlipidemia 11/11/2019 Encounters Date Type Department Care Team Description 03/05/2025 11:00 AM EDT Office Visit [facility] [address] [address] Marissa Jackson, BASKET GRADER - DIRECTOR OF PERSONNEL Shortness of breath (Primary Dx); Coronary artery disease with angina pectoris, unspecified vessel or lesion type, unspecified whether little traverse or transplanted heart; S/P angioplasty with stent; Mixed hyperlipidemia; Essential hypertension 02/15/2025 12:50 PM EDT - 02/17/2025 11:59 PM EDT Hospital Encounter [facility] Non-Invasive [facility] [address] [place] [phone] Shortness of breath; Coronary artery disease with angina pectoris, unspecified vessel or lesion type, unspecified whether little traverse or transplanted heart; S/P angioplasty with stent; Mixed hyperlipidemia; Essential hypertension; Tiredness; PAC (premature atrial contraction) Discharge Disposition: Home or Self Care 02/15/2025 Results Follow-Up [facility] [address] [address] Marissa Jackson BASKET GRADER - DIRECTOR OF PERSONNEL Results 02/15/2025 Refill [facility] Part of [address] [address] Johan Villasenor MD Medication Refill 02/12/2025 11:01 AM EDT - 02/14/2025 11:59 PM EDT Hospital Encounter [facility] Non-Invasive [facility]iology [address] [place] [phone] Shortness of breath; Coronary artery disease with angina pectoris, unspecified vessel or lesion type, unspecified whether little traverse or transplanted heart; S/P angioplasty with stent; Mixed hyperlipidemia; Essential hypertension; Tiredness Discharge Disposition: Home or Self Care 02/12/2025 9:30 AM EDT Office Visit [facility] Part of [address] [address] Marissa Jackson, BASKET GRADER - DIRECTOR OF PERSONNEL Shortness of breath (Primary Dx); Coronary artery disease with angina pectoris, unspecified vessel or lesion type, unspecified whether little traverse or transplanted heart; S/P angioplasty with stent; Mixed hyperlipidemia; Essential hypertension; Tiredness; PAC (premature atrial contraction) 02/12/2025 Abstract [facility] Part of [address] [place] [address] Kacie Garcia MA 02/12/2025 Refill [facility] Part of [address] [place] [address] Vernon Robles MD Medication Refill 02/12/2025 Abstract [facility] Part of [address] [place] [address] Kacie Garcia MA 02/12/2025 Abstract [facility] Part of [address] [place] [address] Kacie Garcia MA from Last 3 Months Family History Medical History Relation Name Comments Heart Attack Brother 5 Cancer Father Heart Attack Father Relation Name Status Comments Brother 1 Brother 2 Brother 3 Brother 4 Brother 5 Father Mother Sister 1 Alive Sister 2 Alive Sister 3 Alive Sister 4 Sister 5 Sister 6 Sister 7 Sister 8 Social History Tobacco Use Types Packs/Day Years [...] Friends and Family Patient declined 08/12/2019 Attends [employer] Patient declined 07/26 Active Member of [...] on file Sexual Orientation Not on file Last Filed Vital Signs Vital Sign Reading Time Taken Comments Blood Pressure 138/88 03/05/2025 11:16 AM EDT Pulse 85 03/05/2025 11:16 AM EDT Temperature 36.9 C (98.4 F) 09/18/2023 8:42 AM EST Respiratory Rate 18 03/05/2025 11:16 AM EDT Oxygen Saturation 98% 03/05/2025 11:16 AM EDT Inhaled Oxygen Concentration - - Weight 74.5 kg (164 lb 3.2 oz) 03/05/2025 11:16 AM EDT Height 165.1 cm (5' 5 ) 03/05/2025 11:16 AM EDT Body Mass Index 27.32 03/05/2025 11:16 AM EDT Plan of Treatment Upcoming Encounters Date Type Department Care Team (Late st Contact Info) Description 10/11/2025 1:40 PM EST Office Visit [facility] Part of [address] [address] Johan Villasenor MD [address] [place] [phone] 6 month Scheduled Procedures Name Priority Associated Diagnoses Date/Ti me LEFT VENTRICULOGRAPHY Abnormal stress test Health Maintenance Due Date Last Done Comments Depression Screen 1947 Shingles vaccine (1 of 2) 1987 Respiratory Syncytial Virus (RSV) or age 60 yrs+ (1 - 1-dose 75+ series) 2012 Pneumococcal 50+ years Vaccine (2 of 2 - PCV) 07/12/2018 07/12/2017, 04/11/2006 Annual Wellness Visit (Medicare) 07/22/2023 COVID-19 Vaccine (4 - season) 2024 06/02/2021, 10/05/2020, 09/14/2020 Lipids 08/27/2024 08/27/2023 Flu vaccine (#1) 03/26/2025 05/07/2024, , 06/14/2021, Additional history exists DTaP/Tdap/Td vaccine (5 - Tdap) 11/30/2030 11/30/2020, 06/22/2013, 05/08/2012, Additional history exists Hepatitis A vaccine Aged Out No longe r eligible based on patient's age to complete this topic Hepatitis B vaccine Aged Out No longe r eligible based on patient's age to complete this topic Hib vaccine Aged Out No longer eligi ble based on patient's age to complete this topic Meningococcal (ACWY) vaccine Aged Out No longer eligible based on patient's age to complete this topic Meningococcal B vaccine Aged Out No l onger eligible based on patient's age to complete this topic Polio vaccine Aged Out No longer elig ible based on patient's age to complete this topic Medical Devices Implanted Type Area Lead Sewage Plant Operator Device Identifier Shelf Expiration Date Model / Serial / Lot Stent Coronary Emanuel Idamay Rx [id number] Mm Zotarolimus Elute - [id number] Implanted:Qty: 1 on 09/18/2023 by Kathy Mcmullen MD at [facility] Coronary stents [employer] V[employer]-WD [id number] / / Procedures Procedure Name Priority Date/Time Associated Diagnosis Comments ECHO (TTE) COMPLETE Routine 02/15/2025 1:30 PM EDT Shortness of breath Coronary artery disease with angina pectoris, unspecified vessel or lesion type, unspecified whether little traverse or transplanted heart S/P angioplasty with stent Mixed hyperlipidemia Essential hypertension Tiredness PAC (premature atrial contraction) EXTENDED CARDIAC HOLTER MONITOR 3D-7D (REPORT GENERATED IN HOUSE) Routine 02/12/2025 11:16 AM EDT Shortness of breath Coronary artery disease with angina pectoris, unspecified vessel or lesion type, unspecified whether little traverse or transplanted heart S/P angioplasty with stent Mixed hyperlipidemia Essential hypertension Tiredness LIPID PANEL Routine 08/27/2023 1:11 PM EST SOB (shortness of breath) Abnormal stress test Coronary artery disease involving coronary bypass graft of little traverse heart without angina pectoris S/P angioplasty with stent Essential hypertension Mixed hyperlipidemia Tiredness from Last 3 Months or Most Recently Relevant to Health Maintenance Results * (ABNORMAL) ECHO (TTE) COMPLETE (02/15/2025 1:30 PM EDT) LV EDV A2C 82 mL [facility] CV CPACS LV EDV A4C 77 mL [facility] CV CPACS LV ESV A2C 38 mL [facility] CV CPACS LV ESV A4C 38 mL [facility] CV CPACS IVSd 1.3(A) 0.6 - 1.0 cm [facility] CV CPACS LVIDd 4.5 4.2 - 5.9 cm [facility] CV CPACS LVIDs 3.4 cm [facility] CV CPACS LVOT Mean Gradient 1 mmHg [facility] CV [facility]ACS LVOT VTI 14.6 cm [facility]ACS LVOT Peak Velocity 0.8 m/s [facility] CV CPACS LVOT Peak Gradient 3 mmHg [facility] CV CPACS LVPWd 1.2(A) 0.6 - 1.0 cm [facility]ACS LV E' Lateral Velocity 7.51 cm/s [facility] CPACS LV Ejection Fraction A2C 53 % [facility] CV CPACS LV Ejection Fraction A4C 51 % [facility] CV CPACS EF BP 51(A) 55 - 100 % [facility] CV CPACS LA Minor Gueydan 5.3 cm [facility] CV CPACS LA Major Gueydan 5.2 cm BS CV CPACS LA Area 2C 18.0 cm2 [facility] CV CPACS LA Area 4C 17.1 cm2 [facility] CV CPACS LA Volume MOD A2C 50 18 - 58 mL BS CV CPA CS LA Volume MOD A4C 46 18 - 58 mL BS CV CPA CS LA Volume BP 48 18 - 58 mL BS CV CPACS AR PHT 465.0 ms BS CV CPACS AR Max Velocity PISA 3.1 m/s BS CV CPACS AV Peak Velocity 1.3 m/s BS CV CPACS AV Peak Gradient 7 mmHg BS CV CPACS AV Cusp Mmode 1.2 cm BS CV CPACS AV Mean Gradient 4 mmHg BS CV CPACS AV VTI 23.5 cm BS CV CPACS AV Mean Velocity 0.9 m/s BS CV CPACS Aortic Root 1.8 cm BS CV CPACS Ascending Aorta 3.8 cm BS CV CPACS Sinotubular Junction 2.5 cm [facility] CV CPACS Aortic Sinus Valsalva 3.8 cm BS CV CPACS MV E Wave Deceleration Time 275.0 ms BS CV CPACS MV A Velocity 0.67 m/s BS CV CPACS MV E Velocity 0.28 m/s BS CV CPACS IA Max Velocity 1.0 m/s BS CV CPACS Pulmonary Artery EDP 4 mmHg BS CV CPACS PV Max Velocity 1.1 m/s BS CV CPACS PV Peak Gradient 5 mmHg BS CV CPACS TAPSE 1.0(A) >=1.7 cm BS CV CPACS TR Max Velocity 2.28 m/s BS CV CPACS TR Peak Gradient 21 mmHg BS CV CPACS Body Surface Area 1.87 m2 BS CV CPACS Fractional Shortening 2D 24 28 - 44 % [facility] LV ESV Index A4C 21 mL/m2 [facility] CV CPACS LV EDV Index A4C 42 mL/m2 [facility] CV CPACS LV ESV Index A2C 21 mL/m2 BS CV CPACS LV EDV Index A2C 45 mL/m2 BS CV CPACS LVIDd Index 2.45 cm/m2 [facility] CV CPACS LVIDs Index 1.85 cm/m2 [facility] CV CPACS LV RWT Ratio 0.53 BS CV CPACS LV Mass 2D 210.2 88 - 224 g BS CV CPACS LV Mass 2D Index 114.2 49 - 115 g/m2 BS CV CPACS MV E/A 0.42 BS CV CPACS E/E' Lateral 3.73 BS CV CPACS LA Volume Index BP 26 16 - 34 ml/m2 BS CV CPACS LA Volume Index MOD A2C 27 16 - 34 ml/m2 BS CV CPACS LA Volume Index MOD A4C 25 16 - 34 ml/m2 BS CV CPACS Ao Root Index 0.98 cm/m2 [facility] CV CPACS Aortic Sinus Valsalva Index 2.07 cm/m2 BS CV CPACS Ascending Aorta Index 2.07 cm/m2 [facility] CV CPACS AV Velocity Ratio 0.62 [facility] CV CPACS LVOT:AV VTI Index 0.62 [facility] CV CPACS Est. RA Pressure 3 mmHg [facility] CV CPACS RVSP 24 mmHg [facility] CV CPACS EF Physician 50 % [facility] CV CPACS Anatomical Region Laterality Modality Echocardiography Narrative 02/15/2025 4:44 PM EDT Left Ventricle: Low normal left ventricular systolic function with a visually estimated EF of 50 - 55%. Mildly increased wall thickness. Mild global hypokinesis present. Grade I diastolic dysfunction with normal LAP. Right Ventricle: Reduced systolic function. TAPSE is abnormal. TAPSE is 1.0 cm. Aortic Valve: Mild regurgitation. Mitral Valve: Mild regurgitation. Tricuspid Valve: Mild regurgitation. RVSP is 24 mmHg. Image quality is adequate. Compared to the previous study on 09/03/22, the patients ejection fraction has declined from 55% to 50% and now also has evidence of RV dysfunction. Clinical correlation required. Left Ventricle Low normal left ventricular systolic function with a visually estimated EF of 50 - 55%. Mildly increased wall thickness. Mild global hypokinesis present. Grade I diastolic dysfunction with normal LAP. Right Ventricle Right ventricle size is normal. Reduced systolic function. TAPSE is abnormal. TAPSE is 1.0 cm. Left Atrium Left atrium size is normal. Right Atrium Right atrium size is normal. IVC/SVC IVC diameter is normal or and decreases greater than 50% during inspiration; therefore the estimated right atrial pressure is normal (~3 mmHg). IVC size is normal. Mitral Valve Valve structure is normal. Mild regurgitation. No stenosis noted. Tricuspid Valve Valve structure is normal. Mild regurgitation. RVSP is 24 mmHg. No stenosis noted. Aortic Valve Valve structure is normal. Mild regurgitation. No stenosis. Pulmonic Valve The pulmonic valve visualization is suboptimal but appears to be functioning normally. Mild regurgitation. No stenosis noted. Ascending Aorta Mildly dilated aortic root. Ao root diameter is 1.8 cm. Mildly dilated ascending aorta. Ao ascending diameter is 3.8 cm. Aortic Sinus Valsalva is 3.8 cm. Ascending Aorta is 3.8 cm. Pericardium No pericardial effusion. Study Details Image quality: adequate. No contrast was given. Marissa Jackson [facility] ECHO ORDERABLES Final Result * EXTENDED CARDIAC HOLTER MONITOR 3D-7D (REPORT GENERATED IN HOUSE) (02/12/2025 11:16 AM EDT) Pathologist [facility] Body Surface Area 1.87 m2 [facility] CV NOWHERE Anatomical Region Laterality Modality Cardiac Diagnost ic Narrative 02/19/2025 9:14 AM EDT 2 days and 20 hours recorded. Baseline rhythm is sinus with an average heart rate of 82 bpm, ranging between 69 and 118 bpm. Rare isolated PACs and PVCs noted with 2 short runs of ectopic atrial tachycardia, the longest lasted for only 4 beats at an average heart rate of 121 bpm. No patient activated events recorded. Overall fairly unremarkable study. Marissa Jackson [facility] CARDIAC DIAGNOS TIC ORDERABLES Final Result * (ABNORMAL) Lipid Panel (08/27/2023 1:11 PM EST) Cholesterol 131 <200 mg/dL 08/27/2023 1:[address] Comment: Cholesterol Guidelines: <200 Desirable 200-240 Borderline >240 Undesirable HDL 36(L) >40 mg/dL 08/27/2023 1:[address] Comment: HDL Guidelines: <40 Undesirable 40-59 Borderline >59 Desirable LDL Cholesterol 60 0 - 130 mg/dL 08/27/2023 1:[address] Comment: LDL Guidelines: <100 Desirable 100-129 Near to/above Desirable 130-159 Borderline >159 Undesirable Direct (measured) LDL and calculated LDL are not interchangeable tests. Chol/HDL Ratio 3.6 <5 08/27/2023 1:[address] Comment: Triglycerides 176(H) <150 mg/dL 08/27/2023 1:[address] Comment: Triglyceride Guidelines: <150 Desirable 150-199 Borderline 200-499 High >499 Very high Based on AHA Guidelines for fasting triglyceride, May 2012. Blood BLOOD SPECIMEN / Unknown 08/27/2023 1:11 PM EST 08/27/2023 1:12 PM EST Deja Guthrie PA-C CHEMISTRY ORDERABLES Final Result [facility] [address] [place] [address], [facility] [phone] [facility] [address] [place] [address], [facility] [phone] from Last 3 Months or Most Recently Relevant to Health Maintenance Insurance [employer] MEDICARE [place] MEDICARE [employer] MEDICARE Advance Directives * Full Code (Latest Code Status on File) Date Activated Date Inactivated Comments 09/18/2023 8:51 AM 09/18/2023 7:37 PM * Full Code Date Activated Date Inactivated Comments 09/05/2023 10:09 AM 09/05/2023 2:26 PM * Full Code Date Activated Date Inactivated Comments 09/05/2023 8:39 AM 09/05/2023 10:09 AM Care Teams Residential Treatment Specialist Relationship Specialty Start Date End Date Onofre Pineda DO PCP - General Internal Medicine 08/12/19
--- OUTSIDE RECORDS SUMMARY | 2025-03-18 09:07 | XMS_ITS | Clinical Summary ---
Author Organization [facility] Address [address] [place] [address] Care Team Providers Care Office Secretary Name Role Phone Simona Ramos Primary Care Provider [phone] Social History Tobacco Use Types Packs/Day Years Used Date Smoking Tobacco: Never Assessed Sex and Gender Information Value Date Recorded Sex Assigned at Not on file Legal Sex Male 10:06 AM EST Gender Identity Not on file Sexual Orientation Not on file Plan of Treatment Health Maintenance Due Date Last Done Comments Anxiety Screening 1953 Depression Screening 1953 DTaP,Tdap,Td Vaccine (1 - Tdap) 1956 Pneumococcal Vaccine: 50+ (1 of 1 - PCV) 1987 Shingrix Vaccine (1 of 2) 1987 Diabetes Screening 07/21/2007 07/21/2004 RSV Vaccine (1 - 1-dose 75+ series) 2012 Covid-19 Vaccine ( season) 2024 Advance Directive Discussion 08/26/2024 Influenza Vaccine (#1) 2025 Procedures Procedure Name Priority Date/Time Associated Diagnosis Comments BASIC METABOLIC PANEL 07/21/2004 5:12 PM EST from Last 3 Months or Most Recently Relevant to Health Maintenance Results * BASIC METABOLIC PNL (07/21/2004 5:12 PM EST) Glucose 95 65 - 100 mg/dL [facility] BUN 18 10 - 25 mg/dL [facility] Creatinine 0.9 0.7 - 1.4 mg/dL [facility] Sodium 138 135 - 146 mmol/L [facility] Potassium 3.6 3.5 - 5.0 mmol/L [facility] Chloride 105 98 - 110 mmol/L [facility] CO2 24 24 - 32 mmol/L [facility] Anion Gap 9 0 - 15 mmol/L [facility] Calcium 9.3 8.5 - 10.5 mg/dL [facility] 07/21/2004 5:12 PM EST us Gretchen Antonio MD LABORATORY Final Result [facility] [address] [place] [address] from Last 3 Months or Most Recently Relevant to Health Maintenance Insurance MEDICARE RAILROAD Care Teams Office Secretary Relationship Specialty Start Date End Date Yohana-Simona Singer [address] [place] [address] PCP - General 09/25/04
--- OUTSIDE RECORDS SUMMARY | 2025-03-18 09:07 | XMS_ITS | Clinical Summary ---
Author Organization [facility] Address [address] [place] [address] Care Team Providers Care Evaporator Operator Molasses Name Role Phone Unavailable Primary Care Provider Unavailabl e Social History Tobacco Use Types Packs/Day Years Used Date Smoking Tobacco: Never Assessed Sex and Gender Information Value Date Recorded Sex Assigned at Not on file Legal Sex Male 6:46 PM EDT Gender Identity Not on file Sexual Orientation Not on file Last Filed Vital Signs Vital Sign Reading Time Taken Comments Blood Pressure 149/93 04/25/2020 12:00 PM EDT Pulse - - Temperature - - Respiratory Rate - - Oxygen Saturation - - Inhaled Oxygen Concentration - - Weight 74.8 kg (165 lb) 11/13/2022 12:00 PM EDT Height 165.1 cm (5' 5 ) 11/13/2022 12:00 PM EDT Body Mass Index 27.46 11/13/2022 12:00 PM EDT Plan of Treatment Health Maintenance Due Date Last Done Comments Pneumococcal Vaccine: 65+ Years (2 of 2 - PCV) 018 07/12/2017 Influenza Vaccine (#1) 2025 07/12/2017 [place] [id number]
--- OUTSIDE RECORDS SUMMARY | 2025-03-18 09:07 | XMS_ITS | Clinical Summary ---
Author Organization [facility] Address [address] [place] [address] Phone Care Team Providers Care Beam Saw Operator Name Role Phone Unavailable Primary Care Provider Unavailabl e Social History Tobacco Use Types Packs/Day Years Used Date Smoking Tobacco: Never Assessed Sex and Gender Information Value Date Recorded Sex Assigned at Not on file Legal Sex Male 2:58 AM EST Gender Identity Not on file Sexual Orientation Not on file Plan of Treatment Health Maintenance Due Date Last Done Comments Lipid Panel 1935 Yearly Adult Physical 1935 DTaP/Tdap/Td Vaccines (1 - Tdap) 1959 Pneumococcal Vaccine (1 of 1 - PCV) 1987 Zoster Vaccines (1 of 2) 1987 RSV High Risk: (Elderly (60+ ) or Population) (1 - 1-dose 75+ series) 2012 COVID-19 Vaccine ( - 2023-2 5 season) 2024 Influenza Vaccine (#1) 2025 HIB Vaccines Aged Out No longer eligi ble based on patient's age to complete this topic HPV Vaccines Aged Out No longer eligi ble based on patient's age to complete this topic Hepatitis A Vaccines Aged Out No long er eligible based on patient's age to complete this topic Hepatitis B Vaccines Aged Out No long er eligible based on patient's age to complete this topic IPV Vaccines Aged Out No longer eligi ble based on patient's age to complete this topic Meningococcal Vaccine Aged Out No tori shelley eligible based on patient's age to complete this topic Rotavirus Vaccines Aged Out No longer eligible based on patient's age to complete this topic
--- NOTE | 2025-03-18 09:14 | ED.GENADUL1 ---
HPI HPI - General Adult General Chief complaint: Fall Stated complaint: UPPER EXTREMITY INJURY Time Seen by Provider: 03/18/25 08:59 Source: patient and family Mode of arrival: walk-in Limitations: no limitations History of Present Illness HPI narrative: This 59-year-old male presenting for evaluation of injury due to fall. He was going up the stairs to his bedroom last night and fell down 11 steps. He did not injure his head and denies any pain in his head or neck. There was no loss of consciousness. He had a superficial skin tear on the outer aspect of the mid left upper arm which his closed with Steri-Strips. He reports injury to the fingers of the left hand and sustained abrasions to the left neal and left ankle. He is able to ambulate. He denies headache or neck pain. Related Data Home Medications ?Medication ?Instructions ?Recorded ?Confirmed aspirin 81 mg capsule 81 mg PO DAILY 05/06/24 03/18/25 atorvastatin 80 mg tablet (Lipitor) 80 mg PO QPM 05/06/24 05/06/24 carvedilol 6.25 mg tablet (Coreg) 6.25 mg PO Q12H 05/06/24 05/06/24 clopidogrel 75 mg tablet (Plavix) 75 mg PO DAILY 05/06/24 03/18/25 escitalopram oxalate 20 mg tablet 20 mg PO DAILY 05/06/24 05/06/24 ezetimibe 10 mg tablet 10 mg PO DAILY 05/06/24 05/06/24 finasteride 5 mg tablet (Proscar) 5 mg PO DAILY 05/06/24 05/06/24 losartan 50 mg tablet (Cozaar) 50 mg PO DAILY 05/06/24 05/06/24 multivitamin (Daily Multi-Vitamin 1 tab PO DAILY 05/06/24 05/06/24 tablet) pantoprazole 40 mg tablet,delayed 40 mg PO QAM 05/06/24 05/06/24 release tramadol 50 mg tablet mg 05/06/24 Allergies Allergy/AdvReac Type Severity Reaction Status Date / Time fluvastatin Allergy Unknown Unknown Verified 03/18/25 09:08 simvastatin Allergy Unknown Unknown Verified 03/18/25 09:08 sulfamethoxazole (From AdvReac Intermediate Abdominal Verified 03/18/25 09:08 Bactrim) Pain trimethoprim (From Bactrim) AdvReac Intermediate Abdominal Verified 03/18/25 09:08 Pain Review of Systems ROS Status of ROS 10 or more systems reviewed and unremarkable except as noted in history and below [facility] Social History Little interest or pleasure in doing things: not at all Feeling down, depressed, or hopeless: not at all Exam Narrative Exam Narrative: Patient is awake alert and without signs of obvious distress other than further areas of injury. Vitals are stable and are as documented. His head is atraumatic. There is no cervical spine tenderness. Pupils are equal and reactive and there is no evidence of facial injury. There is obvious deformity of the DIP joint of the left middle finger and bruising of the left ring finger there is superficial skin tear roughly 6 to 7 cm in length on the outer aspect of the mid left upper arm with underlying soft tissue and bony tenderness but no obvious deformity. There is a superficial abrasion on the lateral aspect of the left ankle with minimal underlying tenderness and some soft tissue swelling but no obvious instability of the ankle. Abrasion is also noted over the distal left lower leg. The thoracolumbar spine is nontender to percussion. Lung sounds are clear to auscultation bilaterally with good air entry. There is no chest wall tenderness. Heart has regular rate and rhythm. Abdomen soft nontender and not distended and there is no organomegaly. Speech and mentation are clear and intact. There is no facial asymmetry. Patient moves all extremities actively. Skin is warm and dry. There is no pallor or icterus. Constitutional Vital Signs, click to edit/add: Last Vital Signs Temp 97.7 F 03/18/25 08:59 Pulse 84 03/18/25 08:59 Resp 18 03/18/25 08:59 BP 139/77 03/18/25 08:59 Pulse Ox 97 03/18/25 08:59 O2 Del Method Room Air 03/18/25 08:59 Course Vital Signs Vital signs: Vital Signs Temperature 97.7 F 03/18/25 08:59 Pulse Rate 84 03/18/25 08:59 Respiratory Rate 18 03/18/25 08:59 Blood Pressure 139/77 03/18/25 08:59 Pulse Oximetry 97 03/18/25 08:59 Oxygen Delivery Method Room Air 03/18/25 08:59 Temperature 97.7 F 03/18/25 08:59 Pulse Rate 84 03/18/25 08:59 Respiratory Rate 18 03/18/25 08:59 Blood Pressure 139/77 03/18/25 08:59 Pulse Oximetry 97 03/18/25 08:59 Oxygen Delivery Method Room Air 03/18/25 08:59 Medical Decision Making MDM Narrative Medical decision making narrative: Patient has a dislocation of the DIP joint of his left middle finger. The distal fragment is displaced dorsally and there is a question of a small fracture of the base of the distal phalanx. The other x-rays are negative for acute fracture. The left middle finger was digitally blocked with an equal mixture of lidocaine 1% plain and bupivacaine 0.5% plain. The DIP dislocation was then reduced by hyperextending the distal phalanx and then sliding it over the middle phalanx. Normal anatomical alignment has been achieved. A finger splint is then applied for immobility to be kept on for the next 4 to 5 days. Patient is up-to-date with his tetanus immune status. He is stable for discharge and is advised follow-up with his PCP with instructions to return anytime for worsening symptoms. Discharge Plan Discharge Chief Complaint: Fall Clinical Impression: Skin tear of left upper extremity, Fall (on) (from) other stairs and steps, initial encounter Dislocation of distal interphalangeal (DIP) joint of left middle finger Qualifiers: Encounter type: initial encounter Qualified Code(s): S63.293A - Dislocation of distal interphalangeal joint of left middle finger, initial encounter Abrasion of left lower extremity Qualifiers: Encounter type: initial encounter Qualified Code(s): S80.812A - Abrasion, left lower leg, initial encounter Patient Disposition: Home, Self-Care Time of Disposition Decision: 10:57 Condition: Good Mode of Transportation: Private Vehicle Prescriptions / Home Meds: No Action carvedilol [Coreg] 6.25 mg tablet 6.25 mg PO Q12H Rx Instructions: must administer with a meal/food pantoprazole 40 mg tablet,delayed release (DR/EC) 40 mg PO QAM tramadol 50 mg tablet losartan [Cozaar] 50 mg tablet 50 mg PO DAILY aspirin 81 mg capsule 81 mg PO DAILY finasteride [Proscar] 5 mg tablet 5 mg PO DAILY escitalopram oxalate 20 mg tablet 20 mg PO DAILY clopidogrel [Plavix] 75 mg tablet 75 mg PO DAILY atorvastatin [Lipitor] 80 mg tablet 80 mg PO QPM multivitamin [Daily Multi-Vitamin] Tablet 1 tab PO DAILY ezetimibe 10 mg tablet 10 mg PO DAILY Print Language: Luxembourgish Instructions: Abrasion (ED), Finger Dislocation (ED) Additional Instructions: Keep splint on your finger for 4 to 5 days. Keep wounds clean, wash with lukewarm water and soap once a day. Return for worsening symptoms. Referrals: Onofre Pineda DO [Primary Care Provider, Internal Medicine] - 1 week
--- NOTE | 2025-03-18 09:28 | XR_ITS ---
The [address] [address] Patient Name: JERRY GOODE MRN: [id number] date: 1935 Sex: M Assigned Patient Location: ER Current Patient Location: ER Accession/Order Number: [id number] Exam Date: 03/18/2025 09:50 Report Date: 03/18/2025 09:54 At the request of: KASIE VENEGAS MD Procedure: XR humerus LT LEFT ANKLE - 3 views, left humerus 2 views, left hand 3 views CLINICAL HISTORY: Fall yesterday. Pain left ankle left middle finger and left humerus. COMPARISON: None FINDINGS: Left ankle: Basilar calcifications and surgical clips are present. Bones are grossly demineralized. Ankle mortise demonstrates mild degenerative change. There appears to BE remote injury involving the medial malleolus. No acute bony process is seen. Next Left humerus: No focal soft tissue abnormality. Degenerative changes are noted involving the right shoulder. Elbow joint is grossly intact. No acute bony process is seen. Left hand: Bones are grossly demineralized. No focal soft tissue abnormality. There appears to be dislocation of the DIP joint of the middle finger with volar positioning of the distal phalanx with respect to the middle phalanx. A subtle fracture involving the base of the distal phalanx is suspected. Scattered degenerative changes worst at the CMC joint of the thumb. No bony erosions. XR/XR ankle LT min 3V IMPRESSION: DISLOCATION OF THE DIP JOINT OF THE MIDDLE FINGER OF THE LEFT HAND WITH LIKELY SUBTLE FRACTURE INVOLVING THE BASE OF THE DISTAL PHALANX. LEFT ANKLE DEMONSTRATES DEGENERATIVE CHANGE WITHOUT ACUTE BONY PROCESS. LEFT HUMERUS DEMONSTRATES DEGENERATIVE CHANGE WITHOUT ACUTE BONY PROCESS.. Impression dictated by: Travis Ozuna Jr., D.O. 03/18/2025 9:54 AM Dictation Location: [place] [address] Electronically authenticated by: [id number] Y Date: 03/18/2025 09:54
--- NOTE | 2025-03-18 09:28 | XR_ITS ---
The [address] [address] Patient Name: JERRY GOODE MRN: [id number] date: 1935 Sex: M Assigned Patient Location: ER Current Patient Location: ER Accession/Order Number: [id number] Exam Date: 03/18/2025 09:50 Report Date: 03/18/2025 09:54 At the request of: KASIE VENEGAS MD Procedure: XR humerus LT LEFT ANKLE - 3 views, left humerus 2 views, left hand 3 views CLINICAL HISTORY: Fall yesterday. Pain left ankle left middle finger and left humerus. COMPARISON: None FINDINGS: Left ankle: Basilar calcifications and surgical clips are present. Bones are grossly demineralized. Ankle mortise demonstrates mild degenerative change. There appears to BE remote injury involving the medial malleolus. No acute bony process is seen. Next Left humerus: No focal soft tissue abnormality. Degenerative changes are noted involving the right shoulder. Elbow joint is grossly intact. No acute bony process is seen. Left hand: Bones are grossly demineralized. No focal soft tissue abnormality. There appears to be dislocation of the DIP joint of the middle finger with volar positioning of the distal phalanx with respect to the middle phalanx. A subtle fracture involving the base of the distal phalanx is suspected. Scattered degenerative changes worst at the CMC joint of the thumb. No bony erosions. XR/XR humerus LT IMPRESSION: DISLOCATION OF THE DIP JOINT OF THE MIDDLE FINGER OF THE LEFT HAND WITH LIKELY SUBTLE FRACTURE INVOLVING THE BASE OF THE DISTAL PHALANX. LEFT ANKLE DEMONSTRATES DEGENERATIVE CHANGE WITHOUT ACUTE BONY PROCESS. LEFT HUMERUS DEMONSTRATES DEGENERATIVE CHANGE WITHOUT ACUTE BONY PROCESS.. Impression dictated by: Travis Ozuna Jr., D.O. 03/18/2025 9:54 AM Dictation Location: [place] [address] Electronically authenticated by: [id number] Date: 03/18/2025 09:54
--- NOTE | 2025-03-18 09:28 | XR_ITS ---
The [address] [address] Patient Name: JERRY GOODE MRN: [id number] date: 1935 Sex: M Assigned Patient Location: ER Current Patient Location: ER Accession/Order Number: [id number] Exam Date: 03/18/2025 09:50 Report Date: 03/18/2025 09:54 At the request of: KASIE VENEGAS MD Procedure: XR humerus LT LEFT ANKLE - 3 views, left humerus 2 views, left hand 3 views CLINICAL HISTORY: Fall yesterday. Pain left ankle left middle finger and left humerus. COMPARISON: None FINDINGS: Left ankle: Basilar calcifications and surgical clips are present. Bones are grossly demineralized. Ankle mortise demonstrates mild degenerative change. There appears to BE remote injury involving the medial malleolus. No acute bony process is seen. Next Left humerus: No focal soft tissue abnormality. Degenerative changes are noted involving the right shoulder. Elbow joint is grossly intact. No acute bony process is seen. Left hand: Bones are grossly demineralized. No focal soft tissue abnormality. There appears to be dislocation of the DIP joint of the middle finger with volar positioning of the distal phalanx with respect to the middle phalanx. A subtle fracture involving the base of the distal phalanx is suspected. Scattered degenerative changes worst at the CMC joint of the thumb. No bony erosions. XR/XR hand LT min 3V IMPRESSION: DISLOCATION OF THE DIP JOINT OF THE MIDDLE FINGER OF THE LEFT HAND WITH LIKELY SUBTLE FRACTURE INVOLVING THE BASE OF THE DISTAL PHALANX. LEFT ANKLE DEMONSTRATES DEGENERATIVE CHANGE WITHOUT ACUTE BONY PROCESS. LEFT HUMERUS DEMONSTRATES DEGENERATIVE CHANGE WITHOUT ACUTE BONY PROCESS.. Impression dictated by: Travis Ozuna Jr., D.O. 03/18/2025 9:54 AM Dictation Location: [place] [address] Electronically authenticated by: [id number] Y Date: 03/18/2025 09:54
[2025-03-18] MEDS: BUPIVACAINE HCL 0.5% PF 50 MG/10 ML VIAL 5 ML INJ (10:46)
[2025-03-18] MEDS: LIDOCAINE HCL 1% 100 MG/10 ML MDV INJ (10:46)
== END 2025-03-18 11:45 | disposition home or self-care (01) ==
PROVIDERS: Emergency Provider Emergency Medicine; PCP Internal Medicine
DX: S63.293A Dislocation of distal interphalangeal joint of left middle finger, initial encounter (principal); S90.512A Abrasion, left ankle, initial encounter; S80.812A Abrasion, left lower leg, initial encounter; W10.8XXA Fall (on) (from) other stairs and steps, initial encounter; S41.112A Laceration without foreign body of left upper arm, initial encounter
CPT/HCPCS: 26770; 73060; 73130; 73610; 99284; J0665